=== PATIENT | male | born 1945 | race Caucasian/White ===

== ENCOUNTER 2016-11-19 22:35 | Inpatient (IN) ==
[2016-11-20] MEDS ORDERED: *HR* HYDROmorphone (PF) 1 MG/ML SYRINGE IVP ONE (02:40)
--- NOTE | 2016-11-20 02:44 | Internal Med History&Physical ---
<Randa Hills - Last Filed: 11/20/16 04:21> Date of Encounter: 11/20/16 Time of Encounter: 02:41 Assessment and Plan (1) Hip fracture Current visit: No Status: Acute pre-surgery clearance -urinalysis -drug screen -A1C -EKG - if abnormal, order limited echo -VBG supportive care -pain control -CIWA -nicotine patch Qualifiers: Encounter type: initial encounter Fracture type: closed Laterality: right Qualified Code(s): S72.001A - Fracture of unspecified part of neck of right femur, initial encounter for closed fracture (2) Alcohol abuse Current visit: Yes Status: Acute CIWA protocol (3) Diabetes Current visit: Yes Status: Acute A1C ordered SQ insulin Qualifiers: Diabetes mellitus type: type 2 Diabetes mellitus complication status: with unspecified complications Diabetes mellitus joint terminal attack controller insulin use: without joint terminal attack controller use Qualified Code(s): E11.8 - Type 2 diabetes mellitus with unspecified complications Internal Medicine - H&P: HPI Chief complaint: hip fracture Admitted From: Hospital to Hospital Transfer Plans for Post Hospital Care: Transfer Inp Rehab Fac History of present illness: Mr. Bassett is a 70 year old male with a PMH of DM, HTN, HLD, CVA, and L BKA who presented to [place] [facility] after a fall. He states that he was walking in to his house and was in the mud room when his right leg when out from underneath of him and he fell and hit his head. This is all that he remembers until he woke up an hour later and his was there. He was transferred to [place] for surgical treatment of a right hip fracture. He admits to drinking "as much as I can get my hands on, but beer only." - approximately 12 cans a day. He states that his last drink was the morning of his fall. Most recent CVA 2 years ago. Past Med Surg Social Fam HX - Past Medical History Medical history: CVA (x2), diabetes, hyperlipidemia, hypertension Psychiatric history: no psych history - Past Surgical History Surgical History: other (L BKA, R great toe amputation) - Social History Smoking Status: Current every day smoker Alcohol use: heavy, recent Drug use: none - Family History Father Living Status: Cause of : Unknown Hx Family Cardiac Disorders: No Hx Family Respiratory Disorders: No Hx Family Cancer: No Hx Family Endocrine Disorder: Yes Hx Family Medical Disorders: Yes Internal Medicine - H&P: Meds Amlodipine [Norvasc] 10 mg PO DAILY 11/19/16 [History] Aspirin/Calcium Carbonate/Mag [Aspirin Buffered 325 mg Tab] 325 mg PO DAILY [History] Furosemide [Lasix] 40 mg PO BID 11/19/16 [History] Gabapentin [Neurontin] 800 mg PO TID 11/19/16 [History] Pravastatin Sodium [Pravachol] 20 mg PO DAILY 11/19/16 [History] Tramadol HCl [Ultram] 100 mg PO QID 11/19/16 [History] GlipiZIDE XL (24 HR) [Glucotrol XL] 10 mg PO BID 11/20/16 [History] Oxygen 2 l .ROUTE AD 11/20/16 [History] Quetiapine Fumarate [SEROquel] 100 mg PO HS 11/20/16 [History] Allergies No Known Allergies Allergy (Verified 11/19/16 19:03) All Systems PM: A 10-system review of systems was performed and is negative for pertinent findings except as documented above in the HPI. - Constitutional Constitutional: no chills, no fever(s), no night sweats - EENT Eyes: no change in vision, no discharge, no pain, no photophobia Ears: no ear discharge, no ear pain, no tinnitus Nose, mouth and throat: no dysphagia, no nasal discharge, no neck pain, no sore throat - Cardiovascular Cardiovascular ROS IM: no chest pain, no diaphoresis, no dyspnea, no lightheadedness, no palpitations, no syncope - Respiratory Respiratory: cough, dyspnea on exertion, no dyspnea, no wheezing, no excessive phlegm production - Gastrointestinal Gastrointestinal: no abdominal pain, no diarrhea, no hematemesis, no hematochezia, no melena, no nausea, no vomiting - Musculoskeletal Musculoskeletal ROS IM: arthralgias, no numbness, no tingling - Integumentary Integumentary IM: no rash, no unusual bruising - Neurological Neurological ROS: headache(s), no confusion, no convulsions, no focal weakness, no numbness, no tingling, no tremor(s) - Hematologic/Lymphatic Hematologic/Lymphatic: no easy bruising - Constitutional Vitals: Temp Pulse Resp BP Pulse Ox 98.9 F 114 17 147/79 94 L 11/20/16 02:17 11/20/16 02:17 11/20/16 02:17 11/20/16 02:17 11/20/16 02:17 General appearance: Present: A&O X 3, no acute distress, answers questions appropriately - Head Head exam: Present: atraumatic, normocephalic - Eye Eye exam: Present: PERRL, conjuntiva pink, sclera anicteric Pupils: Present: PERRL - Neck Neck exam general surgery: Present: supple, trachea midline. Absent: lymphadenopathy - Expanded Neck Exam Neck exam: Absent: carotid bruit - Respiratory Respiratory exam: Present: rhonchi (coarse breath sounds throughout). Absent: accessory muscle use, rales, wheezes - Cardiovascular Cardiovascular exam: Present: RRR, +S1, +S2. Absent: diastolic murmur, gallop, rubs, systolic murmur - GI/Abdominal GI/Abdominal exam: Present: normal bowel sounds, soft, no peritoneal signs. Absent: distended, tenderness - Extremities Exam Extremities exam: Present: warm, radial pulses palpable and symetrical. Absent : calf tenderness, cyanotic, normal inspection (left BKA; right left externally rotated with diffuse pain to palpation), pedal edema - Neurological Exam Neurological exam: Present: CN II-XII intact, oriented X3, no focal deficits. Absent: pronater drift, facial droop, speech deficit - Skin Skin exam: Present: dry, intact <RossAgapito Addison - Last Filed: 11/24/16 00:12> Internal Medicine - H&P: HPI History of present illness: Mr. Bassett is a 70 year old male is admitted to [facility] as a hospital transfer from [facility] ED with chief complaint of acute right hip fracture following a mechanical fall. Patient was visited and interviewed and examined. For this encounter, I have reviewed the documentation, treatment plan, and medical decision making. I examined this patient and my medical decision-making was reviewed with the Resident Physician. I agree with the documented findings, disposition and treatment plan as described except to the extent set forth below. Cumulative laboratory and radiographic database was reviewed, considered and discussed. Given the patient's presenting concerns, past medical history, clinical findings and symptoms, he is admitted at this time to undergo further evaluation and disposition. Orders written. All Systems PM: A 10-system review of systems was performed and is negative for pertinent findings except as documented above in the HPI. - Constitutional Vitals: Temp Pulse Resp BP Pulse Ox 98.7 F 107 16 137/67 93 L 11/23/16 22:57 11/23/16 22:57 11/23/16 22:57 11/23/16 22:57 11/23/16 22:57 Internal Med - H&P Results - Labs CBC & Chem 7: 11/23/16 06:12 11/23/16 06:12 Labs: Short CBC 11/23/16 Range/Units 06:12 WBC 16.4 H (4.3-11.1) K/mcL Hgb 11.6 L (12.9-16.9) g/dL Hct 35.1 L (37.5-50.1) % Plt Count 231 (140-400) K/mcL Neutrophils # 10.5 H (1.6-8.9) K/mcL BMP 11/23/16 06:12 Sodium 135 L Potassium 3.5 Chloride 107 Carbon Dioxide 21 BUN 17 Creatinine 1.15 Glucose 58 L Calcium 7.8 L Abnormal lab results WBC 16.4 K/mcL (4.3-11.1) H 11/23/16 06:12 RBC 3.74 M/mcL (4.19-5.50) L 11/23/16 06:12 Hgb 11.6 g/dL (12.9-16.9) L 11/23/16 06:12 Hct 35.1 % (37.5-50.1) L 11/23/16 06:12 Neutrophils # 10.5 K/mcL (1.6-8.9) H 11/23/16 06:12 Monocytes # 2.8 K/mcL (0.0-1.3) H 11/23/16 06:12 VBG pCO2 40 mmHg (41-51) L 11/21/16 07:27 VBG pO2 66 mmHg (25-40) H 11/21/16 07:27 Sodium 135 mEq/L (136-145) L 11/23/16 06:12 Glucose 58 mg/dL (70-99) L 11/23/16 06:12 POC Glucose 229 (58-89) H 11/22/16 21:06 Hemoglobin A1c 7.4 % (-5.6) H 11/20/16 04:09 Calculated Osmolality 279 (280-300) L 11/23/16 06:12 Calcium 7.8 mg/dL (8.6-10.8) L 11/23/16 06:12 Urine Protein 30 mg/dL (Neg-Trace) H 11/20/16 07:05 Urine Ketones Trace mg/dL (Negative) H 11/20/16 07:05 Urine Blood Moderate (Negative) H 11/20/16 07:05 Urine Microscopic RBC 5-15 per hpf (0-3) H 11/20/16 07:05 Ur Squamous Epith Cells Many per lpf (None-Few) H 11/20/16 07:05 Laboratory Last Values WBC 16.4 K/mcL (4.3-11.1) H 11/23/16 06:12 RBC 3.74 M/mcL (4.19-5.50) L 11/23/16 06:12 Hgb 11.6 g/dL (12.9-16.9) L 11/23/16 06:12 Hct 35.1 % (37.5-50.1) L 11/23/16 06:12 MCV 93.9 fL (83.0-100.0) 11/23/16 06:12 MCH 31.0 pg (28.0-33.3) 11/23/16 06:12 MCHC 33.0 g/dL (31.6-35.5) 11/23/16 06:12 RDW 13.7 % (11.5-14.5) 11/23/16 06:12 Plt Count 231 K/mcL (140-400) 11/23/16 06:12 MPV 9.9 fL (9.4-12.4) 11/23/16 06:12 Immature Gran % 0.9 % (0-4) 11/23/16 06:12 Seg Neutrophils % 64.3 % 11/23/16 06:12 Lymphocytes % 15.8 % 11/23/16 06:12 Monocytes % 16.9 % 11/23/16 06:12 Eosinophils % 1.6 % 11/23/16 06:12 Basophils % 0.5 % 11/23/16 06:12 Neutrophils # 10.5 K/mcL (1.6-8.9) H 11/23/16 06:12 Lymphocytes # 2.6 K/mcL (0.6-4.6) 11/23/16 06:12 Monocytes # 2.8 K/mcL (0.0-1.3) H 11/23/16 06:12 Eosinophils # 0.3 K/mcL (0.0-0.6) 11/23/16 06:12 Basophils # 0.1 K/mcL (0.0-0.2) 11/23/16 06:12 PT 11.9 Seconds (9.4-12.1) 11/20/16 17:20 INR 1.1 11/20/16 17:20 VBG pH 7.41 pH Units (7.32-7.42) 11/21/16 07:27 VBG pCO2 40 mmHg (41-51) L 11/21/16 07:27 VBG pO2 66 mmHg (25-40) H 11/21/16 07:27 VBG HCO3 25.4 mEq/L (21-27) 11/21/16 07:27 Sodium 135 mEq/L (136-145) L 11/23/16 06:12 Potassium 3.5 mEq/L (3.5-4.5) 11/23/16 06:12 Chloride 107 mEq/L (98-109) 11/23/16 06:12 Carbon Dioxide 21 mEq/L (19-29) 11/23/16 06:12 BUN 17 mg/dL (8-26) 11/23/16 06:12 Creatinine 1.15 mg/dL (0.72-1.25) 11/23/16 06:12 Est GFR ( Amer) > 60 (> 60) 11/23/16 06:12 Est GFR (Non-Af Amer) > 60 (> 60) 11/23/16 06:12 BUN/Creatinine Ratio 15 (6-26) 11/23/16 06:12 Glucose 58 mg/dL (70-99) L 11/23/16 06:12 POC Glucose 229 (58-89) H 11/22/16 21:06 Est Mean Plasma Glucose 166 mg/dl 11/20/16 04:09 Hemoglobin A1c 7.4 % (-5.6) H 11/20/16 04:09 Calculated Osmolality 279 (280-300) L 11/23/16 06:12 Calcium 7.8 mg/dL (8.6-10.8) L 11/23/16 06:12 Phosphorus 2.6 mg/dL (2.3-4.7) 11/23/16 06:12 Magnesium 2.1 mg/dL (1.6-2.6) 11/23/16 06:12 Triglycerides 113 mg/dL (< 150) 11/20/16 04:09 Cholesterol 121 mg/dL (< 200) 11/20/16 04:09 LDL Cholesterol, Calc 55 mg/dL (0-99) 11/20/16 04:09 VLDL Cholesterol, Calc 23 mg/dL (< 31) 11/20/16 04:09 HDL Cholesterol 43 mg/dL (40-59) 11/20/16 04:09 Cholesterol/HDL Ratio 2.8 (0-4.9) 11/20/16 04:09 Urine Color Yellow (Yellow) 11/20/16 07:05 Urine Clarity Clear (Clear) 11/20/16 07:05 Urine pH 5.5 pH Units (5.0-8.0) 11/20/16 07:05 Ur Specific [place] 1.014 (1.010-1.025) 11/20/16 07:05 Urine Protein 30 mg/dL (Neg-Trace) H 11/20/16 07:05 Urine Glucose (UA) Normal mg/dL (Normal) 11/20/16 07:05 Urine Ketones Trace mg/dL (Negative) H 11/20/16 07:05 Urine Blood Moderate (Negative) H 11/20/16 07:05 Urine Nitrite Negative (Negative) 11/20/16 07:05 Urine Bilirubin Negative (Negative) 11/20/16 07:05 Urine Urobilinogen Normal mg/dL (Normal) 11/20/16 07:05 Ur Leukocyte Esterase Negative (Negative) 11/20/16 07:05 Urine Microscopic RBC 5-15 per hpf (0-3) H 11/20/16 07:05 Urine Microscopic WBC 0-3 per hpf (0-3) 11/20/16 07:05 Ur Squamous Epith Cells Many per lpf (None-Few) H 11/20/16 07:05 Urine Bacteria None Seen per hpf (None-Few) 11/20/16 07:05 Urine Opiates Screen Negative ng/mL (Dkbjke=711) 11/20/16 07:05 Ur Barbiturates Screen Negative ng/mL (Tgtswc=872) 11/20/16 07:05 Ur Phencyclidine Scrn Negative ng/mL (Cutoff=25) 11/20/16 07:05 Ur Amphetamines Screen Negative ng/mL (Ymevbr=9749) 11/20/16 07:05 U Benzodiazepines Scrn Negative ng/mL (Fehkij=255) 11/20/16 07:05 Urine Cocaine Screen Negative ng/mL (Cutoff= 300) 11/20/16 07:05 U Marijuana (THC) Screen Negative ng/mL (Cutoff = 50) 11/20/16 07:05 Ethyl Alcohol < 10 mg/dL (0-10) 11/20/16 04:09 - ABG Interpretation ABG results: 11/21/16 07:27 VBG pH 7.41 VBG pCO2 40 L VBG pO2 66 H VBG HCO3 25.4 - Impressions ITS Impressions Hip X-Ray 11/21/16 12:37 IMPRESSION: Satisfactory alignment right hip arthroplasty. D/ / Bashir Lynn MD / Bashir Lynn MD Interpreting Provider: Bashir Lynn MD Videofluoroscopic Swallow 11/23/16 00:01 IMPRESSION: Aspiration demonstrated with clear liquids. Please see separate speech pathology report for full discussion of findings and recommendations. D/ / 11/23/2016 09:53:32 Shalonda Colin MD / Rhoda Jules Interpreting Provider: Shalonda Colin MD Hip X-Ray 11/21/16 12:37 IMPRESSION: Satisfactory alignment right hip arthroplasty. D/ / Bashir Lynn MD / Bashir Lynn MD Interpreting Provider: Bashir Lynn MD Videofluoroscopic Swallow 11/23/16 00:01 IMPRESSION: Aspiration demonstrated with clear liquids. Please see separate speech pathology report for full discussion of findings and recommendations. D/ / 11/23/2016 09:53:32 Shalonda Colin MD / Rhoda Jules Interpreting Provider: Shalonda Colin MD - Attending Attestation My signature below is to certify that this patient is under my care and that I, or the Resident Physician working with me, has had a [id number] encounter with this patient. Plan of care has been reviewed and discussed in detail with the patient. Questions addressed. Advance care directive discussion briefly addressed. Patient does not declare any healthcare restrictions at this time. Outpatient medications schedules will be reviewed, confirmed and facilitated as appropriate. Reconciliation of home treatments including adjustments, substitutions and reintroduction his treatment regimen will address necessary maintenance therapies for chronic pre-existing medical conditions. Smoking cessation counseling briefly addressed. Patient accepts nicotine substitution during this admission. History of alcohol dependency briefly addressed. The patient accepts alcohol withdrawal/detoxification protocols/surveillance during this admission. Hospital course will be dependent upon clinical findings, treated response and potential consultative interventions. The patient is at risk for acute clinical decline and morbidity given that this presenting chief complaint, findings and comorbidities. Condition is serious. Prognosis is cautiously optimistic. CODE STATUS is full.
[2016-11-20] MEDS ORDERED: *HR* OxyCODONE Immed Rel 5 MG TABLET PO PRN ×2 (03:40→06:29)
[2016-11-20] MEDS ORDERED: Naloxone 0.4 MG/ML INJ IVP PRN (03:40)
[2016-11-20] MEDS ORDERED: *HR* HYDROmorphone (PF) 1 MG/ML SYRINGE IVP PRN ×2 (03:40→06:28)
[2016-11-20] MEDS ORDERED: Acetaminophen 325 MG TABLET PO PRN (03:40)
[2016-11-20] MEDS ORDERED: Ondansetron ODT 4 MG TAB.RAPDIS SL PRN (03:40)
[2016-11-20] MEDS ORDERED: *HR* Promethazine 25 MG/ML VIAL IVP PRN (03:46)
[2016-11-20] MEDS ORDERED: *HR* LORazepam 2 MG/ML VIAL IVP PRN ×3 (03:46)
[2016-11-20] MEDS ORDERED: Dextrose Gel 15 GM PO PRN ×2 (04:18)
[2016-11-20] MEDS ORDERED: *HR* Dextrose 50 % in Water (Syg) 50 ML SYRINGE IVP PRN (04:18)
[2016-11-20] MEDS ORDERED: D5% in Water 1,000 ML IV PRN (04:18)
[2016-11-20 04:46] LABS: Hemoglobin A1C 7.4 %
[2016-11-20 04:49] LABS: Chol/HDL Ratio 2.8 (0-4.9); Cholesterol 121 mg/dL (< 200); HDL Cholesterol 43 mg/dL (40-59); LDL Cholesterol,Calculated 55 mg/dL (0-99); Triglycerides 113 mg/dL (< 150)
[2016-11-20 04:51] LABS: Ethanol < 10 mg/dL (0-10)
[2016-11-20] MEDS ORDERED: 0.9 % Sodium Chloride 1,000 ML IVC SCH (06:30)
[2016-11-20] MEDS ORDERED: *HR* HYDROmorphone (PF) 1 MG/ML SYRINGE IVP STA (06:55)
[2016-11-20] MEDS ORDERED: Albuterol 2.5 MG/3 ML NEBULIZER IH PRN (06:58)
[2016-11-20] MEDS: Insulin LISPRO 300 UNITS/3 ML VIAL SQ SCH ×6 (07:14→17:44)
[2016-11-20 07:42] LABS: Bilirubin,Urine Negative (Negative); Blood,Urine Moderate (Negative); Clarity,Urine Clear (Clear); Color,Urine Yellow (Yellow); Glucose,Urine (UA) Normal (Normal); Ketones,Urine Trace mg/dL (Negative); Leukocyte Esterase,Urine Negative (Negative); Nitrite,Urine Negative (Negative); PH,Urine 5.5 pH Units (5.0-8.0); Protein,Urine 30 mg/dL (Neg-Trace); Specific Gravity,Urine 1.014 (1.010-1.025); Urobilinogen,Urine Normal (Normal)
[2016-11-20 07:45] LABS: Bacteria,Urine None Seen per hpf (None-Few); Squamous Epithelial Cell,Urine Many per lpf (None-Few); WBC,Urine 0-3 per hpf (0-3)
[2016-11-20 07:54] LABS: Amphetamine Screen,Urine Negative ng/mL (Cutoff=1000); Barbiturate Screen,Urine Negative ng/mL (Cutoff=200); Benzodiazepines Screen,Urine Negative ng/mL (Cutoff=200); Cannabinoid Screen,Urine Negative ng/mL (Cutoff = 50); Cocaine Screen,Urine Negative ng/mL (Cutoff= 300); Opiate Screen,Urine Negative ng/mL (Cutoff=300); Phencyclidine Screen,Urine Negative ng/mL (Cutoff=25)
[2016-11-20] MEDS: Gabapentin 400 MG CAPSULE PO SCH ×3 (08:00→20:46)
[2016-11-20] MEDS ORDERED: *HR* Heparin 5,000 UNIT/ML VIAL SQ SCH (08:00)
[2016-11-20] MEDS ORDERED: Nicotine 7 MG PATCH.TD24 TD SCH (09:00)
[2016-11-20] MEDS ORDERED: amLODIPine 5 MG TABLET PO SCH (09:00)
[2016-11-20] MEDS ORDERED: Vitamin B Complex/Vit C/Vit E 1 EACH TABLET PO SCH (09:00)
[2016-11-20] MEDS ORDERED: Folic Acid 1 MG TABLET PO SCH (09:00)
[2016-11-20] MEDS ORDERED: Thiamine (B-1) 100 MG, Folic Acid 1 MG, MVI, adult with vitamin K 10 ML in 0.9 % Sodi... IV SCH (09:00)
[2016-11-20] MEDS ORDERED: Thiamine (B-1) 100 MG TABLET PO SCH (09:00)
[2016-11-20] MEDS ORDERED: Nicotine 21 MG PATCH.TD24 TD SCH (09:00)
[2016-11-20] MEDS: Ipratropium/Albuterol Neb 3 ML IH SCH ×3 (12:08→23:09)
--- NOTE | 2016-11-20 13:10 | Orthopedic Consult Note ---
Date of Encounter: 11/20/16 Time of Encounter: 13:02 History of Present Illness Chief complaint: Right hip pain HPI: Mr. Bassett is a 70 year old male sustained an injury to his right hip when he fell walking outside of his home yesterday. He was seen initially at [facility] was noted to have a right hip fracture. He was transferred to [facility] to patient's request for definitive management. The patient has a significant medical history of diabetes and diabetic related lower extremity complications including a left below-knee amputation. The patient states that he ambulates with a left BKA prosthesis without difficulty. He is also sustained amputation of toe from his right foot. Past medical history in addition to diabetes includes COPD hypertension hyperlipidemia to previous surgery vascular accidents as well as alcohol abuse. A complete history and physical data please see the completed medical record. His examination reveals a 70-year-old gentleman in moderate distress secondary to right hip pain. Unable to validate leg length deformity due to the inability to compare to his left below-knee amputation. Distal pulses are not palpable. There is minimal edema. I reviewed x-rays from [facility]. Patient related a displaced right femoral neck fracture with shortening. He had remained seated in the acetabulum. Laboratory data includes a hemoglobin of 14.6 with a blood cell count of 17.6 with 15.5 neutrophils.Hemoglobin A1c is 7.4. Kidney function is mildly diminished. Impression: Acute displaced right femoral neck fracture Recommendation: I discussed the fracture with the patient and the treatment options. This is a surgical fracture and options are to either proceed with a attempted closed reduction and percutaneous pinning which would be a smaller surgery but require a potentially prolonged nonweightbearing status with the possibility of nonunion and even avascular necrosis of the femoral head. The other option would be to proceed with a hemiarthroplasty of the hip which should be a more significant surgical procedure but would allow immediate full weightbearing ambulation. Discussed the procedures in detail and I answered all questions patient may have. He elected to proceed with a hemiarthroplasty of the hip. We did discuss the potential risks and complications including but not limited to bleeding infection blood clots nerve injury stiffness and rotational or leg length deformities. Patient is quite aware of these and has signed informed consent to proceed with surgery. We will proceed with surgery tomorrow when operating time is available. Thank you very much for allowing me to see and care for Mr. Bassett. Sincerely , Shaun Pittman,DO Past Med Surg Social Fam HX - Past Medical History Medical history: CVA (x2), diabetes, hyperlipidemia, hypertension Psychiatric history: no psych history - Past Surgical History Surgical History: other (L BKA, R great toe amputation) - Social History Smoking Status: Current every day smoker Alcohol use: heavy, recent Drug use: none - Family History Father Living Status: Cause of : Unknown Hx Family Cardiac Disorders: No Hx Family Respiratory Disorders: No Hx Family Cancer: No Hx Family Endocrine Disorder: Yes Hx Family Medical Disorders: Yes Medications and Allergies Amlodipine [Norvasc] 10 mg PO DAILY 11/19/16 [History] Aspirin/Calcium Carbonate/Mag [Aspirin Buffered 325 mg Tab] 325 mg PO DAILY [History] Furosemide [Lasix] 40 mg PO BID 11/19/16 [History] Gabapentin [Neurontin] 3 tab PO TID 11/19/16 [History] GlipiZIDE [Glipizide] 10 mg PO BID 11/19/16 [History] Pravastatin Sodium [Pravachol] 20 mg PO DAILY 11/19/16 [History] Tramadol HCl [Ultram] 150 mg PO Q4-6H 11/19/16 [History] Allergies No Known Allergies Allergy (Verified 11/19/16 19:03) All Systems Reviewed: A 10-system review of systems was performed and is negative for pertinent findings except as documented above in the HPI. Physical Exam - Constitutional Vitals: Temp Pulse Resp BP Pulse Ox 98.0 F 101 16 137/75 94 L 11/20/16 11:40 11/20/16 11:40 11/20/16 11:40 11/20/16 11:40 11/20/16 11:40 Results - Labs Labs: Abnormal lab results Hemoglobin A1c 7.4 % (-5.6) H 11/20/16 04:09 Urine Protein 30 mg/dL (Neg-Trace) H 11/20/16 07:05 Urine Ketones Trace mg/dL (Negative) H 11/20/16 07:05 Urine Blood Moderate (Negative) H 11/20/16 07:05 Urine Microscopic RBC 5-15 per hpf (0-3) H 11/20/16 07:05 Ur Squamous Epith Cells Many per lpf (None-Few) H 11/20/16 07:05 All other labs normal. Consult Discharge Plan - Plan Referrals: Grayson Parnell, SHAHEEN [Primary Care Provider] -
--- NOTE | 2016-11-20 17:23 | Event Note ---
Date of Encounter: 11/20/16 Time of Encounter: 17:00 70-year-old male with history of chronic alcohol abuse, tobacco use, hypertension, diabetes and COPD, presents after sustaining a fall, with right hip pain. He was noted to have sustained a displaced right femoral neck fracture. Explained patient seen and examined at bedside. Awake, alert and oriented 3. Reports severe pain in right hip and thigh, not controlled with current pain medication regimen. No anxiety, tremors, hallucinations. Chest-S1, S2 heard. Tachycardia. Lungs are clear to auscultation. Right hip-tenderness over the lateral right hip. Right lower extremity in abduction and external rotation. Will repeat CBC, BMP, magnesium. EKG shows sinus tachycardia, no acute ischemic changes. Right bundle branch block. Acute displaced right femoral neck fracture-orthopedic surgery consulted, scheduled for right hip hemiarthroplasty tomorrow. Patient is at mild to moderate perioperative risk. We will increase Dilaudid to 1 mg every 2 hourly and continue oxycodone 10 mg every 4 hourly when necessary for pain. Physical and occupation therapy evaluation after surgery. Chronic alcohol abuse-high risk for alcohol withdrawal. Continue CIWA protocol. Currently no signs or symptoms of alcohol withdrawal.
[2016-11-20 17:27] LABS: Basophils % 0.1 %; Hematocrit 41.3 % (37.5-50.1); Hemoglobin 14.1 g/dL (12.9-16.9); Immature Granulocytes % 0.7 % (0-4); Lymphocytes # 2.2 K/mcL (0.6-4.6); Lymphocytes % 10.6 %; Mean Corpuscular HGB Conc 34.1 g/dL (31.6-35.5); Mean Corpuscular Hemoglobin 30.9 pg (28.0-33.3); Mean Corpuscular Volume 90.4 fL (83.0-100.0); Mean Platelet Volume 9.4 fL (9.4-12.4); Monocytes # 2.4 K/mcL (0.0-1.3); Monocytes % 11.5 %; Neutrophils # 15.8 K/mcL (1.6-8.9); Platelet Count 293 K/mcL (140-400); Red Blood Count 4.57 M/mcL (4.19-5.50); Red Cell Distribution Width 13.1 % (11.5-14.5); Segmented Neutrophils % 77.1 %
[2016-11-20 17:32] LABS: INR 1.1; Prothrombin Time 11.9 Seconds (9.4-12.1)
[2016-11-20 17:38] LABS: BUN/Creatinine Ratio 14 (6-26); Blood Urea Nitrogen 19 mg/dL (8-26); Calcium 8.4 mg/dL (8.6-10.8); Carbon Dioxide 20 mEq/L (19-29); Chloride 98 mEq/L (98-109); Glucose 142 mg/dL (70-99); Magnesium 1.7 mg/dL (1.6-2.6); Osmolality,Calculated 281 (280-300); Potassium 3.1 mEq/L (3.5-4.5); Sodium 133 mEq/L (136-145); eGFR For African Americans > 60 (> 60); eGFR For Non-African Americans 50 (> 60)
[2016-11-20] MEDS: *HR* OxyCODONE Immed Rel 5 MG TABLET PO PRN ×2 (17:55→22:58)
[2016-11-20] MEDS ORDERED: *HR* OxyCODONE Immed Rel 5 MG TABLET PO SCH (20:00)
[2016-11-20] MEDS: *HR* HYDROmorphone (PF) 1 MG/ML SYRINGE IVP PRN (20:46)
[2016-11-20] MEDS ORDERED: Insulin DETEMIR 100 UNIT/ML X5UNITS SQ SCH (21:00)
[2016-11-21] MEDS: Insulin LISPRO 300 UNITS/3 ML VIAL SQ SCH ×5 (00:15→23:29)
[2016-11-21] MEDS: *HR* HYDROmorphone (PF) 1 MG/ML SYRINGE IVP PRN ×3 (00:16→19:54)
[2016-11-21] MEDS: Ipratropium/Albuterol Neb 3 ML IH SCH ×4 (03:37→22:06)
[2016-11-21] MEDS ORDERED: Lidocaine -MPF 4% 5 ML AMPUL ONE (07:24)
[2016-11-21] MEDS ORDERED: *HR* FentaNYL (PF) 100 MCG/2 ML VIAL ONE (07:24)
[2016-11-21] MEDS ORDERED: Lidocaine -MPF 2% 2 ML VIAL ONE (07:24)
[2016-11-21] MEDS ORDERED: *HR* Succinylcholine 200 MG/10 ML VIAL IVP ONE (07:24)
[2016-11-21] MEDS ORDERED: *HR* Midazolam HCl 2 MG/2 ML VIAL ONE (07:25)
[2016-11-21] MEDS ORDERED: *HR* Propofol 200 MG/20 ML VIAL IVP ONE (07:25)
[2016-11-21 07:35] LABS: VBG HCO3 25.4 mEq/L (21-27); VBG PH 7.41 pH Units (7.32-7.42)
[2016-11-21] MEDS ORDERED: Acetaminophen IV 1,000 MG/100 ML INFUS..BTL ONE (07:37)
--- NOTE | 2016-11-21 07:41 | Anesthesia Evaluation PreOp ---
Date of Encounter: 11/21/16 Time of Encounter: 07:40 - Past History Planned Operation: R-ana Hip Cardiac History: HTN (maintained on Norvasc, Lasix), Hyperlipidemia (maintained on Pravachol) Pulmonary History: Smoker (<1ppd x 60yrs), COPD [place] History: CVA (CVA x 2. Most recent CVA 2014), Paresis (R-hemiparesis), Other (Diabetic Neuropathy/chronic pain - maintained on Gabapentin) Other Medical History: Hepatic (EtOH liver dz?,), Diabetes Type II (maintained on oral anti-hyperglycemics) Anesthesia History: No Prior Anesthetic Complications, Past Anesthesia (L-BKA, R -great toe amputation) Alcohol Use: heavy (EtOH [Beer} abuse. [facility] protocol this admission), recent Drug use: none Medications and Allergies Amlodipine [Norvasc] 10 mg PO DAILY 11/19/16 [History] Aspirin/Calcium Carbonate/Mag [Aspirin Buffered 325 mg Tab] 325 mg PO DAILY [History] Furosemide [Lasix] 40 mg PO BID 11/19/16 [History] Gabapentin [Neurontin] 800 mg PO TID 11/19/16 [History] Pravastatin Sodium [Pravachol] 20 mg PO DAILY 11/19/16 [History] Tramadol HCl [Ultram] 100 mg PO QID 11/19/16 [History] GlipiZIDE XL (24 HR) [Glucotrol XL] 10 mg PO BID 11/20/16 [History] Oxygen 2 l .ROUTE AD 11/20/16 [History] Quetiapine Fumarate [SEROquel] 100 mg PO HS 11/20/16 [History] Allergies No Known Allergies Allergy (Verified 11/19/16 19:03) - Meds/Allergy Pre-op Review Medications Reviewed: Yes Allergies Reviewed: Yes Beta Blockers on Current Med List: No Anesthesia Results - Labs 11/20/16 17:20 11/20/16 17:20 Laboratory Tests 11/19/16 11/20/16 11/20/16 22:00 04:09 17:20 PT 11.9 INR 1.1 APTT 35.2 POC Glucose Est Mean Plasma Glucose 166 Hemoglobin A1c 7.4 H 11/21/16 07:39 PT INR APTT POC Glucose 127 H Est Mean Plasma Glucose Hemoglobin A1c - Imaging EKG: pending, image reviewed (105bpm STach, borderline LAD, RBBB) Anesthesia Exam Vital Signs Temp Pulse Resp BP Pulse Ox 11/21/16 06:26 99.3 F 120 18 151/80 93 L 11/21/16 04:00 97.5 F L 106 17 151/81 96 11/21/16 00:00 97.9 F 95 18 155/85 95 11/20/16 23:09 20 89 L 11/20/16 20:00 98.0 F 98 19 151/85 94 L 11/20/16 16:14 20 92 L 11/20/16 15:56 98.0 F 102 20 158/84 91 L 11/20/16 12:08 18 158/84 94 L 11/20/16 11:40 98.0 F 101 16 137/75 94 L Intake and Output 11/20/16 11/20/16 11/21/16 15:59 23:59 07:59 Intake Total 240 / 240 911.2 / 911.2 Output Total 1475 / 1475 2950 / 2950 Balance -1235 / -1235 911.2 / 911.2 -2950 / -2950 Intake: IV Fluids 511.2 / 511.2 Vitamin B-1 100 MG 511.2 / 511.2 Folvite 1 MG M.v.i. Adult 10 ml In 0.9 % Sodium Chloride 500 ML @ 85.2 mls/hr IV DAILY [facility] Rx#: [id number] Oral 240 / 240 400 / 400 Output: Catheter 1475 / 1475 2950 / 2950 Other: Meal Lunch Percent of Meal Consumed 75% 15% Blood Glucose* 195 135 135 Height: 6'0 Weight: 248# BMI = 33.6 - HEENT Pupil (Motor): Pupils equal, EOMI Mallampati: II Teeth: Edentulous Oral Opening: Greater than 3 - [place] LOC: Oriented [place] Motor: Normal RUE, Normal LUE, Normal RLE, Normal LLE, Normal Face [place] Sensory: Normal: RUE, LUE, RLE, LLE, Face - Cardiac Rhythm: Regular Murmur: None - Pulmonary Breath Sounds: bilateral Clear Respiratory Effort: Symmetrical Anesthesia Assess/Plan ASA Score: 3 Modified Arnulfo Scale for Level of Consciousness: Cooperative, oriented, and tranquil Anesthetic Plan: General Monitoring Plan: Standard Monitors Recovery Plan: PACU Anes Supervising Prov Stmt: Pt seen/evaluated, R&B discussed, questions answered and consent obtained. Talia Murphy MD
[2016-11-21] MEDS ORDERED: ceFAZolin 2,000 MG in D5% in Water 100 ML IVPB ONE (08:00)
[2016-11-21] MEDS ORDERED: *HR* Magnesium Sulfate 1 GM/2 ML VIAL ONE (08:59)
[2016-11-21] MEDS ORDERED: *HR* HYDROmorphone 2 MG/ML SYRINGE ONE (09:05)
[2016-11-21] MEDS ORDERED: Ondansetron 4 MG/2 ML VIAL ONE (09:22)
[2016-11-21] MEDS ORDERED: Dexamethasone 4 MG/ML VIAL ONE (09:22)
[2016-11-21] MEDS ORDERED: Ipratropium/Albuterol Neb 3 ML IH STA (10:52)
[2016-11-21] MEDS ORDERED: *HR* Labetalol 100 MG/20 ML MDV IVP PRN (10:56)
[2016-11-21] MEDS ORDERED: *HR* Promethazine 25 MG/ML VIAL IVP PRN ×2 (10:56→12:37)
--- NOTE | 2016-11-21 11:31 | Operative Note ---
Date of procedure: 11/21/16 Pre-op diagnosis: Right femoral neck fracture Post-op diagnosis: same Procedure: Hemiarthroplasty right hip Implants: Cemented Bud size 16 LD/FX stem with a neutral adapter a 54 mm unipolar endoprosthesis and a 15 mm distal centralizer Complications: None Anesthesia: JESSICAA Surgeon: Shaun Pittman Estimated blood loss (cc): 100 Specimen: None Condition: stable Disposition: PACU Procedure in Detail: Gross findings: Preoperative x-rays revealed a displaced femoral neck fracture in this 70-year-old gentleman. Arthritic changes were noted. Intraoperative endings were as anticipated with a comminuted right femoral neck fracture. Bone quality was good. A cemented unipolar hemiarthroplasty was performed without complicating features with a stable hip obtained. Procedure: Patient was taken to the operating room and administered a general anesthesia on the hospital bed. Patient was now transferred to the operating table. Patient was placed in the lateral recumbent position with the right side up and stabilized with a lateral hip stabilizing system. All pressure points were well padded. Right hip was now prepped and draped in normal standard fashion for surgery. Right lateral hip incision was made. Dissection was carried to the subcutaneous tissue to the level of the fascial josue. Fashion was split parallel with its fibers. Charnley retractor was placed maintaining exposure. Bursa was excised as necessary. Anterior abductors were taken down off the trochanter and tagged with #2 FiberWire suture for traction and later repair. Capsule was taken down in a similar fashion and superior capsulotomy was made up to the level of the acetabulum. Femoral head was removed from the acetabulum and sized to a 54. Acetabulum was cleaned of clot and debris with pulsatile lavage and mechanical debridement and then sized to a 54 with the head sizing device. He was placed in the acetabulum and attention was paid to the femur. Box osteotome was utilized to open up the medial trochanter. T-handled reamer was passed down the canal. Canal was sequentially rasped up to and including a size 16. Calcar reaming was then performed with power reamers. Trial reduction was performed and a 16 stem with a neutral neck adapter and a 54 mm head size were selected. All trial components were removed. Distal cement restrictor was placed. Femoral canal was irrigated with pulsatile lavage utilizing the femoral brush and dried with a combination of suction and femoral sponge. At the back table cement was mixed and appropriate time the cement was instilled into the femur in a retrograde manner which is then pressurized proximally for about 10 seconds. The assembled distal centralizer and stem were then placed into the cement and impacted until the collar sat firmly on the medial femoral calcar in a neutral position. Excess cement was removed. Cement was allowed to fully harden. Final irrigation and washout of the acetabulum and the hip was performed followed by drying the Hernandez taper on this femoral stem with clean dry sponge. The adapter and head were then placed onto the Hernandez taper and impacted with 3 sharp blows of the mallet. Hip was now reduced. Stable reduction was obtained. With implants in place attention was now paid to closure. Shot of the hip was performed. Capsule was then closed with #2 FiberWire. Abductors were then repaired to the trochanter with the previous placed #2 FiberWire and reinforced with #2 Quill. Fascia josue was encloses several figure -of-eight stitch of #2 FiberWire followed by running #2 Quill. Deep subtendinous tissue was closed with running #2 Quill. Medius subtendinous tissue closes several inverted interrupted 2-0 undyed Vicryl followed by skin approximation with a running septic stitch of 20 Quill and then reinforced with skin glue. Once the glue had hardened operative foam was applied and secured. Patient was placed into an abduction pillow while on the operating table. Patient was then transferred to the hospital bed. Patient was then awakened from anesthesia extubated and transferred to the post anesthesia care unit in stable and satisfactory condition. All sponge and needle NH been counts were correct. No specimens were sent for pathology.
[2016-11-21] MEDS ORDERED: *HR* Dextrose 50 % in Water (Syg) 50 ML SYRINGE IVP PRN (12:37)
[2016-11-21] MEDS ORDERED: D5% in Water 1,000 ML IV PRN (12:37)
[2016-11-21] MEDS ORDERED: Dextrose Gel 15 GM PO PRN ×2 (12:37)
[2016-11-21] MEDS ORDERED: Ondansetron ODT 4 MG TAB.RAPDIS SL PRN (12:37)
[2016-11-21] MEDS ORDERED: Naloxone 0.4 MG/ML INJ IVP PRN (12:37)
[2016-11-21] MEDS ORDERED: Albuterol 2.5 MG/3 ML NEBULIZER IH PRN (12:37)
[2016-11-21] MEDS ORDERED: *HR* LORazepam 2 MG/ML VIAL IVP PRN ×3 (12:37)
[2016-11-21] MEDS ORDERED: Acetaminophen 325 MG TABLET PO PRN (12:37)
--- NOTE | 2016-11-21 13:44 | Anesthesia Evaluation Post Op ---
Date of Encounter: 11/21/16 Time of Encounter: 11:45 - Vital Signs Vital Signs: Vital Signs/O2 Sat/Glucose, Most Current Temp Pulse Resp BP Pulse Ox 11/21/16 12:15 98.3 F 107 21 133/66 94 L 11/21/16 12:02 98.0 F 95 12 113/75 95 11/21/16 11:48 97.6 F 93 11 128/72 94 L 11/21/16 11:40 12 130/66 93 L 11/21/16 11:38 94 12 130/66 88 L 11/21/16 11:28 99 12 131/76 87 L 11/21/16 11:18 98.7 F 104 14 141/74 91 L 11/21/16 11:08 103 14 139/76 88 L 11/21/16 10:58 92 14 129/70 90 L 11/21/16 10:48 100.4 F H 95 12 127/70 88 L - Lungs Lungs: Treatment Ordered - Airway Airway: Non-obstructed ( w/CPAP use) - Cardiovascular Baseline Rhythm - Mental Status Mental Status: Uncooperative - Pain Pain Scale: 1 Pain Scale used: Patel-De Leon (Faces) - Nausea Vomiting Nausea Vomiting: Not Present - Hydration Hydration: NPO, Yousif catheter - Discharge PostOp Status: Transfer Patient to floor Anes Supervising Prov Stmt: Pt seen/evaluated, VSS and pt has met criteria for discharge to floor. - MD Jeffrey
--- NOTE | 2016-11-21 14:49 | Internal Med Progress Note ---
Date of Encounter: 11/21/16 Time of Encounter: 14:47 - Assessment and plan (1) Hip fracture Current Visit: Yes Status: Acute Assessment and plan: Right femoral neck fracture status post right hip hemiarthroplasty, postoperative day 0. Orthopedic surgery on board. Postoperative wound care per orthopedics. Pain control with when necessary IV Dilaudid and oral oxycodone. Diet as tolerated. Wean off BiPAP and placed on nasal cannula. Physical and occupational therapy evaluation. Qualifiers: Encounter type: initial encounter Fracture type: closed Laterality: right Qualified Code(s): S72.001A - Fracture of unspecified part of neck of right femur, initial encounter for closed fracture (2) Leukocytosis Current Visit: Yes Status: Acute Assessment and plan: Patient is noted to have worsening leukocytosis with mild neutrophilia, no bandemia. He does not appear septic. Chest x-rays since admission showed no evidence of focal infiltrates. Urine dipstick is not suggestive of UTI. No other source of infection is noted at this time. Likely stress related. Continue to monitor. Qualifiers: Leukocytosis type: unspecified Qualified Code(s): D72.829 - Elevated white blood cell count, unspecified (3) Essential hypertension Current Visit: Yes Status: Chronic (4) Tobacco abuse Current Visit: Yes Status: Chronic Assessment and plan: Continue nicotine transdermal patch. (5) Below knee amputation status Current Visit: Yes Status: Chronic Qualifiers: Laterality: left Qualified Code(s): Z89.512 - Acquired absence of left leg below knee (6) Alcohol abuse Current Visit: Yes Status: Chronic Assessment and plan: Currently shows no signs or symptoms of alcohol withdrawal. Continue when necessary IV Ativan and CIWA protocol. Thiamine and folate supplements. IV hydration. (7) Diabetes Current Visit: Yes Status: Chronic Assessment and plan: Accu-Chek blood glucose monitoring with sliding scale insulin. Diabetic diet as tolerated. Blood sugars noted to be well controlled. Qualifiers: Diabetes mellitus type: type 2 Diabetes mellitus complication status: with unspecified complications Diabetes mellitus buttermaker helper insulin use: without buttermaker helper use Qualified Code(s): E11.8 - Type 2 diabetes mellitus with unspecified complications - Subjective Interval history: Underwent right hip surgery yesterday. Reports improved pain. Noted to be on BiPAP but is able to communicate. Poor appetite. - Constitutional Vitals: Temp Pulse Resp BP Pulse Ox 98.5 F 91 14 130/74 97 11/21/16 13:40 11/21/16 13:40 11/21/16 13:40 11/21/16 13:40 11/21/16 13:40 General appearance: Present: A&O X 1 - Respiratory Respiratory exam: Present: CTAB (Anterolaterally). Absent: accessory muscle use , rales, rhonchi, wheezes - Cardiovascular Cardiovascular exam: Present: RRR, +S1, +S2. Absent: diastolic murmur, gallop, rubs, systolic murmur - GI/Abdominal GI/Abdominal exam: Present: normal bowel sounds, soft, no peritoneal signs. Absent: distended, tenderness - Extremities Exam Extremities exam: Present: warm, radial pulses palpable and symetrical. Absent : calf tenderness, cyanotic, pedal edema Additional comments: Right hip surgical dressing dry and intact. Ice pack noted to hip. ABD pillow between her legs to immobilize right hip. Internal Medicine: Result - Labs CBC & Chem 7: 11/20/16 17:20 11/20/16 17:20 Labs: Short CBC 11/20/16 Range/Units 17:20 WBC 20.5 H (4.3-11.1) K/mcL Hgb 14.1 (12.9-16.9) g/dL Hct 41.3 (37.5-50.1) % Plt Count 293 (140-400) K/mcL Neutrophils # 15.8 H (1.6-8.9) K/mcL BMP 11/20/16 17:20 Sodium 133 L Potassium 3.1 L Chloride 98 Carbon Dioxide 20 BUN 19 Creatinine 1.40 H Glucose 142 H Calcium 8.4 L - ABG Interpretation ABG results: PT/INR, D-dimer PT 11.9 Seconds (9.4-12.1) 11/20/16 17:20 - Impressions Impressions Hip X-Ray 11/21/16 12:37 IMPRESSION: Satisfactory alignment right hip arthroplasty. D/ / Bashir Lynn MD / Bashir Lynn MD Interpreting Provider: Bashir Lynn MD Consult Discharge Plan - Plan Referrals: Parmjit,Grayson W, HOSPITAL MORTICIAN [Primary Care Provider] -
[2016-11-21] MEDS: *HR* OxyCODONE Immed Rel 5 MG TABLET PO PRN ×2 (15:19→23:15)
[2016-11-21] MEDS: Gabapentin 400 MG CAPSULE PO SCH ×2 (15:19→21:49)
[2016-11-21] MEDS: ceFAZolin 2,000 MG in D5% in Water 100 ML IVPB SCH (15:20)
[2016-11-21] MEDS: 0.9 % Sodium Chloride 1,000 ML IVC SCH (15:22)
[2016-11-21] MEDS: Insulin DETEMIR 100 UNIT/ML X5UNITS SQ SCH (23:04)
[2016-11-22] MEDS: ceFAZolin 2,000 MG in D5% in Water 100 ML IVPB SCH ×2 (00:57→08:59)
[2016-11-22] MEDS ORDERED: Acetaminophen IV 1,000 MG/100 ML INFUS..BTL IVPB ONE (02:58)
[2016-11-22 03:09] LABS: BUN/Creatinine Ratio 14 (6-26); Blood Urea Nitrogen 18 mg/dL (8-26); Calcium 7.8 mg/dL (8.6-10.8); Carbon Dioxide 21 mEq/L (19-29); Chloride 103 mEq/L (98-109); Glucose 115 mg/dL (70-99); Magnesium 2.2 mg/dL (1.6-2.6); Osmolality,Calculated 281 (280-300); Potassium 3.2 mEq/L (3.5-4.5); Sodium 134 mEq/L (136-145); eGFR For African Americans > 60 (> 60); eGFR For Non-African Americans 53 (> 60)
[2016-11-22] MEDS: *HR* OxyCODONE Immed Rel 5 MG TABLET PO PRN ×4 (03:12→18:46)
[2016-11-22] MEDS: Ipratropium/Albuterol Neb 3 ML IH SCH ×4 (04:58→23:30)
[2016-11-22] MEDS: Insulin LISPRO 300 UNITS/3 ML VIAL SQ SCH ×7 (05:47→17:14)
[2016-11-22] MEDS: *HR* Enoxaparin 30 MG/0.3 ML SYRINGE SQ SCH ×2 (07:28→18:46)
[2016-11-22] MEDS: Vitamin B Complex/Vit C/Vit E 1 EACH TABLET PO SCH (07:37)
[2016-11-22] MEDS: Thiamine (B-1) 100 MG TABLET PO SCH (07:37)
[2016-11-22] MEDS: amLODIPine 5 MG TABLET PO SCH (07:38)
[2016-11-22] MEDS: Gabapentin 400 MG CAPSULE PO SCH ×3 (07:38→21:03)
[2016-11-22] MEDS: Nicotine 21 MG PATCH.TD24 TD SCH (07:39)
[2016-11-22] MEDS: Folic Acid 1 MG TABLET PO SCH (07:39)
[2016-11-22] MEDS ORDERED: Thiamine (B-1) 100 MG, Folic Acid 1 MG, MVI, adult with vitamin K 10 ML in 0.9 % Sodi... IV SCH (09:00)
[2016-11-22 09:18] LABS: Basophils # 0.1 K/mcL (0.0-0.2); Basophils % 0.3 %; Eosinophils % 0.2 %; Hematocrit 36.2 % (37.5-50.1); Hemoglobin 11.7 g/dL (12.9-16.9); Immature Granulocytes % 0.6 % (0-4); Lymphocytes # 2.6 K/mcL (0.6-4.6); Lymphocytes % 13.7 %; Mean Corpuscular HGB Conc 32.3 g/dL (31.6-35.5); Mean Corpuscular Hemoglobin 30.5 pg (28.0-33.3); Mean Corpuscular Volume 94.5 fL (83.0-100.0); Mean Platelet Volume 9.5 fL (9.4-12.4); Monocytes # 3.2 K/mcL (0.0-1.3); Monocytes % 17.1 %; Neutrophils # 12.6 K/mcL (1.6-8.9); Platelet Count 252 K/mcL (140-400); Red Blood Count 3.83 M/mcL (4.19-5.50); Red Cell Distribution Width 13.7 % (11.5-14.5); Segmented Neutrophils % 68.1 %
[2016-11-22] MEDS: 0.9 % Sodium Chloride 1,000 ML IVC SCH (13:18)
[2016-11-22] MEDS ORDERED: Dextrose Gel 15 GM PO PRN ×2 (14:21)
[2016-11-22] MEDS ORDERED: D5% in Water 1,000 ML IV PRN (14:21)
[2016-11-22] MEDS ORDERED: *HR* Dextrose 50 % in Water (Syg) 50 ML SYRINGE IVP PRN (14:21)
--- NOTE | 2016-11-22 14:33 | Internal Med Progress Note ---
Date of Encounter: 11/22/16 Time of Encounter: 14:29 - Assessment and plan (1) Dysphagia Current Visit: Yes Status: Acute Assessment and plan: Noted to have acute on chronic issues with swallowing. Speech therapy evaluation for safe diet. Qualifiers: Dysphagia type: oropharyngeal phase Qualified Code(s): R13.12 - Dysphagia, oropharyngeal phase (2) Anemia Current Visit: Yes Status: Acute Assessment and plan: Noted to have 2-3 g drop in hemoglobin, which could be dilutional but patient has also been started on DVT prophylaxis post orthopedic surgery. Continue to monitor hemoglobin closely. Send stool for occult blood when available. Qualifiers: Anemia type: unspecified type Qualified Code(s): D64.9 - Anemia, unspecified (3) Hip fracture Current Visit: Yes Status: Acute Assessment and plan: Right femoral neck fracture status post right hip hemiarthroplasty, postoperative day 1. Postoperative wound care per orthopedics. Pain control with when necessary IV Dilaudid and oral oxycodone. We will change Tylenol to scheduled IV Tylenol as he continues to report persistent pain and he is noted to desaturate with extreme drowsiness with IV Dilaudid. We will hold off on Toradol for now due to drop in hemoglobin and renal dysfunction. Physical and occupational therapy evaluation noted, recommend inpatient rehabilitation. Qualifiers: Encounter type: initial encounter Fracture type: closed Laterality: right Qualified Code(s): S72.001A - Fracture of unspecified part of neck of right femur, initial encounter for closed fracture (4) Leukocytosis Current Visit: Yes Status: Acute Assessment and plan: Improving. He does not appear septic. Chest x-rays since admission showed no evidence of focal infiltrates. Urine dipstick is not suggestive of UTI. No other source of infection is noted at this time. Likely stress related. Continue to monitor. Qualifiers: Leukocytosis type: unspecified Qualified Code(s): D72.829 - Elevated white blood cell count, unspecified (5) Essential hypertension Current Visit: Yes Status: Chronic (6) Tobacco abuse Current Visit: Yes Status: Chronic (7) Below knee amputation status Current Visit: Yes Status: Chronic Qualifiers: Laterality: left Qualified Code(s): Z89.512 - Acquired absence of left leg below knee (8) Alcohol abuse Current Visit: Yes Status: Chronic Assessment and plan: Currently shows no signs or symptoms of alcohol withdrawal. Thiamine and folate supplements. IV hydration. (9) Diabetes Current Visit: Yes Status: Chronic Assessment and plan: Accu-Chek blood glucose monitoring with sliding scale insulin. Noted to have episode of hypoglycemia last night and basal insulin was held. Patient also noted to have poor appetite, we will hold nutritional insulin and continue only sliding scale insulin at this time. Diabetic diet as tolerated. Qualifiers: Diabetes mellitus type: type 2 Diabetes mellitus complication status: with unspecified complications Diabetes mellitus extermination supervisor insulin use: without skilled nursing use Qualified Code(s): E11.8 - Type 2 diabetes mellitus with unspecified complications - Subjective Interval history: Continues to report persistent severe pain in right hip, requesting for stronger pain medication. Noted to have poor appetite with possible dysphagia. No bowel movements yet. No chest pain or shortness of breath. No anxiety, tremors. - Constitutional Vitals: Temp Pulse Resp BP Pulse Ox 98.2 F 90 18 146/73 90 L 11/22/16 12:15 11/22/16 12:15 11/22/16 12:15 11/22/16 11:19 11/22/16 12:15 General appearance: Present: A&O X 3, answers questions appropriately - Respiratory Respiratory exam: Present: CTAB. Absent: accessory muscle use, rales, rhonchi, wheezes - Cardiovascular Cardiovascular exam: Present: RRR, +S1, +S2. Absent: diastolic murmur, gallop, rubs, systolic murmur - GI/Abdominal GI/Abdominal exam: Present: normal bowel sounds, soft, no peritoneal signs. Absent: distended, tenderness - Extremities Exam Extremities exam: Present: normal inspection (Right lateral hip surgical dressing dry and intact. No surrounding edema/erythema but extreme tenderness noted.), warm, radial pulses palpable and symetrical. Absent: calf tenderness, cyanotic, pedal edema Internal Medicine: Result - Labs CBC & Chem 7: 11/22/16 09:08 11/22/16 02:21 Labs: Short CBC 11/22/16 Range/Units 09:08 WBC 18.6 H (4.3-11.1) K/mcL Hgb 11.7 L D (12.9-16.9) g/dL Hct 36.2 L (37.5-50.1) % Plt Count 252 (140-400) K/mcL Neutrophils # 12.6 H (1.6-8.9) K/mcL BMP 11/22/16 02:21 Sodium 134 L Potassium 3.2 L Chloride 103 Carbon Dioxide 21 BUN 18 Creatinine 1.32 H Glucose 115 H Calcium 7.8 L - ABG Interpretation ABG results: PT/INR, D-dimer PT 11.9 Seconds (9.4-12.1) 11/20/16 17:20 - VTE Documentation of Mechanical Device: Venous foot pump, device Consult Discharge Plan - Plan Referrals: Grayson Parnell, HEATER TENDER [Primary Care Provider] -
[2016-11-22] MEDS ORDERED: Potassium Chloride Elixir 20 MEQ/15 ML UDC PO ONE (14:38)
[2016-11-22] MEDS ORDERED: Acetaminophen IV 500 MG/50 ML INFUS..BTL IVPB SCH (15:00)
[2016-11-22] MEDS ORDERED: Acetaminophen IV 500 MG/50 ML INFUS..BTL IVPB PRN (15:00)
--- NOTE | 2016-11-22 15:57 | Electrocardiograph Report ---
[address] [address] Test Date: 2016-11-20 Pat Name: Sukumar Bassett Department: 114 Room: [facility] Gender: M Packaging Engineer: : [id number] Requested By: [place]anda [place] Order Number: [id number] Reading MD: Aidan Roberson MD Measurements Intervals [place] Rate: 105 P: 35 WV: 146 QRS: -23 QRSD: 162 T: 38 QT: 342 QTc: 403 Interpretive Statements SINUS TACHYCARDIA BORDERLINE LEFT AXIS DEVIATION RIGHT BUNDLE BRANCH BLOCK BASELINE ARTIFACT Electronically Signed On 11-22-2016 15:55:52 EST by Aidan Roberson MD
--- NOTE | 2016-11-22 18:46 | Orthopedics Progress Note ---
Date of Encounter: 11/22/16 Time of Encounter: 18:43 Subjective Principal diagnosis: Right femoral neck fracture, status post hemiarthroplasty Interval history: 11/22/2016. Patient is postop day #1 from a hemiarthroplasty of his right hip. He is having anticipated pain. Denies neurovascular complaints. Vital signs are stable he is afebrile. Saturations have dropped somewhat. Hemoglobin is 11.7. White blood cell count has dropped to 18.6. Kidney function has remained stable. Blood sugars have been somewhat elevated. Incision dressing remains dry. Leg is somewhat edematous. Impression: POD #1 hemiarthroplasty right hip Recommendation: PT and OT for ambulation training. patient services manager for discharge planning. No incision care is required with an intact dressing. Need to maintain hip precautions though he can be weightbearing as tolerated. Orthopedic status is stable. Objective Vital signs: Vital Signs Temp Pulse Resp BP Pulse Ox 11/22/16 16:33 20 88 L 11/22/16 15:24 99.5 F 90 18 141/50 94 L 11/22/16 12:15 98.2 F 90 18 90 L 11/22/16 11:19 98.5 F 108 18 146/73 90 L 11/22/16 08:45 98.0 F 95 18 120/66 92 L 11/22/16 06:25 98.5 F 97 16 118/64 92 L 11/22/16 04:58 18 90 L 11/22/16 04:21 98.4 F 105 18 120/55 88 L 11/22/16 00:11 97.9 F 120 18 129/67 99 11/21/16 22:40 91 L 11/21/16 22:10 24 96 11/21/16 20:00 98.1 F 108 16 126/47 89 L Intake and Output 11/22/16 11/22/16 11/22/16 07:59 15:59 23:59 Intake Total 1100 / 1100 1100 / 1100 360 / 360 Output Total 1350 / 1350 1800 / 1800 Balance -250 / -250 1100 / 1100 -1440 / -1440 Intake: IV Fluids 100 / 100 1100 / 1100 0.9 % Sodium Chloride 1, 1000 / 1000 000 ML @ 50 mls/hr IVC . Q20H [facility] Rx#:[id number] Ancef 2,000 MG In 100 / 100 100 / 100 Dextrose 5% 100 ML @ 200 mls/hr IVPB Q8HR [facility] Rx#: [id number] Oral 1000 / 1000 360 / 360 Output: Catheter 1350 / 1350 1800 / 1800 Other: Meal Dinner Percent of Meal Consumed 100% Blood Glucose* 139 224 94 - Labs CBC & BMP: 11/22/16 09:08 11/22/16 02:21 Labs: Abnormal lab results WBC 18.6 K/mcL (4.3-11.1) H 11/22/16 09:08 RBC 3.83 M/mcL (4.19-5.50) L 11/22/16 09:08 Hgb 11.7 g/dL (12.9-16.9) L D 11/22/16 09:08 Hct 36.2 % (37.5-50.1) L 11/22/16 09:08 Neutrophils # 12.6 K/mcL (1.6-8.9) H 11/22/16 09:08 Monocytes # 3.2 K/mcL (0.0-1.3) H 11/22/16 09:08 VBG pCO2 40 mmHg (41-51) L 11/21/16 07:27 VBG pO2 66 mmHg (25-40) H 11/21/16 07:27 Sodium 134 mEq/L (136-145) L 11/22/16 02:21 Potassium 3.2 mEq/L (3.5-4.5) L 11/22/16 02:21 Creatinine 1.32 mg/dL (0.72-1.25) H 11/22/16 02:21 Est GFR (Non-Af Amer) 53 (> 60) L 11/22/16 02:21 Glucose 115 mg/dL (70-99) H 11/22/16 02:21 POC Glucose 238 (58-89) H 11/21/16 17:57 Hemoglobin A1c 7.4 % (-5.6) H 11/20/16 04:09 Calcium 7.8 mg/dL (8.6-10.8) L 11/22/16 02:21 Urine Protein 30 mg/dL (Neg-Trace) H 11/20/16 07:05 Urine Ketones Trace mg/dL (Negative) H 11/20/16 07:05 Urine Blood Moderate (Negative) H 11/20/16 07:05 Urine Microscopic RBC 5-15 per hpf (0-3) H 11/20/16 07:05 Ur Squamous Epith Cells Many per lpf (None-Few) H 11/20/16 07:05 - VTE Documentation of Mechanical Device: Venous foot pump, device Consult Discharge Plan - Plan Referrals: Grayson Parnell, CUSTOMER OPERATIONS SPECIALIST [Primary Care Provider] -
[2016-11-22] MEDS ORDERED: Insulin LISPRO 300 UNITS/3 ML VIAL SQ SCH (21:00)
[2016-11-22] MEDS: *HR* HYDROmorphone (PF) 1 MG/ML SYRINGE IVP PRN (21:08)
[2016-11-22] MEDS: Insulin DETEMIR 100 UNIT/ML X5UNITS SQ SCH (21:08)
[2016-11-23] MEDS: *HR* OxyCODONE Immed Rel 5 MG TABLET PO PRN ×4 (00:58→17:01)
[2016-11-23] MEDS ORDERED: Acetaminophen IV 1,000 MG/100 ML INFUS..BTL IVPB PRN (03:00)
[2016-11-23] MEDS: Ipratropium/Albuterol Neb 3 ML IH SCH ×5 (04:54→20:31)
[2016-11-23] MEDS: *HR* Enoxaparin 30 MG/0.3 ML SYRINGE SQ SCH ×2 (06:26→17:02)
[2016-11-23 07:22] LABS: BUN/Creatinine Ratio 15 (6-26); Blood Urea Nitrogen 17 mg/dL (8-26); Calcium 7.8 mg/dL (8.6-10.8); Carbon Dioxide 21 mEq/L (19-29); Chloride 107 mEq/L (98-109); Glucose 58 mg/dL (70-99); Magnesium 2.1 mg/dL (1.6-2.6); Osmolality,Calculated 279 (280-300); Potassium 3.5 mEq/L (3.5-4.5); Sodium 135 mEq/L (136-145); eGFR For African Americans > 60 (> 60); eGFR For Non-African Americans > 60 (> 60)
[2016-11-23 07:23] LABS: Basophils # 0.1 K/mcL (0.0-0.2); Basophils % 0.5 %; Eosinophils # 0.3 K/mcL (0.0-0.6); Eosinophils % 1.6 %; Hematocrit 35.1 % (37.5-50.1); Hemoglobin 11.6 g/dL (12.9-16.9); Immature Granulocytes % 0.9 % (0-4); Lymphocytes # 2.6 K/mcL (0.6-4.6); Lymphocytes % 15.8 %; Mean Corpuscular Volume 93.9 fL (83.0-100.0); Mean Platelet Volume 9.9 fL (9.4-12.4); Monocytes # 2.8 K/mcL (0.0-1.3); Monocytes % 16.9 %; Neutrophils # 10.5 K/mcL (1.6-8.9); Platelet Count 231 K/mcL (140-400); Red Blood Count 3.74 M/mcL (4.19-5.50); Red Cell Distribution Width 13.7 % (11.5-14.5); Segmented Neutrophils % 64.3 %
[2016-11-23] MEDS: Insulin LISPRO 300 UNITS/3 ML VIAL SQ SCH ×3 (08:02→17:03)
[2016-11-23] MEDS: amLODIPine 5 MG TABLET PO SCH ×2 (08:03→10:09)
[2016-11-23] MEDS: Gabapentin 400 MG CAPSULE PO SCH ×3 (08:03→20:38)
[2016-11-23] MEDS: Vitamin B Complex/Vit C/Vit E 1 EACH TABLET PO SCH (08:03)
[2016-11-23] MEDS: Folic Acid 1 MG TABLET PO SCH (08:03)
[2016-11-23] MEDS: Thiamine (B-1) 100 MG TABLET PO SCH (08:04)
[2016-11-23] MEDS: Nicotine 21 MG PATCH.TD24 TD SCH (08:07)
--- NOTE | 2016-11-23 18:02 | Internal Med Progress Note ---
Date of Encounter: 11/23/16 Time of Encounter: 18:00 - Assessment and plan (1) Hypokalemia Current Visit: Yes Status: Acute (2) Dysphagia Current Visit: Yes Status: Acute Qualifiers: Qualified Code(s): R13.12 - Dysphagia, oropharyngeal phase (3) Alcohol abuse Current Visit: Yes Status: Chronic (4) Diabetes Current Visit: Yes Status: Chronic Qualifiers: Qualified Code(s): E11.8 - Type 2 diabetes mellitus with unspecified complications - Time Spent With Patient Plan Possible aspiration Pneumonia Will check chest x-ray, sputum culture, continue modified diet, continue speech therapy, check phosphorus, cut back on long-acting insulin, recurrent episodes of hypoglycemia in the morning will stop HS coverage. Add Mucinex, increase aerosol treatment, add Zosyn, check CBC BMP and magnesium phosphorous at a.m. 25 - 35 minutes - Subjective Interval history: Patient complaining of productive cough with greenish sputum associated with shortness of breath. Staff diminish in patient with oxygen saturation dropped frequently. No bowel movement since admission - Constitutional Vitals: Temp Pulse Resp BP Pulse Ox 98.9 F 114 20 126/62 91 L 11/23/16 14:46 11/23/16 14:46 11/23/16 15:44 11/23/16 14:46 11/23/16 15:44 General appearance: Present: cooperative, morbidly obese, pleasant, answers questions appropriately - Neck Neck exam general surgery: Present: supple, trachea midline. Absent: lymphadenopathy - Respiratory Respiratory exam: Present: decreased breath sounds, prolonged expiratory phase, rales, wheezes. Absent: accessory muscle use, rhonchi - Cardiovascular Cardiovascular exam: Present: RRR, +S1, +S2. Absent: diastolic murmur, gallop, rubs, systolic murmur - GI/Abdominal GI/Abdominal exam: Present: normal bowel sounds, soft, no peritoneal signs. Absent: distended, tenderness - Extremities Exam Extremities exam: Present: warm, radial pulses palpable and symetrical. Absent : calf tenderness, cyanotic, pedal edema - Neurological Exam Neurological exam: Present: CN II-XII intact, oriented X3, no focal deficits. Absent: pronater drift, facial droop, speech deficit Internal Medicine: Result - Labs CBC & Chem 7: 11/23/16 06:12 11/23/16 06:12 Labs: Short CBC 11/23/16 Range/Units 06:12 WBC 16.4 H (4.3-11.1) K/mcL Hgb 11.6 L (12.9-16.9) g/dL Hct 35.1 L (37.5-50.1) % Plt Count 231 (140-400) K/mcL Neutrophils # 10.5 H (1.6-8.9) K/mcL BMP 11/23/16 06:12 Sodium 135 L Potassium 3.5 Chloride 107 Carbon Dioxide 21 BUN 17 Creatinine 1.15 Glucose 58 L Calcium 7.8 L - ABG Interpretation ABG results: PT/INR, D-dimer PT 11.9 Seconds (9.4-12.1) 11/20/16 17:20 - Impressions Impressions Videofluoroscopic Swallow 11/23/16 00:01 IMPRESSION: Aspiration demonstrated with clear liquids. Please see separate speech pathology report for full discussion of findings and recommendations. D/ / 11/23/2016 09:53:32 Shalonda Colin MD / Rhoda Jules Interpreting Provider: Shalonda Colin MD - VTE Documentation of Mechanical Device: Venous foot pump, device Consult Discharge Plan - Plan Referrals: Grayson Parnell, TRIAL MGR [Primary Care Provider] -
[2016-11-23] MEDS ORDERED: Potassium Chloride Elixir 20 MEQ/15 ML UDC PO ONE (18:05)
[2016-11-23 18:31] LABS: Phosphorous 2.6 mg/dL (2.3-4.7)
--- NOTE | 2016-11-23 19:04 | Orthopedics Progress Note ---
Date of Encounter: 11/23/16 Time of Encounter: 19:02 Subjective Principal diagnosis: Right femoral neck fracture, status post hemiarthroplasty Interval history: 11/22/2016. Patient is postop day #1 from a hemiarthroplasty of his right hip. He is having anticipated pain. Denies neurovascular complaints. Vital signs are stable he is afebrile. Saturations have dropped somewhat. Hemoglobin is 11.7. White blood cell count has dropped to 18.6. Kidney function has remained stable. Blood sugars have been somewhat elevated. Incision dressing remains dry. Leg is somewhat edematous. Impression: POD #1 hemiarthroplasty right hip Recommendation: PT and OT for ambulation training. support services specialist for discharge planning. No incision care is required with an intact dressing. Need to maintain hip precautions though he can be weightbearing as tolerated. Orthopedic status is stable. 11/23/2016. Patient is postop day #2 hemiarthroplasty right hip. He is having persistent pain. He is describing soreness from not moving much in bed. He has his left lower extremity prosthesis available for ambulation. Vital signs are stable. Patient is afebrile. Dressing is healthy clean and dry. Hemoglobin is greater than 11. Impression: POD #2 hemiarthroplasty right hip Recommendation: Patient is stable from an orthopedic point of view. He can be weightbearing as tolerated on the right lower extremity but must maintain total hip arthroplasty precautions. He is stable for discharge at your discretion. Will need to continue DVT prophylaxis. He can shower with an intact dressing though I do not want him bathing or soaking. He will need to see me in follow up in a few weeks' time her sugar should any concerns arise Objective Vital signs: Vital Signs Temp Pulse Resp BP Pulse Ox 11/23/16 15:44 20 91 L 11/23/16 14:46 98.9 F 114 20 126/62 91 L 11/23/16 11:16 98.5 F 105 18 137/69 93 L 11/23/16 10:34 16 92 L 11/23/16 07:12 98.7 F 98 18 135/71 91 L 11/23/16 04:54 20 91 L 11/23/16 04:18 98.5 F 88 18 138/71 95 11/23/16 01:17 98.9 F 116 20 140/76 95 11/23/16 00:50 95 11/23/16 00:00 98.9 F 11/22/16 23:30 24 97 11/22/16 20:00 99.0 F 90 17 138/58 93 L Intake and Output 11/23/16 11/23/16 11/23/16 07:59 15:59 23:59 Intake Total 360 / 360 360 / 360 Output Total 600 / 600 1050 / 1050 Balance -240 / -240 -690 / -690 Intake: Oral 360 / 360 360 / 360 Output: Urine 1050 / 1050 Urethral (Yousif) 1050 / 1050 Catheter 600 / 600 Other: Meal Lunch Percent of Meal Consumed 100% Blood Glucose* 71 191 260 - Labs CBC & BMP: 11/23/16 06:12 11/23/16 06:12 Labs: Abnormal lab results WBC 16.4 K/mcL (4.3-11.1) H 11/23/16 06:12 RBC 3.74 M/mcL (4.19-5.50) L 11/23/16 06:12 Hgb 11.6 g/dL (12.9-16.9) L 11/23/16 06:12 Hct 35.1 % (37.5-50.1) L 11/23/16 06:12 Neutrophils # 10.5 K/mcL (1.6-8.9) H 11/23/16 06:12 Monocytes # 2.8 K/mcL (0.0-1.3) H 11/23/16 06:12 VBG pCO2 40 mmHg (41-51) L 11/21/16 07:27 VBG pO2 66 mmHg (25-40) H 11/21/16 07:27 Sodium 135 mEq/L (136-145) L 11/23/16 06:12 Glucose 58 mg/dL (70-99) L 11/23/16 06:12 POC Glucose 229 (58-89) H 11/22/16 21:06 Hemoglobin A1c 7.4 % (-5.6) H 11/20/16 04:09 Calculated Osmolality 279 (280-300) L 11/23/16 06:12 Calcium 7.8 mg/dL (8.6-10.8) L 11/23/16 06:12 Urine Protein 30 mg/dL (Neg-Trace) H 11/20/16 07:05 Urine Ketones Trace mg/dL (Negative) H 11/20/16 07:05 Urine Blood Moderate (Negative) H 11/20/16 07:05 Urine Microscopic RBC 5-15 per hpf (0-3) H 11/20/16 07:05 Ur Squamous Epith Cells Many per lpf (None-Few) H 11/20/16 07:05 - VTE Documentation of Mechanical Device: Venous foot pump, device Consult Discharge Plan - Plan Referrals: Grayson Parnell, PROJECT ENGINEERING DIRECTOR [Primary Care Provider] -
[2016-11-23] MEDS: Metoclopramide 10 MG in 0.9 % Sodium Chloride 50 ML IVPB SCH (20:37)
[2016-11-23] MEDS: Insulin DETEMIR 100 UNIT/ML X5UNITS SQ SCH (20:38)
[2016-11-23] MEDS: Sennosides 8.6 MG TABLET PO SCH (20:45)
[2016-11-24] MEDS: Piperacillin/Tazobactam 3.375 GM in D5% in Water (Mini-Bag+) 100 ML IVPB SCH ×3 (00:12→16:25)
[2016-11-24] MEDS: *HR* OxyCODONE Immed Rel 5 MG TABLET PO PRN ×4 (00:16→17:35)
[2016-11-24] MEDS: Metoclopramide 10 MG in 0.9 % Sodium Chloride 50 ML IVPB SCH ×2 (03:54→12:43)
[2016-11-24] MEDS: Ipratropium/Albuterol Neb 3 ML IH SCH ×6 (04:54→23:39)
[2016-11-24 06:04] LABS: Basophils # 0.1 K/mcL (0.0-0.2); Basophils % 0.4 %; Eosinophils # 0.5 K/mcL (0.0-0.6); Eosinophils % 3.2 %; Hematocrit 34.5 % (37.5-50.1); Hemoglobin 11.3 g/dL (12.9-16.9); Immature Granulocytes % 1.1 % (0-4); Lymphocytes # 2.2 K/mcL (0.6-4.6); Lymphocytes % 15.4 %; Mean Corpuscular HGB Conc 32.8 g/dL (31.6-35.5); Mean Corpuscular Hemoglobin 30.8 pg (28.0-33.3); Mean Platelet Volume 9.9 fL (9.4-12.4); Monocytes # 2.5 K/mcL (0.0-1.3); Monocytes % 17.7 %; Neutrophils # 8.8 K/mcL (1.6-8.9); Platelet Count 266 K/mcL (140-400); Red Blood Count 3.67 M/mcL (4.19-5.50); Red Cell Distribution Width 13.5 % (11.5-14.5); Segmented Neutrophils % 62.2 %
[2016-11-24 06:16] LABS: BUN/Creatinine Ratio 15 (6-26); Blood Urea Nitrogen 18 mg/dL (8-26); Carbon Dioxide 21 mEq/L (19-29); Chloride 104 mEq/L (98-109); Glucose 249 mg/dL (70-99); Magnesium 1.9 mg/dL (1.6-2.6); Osmolality,Calculated 288 (280-300); Sodium 134 mEq/L (136-145); eGFR For African Americans > 60 (> 60); eGFR For Non-African Americans 60 (> 60)
[2016-11-24] MEDS: *HR* Enoxaparin 30 MG/0.3 ML SYRINGE SQ SCH ×2 (06:24→18:08)
[2016-11-24] MEDS: Nicotine 21 MG PATCH.TD24 TD SCH (08:07)
[2016-11-24] MEDS: Insulin LISPRO 300 UNITS/3 ML VIAL SQ SCH ×3 (08:08→16:26)
[2016-11-24] MEDS: Vitamin B Complex/Vit C/Vit E 1 EACH TABLET PO SCH (08:13)
[2016-11-24] MEDS: Sennosides 8.6 MG TABLET PO SCH (08:14)
[2016-11-24] MEDS: Folic Acid 1 MG TABLET PO SCH (08:15)
[2016-11-24] MEDS: amLODIPine 5 MG TABLET PO SCH (08:16)
[2016-11-24] MEDS: Gabapentin 400 MG CAPSULE PO SCH ×3 (08:19→20:34)
--- NOTE | 2016-11-24 08:21 | Internal Med Progress Note ---
Date of Encounter: 11/24/16 Time of Encounter: 08:00 - Assessment and plan (1) Dysphagia Current Visit: Yes Status: Acute Qualifiers: Qualified Code(s): R13.12 - Dysphagia, oropharyngeal phase (2) Alcohol abuse Current Visit: Yes Status: Chronic (3) Diabetes Current Visit: Yes Status: Chronic Qualifiers: Qualified Code(s): E11.8 - Type 2 diabetes mellitus with unspecified complications - Time Spent With Patient Fluid overload Aspiration pneumonia Hypoxemia secondary to fluid overload and aspiration pneumonia Leukocytosis secondary to aspiration pneumonia Dysphagia Chest x-ray possible pneumonia, CHF. Add Lasix 20 mg IV twice a day. Most likely patient has aspiration pneumonia. WBC trending down, awaiting sputum culture, continue speech therapy, continue modified diet, will reevaluate later today. Possible discharge later today or tomorrow. Monitor weight. Cut back on narcotics. 25 - 35 minutes - Subjective Interval history: Patient continued to have shortness of breath, productive cough with yellowish sputum but it is better than yesterday, patient complain of orthopnea - Constitutional Vitals: Temp Pulse Resp BP Pulse Ox 99.5 F 104 18 125/64 93 L 11/24/16 06:41 11/24/16 06:41 11/24/16 08:17 11/24/16 06:41 11/24/16 08:17 General appearance: Present: cooperative, morbidly obese, pleasant, answers questions appropriately - Respiratory Respiratory exam: Present: decreased breath sounds, prolonged expiratory phase, rales, rhonchi. Absent: accessory muscle use, wheezes - Cardiovascular Cardiovascular exam: Present: RRR, +S1, +S2. Absent: diastolic murmur, gallop, rubs, systolic murmur - GI/Abdominal GI/Abdominal exam: Present: distended, normal bowel sounds, soft, no peritoneal signs. Absent: tenderness - Extremities Exam Extremities exam: Present: warm. Absent: calf tenderness, cyanotic, pedal edema Internal Medicine: Result - Labs CBC & Chem 7: 11/24/16 05:38 11/24/16 05:38 Labs: Short CBC 11/24/16 Range/Units 05:38 WBC 14.2 H (4.3-11.1) K/mcL Hgb 11.3 L (12.9-16.9) g/dL Hct 34.5 L (37.5-50.1) % Plt Count 266 (140-400) K/mcL Neutrophils # 8.8 (1.6-8.9) K/mcL BMP 11/23/16 11/24/16 06:12 05:38 Sodium 135 L 134 L Potassium 3.5 4.0 Chloride 107 104 Carbon Dioxide BUN 17 18 Creatinine 1.15 1.20 Glucose 58 L 249 H Calcium 7.8 L 8.0 L - ABG Interpretation ABG results: PT/INR, D-dimer PT 11.9 Seconds (9.4-12.1) 11/20/16 17:20 - Impressions Impressions Videofluoroscopic Swallow 11/23/16 00:01 IMPRESSION: Aspiration demonstrated with clear liquids. Please see separate speech pathology report for full discussion of findings and recommendations. D/ / 11/23/2016 09:53:32 Shalonda Colin MD / Rhoda Jules Interpreting Provider: Shalonda Colin MD Chest X-Ray 11/23/16 17:56 IMPRESSION: 1. Study limited by patient lordotic positioning. 2. Findings are consistent with mild CHF, with bibasilar airspace disease representing either atelectasis, asymmetric edema, or less likely pneumonia. D/ / Kobi Hopper MD / Kobi Hopper MD Interpreting Provider: Kobi Hopper MD - VTE Documentation of Mechanical Device: Intermittent pneumatic compression device Consult Discharge Plan - Plan Referrals: Grayson Parnell, SEWING ROOM SUPERVISOR [Primary Care Provider] -
[2016-11-24] MEDS ORDERED: Calcium Gluconate 1,000 MG in D5% in Water 100 ML IVPB ONE (08:35)
[2016-11-24] MEDS: Furosemide 20 MG/2 ML VIAL IVP SCH ×2 (08:56→16:26)
[2016-11-24] MEDS: Thiamine (B-1) 100 MG TABLET PO SCH (08:56)
[2016-11-24] MEDS: Insulin DETEMIR 100 UNIT/ML X5UNITS SQ SCH (20:36)
[2016-11-24] MEDS ORDERED: 0.9 % Sodium Chloride 500 ML IVC ONE (21:10)
[2016-11-25] MEDS: Metoclopramide 10 MG in 0.9 % Sodium Chloride 50 ML IVPB SCH ×3 (00:01→15:06)
[2016-11-25] MEDS: Piperacillin/Tazobactam 3.375 GM in D5% in Water (Mini-Bag+) 100 ML IVPB SCH ×3 (00:08→17:42)
[2016-11-25] MEDS: *HR* OxyCODONE Immed Rel 5 MG TABLET PO PRN ×3 (02:06→10:44)
[2016-11-25] MEDS: Ipratropium/Albuterol Neb 3 ML IH SCH ×5 (05:57→20:28)
[2016-11-25] MEDS: *HR* Enoxaparin 30 MG/0.3 ML SYRINGE SQ SCH ×2 (06:23→20:44)
[2016-11-25] MEDS: Insulin LISPRO 300 UNITS/3 ML VIAL SQ SCH ×3 (08:17→17:46)
[2016-11-25] MEDS: Nicotine 21 MG PATCH.TD24 TD SCH (08:48)
[2016-11-25] MEDS: Gabapentin 400 MG CAPSULE PO SCH ×3 (08:48→20:44)
[2016-11-25] MEDS: Sennosides 8.6 MG TABLET PO SCH (08:49)
[2016-11-25] MEDS: Vitamin B Complex/Vit C/Vit E 1 EACH TABLET PO SCH (08:51)
[2016-11-25] MEDS: Folic Acid 1 MG TABLET PO SCH (08:52)
[2016-11-25] MEDS: amLODIPine 5 MG TABLET PO SCH (08:52)
[2016-11-25] MEDS: Thiamine (B-1) 100 MG TABLET PO SCH (08:52)
--- NOTE | 2016-11-25 15:56 | Internal Med Progress Note ---
Date of Encounter: 11/25/16 Time of Encounter: 14:00 - Assessment and plan (1) Dysphagia Current Visit: Yes Status: Acute Assessment and plan: Discussed with family and patient about differential diagnosis. Patient has history of stroke in the past with the residual dysphagia improved with speech therapy in the past discussed about repeating imaging study patient and family refused ,continue speech therapy continue modified diet Qualifiers: Qualified Code(s): R13.12 - Dysphagia, oropharyngeal phase (2) Alcohol abuse Current Visit: Yes Status: Chronic (3) Diabetes Current Visit: Yes Status: Chronic Assessment and plan: Insulin sliding scale. Adjust insulin as needed Qualifiers: Qualified Code(s): E11.8 - Type 2 diabetes mellitus with unspecified complications - Time Spent With Patient A/P Possible aspiration pneumonia Volume overload Diabetes mellitus History of a stroke with residual dysphagia Physical deconditioning Continue current antibiotic, continue aerosol treatment, add another 2 doses of Lasix, check electrolytes, patient had severe constipation resolved with laxatives had multiple bowel movement, close monitoring. Possible discharge next a.m. 25 - 35 minutes - Subjective Interval history: Patient continued to have shortness of breath, productive cough with yellowish sputum but it is better than yesterday, patient complain of orthopnea - Constitutional Vitals: Temp Pulse Resp BP Pulse Ox 99.9 F H 96 18 126/67 93 L 11/25/16 14:37 11/25/16 14:37 11/25/16 14:37 11/25/16 14:37 11/25/16 14:37 General appearance: Present: cooperative, mild distress, morbidly obese, pleasant, answers questions appropriately - Neck Neck exam general surgery: Present: supple, trachea midline. Absent: lymphadenopathy - Respiratory Respiratory exam: Present: decreased breath sounds, prolonged expiratory phase, rhonchi, wheezes, tachypnea. Absent: accessory muscle use, rales - Cardiovascular Cardiovascular exam: Present: RRR, +S1, +S2. Absent: diastolic murmur, gallop, rubs, systolic murmur - GI/Abdominal GI/Abdominal exam: Present: normal bowel sounds, soft, no peritoneal signs. Absent: distended, tenderness - Extremities Exam Extremities exam: Absent: calf tenderness, cyanotic Internal Medicine: Result - Labs CBC & Chem 7: 11/24/16 05:38 11/24/16 05:38 - ABG Interpretation ABG results: PT/INR, D-dimer PT 11.9 Seconds (9.4-12.1) 11/20/16 17:20 - VTE Documentation of Mechanical Device: Venous foot pump, device Consult Discharge Plan - Plan Referrals: Grayson Parnell, EVENT PLANNING INTERN [Primary Care Provider] -
[2016-11-25] MEDS ORDERED: Insulin DETEMIR 100 UNIT/ML X5UNITS SQ ONE (15:58)
[2016-11-25] MEDS: Furosemide 20 MG/2 ML VIAL IVP SCH (20:44)
[2016-11-25] MEDS: Insulin DETEMIR 100 UNIT/ML X5UNITS SQ SCH (20:45)
[2016-11-26] MEDS: *HR* OxyCODONE Immed Rel 5 MG TABLET PO PRN ×4 (00:09→22:21)
[2016-11-26] MEDS: Metoclopramide 10 MG in 0.9 % Sodium Chloride 50 ML IVPB SCH ×3 (00:09→16:18)
[2016-11-26] MEDS: Piperacillin/Tazobactam 3.375 GM in D5% in Water (Mini-Bag+) 100 ML IVPB SCH ×2 (00:10→10:04)
[2016-11-26] MEDS: Ipratropium/Albuterol Neb 3 ML IH SCH ×7 (00:54→23:06)
[2016-11-26 05:06] LABS: Basophils % 0.3 %; Eosinophils # 0.6 K/mcL (0.0-0.6); Eosinophils % 4.4 %; Hematocrit 29.6 % (37.5-50.1); Hemoglobin 9.9 g/dL (12.9-16.9); Lymphocytes # 1.7 K/mcL (0.6-4.6); Lymphocytes % 12.4 %; Mean Corpuscular HGB Conc 33.4 g/dL (31.6-35.5); Mean Corpuscular Volume 92.8 fL (83.0-100.0); Mean Platelet Volume 9.8 fL (9.4-12.4); Monocytes # 2.5 K/mcL (0.0-1.3); Monocytes % 18.5 %; Platelet Count 327 K/mcL (140-400); Red Blood Count 3.19 M/mcL (4.19-5.50); Red Cell Distribution Width 13.2 % (11.5-14.5); Segmented Neutrophils % 63.4 %
[2016-11-26 05:07] LABS: Neutrophils # 8.6 K/mcL (1.6-8.9)
[2016-11-26 05:23] LABS: BUN/Creatinine Ratio 16 (6-26); Blood Urea Nitrogen 21 mg/dL (8-26); Calcium 8.2 mg/dL (8.6-10.8); Carbon Dioxide 20 mEq/L (19-29); Chloride 103 mEq/L (98-109); Glucose 173 mg/dL (70-99); Magnesium 1.6 mg/dL (1.6-2.6); Osmolality,Calculated 283 (280-300); Phosphorous 3.8 mg/dL (2.3-4.7); Potassium 3.9 mEq/L (3.5-4.5); Sodium 133 mEq/L (136-145); eGFR For African Americans > 60 (> 60); eGFR For Non-African Americans 53 (> 60)
[2016-11-26 05:36] LABS: Hypochromasia Present (Not Present); Platelet Estimate Normal (Normal)
[2016-11-26 05:37] LABS: Polychromasia 1+ (Not Present)
[2016-11-26] MEDS: *HR* Enoxaparin 30 MG/0.3 ML SYRINGE SQ SCH ×2 (06:55→18:51)
[2016-11-26] MEDS: Vitamin B Complex/Vit C/Vit E 1 EACH TABLET PO SCH (08:08)
[2016-11-26] MEDS: Sennosides 8.6 MG TABLET PO SCH (08:09)
[2016-11-26] MEDS: Gabapentin 400 MG CAPSULE PO SCH ×3 (08:09→22:22)
[2016-11-26] MEDS: Folic Acid 1 MG TABLET PO SCH (08:09)
[2016-11-26] MEDS: Thiamine (B-1) 100 MG TABLET PO SCH (08:09)
[2016-11-26] MEDS: amLODIPine 5 MG TABLET PO SCH (08:10)
[2016-11-26] MEDS: Nicotine 21 MG PATCH.TD24 TD SCH (08:11)
[2016-11-26] MEDS: Furosemide 20 MG/2 ML VIAL IVP SCH ×2 (08:11→22:22)
[2016-11-26] MEDS: Insulin LISPRO 300 UNITS/3 ML VIAL SQ SCH ×3 (08:20→17:31)
--- NOTE | 2016-11-26 11:30 | Discharge Summary ---
<RayCharbel Gerardo - Last Filed: 11/26/16 14:12> Date of Encounter: 11/26/16 Time of Encounter: 11:29 - Discharge Diagnosis (1) Hip fracture Priority: Primary Status: Acute Qualifiers: Encounter type: initial encounter Fracture type: closed Laterality: right Qualified Code(s): S72.001A - Fracture of unspecified part of neck of right femur, initial encounter for closed fracture - Discharge Medications Prescriptions: Albuterol Sulfate [Albuterol Inhaler] 2 puff IH Q4HR PRN #1 hfa.aer.ad PRN Reason: Shortness Of Breath/Wheezing OxyCODONE Immed Rel [Roxicodone 5 MG] 10 mg PO Q4HR PRN #60 tablet PRN Reason: Pain Enoxaparin [Lovenox] 30 mg SQ Q12HCO #60 syringe Amoxicillin/Clavulanate [Augmentin] 875 mg PO BIDWM #10 tablet Budesonide/Formoterol 160/4.5 [Symbicort 160/4.5] 2 puff IH BID #1 hfa.aer.ad Calcitriol [Rocaltrol] 0.5 mcg PO DAILY #30 capsule Docusate [Colace] 100 mg PO BID PRN #60 capsule PRN Reason: Constipation Folic Acid 1 mg PO DAILY #30 tablet Magnesium Oxide [Mag-Ox] 400 mg PO BID #7 tablet Potassium Chloride 10 meq PO BIDWM #30 tab.er.prt Thiamine (B-1) [Vitamin B-1] 200 mg PO DAILY #30 tablet Tiotropium [Spiriva] 18 mcg IH DAILY #1 capsule Vitamin B Complex/Vit C/Vit E [Stresstab] 1 each PO DAILY #30 tablet Home Medications: Amlodipine [Norvasc] 10 mg PO DAILY 11/19/16 [History] Aspirin/Calcium Carbonate/Mag [Aspirin Buffered 325 mg Tab] 325 mg PO DAILY [History] Furosemide [Lasix] 40 mg PO BID 11/19/16 [History] Gabapentin [Neurontin] 800 mg PO TID 11/19/16 [History] Pravastatin Sodium [Pravachol] 20 mg PO DAILY 11/19/16 [History] Tramadol HCl [Ultram] 100 mg PO QID 11/19/16 [History] GlipiZIDE XL (24 HR) [Glucotrol XL] 10 mg PO BID 11/20/16 [History] Oxygen 2 l .ROUTE AD 11/20/16 [History] Quetiapine Fumarate [Seroquel] 100 mg PO HS 11/20/16 [History] Albuterol Sulfate [Albuterol Inhaler] 2 puff IH Q4HR PRN #1 hfa.aer.ad 11/26/16 [Rx] Amoxicillin/Clavulanate [Augmentin] 875 mg PO BIDWM #10 tablet 11/26/16 [Rx] Budesonide/Formoterol 160/4.5 [Symbicort 160/4.5] 2 puff IH BID #1 hfa.aer.ad [Rx] Calcitriol [Rocaltrol] 0.5 mcg PO DAILY #30 capsule 11/26/16 [Rx] Docusate [Colace] 100 mg PO BID PRN #60 capsule 11/26/16 [Rx] Enoxaparin [Lovenox] 30 mg SQ Q12HCO #60 syringe 11/26/16 [Rx] Folic Acid 1 mg PO DAILY #30 tablet 11/26/16 [Rx] Magnesium Oxide [Mag-Ox] 400 mg PO BID #7 tablet 11/26/16 [Rx] OxyCODONE Immed Rel [Roxicodone 5 MG] 10 mg PO Q4HR PRN #60 tablet 11/26/16 [Rx] Potassium Chloride 10 meq PO BIDWM #30 tab.er.prt 11/26/16 [Rx] Thiamine (B-1) [Vitamin B-1] 200 mg PO DAILY #30 tablet 11/26/16 [Rx] Tiotropium [Spiriva] 18 mcg IH DAILY #1 capsule 11/26/16 [Rx] Vitamin B Complex/Vit C/Vit E [Stresstab] 1 each PO DAILY #30 tablet 11/26/16 [ Rx] Allergies/Adverse Reactions: Allergies No Known Allergies Allergy (Verified 11/19/16 19:03) Date of admission: 11/20/16 01:10 Primary care physician: Grayson Parnell CNP Consults: 11/20/16 06:27 Consult to Occupational Therapy [CONS] Routine Comment: Evaluate, develop and implement POC Consult to Physical Therapy [CONS] Routine Comment: Evaluate, develop and implement POC 11/20/16 07:01 Consult to Orthopedic Surgery [CONS] Routine Consulting Provider: Shaun Pittman Reason for Consult: Acute right femoral neck fracture s/p mech fall. Please eval and advise. Time Notified: 07:04 Call Completed: Yes 11/21/16 12:37 Consult to Sports Trainer [CONS] Routine Reason for SW Consult: D/C Discharging clinician: Charbel Bell Anticipated date of discharge: 11/26/16 - Patient Status Disposition: Transfer Inpatient Rehab Fac Condition: Fair Functional capacity at discharge: uses cane/walker Overall status at discharge: patient is progressing back to baseline - Discharge Instructions Follow Up With: Grayson Parnell, SHAHEEN [Primary Care Provider] - Shaun Pittman DO [Non-Partnered Physician] - Additional Instructions: Follow-up with orthopedic surgery in 3 weeks - Diet and Activity Activity: as per physical therapy Diet: other (Pureed diet with ADA modifications) Hospital course: Mr. Bassett is a 70 year old male with a PMH of DM, HTN, HLD, CVA (most recent 2 years ago), and L BKA who presented to [place] [facility] after a falling while walking into his house resulting in a right hip fracture. He also hit his head. Patient admits to drinking excessive alcohol including the morning of the fall. He was transferred to [place] for surgical treatment of a right hip fracture. He underwent right hemiarthroplasty of the right hip on 11/21/16 and has been doing well postoperatively. He was deemed stable for discharge from an orthopedic point of view 11/23/16. He can be weightbearing as tolerated on the right lower extremity but must maintain total hip arthroplasty precautions per ortho. He developed leukocytosis of 20.5 postoperatively with mild neutrophilia, no bandemia, did not appear septic. Chest x-rays showed small bilateral pleural effusions, mild interstitial pulmonary edema, and hazy bibasilar airspace disease representing either atelectasis, asymmetric edema, or less likely pneumonia. No evidence of pneumothorax and no focal infiltrates. No signs of UTI on UA. Likely stress related vs. aspiration pneumonia. Patient was started on Zosyn 3.375 g every 8 hours on the morning of 11/24/16. Final respiratory culture resulted the morning of 11/26/16 which was showed only normal nguyen, no pathogens. We would like to continue him; however, on PO coverage for aspiration pneumonia with Augmentin. White count decreased to 13.5 on the day of anticipated discharge to inpatient care facility in [place]. - Time Spent with Patient Total time spent providing and/or coordinating discharge services: Greater than 30 minutes - Constitutional Vitals: Temp Pulse Resp BP Pulse Ox 98.4 F 101 12 118/60 97 11/26/16 10:43 11/26/16 10:43 11/26/16 11:10 11/26/16 10:43 11/26/16 11:10 General appearance: Present: cooperative, no acute distress, obese - Eye Eye exam: Present: PERRL, conjuntiva pink, sclera anicteric Pupils: Present: PERRL - Neck Neck exam general surgery: Present: supple, trachea midline. Absent: lymphadenopathy - Respiratory Respiratory exam: Present: decreased breath sounds, prolonged expiratory phase, wheezes. Absent: accessory muscle use, rales, respiratory distress - Cardiovascular Cardiovascular exam: Present: RRR, +S1, +S2. Absent: diastolic murmur, gallop, rubs, systolic murmur - GI/Abdominal GI/Abdominal exam: Present: normal bowel sounds, soft, no peritoneal signs. Absent: distended, tenderness - Extremities Exam Extremities exam: Present: warm. Absent: calf tenderness, cyanotic - Neurological Exam Neurological exam: Absent: pronater drift, facial droop, speech deficit - Skin Skin exam: Present: dry, intact Additional comments: Hip bandage dry - VTE Documentation of Mechanical Device: Venous foot pump, device <Terence Hernandez - Last Filed: 11/26/16 16:01> Date of admission: 11/20/16 01:10 Primary care physician: Grayson Parnell CNP Consults: 11/20/16 06:27 Consult to Occupational Therapy [CONS] Routine Comment: Evaluate, develop and implement POC Consult to Physical Therapy [CONS] Routine Comment: Evaluate, develop and implement POC 11/20/16 07:01 Consult to Orthopedic Surgery [CONS] Routine Consulting Provider: Shaun iPttman Reason for Consult: Acute right femoral neck fracture s/p mech fall. Please eval and advise. Time Notified: 07:04 Call Completed: Yes 11/21/16 12:37 Consult to Sports Trainer [CONS] Routine Reason for SW Consult: D/C Hospital course: Mr. Bassett is a 70 year old male - Time Spent with Patient Total time spent providing and/or coordinating discharge services: - Constitutional Vitals: Temp Pulse Resp BP Pulse Ox 98.6 F 105 18 116/50 92 L 11/26/16 15:36 11/26/16 15:36 11/26/16 15:36 11/26/16 15:36 11/26/16 15:36 - Attending Attestation I examined this patient and my medical decision-making was reviewed with the STEAM TUNNEL FEEDER/PA/Advanced Practice Nurse/Resident Physician. I agree with the documented findings, disposition and treatment plan as described except to the extent set forth below. Remove iverson, continue with augmentin. D/C to ECF today. Continue woth treatment for his copd. smoking cessation. D/W patient.
--- NOTE | 2016-11-26 13:34 | Physician Discharge Referral ---
ExtendedCare Referral Info Transfer To: F Provider in Charge after Transfer: PCP Institutional Level of Care: Skilled - Diagnosis (1) Hip fracture Priority: Primary Status: Acute (2) Alcohol abuse Priority: Secondary Status: Chronic (3) Diabetes Priority: Secondary Status: Chronic Prognosis: Fair - Transfer Medications Prescriptions: OxyCODONE Immed Rel [Roxicodone 5 MG] 10 mg PO Q4HR PRN #60 tablet PRN Reason: Pain Enoxaparin [Lovenox] 30 mg SQ Q12HCO #60 syringe Calcitriol [Rocaltrol] 0.5 mcg PO DAILY #30 capsule Docusate [Colace] 100 mg PO BID PRN #60 capsule PRN Reason: Constipation Folic Acid 1 mg PO DAILY #30 tablet Potassium Chloride 10 meq PO BIDWM #30 tab.er.prt Thiamine (B-1) [Vitamin B-1] 200 mg PO DAILY #30 tablet Vitamin B Complex/Vit C/Vit E [Stresstab] 1 each PO DAILY #30 tablet Home Medications: Amlodipine [Norvasc] 10 mg PO DAILY 11/19/16 [History] Aspirin/Calcium Carbonate/Mag [Aspirin Buffered 325 mg Tab] 325 mg PO DAILY [History] Furosemide [Lasix] 40 mg PO BID 11/19/16 [History] Gabapentin [Neurontin] 800 mg PO TID 11/19/16 [History] Pravastatin Sodium [Pravachol] 20 mg PO DAILY 11/19/16 [History] Tramadol HCl [Ultram] 100 mg PO QID 11/19/16 [History] GlipiZIDE XL (24 HR) [Glucotrol XL] 10 mg PO BID 11/20/16 [History] Oxygen 2 l .ROUTE AD 11/20/16 [History] Quetiapine Fumarate [Seroquel] 100 mg PO HS 11/20/16 [History] Calcitriol [Rocaltrol] 0.5 mcg PO DAILY #30 capsule 11/26/16 [Rx] Docusate [Colace] 100 mg PO BID PRN #60 capsule 11/26/16 [Rx] Enoxaparin [Lovenox] 30 mg SQ Q12HCO #60 syringe 11/26/16 [Rx] Folic Acid 1 mg PO DAILY #30 tablet 11/26/16 [Rx] OxyCODONE Immed Rel [Roxicodone 5 MG] 10 mg PO Q4HR PRN #60 tablet 11/26/16 [Rx] Potassium Chloride 10 meq PO BIDWM #30 tab.er.prt 11/26/16 [Rx] Thiamine (B-1) [Vitamin B-1] 200 mg PO DAILY #30 tablet 11/26/16 [Rx] Vitamin B Complex/Vit C/Vit E [Stresstab] 1 each PO DAILY #30 tablet 11/26/16 [ Rx] Allergies/Adverse Reactions: Allergies No Known Allergies Allergy (Verified 11/19/16 19:03) - Respiratory Orders Oxygen / L per min (2) Smoking Cessation: Smoking cessation has been advised. For more information, call the [place] Tobacco Quit Line at 4-357-AVMN-NOW. - Lab Orders Lab Orders: CBC (Follow hemoglobin) - Mobility Orders Other - Rehabiliation Orders Rehab Potential: Fair Rehab Orders: Evaluation for Physical Therapy, Evaluation for Occupational Therapy - Diet Orders Pureed (Pureed with ADA modifications) CERTIFICATION: I certify that the transfer of the above named patient to an Extended Care Facility is necessary for the continuing treatment of the diagnosis listed. The above information is true and accurate reflection of patient's current condition. Confidential - Redisclosure prohibited without a patient's written consent.
[2016-11-26] MEDS: Insulin DETEMIR 100 UNIT/ML X5UNITS SQ SCH (22:22)
[2016-11-27] MEDS: Metoclopramide 10 MG in 0.9 % Sodium Chloride 50 ML IVPB SCH (00:35)
[2016-11-27] MEDS: Ipratropium/Albuterol Neb 3 ML IH SCH ×3 (03:57→11:22)
[2016-11-27] MEDS: *HR* Enoxaparin 30 MG/0.3 ML SYRINGE SQ SCH (05:42)
[2016-11-27 06:51] VITALS: BP 114/62
--- NOTE | 2016-11-27 07:49 | Event Note ---
Date of Encounter: 11/27/16 Time of Encounter: 07:45 Plan was for Mr. Bassett to be discharged yesterday to inpatient care facility in [place]. Per nursing team, his Yousif catheter was removed yesterday afternoon and he was unable to urinate until late last night, hence the reason for delay in discharge. Patient was seen and examined and he denies chest pain , shortness of breath, abdominal pain, changes in his right hip pain or any other new complaints. He denies dysuria and was able to urinate on his own this morning around 7 AM. He remains cleared for discharge and paperwork is in order
[2016-11-27] MEDS: Insulin LISPRO 300 UNITS/3 ML VIAL SQ SCH (08:04)
[2016-11-27] MEDS: Furosemide 20 MG/2 ML VIAL IVP SCH (08:04)
[2016-11-27] MEDS: *HR* OxyCODONE Immed Rel 5 MG TABLET PO PRN (08:05)
[2016-11-27] MEDS: amLODIPine 5 MG TABLET PO SCH (08:05)
[2016-11-27] MEDS: Sennosides 8.6 MG TABLET PO SCH (08:05)
[2016-11-27] MEDS: Folic Acid 1 MG TABLET PO SCH (08:05)
[2016-11-27] MEDS: Nicotine 21 MG PATCH.TD24 TD SCH (08:06)
[2016-11-27] MEDS: Gabapentin 400 MG CAPSULE PO SCH (08:06)
[2016-11-27] MEDS: Vitamin B Complex/Vit C/Vit E 1 EACH TABLET PO SCH (08:07)
[2016-11-27] MEDS: Thiamine (B-1) 100 MG TABLET PO SCH (08:18)
== END 2016-11-27 12:11 | DRG 469 ==
LOC: SUATTDRO 11-20 01:10 → 3NENU 11-20 01:10
PROVIDERS: ADMIT Internal Medicine; ATTEND Internal Medicine

== ENCOUNTER 2017-07-22 11:40 | Inpatient (IN) ==
--- NOTE | 2017-07-22 12:04 | Emergency Department Note ---
Disposition Clinical Impression: Diabetic infection of right foot, Sepsis, Frail elderly Disposition: Admitted As Inpatient Referrals: Grayson Parnell [employer] [Primary Care Provider] - Forms: ED Satisfaction Letter General Adult HPI - General Chief complaint: ED Wound/Laceration Stated complaint: R foot infection Source: patient Limitations: no limitations - History of Present Illness HPI Narrative: The 1-year-old male type II diabetic reports emergency department with swelling and an ulcer on his right foot. He saw his primary care physician who recommended he come to the ER for evaluation. The patient's had no fever. No chest pain or shortness of breath. No abdominal pain vomiting diarrhea urinary troubles cough runny nose or pain sore throat or other complaints or concerns. He has a left below the knee amputation, he complains of right foot swelling and drainage. There is no history of coughing up blood. No history of syncope. No other complaints or concerns. Pain Scale: 3 - Related Data Home Medications Medication Instructions Recorded Confirmed Aspirin/Calcium Carbonate/Mag 325 mg PO DAILY 11/19/16 11/27/16 [Aspirin Buffered 325 mg Tab] Furosemide [Lasix] 40 mg PO BID 11/19/16 11/27/16 Gabapentin [Neurontin] 800 mg PO TID 11/19/16 11/27/16 Pravastatin Sodium [Pravachol] 20 mg PO DAILY 11/19/16 11/27/16 Tramadol HCl [Ultram] 100 mg PO QID 11/19/16 11/27/16 amLODIPine [Norvasc] 10 mg PO DAILY 11/19/16 11/27/16 GlipiZIDE XL (24 HR) [Glucotrol XL] 10 mg PO BID 11/20/16 11/27/16 Quetiapine Fumarate [Seroquel] 100 mg PO HS 11/20/16 11/27/16 Previous Rx's Medication Instructions Recorded Albuterol Sulfate [Albuterol 2 puff IH Q4HR PRN #1 hfa.aer.ad 11/26/16 Inhaler] Amoxicillin/Clavulanate [Augmentin] 875 mg PO BIDWM #10 tablet 11/26/16 Budesonide/Formoterol 160/4.5 2 puff IH BID #1 hfa.aer.ad 11/26/16 [Symbicort 160/4.5] Calcitriol [Rocaltrol] 0.5 mcg PO DAILY #30 capsule 11/26/16 Docusate [Colace] 100 mg PO BID PRN #60 capsule 11/26/16 Enoxaparin [Lovenox] 30 mg SQ Q12HCO #60 syringe 11/26/16 Folic Acid 1 mg PO DAILY #30 tablet 11/26/16 Magnesium Oxide [Mag-Ox] 400 mg PO BID #7 tablet 11/26/16 OxyCODONE Immed Rel [Roxicodone 5 10 mg PO Q4HR PRN #60 tablet 11/26/16 MG] Potassium Chloride 10 meq PO BIDWM #30 tab.er.prt 11/26/16 Thiamine (B-1) [Vitamin B-1] 200 mg PO DAILY #30 tablet 11/26/16 Tiotropium [Spiriva] 18 mcg IH DAILY #1 capsule 11/26/16 Vitamin B Complex/Vit C/Vit E 1 each PO DAILY #30 tablet 11/26/16 [Stresstab] Allergies Allergy/AdvReac Type Severity Reaction Status Date / Time No Known Allergies Allergy Verified 07/22/17 11:42 All systems ED: reviewed and negative except as stated. Past Medical History - Past Medical History Medical history: Reports: CVA, diabetes, hyperlipidemia, hypertension Surgical history: Reports: other Psychiatric history: Reports: anxiety, depression - Social History Smoking Status: Current every day smoker Smokeless Tobacco Status: No Alcohol use: Reports: heavy, recent Drug use: Reports: none Physical Exam - General Limitations: no limitations General appearance: alert, in no apparent distress - Head Head exam: atraumatic, normocephalic, normal inspection - Eye Eye exam: Present: normal appearance, PERRL, EOMI, miosis - ENT ENT exam: normal exam, normal oropharynx, mucous membranes moist - Neck Neck exam: Present: normal inspection, full ROM, trachea midline - Chest Chest inspection: Present: symmetric chest wall rise. Absent: tenderness - Respiratory Respiratory exam: Present: normal lung sounds bilaterally. Absent: respiratory distress, wheezes, accessory muscle use, prolonged expiratory phase - Cardiovascular Cardiovascular exam: Present: regular rate, normal rhythm, normal heart sounds - Abdominal Exam Abdominal exam: Present: soft, Non-Tender. Absent: tenderness, distention, guarding, rebound, rigidity - Extremities Exam Extremities exam: Present: full ROM, normal capillary refill, other (Upper extremities warm and well perfused without cyanosis or injury, left BKA noted, right lower extremity shows edema and swelling particularly about the foot with chronic venous stasis changes and an ulcer on the plantar lateral aspect of the right foot. Deep open lesions noted strongly malodorous, no crepitance of the skin or blackening or blistering. All extremities are warm and well perfused without cyanosis. No evidence of acute neurovascular or neuromuscular compromise. The right foot appears to be maggot infested.). Absent: joint swelling, calf tenderness - Expanded Lower Extremity Exam Neurovascular/Tendon exam: Present: normal capillary refill. Absent: motor deficit, sensory deficit, tendon deficit, extremity cold to touch, pallor - Back Exam Back exam: Present: full ROM. Absent: tenderness, CVA tenderness (R), CVA tenderness (L), vertebral tenderness - Neurological Exam Neurological exam: Present: alert, oriented X3, CN II-XII intact. Absent: motor sensory deficit - Psychiatric Psychiatric exam: Present: normal affect, normal mood - Skin Skin exam: Present: warm, dry, intact, normal color. Absent: rash, cyanosis, diaphoresis, erythema, pallor, mottled Course Vital Signs Temperature 97.4 F L 07/22/17 11:42 Pulse Rate 89 07/22/17 11:42 Respiratory Rate 20 07/22/17 11:42 Blood Pressure 117/63 07/22/17 11:42 O2 Sat by Pulse Oximetry 94 07/22/17 11:42 Temperature 97.4 F L 07/22/17 11:42 Pulse Rate 91 07/22/17 12:07 Respiratory Rate 16 07/22/17 12:07 Blood Pressure 120/73 07/22/17 12:07 O2 Sat by Pulse Oximetry 92 07/22/17 12:07 Oxygen Delivery Oxygen Delivery Room Air Medical Decision Making - [facility] Narrative Medical decision making narrative: The patient is elderly, diabetic, with vital signs and laboratory work and x- rays suggestive of sepsis, IV access was established. Vancomycin and Zosyn ordered. Blood cultures were sent. The patient may have an element of osteomyelitis, his wound is maggot infested, based on his age, comorbidities, acute infectious process with potential bony invasion, I felt it would be appropriate to admit the patient to the hospital. I have consulted with the hospitalist on-call who has accepted the patient to their care. The patient is agreeable. - Lab Data Lab results reviewed: Yes I reviewed the patient's lab results. Result diagrams: 07/22/17 13:08 07/22/17 13:08 Lab Results 07/22/17 07/22/17 07/22/17 Range/Units 13:08 13:08 13:08 WBC 12.9 H (4.3-11.1) K/mcL RBC 4.36 (4.19-5.50) M/mcL Hgb 13.9 (12.9-16.9) g/dL Hct 40.1 (37.5-50.1) % MCV 92.0 (83.0-100.0) fL MCH 31.9 (28.0-33.3) pg MCHC 34.7 (31.6-35.5) g/dL RDW 12.7 (11.5-14.5) % Plt Count 381 (140-400) K/mcL MPV 8.7 L (9.4-12.4) fL Immature Gran % 0.6 (0-4) % Seg Neutrophils % 64.5 % Lymphocytes % 18.2 % Monocytes % 14.4 % Eosinophils % 1.8 % Basophils % 0.5 % Neutrophils # 8.3 (1.6-8.9) K/mcL Lymphocytes # 2.3 (0.6-4.6) K/mcL Monocytes # 1.9 H (0.0-1.3) K/mcL Eosinophils # 0.2 (0.0-0.6) K/mcL Basophils # 0.1 (0.0-0.2) K/mcL Sodium 124 L (136-145) mEq/L Potassium 3.8 (3.5-4.5) mEq/L Chloride 91 L (98-109) mEq/L Carbon Dioxide 22 (19-29) mEq/L BUN 14 (8-26) mg/dL Creatinine 1.14 (0.72-1.25) mg/dL Est GFR ( Amer) > 60 (> 60) Est GFR (Non-Af Amer) > 60 (> 60) BUN/Creatinine Ratio 12 (6-26) Glucose 92 (70-99) mg/dL Calculated Osmolality 258 L (280-300) Lactic Acid 1.8 (0.5-2.2) mmol/L Calcium 8.2 L (8.6-10.8) mg/dL Total Bilirubin 0.4 (0.2-1.2) mg/dL AST 19 (5-34) Units/L ALT 8 (0-55) Units/L Alkaline Phosphatase 139 H (38-126) Units/L C-Reactive Protein 54 H (Less than 5) mg/L Serum Total Protein 7.5 (6.0-8.3) g/dL Albumin 2.6 L (3.5-5.0) g/dL Globulin 4.9 H (2.4-3.5) g/dL Albumin/Globulin Ratio 0.5 L (1.1-2.2) - Radiology Data Radiology results reviewed: Yes I reviewed the patient's radiology results.
[2017-07-22] MEDS ORDERED: Vancomycin 1,000 MG in D5% in Water 250 ML IVPB ONE (13:09)
[2017-07-22] MEDS ORDERED: Piperacillin/Tazobactam 3.375 GM in D5% in Water (Mini-Bag+) 100 ML IVPB ONE (13:09)
[2017-07-22] MEDS ORDERED: 0.9 % Sodium Chloride 1,000 ML IVC ONE (13:10)
[2017-07-22 13:19] LABS: Basophils # 0.1 K/mcL (0.0-0.2); Basophils % 0.5 %; Eosinophils # 0.2 K/mcL (0.0-0.6); Eosinophils % 1.8 %; Hematocrit 40.1 % (37.5-50.1); Hemoglobin 13.9 g/dL (12.9-16.9); Immature Granulocytes % 0.6 % (0-4); Lymphocytes # 2.3 K/mcL (0.6-4.6); Lymphocytes % 18.2 %; Mean Corpuscular HGB Conc 34.7 g/dL (31.6-35.5); Mean Corpuscular Hemoglobin 31.9 pg (28.0-33.3); Mean Platelet Volume 8.7 fL (9.4-12.4); Monocytes # 1.9 K/mcL (0.0-1.3); Monocytes % 14.4 %; Neutrophils # 8.3 K/mcL (1.6-8.9); Platelet Count 381 K/mcL (140-400); Red Blood Count 4.36 M/mcL (4.19-5.50); Red Cell Distribution Width 12.7 % (11.5-14.5); Segmented Neutrophils % 64.5 %
[2017-07-22 13:32] LABS: Alanine Aminotransferase 8 Units/L (0-55); Albumin 2.6 g/dL (3.5-5.0); Albumin/Globulin Ratio 0.5 (1.1-2.2); Alkaline Phosphatase 139 Units/L (38-126); Aspartate Amino Transferase 19 Units/L (5-34); BUN/Creatinine Ratio 12 (6-26); Bilirubin,Total 0.4 mg/dL (0.2-1.2); Blood Urea Nitrogen 14 mg/dL (8-26); C-Reactive Protein 54 mg/L (Less than 5); Calcium 8.2 mg/dL (8.6-10.8); Carbon Dioxide 22 mEq/L (19-29); Chloride 91 mEq/L (98-109); Globulin 4.9 g/dL (2.4-3.5); Glucose 92 mg/dL (70-99); Osmolality,Calculated 258 (280-300); Potassium 3.8 mEq/L (3.5-4.5); Sodium 124 mEq/L (136-145); Total Protein 7.5 g/dL (6.0-8.3); eGFR For African Americans > 60 (> 60); eGFR For Non-African Americans > 60 (> 60)
[2017-07-22] MEDS ORDERED: Naloxone 0.4 MG/ML INJ IVP PRN (15:45)
[2017-07-22] MEDS ORDERED: *HR* LORazepam 2 MG/ML VIAL IVP PRN ×3 (15:45)
[2017-07-22] MEDS ORDERED: Ondansetron 4 MG/2 ML VIAL IVP PRN (15:50)
[2017-07-22] MEDS ORDERED: D5% in Water 1,000 ML IVC PRN (16:00)
[2017-07-22] MEDS ORDERED: *HR* Heparin 5,000 UNIT/ML VIAL SQ SCH (16:00)
[2017-07-22] MEDS ORDERED: *HR* Dextrose 50 % in Water (Syg) 50 ML SYRINGE IVP PRN (16:00)
[2017-07-22] MEDS ORDERED: Dextrose Gel 15 GM PO PRN ×2 (16:00)
--- NOTE | 2017-07-22 16:04 | Internal Med History&Physical ---
<Juanpablo Perez J - Last Filed: 07/22/17 17:32> Date of Encounter: 07/22/17 Time of Encounter: 16:02 Assessment and Plan (1) Osteomyelitis of ankle or foot Current visit: Yes Status: Acute Infectious, malodorous, non-healing ulceration on lateral plantar aspect. Maggots and purulent drainage noted. Long-standing history of poorly controlled type 2 diabetes in overall poor vasculature. Has already undergone left BKA and right great amputation due to vascular complications. Consult podiatry-Dr. Chou to see for further intervention. Patient will likely require surgical intervention and long-term antibody therapy. Provided education for smoking cessation and better blood glucose control and monitoring. Wound culture ordered Continue vancomycin with pharmacy to dose and continue Zosyn every 8 hours- narrow antibiotics based on results of cultures Plan for pain management includes [place] 5/325 every 4 hours when necessary and morphine 2 mg every 4 hours when necessary Continuous telemetry and continuous SPO2 monitoring (2) Sepsis Current visit: Yes Status: Acute Leukocytosis, heart rate greater than 90s, and nonhealing right foot ulcer. Patient meets SIRS criteria, initial lactic acid 1.8. Has already received 1 L of fluid 0.9 normal saline at 125 mL per hour Wound cultures and blood cultures sent Continue Vanco and Zosyn Recheck lactate CBC and BMP in the morning Qualifiers: Sepsis type: sepsis due to unspecified organism Qualified Code(s): A41.9 - Sepsis, unspecified organism (3) Alcohol abuse Current visit: Yes Status: Chronic Patient is a severe alcoholic reporting drinking at least 7 alcoholic beverages daily. Denies ever going through alcoholic withdrawal but also reports he has never gone longer than 24 hours, drink. Last drink was this morning Start CIWA protocol Give doses of thiamine folate and B12 vitamin NOW Ativan IV push per protocol (4) Diabetes Current visit: Yes Status: Chronic History of type 2 diabetes and extensive vascular complications. Patient takes glipizide at home. Discontinue glipizide while inpatient start LSSIC, Diabetic diet with AC/HS accucheck. Qualifiers: Diabetes mellitus type: type 2 Diabetes mellitus complication status: with unspecified complications Diabetes mellitus local intermodal truck driver insulin use: without local intermodal truck driver use Qualified Code(s): E11.8 - Type 2 diabetes mellitus with unspecified complications (5) Tobacco abuse Current visit: Yes Status: Chronic Patient is currently day [id number] smoker. There is adequate at this time. Provided education regarding smoking and its effects on vasculature. Prescribed nicotine 20 g patch while inpatient Internal Medicine - H&P: HPI Chief complaint: Osteomyelitis Admitted From: Home Plans for Post Hospital Care: Home History of present illness: Mr. Bassett is a 71 year old male with a PMH of DM, CA, HLD, HTN anxiety and depression. [facility] ulcer on the right lateral plantar aspect. CT reveals osteomyelitis. Patient reports that one month ago a blister began to form on the lateral aspect of the right foot, he notes that swelling has continued. Grandson reportedly looked for today and found to be infested with maggots. Leukocytosis noted on CBC. Past Med Surg Social Fam HX - Past Medical History Medical history: CVA, diabetes, hyperlipidemia, hypertension Psychiatric history: anxiety, depression - Past Surgical History Surgical History: other - Social History Smoking Status: Current every day smoker Smokeless Tobacco Status: No Alcohol use: heavy, recent Drug use: none - Family History Father Living Status: Hx Family Cardiac Disorders: No Hx Family Respiratory Disorders: No Hx Family Cancer: No Hx Family Endocrine Disorder: Yes Internal Medicine - H&P: Meds Gabapentin [Neurontin] 800 mg PO TID 11/19/16 [History] Tramadol HCl [Ultram] 50 - 100 mg PO Q4-6H PRN 11/19/16 [History] GlipiZIDE XL (24 HR) [Glucotrol XL] 20 mg PO DAILY 11/20/16 [History] Quetiapine Fumarate [Seroquel] 100 mg PO HS 11/20/16 [History] Folic Acid 1 mg PO DAILY #30 tablet 11/26/16 [Rx] Magnesium Oxide [Mag-Ox] 400 mg PO BID #7 tablet 11/26/16 [Rx] Thiamine (B-1) [Vitamin B-1] 200 mg PO DAILY #30 tablet 11/26/16 [Rx] Vitamin B Complex/Vit C/Vit E [Stresstab] 1 each PO DAILY #30 tablet 11/26/16 [ Rx] Potassium Chloride 30 meq PO DAILY 07/22/17 [History] Venlafaxine XR (24 HR) [Effexor XR] 37.5 mg PO DAILY 07/22/17 [History] 3 Allergy/AdvReac Type Severity Reaction Status Date / Time No Known Allergies Allergy Verified 07/22/17 14:09 All Systems PM: A 10-system review of systems was performed and is negative for pertinent findings except as documented above in the HPI. - Constitutional Constitutional: chills, no fatigue, no fever(s), no malaise, no night sweats, no weakness, no weight gain - EENT Eyes: no change in vision, no discharge, no pain, no photophobia Ears: no ear discharge, no ear pain, no tinnitus Nose, mouth and throat: no dysphagia, no nasal discharge, no neck pain, no sore throat - Cardiovascular Cardiovascular ROS IM: no chest pain, no diaphoresis, no dyspnea, no lightheadedness, no palpitations, no syncope - Respiratory Respiratory: no cough, no dyspnea, no wheezing, no excessive phlegm production - Gastrointestinal Gastrointestinal: no abdominal pain, no diarrhea, no hematemesis, no hematochezia, no melena, no nausea, no vomiting - Musculoskeletal Musculoskeletal ROS IM: no numbness, no tingling - Integumentary Integumentary IM: erythema, non-healing lesions, skin ulcer, no rash, no unusual bruising Additional comments: reports foul smelling drainage with maggots. - Neurological Neurological ROS: no confusion, no convulsions, no dizziness, no focal weakness , no headache(s), no numbness, no tingling, no tremor(s), no weakness - Hematologic/Lymphatic Hematologic/Lymphatic: no easy bruising - Constitutional Vitals: Temp Pulse Resp BP Pulse Ox 97.4 F L 91 16 120/73 92 07/22/17 11:42 07/22/17 12:07 07/22/17 12:07 07/22/17 12:07 07/22/17 12:07 General appearance: Present: cooperative, A&O X 3, no acute distress, answers questions appropriately - Head Head exam: Present: atraumatic, normocephalic - Eye Eye exam: Present: EOMI, PERRL, conjuntiva pink, sclera anicteric Pupils: Present: PERRL - Neck Neck exam general surgery: Present: supple, trachea midline. Absent: lymphadenopathy - Respiratory Respiratory exam: Present: CTAB. Absent: accessory muscle use, rales, rhonchi, wheezes - Cardiovascular Cardiovascular exam: Present: RRR, +S1, +S2. Absent: diastolic murmur, gallop, rubs, systolic murmur - GI/Abdominal GI/Abdominal exam: Present: normal bowel sounds, soft, no peritoneal signs. Absent: distended, tenderness - Extremities Exam Extremities exam: Present: joint swelling, tenderness, warm, radial pulses palpable and symmetrical. Absent: calf tenderness, cyanotic, normal capillary refill, pedal edema Additional comments: Open infectious, malodorous wound with purulent drainage and maggots upon Right lateral plantar aspect of left foot. - Expanded Lower Extremities Exam 1 - Infectious, malodorous, non-healing ulceration on lateral plantar aspect. Maggots and purulent drainage noted - Neurological Exam Neurological exam: Present: CN II-XII intact, oriented X3, no focal deficits. Absent: pronater drift, facial droop, speech deficit - Skin Skin exam: Present: erythema. Absent: intact Internal Med - H&P Results - Labs CBC & Chem 7: 07/22/17 13:08 07/22/17 13:08 - Diagnostic Studies Other Images Status: image reviewed by me Additional comments: XR left foot reveals Postsurgical changes from interval 1st digit amputation. Soft tissue defect/ulceration at the 5th MTP joint with deformity of the distal aspect of the 5th metatarsal and associated lucencies some of which could be related to underlying osteopenia. Acute osteomyelitis cannot be excluded. Given its appearance a pathologic fracture cannot be excluded. Soft tissue swelling. <Evaristo Marquez - Last Filed: 07/22/17 20:00> Date of Encounter: 07/22/17 Internal Medicine - H&P: HPI History of present illness: Mr. Bassett is a 71 year old male All Systems PM: A 10-system review of systems was performed and is negative for pertinent findings except as documented above in the HPI. - Constitutional Vitals: Temp Pulse Resp BP Pulse Ox 97.7 F 98 18 106/62 94 07/22/17 19:19 07/22/17 19:19 07/22/17 19:19 07/22/17 19:19 07/22/17 19:19 Internal Med - H&P Results - Labs CBC & Chem 7: 07/22/17 13:08 07/22/17 13:08 - Attending Attestation I independently obtained history and examined this patient and my medical decision-making was reviewed with the nurse practitioner. I agree with the documented findings, disposition and treatment plan as described. My findings are summarized below: Patient presented with pain in the right foot wound. On exam he is disheveled awake alert oriented in no acute distress. Heart is regular. Lungs are clear. Plan: I have reviewed the x-rays, findings consistent with ulcer and osteomyelitis of the fifth right metatarsal. We will cover with broad-spectrum IV antibiotics including Zosyn and vancomycin. Follow-up with podiatry. Plan for I&D tomorrow. Pain control with [place]. He is at high risk for morbidity and complications due to IV vancomycin which requires blood level monitoring for toxicity. Evaristo Marquez MD
[2017-07-22] MEDS: 0.9 % Sodium Chloride 1,000 ML IVC SCH (16:52)
[2017-07-22] MEDS: Folic Acid 1 MG TABLET PO SCH (16:53)
[2017-07-22] MEDS: Thiamine (B-1) 100 MG TABLET PO SCH (16:53)
[2017-07-22] MEDS: Nicotine 21 MG PATCH.TD24 TD SCH (16:53)
[2017-07-22] MEDS: Vitamin B Complex/Vit C/Vit E 1 EACH TABLET PO SCH (16:53)
[2017-07-22] MEDS: *HR* HYDROcodone/Acet 5/325 mg TABLET PO PRN ×2 (17:03→21:47)
[2017-07-22] MEDS: Insulin LISPRO 300 UNITS/3 ML VIAL SQ SCH ×2 (17:09→20:53)
--- NOTE | 2017-07-22 17:15 | Podiatry Consult Note ---
Date of Encounter: 07/22/17 Time of Encounter: 17:00 Assessment and Plan (1) Diabetic infection of right foot Current visit: Yes Status: Acute Assessment: Large diabetic ulcer to plantar aspect of right foot Plan: Patient has been NPO today- will plan for formal I&D of wound with possible bone removal and possible wound vac application tonight with Patient will possibly need multiple washouts Patient will need skidder antibiotic therapy- consult ID if needed and SW for nursing home management Wound cultures obtained at bedside. Admitting wbc 12.5, ESR >130 and CRP 54 VS stable at this time. Patient was started on vancomycin and zosyn per internal medicine (2) Osteomyelitis of ankle or foot Current visit: Yes Status: Acute see above- will plan for formal I&D of wound and any involved bone tonight (3) Sepsis Current visit: Yes Status: Acute Qualifiers: Sepsis type: sepsis due to unspecified organism Qualified Code(s): A41.9 - Sepsis, unspecified organism (4) Diabetes Current visit: Yes Status: Chronic Strick glucose control to promote healing and decrease possible complications Qualifiers: Diabetes mellitus type: type 2 Diabetes mellitus complication status: with unspecified complications Diabetes mellitus nursing home insulin use: without skidder use Qualified Code(s): E11.8 - Type 2 diabetes mellitus with unspecified complications (5) Tobacco abuse Current visit: Yes Status: Chronic education on smoking cessation to promote proper healing and prevent further complication History of Present Illness HPI: Mr. Bassett is a 71 year old male with a history of DM, alcohol abuse with cirrhosis and non compliance. Patient is known to have poor hygiene practices. Patient is known to in podiatry. Patient called tuesday of this week to report black spot to right foot. Patient was seen in clinic today and a large ulceration was noted to bottom of right foot. Patient was sent to ED to be evaluated and admitted. Patient is resting comfortably on arrival. Denies any pain. States he is unsure how the ulcer happened, states he cannot see it but was told it was bad. Patient denies any fevers, chills, n/v or flu like symptoms. Patient denies any pain. Patient states he has not ate today. Past Med Surg Social Fam HX - Past Medical History Medical history: CVA, diabetes, hyperlipidemia, hypertension Psychiatric history: anxiety, depression - Past Surgical History Surgical History: other - Social History Smoking Status: Current every day smoker Smokeless Tobacco Status: No Alcohol use: heavy, recent Drug use: none - Family History Father Living Status: Hx Family Cardiac Disorders: No Hx Family Respiratory Disorders: No Hx Family Cancer: No Hx Family Endocrine Disorder: Yes Medications and Allergies Gabapentin [Neurontin] 800 mg PO TID 11/19/16 [History] Tramadol HCl [Ultram] 50 - 100 mg PO Q4-6H PRN 11/19/16 [History] GlipiZIDE XL (24 HR) [Glucotrol XL] 20 mg PO DAILY 11/20/16 [History] Quetiapine Fumarate [Seroquel] 100 mg PO HS 11/20/16 [History] Folic Acid 1 mg PO DAILY #30 tablet 11/26/16 [Rx] Magnesium Oxide [Mag-Ox] 400 mg PO BID #7 tablet 11/26/16 [Rx] Thiamine (B-1) [Vitamin B-1] 200 mg PO DAILY #30 tablet 11/26/16 [Rx] Vitamin B Complex/Vit C/Vit E [Stresstab] 1 each PO DAILY #30 tablet 11/26/16 [ Rx] Potassium Chloride 30 meq PO DAILY 07/22/17 [History] Venlafaxine XR (24 HR) [Effexor XR] 37.5 mg PO DAILY 07/22/17 [History] 3 Allergy/AdvReac Type Severity Reaction Status Date / Time No Known Allergies Allergy Verified 07/22/17 14:09 All Systems Reviewed: A 10-system review of systems was performed and is negative for pertinent findings except as documented above in the HPI. Physical Exam - Constitutional Vitals: Temp Pulse Resp BP Pulse Ox 97.8 F 96 20 132/81 93 07/22/17 16:11 07/22/17 16:11 07/22/17 16:11 07/22/17 16:11 07/22/17 16:11 General appearance: average body habitus, obese Exam: Awake, alert and oriented Pedal pulses palpable DP/PT Cap refill <3 seconds Toes warm to touch No sensation to light or moderate touch consistent with diabetic neuropathy There is a large ulceration noted to sub mt head #5 - wound measuring [id number] depth. Entire wound bed is umaña fibrous slough tissue. There is a large amount of debris to wound, there is animal hair caked in wound. There was a black bug within the wound which was removed. There is minimal drainage however there is very foul odor. There is periwound edema and erythema noted. Patient has left BKA. Results - Labs Result Diagrams: 07/22/17 13:08 07/22/17 13:08 Labs: Abnormal lab results WBC 12.9 K/mcL (4.3-11.1) H 07/22/17 13:08 MPV 8.7 fL (9.4-12.4) L 07/22/17 13:08 Monocytes # 1.9 K/mcL (0.0-1.3) H 07/22/17 13:08 ESR >= 130 mm/hr (0-10) H 07/22/17 13:08 Sodium 124 mEq/L (136-145) L 07/22/17 13:08 Chloride 91 mEq/L (98-109) L 07/22/17 13:08 Calculated Osmolality 258 (280-300) L 07/22/17 13:08 Calcium 8.2 mg/dL (8.6-10.8) L 07/22/17 13:08 Alkaline Phosphatase 139 Units/L (38-126) H 07/22/17 13:08 C-Reactive Protein 54 mg/L (Less than 5) H 07/22/17 13:08 Albumin 2.6 g/dL (3.5-5.0) L 07/22/17 13:08 Globulin 4.9 g/dL (2.4-3.5) H 07/22/17 13:08 Albumin/Globulin Ratio 0.5 (1.1-2.2) L 07/22/17 13:08 All other labs normal. Consult Discharge Plan - Plan Referrals: Grayson Parnell, [facility]ER [Primary Care Provider] -
[2017-07-22] MEDS: Gabapentin 400 MG CAPSULE PO SCH (20:51)
[2017-07-22] MEDS: Magnesium Oxide 400 MG TABLET PO SCH (20:52)
[2017-07-22] MEDS: Vancomycin 1,250 MG in D5% in Water 250 ML IVPB SCH (21:47)
[2017-07-22] MEDS: *HR* Morphine 2 MG/ML SYRINGE IVP PRN (23:37)
[2017-07-23] MEDS: Piperacillin/Tazobactam 3.375 GM in D5% in Water (Mini-Bag+) 100 ML IVPB SCH ×2 (00:53→12:14)
[2017-07-23 05:21] LABS: Basophils # 0.1 K/mcL (0.0-0.2); Basophils % 0.9 %; Eosinophils # 0.3 K/mcL (0.0-0.6); Eosinophils % 2.9 %; Hematocrit 41.8 % (37.5-50.1); Hemoglobin 14.4 g/dL (12.9-16.9); Immature Granulocytes % 0.3 % (0-4); Lymphocytes # 2.1 K/mcL (0.6-4.6); Lymphocytes % 18.5 %; Mean Corpuscular HGB Conc 34.4 g/dL (31.6-35.5); Mean Corpuscular Hemoglobin 31.6 pg (28.0-33.3); Mean Corpuscular Volume 91.7 fL (83.0-100.0); Mean Platelet Volume 8.9 fL (9.4-12.4); Monocytes # 1.4 K/mcL (0.0-1.3); Neutrophils # 7.5 K/mcL (1.6-8.9); Platelet Count 366 K/mcL (140-400); Red Blood Count 4.56 M/mcL (4.19-5.50); Red Cell Distribution Width 12.7 % (11.5-14.5); Segmented Neutrophils % 65.4 %
[2017-07-23 05:32] LABS: Hemoglobin A1C 5.8 %
[2017-07-23 05:33] LABS: BUN/Creatinine Ratio 13 (6-26); Blood Urea Nitrogen 14 mg/dL (8-26); Calcium 8.1 mg/dL (8.6-10.8); Carbon Dioxide 24 mEq/L (19-29); Chloride 103 mEq/L (98-109); Glucose 169 mg/dL (70-99); Osmolality,Calculated 282 (280-300); Potassium 4.1 mEq/L (3.5-4.5); eGFR For African Americans > 60 (> 60); eGFR For Non-African Americans > 60 (> 60)
[2017-07-23 05:34] LABS: Sodium 134 mEq/L (136-145)
[2017-07-23] MEDS: 0.9 % Sodium Chloride 1,000 ML IVC SCH ×2 (06:09→18:05)
[2017-07-23] MEDS ORDERED: Lidocaine -MPF 2% 2 ML VIAL ONE (07:29)
[2017-07-23] MEDS ORDERED: *HR* FentaNYL (PF) 100 MCG/2 ML VIAL ONE (07:29)
[2017-07-23] MEDS ORDERED: Propofol 500 MG/50 ML INFUS..BTL ONE (07:29)
[2017-07-23] MEDS ORDERED: *HR* Midazolam HCl 2 MG/2 ML VIAL ONE (07:30)
[2017-07-23] MEDS ORDERED: Albuterol 2.5 MG/3 ML NEBULIZER IH ONE (07:40)
[2017-07-23] MEDS ORDERED: Albuterol 2.5 MG/3 ML NEBULIZER ONE (07:41)
--- NOTE | 2017-07-23 07:46 | Anesthesia Evaluation PreOp ---
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 Anxiety/Depression maintained on Efexor, Seropquel) Other Medical History: Diabetes Type II Anesthesia History: No Prior Anesthetic Complications, Past Anesthesia (R-ana Hip 11/2016, BKA, Great toe amputation) Alcohol Use: heavy (Never >24hrs without drinking. [facility] protocol this admission) , recent Drug use: none Medications and Allergies Gabapentin [Neurontin] 800 mg PO TID 11/19/16 [History] Tramadol HCl [Ultram] 50 - 100 mg PO Q4-6H PRN 11/19/16 [History] GlipiZIDE XL (24 HR) [Glucotrol XL] 20 mg PO DAILY 11/20/16 [History] Quetiapine Fumarate [Seroquel] 100 mg PO HS 11/20/16 [History] Folic Acid 1 mg PO DAILY #30 tablet 11/26/16 [Rx] Magnesium Oxide [Mag-Ox] 400 mg PO BID #7 tablet 11/26/16 [Rx] Thiamine (B-1) [Vitamin B-1] 200 mg PO DAILY #30 tablet 11/26/16 [Rx] Vitamin B Complex/Vit C/Vit E [Stresstab] 1 each PO DAILY #30 tablet 11/26/16 [ Rx] Potassium Chloride 30 meq PO DAILY 07/22/17 [History] Venlafaxine XR (24 HR) [Effexor XR] 37.5 mg PO DAILY 07/22/17 [History] 3 Allergy/AdvReac Type Severity Reaction Status Date / Time No Known Allergies Allergy Verified 07/22/17 14:09 - Meds/Allergy Pre-op Review Medications Reviewed: Yes Allergies Reviewed: Yes Beta Blockers on Current Med List: No Anesthesia Results - Labs 07/25/17 00:13 07/25/17 00:13 Laboratory Results WBC 11.4 K/mcL (4.3-11.1) H 07/23/17 05:09 RBC 4.56 M/mcL (4.19-5.50) 07/23/17 05:09 Hgb 14.4 g/dL (12.9-16.9) 07/23/17 05:09 Hct 41.8 % (37.5-50.1) 07/23/17 05:09 MCV 91.7 fL (83.0-100.0) 07/23/17 05:09 MCH 31.6 pg (28.0-33.3) 07/23/17 05:09 MCHC 34.4 g/dL (31.6-35.5) 07/23/17 05:09 RDW 12.7 % (11.5-14.5) 07/23/17 05:09 Plt Count 366 K/mcL (140-400) 07/23/17 05:09 MPV 8.9 fL (9.4-12.4) L 07/23/17 05:09 Immature Gran % 0.3 % (0-4) 07/23/17 05:09 Seg Neutrophils % 65.4 % 07/23/17 05:09 Lymphocytes % 18.5 % 07/23/17 05:09 Monocytes % 12.0 % 07/23/17 05:09 Eosinophils % 2.9 % 07/23/17 05:09 Basophils % 0.9 % 07/23/17 05:09 Neutrophils # 7.5 K/mcL (1.6-8.9) 07/23/17 05:09 Lymphocytes # 2.1 K/mcL (0.6-4.6) 07/23/17 05:09 Monocytes # 1.4 K/mcL (0.0-1.3) H 07/23/17 05:09 Eosinophils # 0.3 K/mcL (0.0-0.6) 07/23/17 05:09 Basophils # 0.1 K/mcL (0.0-0.2) 07/23/17 05:09 ESR >= 130 mm/hr (0-10) H 07/22/17 13:08 Sodium 134 mEq/L (136-145) L D 07/23/17 05:09 Potassium 4.1 mEq/L (3.5-4.5) 07/23/17 05:09 Chloride 103 mEq/L (98-109) 07/23/17 05:09 Carbon Dioxide 24 mEq/L (19-29) 07/23/17 05:09 BUN 14 mg/dL (8-26) 07/23/17 05:09 Creatinine 1.08 mg/dL (0.72-1.25) 07/23/17 05:09 Est GFR ( Amer) > 60 (> 60) 07/23/17 05:09 Est GFR (Non-Af Amer) > 60 (> 60) 07/23/17 05:09 BUN/Creatinine Ratio 13 (6-26) 07/23/17 05:09 Glucose 169 mg/dL (70-99) H 07/23/17 05:09 POC Glucose 173 (58-89) H 07/23/17 04:51 Est Mean Plasma Glucose 120 mg/dl 07/23/17 05:09 Hemoglobin A1c 5.8 % (-5.6) H 07/23/17 05:09 Calculated Osmolality 282 (280-300) 07/23/17 05:09 Lactic Acid 0.8 mmol/L (0.5-2.2) 07/22/17 16:09 Calcium 8.1 mg/dL (8.6-10.8) L 07/23/17 05:09 Total Bilirubin 0.4 mg/dL (0.2-1.2) 07/22/17 13:08 AST 19 Units/L (5-34) 07/22/17 13:08 ALT 8 Units/L (0-55) 07/22/17 13:08 Alkaline Phosphatase 139 Units/L (38-126) H 07/22/17 13:08 C-Reactive Protein 54 mg/L (Less than 5) H 07/22/17 13:08 Serum Total Protein 7.5 g/dL (6.0-8.3) 07/22/17 13:08 Albumin 2.6 g/dL (3.5-5.0) L 07/22/17 13:08 Globulin 4.9 g/dL (2.4-3.5) H 07/22/17 13:08 Albumin/Globulin Ratio 0.5 (1.1-2.2) L 07/22/17 13:08 Impressions Foot X-Ray 07/22/17 11:59 IMPRESSION: 1. Postsurgical changes from interval 1st digit amputation. 2. Soft tissue defect/ulceration at the 5th MTP joint with deformity of the distal aspect of the 5th metatarsal and associated lucencies some of which could be related to underlying osteopenia. Acute osteomyelitis cannot be excluded. Given its appearance a pathologic fracture cannot be excluded. 3. Soft tissue swelling. D/ / 07/22/2017 12:48:26 Meenakshi Beckman MD / Rhoda Jules Interpreting Provider: Meenakshi Beckman MD - Imaging EKG: image reviewed Anesthesia Exam Vital Signs Temp Pulse Resp BP Pulse Ox 07/23/17 06:55 98.2 F 91 16 143/77 94 07/23/17 04:14 98.1 F 81 14 129/75 94 07/22/17 23:35 97.9 F 84 16 126/66 94 07/22/17 21:00 96 07/22/17 19:19 97.7 F 98 18 106/62 94 07/22/17 16:11 97.8 F 96 20 132/81 93 07/22/17 12:07 91 16 120/73 92 07/22/17 11:42 97.4 F L 89 20 117/63 94 Intake and Output 07/22/17 07/22/17 07/23/17 15:59 23:59 07:59 Intake Total 0 / 0 770 / 770 1500 / 1500 Output Total 1400 / 1400 2575 / 2575 Balance 0 / 0 -630 / -630 -1075 / -1075 Intake: IV Fluids 350 / 350 1100 / 1100 0.9 % Sodium Chloride 1,000 ML 1000 / 1000 @ 125 mls/hr IVC .Q8H ALINA Rx#: [id number] Zosyn 3.375 GM In Dextrose 5% ( 100 / 100 100 / 100 Minibag+) 100 ML 100 ML @ 25 mls/hr IVPB Q8H ALINA Rx#: [id number] Vancocin 1,250 MG In Dextrose 5 250 / 250 % 250 ML @ 166.67 mls/hr IVPB Q12H ALINA Rx#:[id number] Oral 0 / 0 420 / 420 400 / 400 Output: Urine 1400 / 1400 2575 / 2575 Other: Meal Dinner Percent of Meal Consumed 100% Weight 87.997 kg 88.3 kg Blood Glucose* 160 173 Patient Weight 07/23/17 23:59 Weight 88.3 kg Height: 6'0 Weight: 194# BMi = 26 NPO (# of Hours): MNOc - HEENT Pupil (Motor): Pupils equal, EOMI Mallampati: II Teeth: Edentulous, Poor dentition Oral Opening: Greater than 3 - MILL [employer] OPERATOR LOC: Oriented [employer] OPERATOR Motor: Normal LUE, Normal LLE, Normal Face, Deficit RUE, Deficit RLE [employer] OPERATOR Sensory: Normal: LUE, LLE, Face, Deficit: RUE, RLE - Cardiac Rhythm: Regular Murmur: None - Pulmonary Breath Sounds: bilateral Clear Respiratory Effort: Symmetrical Anesthesia Assess/Plan ASA Score: 3 (DM, Sepsis, HTN, Chol, EtOHism/?Liver dz?, Smoker, PVDz) Modified Od[place] Scale for Level of Consciousness: Cooperative, oriented, and tranquil Anesthetic Plan: MAC Monitoring Plan: Standard Monitors Recovery Plan: Other Anes Supervising Prov Stmt: Pt seen/evaluated, R&B discussed, questions answered and consent obtained. Talia Murphy MD
[2017-07-23] MEDS ORDERED: Bupivacaine/Clonidine Syringe 1 EACH SYRINGE ONE (07:48)
[2017-07-23] MEDS: Insulin LISPRO 300 UNITS/3 ML VIAL SQ SCH ×4 (08:05→20:44)
--- NOTE | 2017-07-23 08:05 | Podiatry Progress Note ---
Date of Encounter: 07/23/17 Time of Encounter: 07:03 - Assessment and Plan (1) Osteomyelitis of ankle or foot Current Visit: Yes Status: Acute At this time due to the necrotic and foul nature of the wound the patient was instructed that he is in need of surgical debridement. The patient was instructed that there is a possibility that bone will need to be resected. The patient was also instructed that he is at risk for losing his foot or at risk for a possible transmetatarsal amputation. The patient was instructed that he might also require a wound VAC for an extended period of time. Patient related understanding and is okay with pursuing surgical intervention. Patient was informed of the risks and complications of surgery. These may include but are not limited to the following; nerve damage, numbness, tingling, RSD/CRPS, loss of motor function, loss of toe, loss of limb, loss of life, ischemia, wound healing issues, infection, scarring, keloid formation, continued pain, arthritis, non-union, mal-union, prominent hardware, displaced hardware, reaction to hardware, the need to remove hardware, bruising, continued limp, the need for future surgery, over correction, under correction, chronic swelling , the need for physical therapy, stiffness of joints, ulceration, slow healing, wound dehiscence, reaction to implant, reaction to sutures. The patient was informed of the possible conservative treatments available which may include but are not limited to the following: Orthotics, bracing, non -weight bearing, physical therapy, padding, taping, steroid injections, NSAIDS, casting. The patient was given the option to seek a second opinion. It was explained that surgery is an art and not an exact science therefore results cannot be guaranteed. All the patients questions and concerns were addressed. Patient agrees to have the surgery despite the possible risks and complications. Absolutely no guarantees were given or implied. Subjective Principal diagnosis: right foot wound Interval history: Patient relates a history of the right foot wound. Patient relates that it has been draining. Patient relates that it is difficult to keep his weight off it due to the [id number] amputation on his other limb. Objective - Vital Signs Vital Signs: Vital Signs Temp Pulse Resp BP Pulse Ox 07/23/17 06:55 98.2 F 91 16 143/77 94 07/23/17 04:14 98.1 F 81 14 129/75 94 07/22/17 23:35 97.9 F 84 16 126/66 94 07/22/17 21:00 96 07/22/17 19:19 97.7 F 98 18 106/62 94 07/22/17 16:11 97.8 F 96 20 132/81 93 Intake and Output 07/22/17 07/23/17 07/23/17 23:59 07:59 15:59 Intake Total 770 / 770 1500 / 1500 Output Total 1400 / 1400 2575 / 2575 Balance -630 / -630 -1075 / -1075 Intake: IV Fluids 350 / 350 1100 / 1100 0.9 % Sodium Chloride 1,000 ML 1000 / 1000 @ 125 mls/hr IVC .Q8H ALINA Rx#: [id number] Zosyn 3.375 GM In Dextrose 5% ( 100 / 100 100 / 100 Minibag+) 100 ML 100 ML @ 25 mls/hr IVPB Q8H ALINA Rx#: [id number] Vancocin 1,250 MG In Dextrose 5 250 / 250 % 250 ML @ 166.67 mls/hr IVPB Q12H ALINA Rx#:[id number] Oral 420 / 420 400 / 400 Output: Urine 1400 / 1400 2575 / 2575 Other: Meal Dinner Percent of Meal Consumed 100% Weight 88.3 kg Blood Glucose* 160 173 Patient Weight 07/23/17 23:59 Weight 88.3 kg - Exam Exam: Awake, alert and oriented Pedal pulses are lightly palpable DP/PT Cap refill <3 seconds Toes warm to touch No sensation to light or moderate touch consistent with diabetic neuropathy There is a large ulceration noted to sub mt head #5 - wound measuring 4lhy2sal4.5cm depth. Entire wound bed is umaña fibrous slough tissue. There is a large amount of debris to wound, there is animal hair caked in wound. Small maggots noted within the wound. There is minimal drainage however there is very foul odor. There is periwound edema and erythema noted. Patient has left BKA. - Lab Result Diagrams: 07/23/17 05:09 07/23/17 05:09 Labs: Abnormal lab results WBC 11.4 K/mcL (4.3-11.1) H 07/23/17 05:09 MPV 8.9 fL (9.4-12.4) L 07/23/17 05:09 Monocytes # 1.4 K/mcL (0.0-1.3) H 07/23/17 05:09 ESR >= 130 mm/hr (0-10) H 07/22/17 13:08 Sodium 134 mEq/L (136-145) L D 07/23/17 05:09 Glucose 169 mg/dL (70-99) H 07/23/17 05:09 POC Glucose 173 (58-89) H 07/23/17 04:51 Hemoglobin A1c 5.8 % (-5.6) H 07/23/17 05:09 Calcium 8.1 mg/dL (8.6-10.8) L 07/23/17 05:09 Alkaline Phosphatase 139 Units/L (38-126) H 07/22/17 13:08 C-Reactive Protein 54 mg/L (Less than 5) H 07/22/17 13:08 Albumin 2.6 g/dL (3.5-5.0) L 07/22/17 13:08 Globulin 4.9 g/dL (2.4-3.5) H 07/22/17 13:08 Albumin/Globulin Ratio 0.5 (1.1-2.2) L 07/22/17 13:08 Consult Discharge Plan - Plan Referrals: Grayson Parnell, [facility] [Primary Care Provider] -
[2017-07-23] MEDS ORDERED: Vancomycin 1,250 MG in D5% in Water 250 ML IVPB SCH (09:00)
--- NOTE | 2017-07-23 09:29 | Operative Note ---
Date of procedure: 07/23/17 Pre-op diagnosis: ulceration and infection, right foot fifth metatarsal Post-op diagnosis: same Procedure: Fifth metatarsal resection, partial, right. Excision of ulceration with debridement of the dermis, epidermis, subcutaneous tissue, fascia, bone right foot. Implants: none Anesthesia: [facility] [place] Surgeon: Damian Piper Estimated blood loss (cc): 5 Specimen: Bone and soft tissue, fifth metatarsal right foot Condition: stable Disposition: PACU Procedure in Detail: The patient was administered IV antibiotics. The patient was transported to the operative room and placed on operating table. Following anesthesia the extremity was scrubbed prepped and draped in the usual aseptic fashion. A timeout was performed. The lower extremity was raised to 60 degrees for hemostasis and exsanguinated utilizing an Esmarch bandage. The pneumatic tourniquet was inflated. The leg was lowered to the table. An incision was made and deepened through subcutaneous tissue with care taken to identify and retract all vital neurovascular structures. The incision was made circumferentially around the ulceration site to gain clean healthy borders and to remove the necrotic, nonviable, infected tissue. The ulceration site was debrided through the level of the epidermis, dermis, subcutaneous, fascia and extended to include a small amount of bone from the head of the fifth metatarsal. After the debridement was performed it was noted that there was crumbling bone consistent with osteomyelitis on the distal aspect of the fifth metatarsal of the right foot. The soft tissue was sent to pathology and cultures were obtained. Another incision was made proximal to the ulceration site and deepened through subcutaneous tissues with care taken to identify and retract all vital neurovascular structures. An osteotomy was performed at the proximal diaphyseal region of the fifth metatarsal of the right foot through the incision that was made. The fifth metatarsal was then partially resected and removed from the field and sent to pathology. The fifth digit was left in place. The site was irrigated with copious amounts of antibiotic solution and pulse irrigation was performed as well. There is noted to be healthy bone at the area of the osteotomy. The incision site near the osteotomy was closed with 3-0 nylon but due to the infection the ulceration site was left open and packed with iodoform gauze. A dry sterile dressing was applied. The pneumatic tourniquet was deflated and a hyperemic response was noted to all digits. The patient tolerated the procedure and anesthesia well and was transported to the recovery room with vital signs stable and vascular status intact to both feet. The patient will be readmitted to the floor per anesthesia. The patient will have the dressing changed every 12 hours. The patient will remain nonweightbearing. The patient will require long-term antibiotics due to the bone involvement at the infection site. After 2-3 days we will likely switch from iodoform packing to a wound VAC on the plantar aspect of the foot. Patient will follow-up weekly after discharge.
--- NOTE | 2017-07-23 09:42 | Anesthesia Evaluation Post Op ---
Date of Encounter: 07/23/17 Time of Encounter: 09:25 - Lungs Lungs: Clear Ascult./Percussion (Baseline lung status) - Airway Airway: Non-obstructed - Cardiovascular Regular Rate, Baseline Rhythm - Mental Status Mental Status: Alert & Oriented, Answers Appropriately - Pain Pain Scale used: Patel-De Leon (Faces) (2 - related to back pain) - Nausea Vomiting Nausea Vomiting: Not Present - Hydration Hydration: NPO, Has not voided - Discharge PostOp Status: Transfer Patient to floor Anes Supervising Prov Stmt: Pt VSS and has met criteria for discharge to floor. - MD Jeffrey
[2017-07-23] MEDS: Gabapentin 400 MG CAPSULE PO SCH ×3 (12:10→20:40)
[2017-07-23] MEDS: Folic Acid 1 MG TABLET PO SCH (12:10)
[2017-07-23] MEDS: Thiamine (B-1) 100 MG TABLET PO SCH (12:10)
[2017-07-23] MEDS: Venlafaxine XR (24 HR) 37.5 MG CAP.ER.24H PO SCH (12:10)
[2017-07-23] MEDS: Magnesium Oxide 400 MG TABLET PO SCH (12:11)
[2017-07-23] MEDS: Vitamin B Complex/Vit C/Vit E 1 EACH TABLET PO SCH (12:13)
[2017-07-23] MEDS: Nicotine 21 MG PATCH.TD24 TD SCH (12:13)
[2017-07-23] MEDS: Vancomycin 1,250 MG in D5% in Water 250 ML IVPB SCH ×2 (12:14→23:38)
--- NOTE | 2017-07-23 12:21 | Internal Med Progress Note ---
<Padmini Ventura - Last Filed: 07/23/17 12:04> Date of Encounter: 07/23/17 Time of Encounter: 12:04 - Assessment and plan (1) Osteomyelitis of ankle or foot Current Visit: Yes Status: Acute Assessment and plan: Foot x-ray showed acute osteomyelitis. Soft tissue ulceration at the 5th MTP joint. Patient had a nonhealing ulceration on lateral plantar aspect of right foot that has been worsening for 1 month. It reportedly had maggots in it. afebrile, WBC 11.4 patient has a left BKA and right great amputation Podiatry took patient to OR for surgical debridement today -Start cefepime day1 -stop zosyn -vancomycin day 2 -podiatry following and performing wound care -wound cultures pending -anaerobic cultures pending -blood cultures pending (2) Sepsis Current Visit: Yes Status: Acute Assessment and plan: Patient presented meeting sepsis criteria due to osteomyelitis of right foot afebrile, WBC 11.4 -See plan above Qualifiers: Sepsis type: sepsis due to unspecified organism Qualified Code(s): A41.9 - Sepsis, unspecified organism (3) Alcohol abuse Current Visit: Yes Status: Chronic Assessment and plan: Patient reports that he drinks 4- 7 beers a day but his last drink was 4 days ago nurse stated that he has not demonstrated withdrawal symptoms and has not had to give him Ativan -CIWA protocol -continue to monitor (4) Below knee amputation status Current Visit: No Status: Chronic Assessment and plan: Patient has a below knee amputation patient ambulates with a walker -PT/OT consulted -social work consulted Qualifiers: Laterality: left Qualified Code(s): Z89.512 - Acquired absence of left leg below knee (5) Diabetes Current Visit: Yes Status: Chronic Assessment and plan: Patient has history of diabetes -low-dose insulin sliding scale Qualifiers: Diabetes mellitus type: type 2 Diabetes mellitus complication status: with unspecified complications Diabetes mellitus snf insulin use: without snf use Qualified Code(s): E11.8 - Type 2 diabetes mellitus with unspecified complications (6) Tobacco abuse Current Visit: Yes Status: Chronic Assessment and plan: Patient reportedly smokes 1ppd -nicotine patch - Subjective Interval history: Alert and oriented in no distress Sitting up in bed drinking water. He just got back from surgery his nurse reported He has no complaints only requests food Denies fever, chills, SOB, chest pain - Constitutional Vitals: Temp Pulse Resp BP Pulse Ox 97.8 F 92 18 123/75 92 07/23/17 11:51 07/23/17 11:51 07/23/17 11:51 07/23/17 11:51 07/23/17 11:51 General appearance: Present: cooperative, A&O X 3, no acute distress, answers questions appropriately Exam: Gen.: Vitals noted. No acute distress. AAOx3 HEENT: oropharynx clear, Normocephalic, atraumatic Cardiac: RRR, no murmur, +S1/S2 Pulmonary: CTA bilaterally, no wheezes, rales or rhonchi, equal chest expansion Abdomen: soft, nontender, Bowel sounds noted, no guarding Extremities: Right foot ulcer. no BLE edema, nontender calf, no cyanosis or clubbing Neuro: A&Ox3, moves all extremities Psych: Appropriate mood and behavior Internal Medicine: Result - Labs CBC & Chem 7: 07/23/17 05:09 07/23/17 05:09 Consult Discharge Plan - Plan Referrals: Grayson Parnell, ACCOUNTING SYSTEM [employer]PERT [Primary Care Provider] - <Vic Keller H - Last Filed: 07/23/17 13:35> Date of Encounter: 07/23/17 - Constitutional Vitals: Temp Pulse Resp BP Pulse Ox 97.8 F 92 18 123/75 92 07/23/17 11:51 07/23/17 11:51 07/23/17 11:51 07/23/17 11:51 07/23/17 11:51 Internal Medicine: Result - Labs CBC & Chem 7: 07/23/17 05:09 07/23/17 05:09 - Attending Attestation Stop Zosyn, start cefepime Consider Librium and Ativan as needed if evidence of alcohol withdrawal I examined this patient and my medical decision-making was reviewed with the Resident Physician. I agree with the documented findings, disposition and treatment plan as described except to the extent set forth below.
[2017-07-23] MEDS: *HR* HYDROcodone/Acet 5/325 mg TABLET PO PRN ×2 (12:47→20:40)
[2017-07-23] MEDS ORDERED: Cefepime HCl 1,000 MG in D5% in Water (Mini-Bag+) 100 ML IVPB SCH (13:00)
[2017-07-24] MEDS: *HR* Morphine 2 MG/ML SYRINGE IVP PRN ×4 (02:25→21:05)
[2017-07-24] MEDS ORDERED: Cefepime HCl 1,000 MG in D5% in Water (Mini-Bag+) 100 ML IVPB SCH (03:00)
[2017-07-24] MEDS: 0.9 % Sodium Chloride 1,000 ML IVC SCH ×4 (03:10→22:32)
[2017-07-24] MEDS: *HR* HYDROcodone/Acet 5/325 mg TABLET PO PRN ×4 (03:10→16:58)
[2017-07-24] MEDS ORDERED: Albuterol 2.5 MG/3 ML NEBULIZER IH PRN (03:15)
[2017-07-24 05:39] LABS: Mean Corpuscular HGB Conc 34.1 g/dL (31.6-35.5); Mean Corpuscular Hemoglobin 32.1 pg (28.0-33.3); Mean Corpuscular Volume 94.2 fL (83.0-100.0); Mean Platelet Volume 9.2 fL (9.4-12.4); Platelet Count 348 K/mcL (140-400); Red Blood Count 3.61 M/mcL (4.19-5.50); Red Cell Distribution Width 12.9 % (11.5-14.5)
[2017-07-24 05:40] LABS: Hemoglobin 11.6 g/dL (12.9-16.9)
[2017-07-24 05:52] LABS: BUN/Creatinine Ratio 11 (6-26); Blood Urea Nitrogen 10 mg/dL (8-26); Calcium 7.6 mg/dL (8.6-10.8); Carbon Dioxide 21 mEq/L (19-29); Chloride 106 mEq/L (98-109); Glucose 189 mg/dL (70-99); Osmolality,Calculated 284 (280-300); Potassium 3.8 mEq/L (3.5-4.5); Sodium 135 mEq/L (136-145); eGFR For African Americans > 60 (> 60); eGFR For Non-African Americans > 60 (> 60)
[2017-07-24] MEDS: Vitamin B Complex/Vit C/Vit E 1 EACH TABLET PO SCH (07:53)
[2017-07-24] MEDS: Insulin LISPRO 300 UNITS/3 ML VIAL SQ SCH ×4 (07:53→21:03)
[2017-07-24] MEDS: Folic Acid 1 MG TABLET PO SCH (07:53)
[2017-07-24] MEDS: Venlafaxine XR (24 HR) 37.5 MG CAP.ER.24H PO SCH (07:53)
[2017-07-24] MEDS: Nicotine 21 MG PATCH.TD24 TD SCH (07:53)
[2017-07-24] MEDS: Magnesium Oxide 400 MG TABLET PO SCH ×2 (07:54→21:05)
[2017-07-24] MEDS: Thiamine (B-1) 100 MG TABLET PO SCH (07:54)
[2017-07-24] MEDS: Gabapentin 400 MG CAPSULE PO SCH ×3 (07:54→21:06)
--- NOTE | 2017-07-24 09:01 | Internal Med Progress Note ---
<Padmini Ventura - Last Filed: 07/24/17 13:36> Date of Encounter: 07/24/17 Time of Encounter: 09:01 - Assessment and plan (1) Sepsis Current Visit: Yes Status: Acute Assessment and plan: Patient presented meeting sepsis criteria due to osteomyelitis of right foot patient in night was febrile 100.2, increased WBC 16.2, tachycardic 106 patient complaining of shortness of breath, denied dysuria and bladder fullness Urinalysis negative CXR showed mild interstitial prominence the lung bases which could be chronic. Correlation for mild interstitial edema. -start ertapenem -stopped cefepime -continue vancomycin -IV fluids -lactic acid ordered -blood culture ordered -Echo ordered Qualifiers: Sepsis type: sepsis due to unspecified organism Qualified Code(s): A41.9 - Sepsis, unspecified organism (2) Osteomyelitis of ankle or foot Current Visit: Yes Status: Acute Assessment and plan: Foot x-ray showed acute osteomyelitis. Soft tissue ulceration at the 5th MTP joint. Patient had a nonhealing ulceration on lateral plantar aspect of right foot that has been worsening for 1 month. It reportedly had maggots in it. afebrile, increased WBC 16.2 patient has a left BKA and right great amputation Surgical debridement by podiatry yesterday -wound cultures grew Proteus -Start cefepime day 2 -vancomycn day 3 -podiatry following and performing wound care -anaerobic cultures pending -blood cultures pending (3) Alcohol abuse Current Visit: Yes Status: Chronic Assessment and plan: Patient reports that he drinks 4- 7 beers a day but his last drink was 4 days ago nurse stated that he has not demonstrated withdrawal symptoms and has not had to give him Ativan -CIWA protocol -continue to monitor (4) Below knee amputation status Current Visit: No Status: Chronic Assessment and plan: Patient has a below knee amputation patient ambulates with a walker -PT/OT consulted -social work consulted Qualifiers: Laterality: left Qualified Code(s): Z89.512 - Acquired absence of left leg below knee (5) Diabetes Current Visit: Yes Status: Chronic Assessment and plan: Patient has history of diabetes -low-dose insulin sliding scale Qualifiers: Diabetes mellitus type: type 2 Diabetes mellitus complication status: with unspecified complications Diabetes mellitus ferry terminal agent insulin use: without ferry terminal agent use Qualified Code(s): E11.8 - Type 2 diabetes mellitus with unspecified complications (6) Tobacco abuse Current Visit: Yes Status: Chronic Assessment and plan: Patient reportedly smokes 1ppd -nicotine patch (7) DVT prophylaxis Current Visit: Yes Status: Acute Assessment and plan: EPCD No heparin due to continued bleeding and seeping of right foot ulcer - Subjective Interval history: Alert and oriented in no distress Sitting up in bed finishing breakfast He reports shortness of breath and overall malaise Denies fever, chills, SOB, chest pain, dysuria, bladder fullness - Constitutional Vitals: Temp Pulse Resp BP Pulse Ox 98.8 F 106 18 126/73 95 07/24/17 06:41 07/24/17 06:41 07/24/17 06:41 07/24/17 06:41 07/24/17 06:41 General appearance: Present: cooperative, A&O X 3, no acute distress, answers questions appropriately Exam: Gen.: Vitals noted. No acute distress. AAOx3 HEENT: oropharynx clear, Normocephalic, atraumatic Neck: Supple. No adenopathy. Cardiac: RRR, no murmur, +S1/S2 Pulmonary: decreased breath sounds, no wheezes, rales or rhonchi, equal chest expansion Abdomen: soft, nontender, Bowel sounds noted, no guarding Extremities: no BLE edema, nontender calf Neuro: A&Ox3, moves all extremities, no focal deficits Psych: Appropriate mood and behavior Internal Medicine: Result - Labs CBC & Chem 7: 07/24/17 05:00 07/24/17 05:00 Labs: Short CBC 07/24/17 Range/Units 05:00 WBC 16.2 H (4.3-11.1) K/mcL Hgb 11.6 L D (12.9-16.9) g/dL Hct 34.0 L (37.5-50.1) % Plt Count 348 (140-400) K/mcL BMP 07/24/17 05:00 Sodium 135 L Potassium 3.8 Chloride 106 Carbon Dioxide 21 BUN 10 Creatinine 0.90 Glucose 189 H Calcium 7.6 L Consult Discharge Plan - Plan Referrals: Grayson Parnell, PLUMBING ENGINEERING DRAFTSPERSON [Primary Care Provider] - <Vic Keller H - Last Filed: 10/22/17 14:13> Date of Encounter: 07/24/17 - Constitutional Vitals: Temp Pulse Resp BP Pulse Ox 98.7 F 98 16 129/68 96 07/24/17 11:35 07/24/17 11:35 07/24/17 11:35 07/24/17 11:35 07/24/17 11:35 Internal Medicine: Result - Labs CBC & Chem 7: 07/24/17 05:00 07/24/17 05:00 Labs: Short CBC 07/24/17 Range/Units 05:00 WBC 16.2 H (4.3-11.1) K/mcL Hgb 11.6 L D (12.9-16.9) g/dL Hct 34.0 L (37.5-50.1) % Plt Count 348 (140-400) K/mcL BMP 07/24/17 05:00 Sodium 135 L Potassium 3.8 Chloride 106 Carbon Dioxide 21 BUN 10 Creatinine 0.90 Glucose 189 H Calcium 7.6 L Urine 07/24/17 Range/Units 12:15 Urine Color Yellow (Yellow) Urine Clarity Clear (Clear) Urine pH 6.5 (5.0-8.0) pH Units Ur Specific Gail 1.012 (1.010-1.025) Urine Protein Negative (Neg-Trace) mg/dL Urine Glucose (UA) Normal (Normal) mg/dL - Impressions Impressions Chest X-Ray 07/24/17 08:54 IMPRESSION: Mild interstitial prominence the lung bases which could be chronic. Correlation for mild interstitial edema is recommended. D/ / Courtney Cuba Cha, MD / Courtney Cuba Cha, MD Interpreting Provider: Courtney Cuba Cha, MD - Attending Attestation Sepsis secondary to right foot osteomyelitis, wound culture growing Proteus Start ertapenem and discontinue Zosyn I examined this patient and my medical decision-making was reviewed with the Resident Physician. I agree with the documented findings, disposition and treatment plan as described except to the extent set forth below.
[2017-07-24 12:25] LABS: Bilirubin,Urine Negative (Negative); Blood,Urine Negative (Negative); Clarity,Urine Clear (Clear); Color,Urine Yellow (Yellow); Glucose,Urine (UA) Normal (Normal); Ketones,Urine Negative (Negative); Leukocyte Esterase,Urine Negative (Negative); Nitrite,Urine Negative (Negative); PH,Urine 6.5 pH Units (5.0-8.0); Protein,Urine Negative (Neg-Trace); Specific Gravity,Urine 1.012 (1.010-1.025); Urobilinogen,Urine Normal (Normal)
[2017-07-24] MEDS: Vancomycin 1,000 MG in D5% in Water 250 ML IVPB SCH (13:28)
[2017-07-24] MEDS: Ertapenem 1,000 MG in 0.9 % Sodium Chloride Mini Bag 100 ML IVPB SCH (14:18)
--- NOTE | 2017-07-24 18:28 | Electrocardiograph Report ---
[place] [id number] Test Date: 2017-07-22 Pat Name: Sukumar Bassett Department: 114 Room: [facility] Gender: M Hydraulic And Plumbing Installer: : 1945 Requested By: Juanpablo Perez Order Number: [id number] Reading MD: Aidan Roberson MD Measurements Intervals [place] Rate: 81 P: 82 DC: 157 QRS: 24 QRSD: 156 T: 52 QT: 428 QTc: 465 Interpretive Statements SINUS RHYTHM WITH MARKED SINUS ARRHYTHMIA RIGHT BUNDLE BRANCH BLOCK Electronically Signed On 07-24-2017 18:27:09 EDT by Aidan Roberson MD
--- NOTE | 2017-07-24 22:27 | Podiatry Progress Note ---
Date of Encounter: 07/24/17 Time of Encounter: 22:24 - Assessment and Plan (1) Osteomyelitis of ankle or foot Current Visit: Yes Status: Acute At this time regular dressing changes were performed. The packing was pulled in a new dressing was applied. Tomorrow we will apply a wound VAC to be utilized for the duration of the patient's healing. The patient will require long-term IV antibiotics to be managed by infectious disease. Wound VAC changes will be performed on Tuesday, Tuesday, Tuesday or at least every to 72 hours. The patient will need to remain nonweightbearing until the right foot is healed. Subjective Principal diagnosis: right foot wound Interval history: Patient relates no pain. Patient relates that overall he is feeling quite well. Objective - Vital Signs Vital Signs: Vital Signs Temp Pulse Resp BP Pulse Ox 07/24/17 20:15 98.2 F 85 17 121/70 96 07/24/17 18:36 95 07/24/17 16:26 98.4 F 79 16 111/63 95 07/24/17 11:35 98.7 F 98 16 129/68 96 07/24/17 10:07 95 07/24/17 06:41 98.8 F 106 18 126/73 95 07/24/17 03:55 100.2 F H 102 19 128/66 96 07/24/17 03:33 13 99 07/24/17 00:48 98.9 F 89 17 126/73 93 Intake and Output 07/24/17 07/24/17 07/24/17 07:59 15:59 23:59 Intake Total 1000 / 1000 1850 / 1850 490 / 490 Output Total 1200 / 1200 850 / 850 Balance -200 / -200 1000 / 1000 490 / 490 Intake: IV Fluids 1000 / 1000 1100 / 1100 250 / 250 0.9 % Sodium Chloride 1,000 ML 1000 / 1000 1000 / 1000 @ 125 mls/hr IVC .Q8H [facility] Rx#: [id number] INVanz 1,000 MG In 0.9 % Sodium 100 / 100 Chloride (Mini-Bag +) 100 ML @ 100 mls/hr IVPB DAILY [facility] Rx#: [id number] Vancocin 1,000 MG In Dextrose 5 250 / 250 % 250 ML @ 167 mls/hr IVPB Q12H [facility] Rx#:[id number] Oral 750 / 750 240 / 240 Output: Urine 1200 / 1200 850 / 850 Other: Meal Lunch Percent of Meal Consumed 90% Blood Glucose* 187 140 92 - Exam Exam: After the packing was removed from the side it was noted that there was no additional purulence. Significantly less erythema and necrotic tissue. Little to no malodor from the foot. Capillary fill time intact. No other open lesions , abrasions, or ulcerations besides the wound on the plantar aspect of the foot which measures 3.9 cm in diameter. Depth is approximately 1.3 cm. Decreased sensation consistent with peripheral neuropathy. - Lab Result Diagrams: 07/24/17 05:00 07/24/17 05:00 Labs: Abnormal lab results WBC 16.2 K/mcL (4.3-11.1) H 07/24/17 05:00 RBC 3.61 M/mcL (4.19-5.50) L 07/24/17 05:00 Hgb 11.6 g/dL (12.9-16.9) L D 07/24/17 05:00 Hct 34.0 % (37.5-50.1) L 07/24/17 05:00 MPV 9.2 fL (9.4-12.4) L 07/24/17 05:00 Monocytes # 1.4 K/mcL (0.0-1.3) H 07/23/17 05:09 ESR >= 130 mm/hr (0-10) H 07/22/17 13:08 Sodium 135 mEq/L (136-145) L 07/24/17 05:00 Glucose 189 mg/dL (70-99) H 07/24/17 05:00 POC Glucose 92 (58-89) H 07/24/17 20:05 Hemoglobin A1c 5.8 % (-5.6) H 07/23/17 05:09 Calcium 7.6 mg/dL (8.6-10.8) L 07/24/17 05:00 Alkaline Phosphatase 139 Units/L (38-126) H 07/22/17 13:08 C-Reactive Protein 54 mg/L (Less than 5) H 07/22/17 13:08 Albumin 2.6 g/dL (3.5-5.0) L 07/22/17 13:08 Globulin 4.9 g/dL (2.4-3.5) H 07/22/17 13:08 Albumin/Globulin Ratio 0.5 (1.1-2.2) L 07/22/17 13:08 Vancomycin Trough 22.9 mcg/mL (10-20) H* 07/24/17 10:17 Consult Discharge Plan - Plan Referrals: Grayson Parnell, TREER [Primary Care Provider] -
[2017-07-25 00:51] LABS: Basophils # 0.1 K/mcL (0.0-0.2); Basophils % 0.6 %; Eosinophils # 0.4 K/mcL (0.0-0.6); Hematocrit 33.8 % (37.5-50.1); Hemoglobin 11.3 g/dL (12.9-16.9); Immature Granulocytes % 0.3 % (0-4); Lymphocytes # 2.9 K/mcL (0.6-4.6); Lymphocytes % 20.2 %; Mean Corpuscular HGB Conc 33.4 g/dL (31.6-35.5); Mean Corpuscular Hemoglobin 31.7 pg (28.0-33.3); Mean Corpuscular Volume 94.9 fL (83.0-100.0); Mean Platelet Volume 8.9 fL (9.4-12.4); Monocytes # 1.9 K/mcL (0.0-1.3); Monocytes % 12.8 %; Neutrophils # 9.2 K/mcL (1.6-8.9); Platelet Count 333 K/mcL (140-400); Red Blood Count 3.56 M/mcL (4.19-5.50); Red Cell Distribution Width 13.2 % (11.5-14.5); Segmented Neutrophils % 63.1 %
[2017-07-25 01:03] LABS: BUN/Creatinine Ratio 10 (6-26); Blood Urea Nitrogen 10 mg/dL (8-26); Calcium 7.7 mg/dL (8.6-10.8); Carbon Dioxide 20 mEq/L (19-29); Chloride 107 mEq/L (98-109); Glucose 123 mg/dL (70-99); Osmolality,Calculated 282 (280-300); Potassium 3.8 mEq/L (3.5-4.5); Sodium 136 mEq/L (136-145); eGFR For African Americans > 60 (> 60); eGFR For Non-African Americans > 60 (> 60)
[2017-07-25] MEDS: Vancomycin 1,000 MG in D5% in Water 250 ML IVPB SCH ×2 (05:29→14:59)
[2017-07-25] MEDS: Insulin LISPRO 300 UNITS/3 ML VIAL SQ SCH ×4 (08:07→20:44)
[2017-07-25] MEDS: Vitamin B Complex/Vit C/Vit E 1 EACH TABLET PO SCH (09:22)
[2017-07-25] MEDS: Magnesium Oxide 400 MG TABLET PO SCH ×2 (09:22→21:14)
[2017-07-25] MEDS: Ertapenem 1,000 MG in 0.9 % Sodium Chloride Mini Bag 100 ML IVPB SCH (09:22)
[2017-07-25] MEDS: Gabapentin 400 MG CAPSULE PO SCH ×3 (09:22→21:14)
[2017-07-25] MEDS: Venlafaxine XR (24 HR) 37.5 MG CAP.ER.24H PO SCH (09:23)
[2017-07-25] MEDS: Nicotine 21 MG PATCH.TD24 TD SCH (09:23)
[2017-07-25] MEDS: Folic Acid 1 MG TABLET PO SCH (09:23)
[2017-07-25] MEDS: 0.9 % Sodium Chloride 1,000 ML IVC SCH ×2 (09:23→19:45)
[2017-07-25] MEDS: Thiamine (B-1) 100 MG TABLET PO SCH (09:23)
--- NOTE | 2017-07-25 13:29 | Internal Med Progress Note ---
Date of Encounter: 07/25/17 Time of Encounter: 13:27 - Assessment and plan (1) Sepsis Current Visit: Yes Status: Acute Assessment and plan: (1) Sepsis Current Visit: Yes Status: Acute Assessment and plan: sepsis due to osteomyelitis of right foot patient was febrile 100.2, increased WBC 16.2, tachycardic 106 Urinalysis negative CXR showed mild interstitial prominence the lung bases which could be chronic. Correlation for mild interstitial edema. -COntinue ertapenem day 2 -continue vancomycin day 4 -stopped cefepime and Zosyn in the prior days Culture growing Proteus resistant only to ampicillin and cefazolin, no explanation why cefepime and Zosyn did not improved the patient's condition Growing also Staphylococcus aureus, sensitivity not available yet Consult infectious diseases service Qualifiers: Sepsis type: sepsis due to unspecified organism Qualified Code(s): A41.9 - Sepsis, unspecified organism (2) Osteomyelitis of ankle or foot Current Visit: Yes Status: Acute Assessment and plan: Foot x-ray showed acute osteomyelitis. Soft tissue ulceration at the 5th MTP joint. patient has a left BKA and right great amputation Surgical debridement by podiatry Wound VAC to be placed (3) Alcohol abuse Current Visit: Yes Status: Chronic Assessment and plan: Patient reports that he drinks 4- 7 beers a day but his last drink was almost 1 week ago nurse stated that he has not demonstrated withdrawal symptoms and has not had to give him Ativan -CIWA protocol -continue to monitor (4) Below knee amputation status Current Visit: No Status: Chronic Assessment and plan: Patient has a below knee amputation patient ambulates with a walker -PT/OT consulted -social work consulted Qualifiers: Laterality: left Qualified Code(s): Z89.512 - Acquired absence of left leg below knee (5) Diabetes Current Visit: Yes Status: Chronic Assessment and plan: Patient has history of diabetes -low-dose insulin sliding scale Qualifiers: Diabetes mellitus type: type 2 Diabetes mellitus complication status: with unspecified complications Diabetes mellitus local intermodal truck driver insulin use: without nursing home use Qualified Code(s): E11.8 - Type 2 diabetes mellitus with unspecified complications (6) Tobacco abuse Current Visit: Yes Status: Chronic Assessment and plan: Patient reportedly smokes 1ppd -nicotine patch Qualifiers: Sepsis type: sepsis due to unspecified organism Qualified Code(s): A41.9 - Sepsis, unspecified organism - Subjective Interval history: Has no sensitivity on the right foot, denies any chest pain, shortness of breath , no dysuria. No fevers overnight, no nausea or vomiting - Constitutional Vitals: Temp Pulse Resp BP Pulse Ox 98.1 F 93 18 132/70 95 07/25/17 11:13 07/25/17 11:13 07/25/17 11:13 07/25/17 11:13 07/25/17 11:13 General appearance: Present: cooperative, A&O X 3, no acute distress, answers questions appropriately - Head Head exam: Present: atraumatic, normocephalic - Eye Eye exam: Present: PERRL, conjuntiva pink, sclera anicteric Pupils: Present: PERRL - Neck Neck exam general surgery: Present: supple, trachea midline. Absent: lymphadenopathy - Respiratory Respiratory exam: Present: CTAB. Absent: accessory muscle use, rales, rhonchi, wheezes - Cardiovascular Cardiovascular exam: Present: RRR, +S1, +S2. Absent: diastolic murmur, gallop, rubs, systolic murmur - GI/Abdominal GI/Abdominal exam: Present: normal bowel sounds, soft, no peritoneal signs. Absent: distended, tenderness - Extremities Exam Extremities exam: Present: warm, radial pulses palpable and symmetrical. Absent : calf tenderness, cyanotic, pedal edema Additional comments: Left below the knee amputation Right foot ulcer covered by dressing - Neurological Exam Neurological exam: Present: CN II-XII intact, oriented X3, no focal deficits. Absent: pronater drift, facial droop, speech deficit - Skin Skin exam: Present: dry, intact Internal Medicine: Result - Labs CBC & Chem 7: 07/25/17 00:13 07/25/17 00:13 Labs: Short CBC 07/25/17 Range/Units 00:13 WBC 14.6 H (4.3-11.1) K/mcL Hgb 11.3 L (12.9-16.9) g/dL Hct 33.8 L (37.5-50.1) % Plt Count 333 (140-400) K/mcL Neutrophils # 9.2 H (1.6-8.9) K/mcL BMP 07/25/17 00:13 Sodium 136 Potassium 3.8 Chloride 107 Carbon Dioxide 20 BUN 10 Creatinine 0.97 Glucose 123 H Calcium 7.7 L - Impressions Impressions Echocardiogram 07/25/17 13:02 Impressions: LVEF 60-65%. Mild left ventricular diastolic dysfunction. Normal right ventricular structure and function. No significant valvular dysfunction. No pulmonary hypertension by TR gradient. Left Ventricular Wall Motion: Rest Echo Findings All wall segments showed normal motion. Findings: Study Quality * Technically adequate exam. ECG Findings * Normal sinus rhythm. Left Ventricle * Mild left ventricular diastolic dysfunction. * LVEF 60-65%. * Normal LV size. * LV wall thickness measurements were not well obtained. Aorta * Normally sized aortic root. Right Ventricle * Normal right ventricular structure and function. Left Atrium * Normal left atrial size. Right Atrium * Normal right atrial size. Aortic Valve * No aortic regurgitation. * No aortic stenosis. * Aortic valve not well visualized. Mitral Valve * No mitral regurgitation. * Normal mitral valve structure. * No mitral stenosis. Tricuspid Valve * Tricuspid valve not well visualized. * Trace tricuspid regurgitation. Pulmonic Valve * Pulmonic valve is not well visualized. * No pulmonic stenosis. * No pulmonic regurgitation. Pulmonary Artery * Pulmonary artery not well visualized. Pericardium * There is no pericardial effusion present. Interatrial Septum * No evidence of PFO by color Doppler. IVC * The IVC is not well evaluated. Consult Discharge Plan - Plan Referrals: Grayson Parnell, TIRE MANAGER [Primary Care Provider] -
[2017-07-25] MEDS: *HR* Morphine 2 MG/ML SYRINGE IVP PRN (17:19)
[2017-07-25] MEDS: *HR* HYDROcodone/Acet 5/325 mg TABLET PO PRN (21:14)
--- NOTE | 2017-07-25 22:57 | Podiatry Progress Note ---
Date of Encounter: 07/25/17 Time of Encounter: 12:56 - Assessment and Plan (1) Osteomyelitis of ankle or foot Current Visit: Yes Status: Acute At this time regular dressing changes were performed. The packing was pulled in a new dressing was applied. The patient will get a wound VAC later today. The patient will require long-term IV antibiotics to be managed by infectious disease. Wound VAC changes will be performed on Tuesday, Tuesday, Tuesday or at least every to 72 hours. The patient will need to remain nonweightbearing until the right foot is healed. Subjective Principal diagnosis: right foot wound Interval history: Patient relates no pain. Patient relates that overall he is feeling quite well. Patient denies any other pedal complaints Objective - Vital Signs Vital Signs: Vital Signs Temp Pulse Resp BP Pulse Ox 07/25/17 20:01 98.3 F 90 18 155/79 93 07/25/17 15:20 98.6 F 95 18 156/77 93 07/25/17 11:13 98.1 F 93 18 132/70 95 07/25/17 06:28 99.2 F 86 20 148/70 93 07/25/17 03:56 98.3 F 73 17 157/76 94 07/24/17 23:23 98.0 F 81 18 120/70 97 Intake and Output 07/25/17 07/25/17 07/25/17 07:59 15:59 23:59 Intake Total 1000 / 1000 610 / 610 1800 / 1800 Output Total 700 / 700 0 / 0 1050 / 1050 Balance 300 / 300 610 / 610 750 / 750 Intake: IV Fluids 1000 / 1000 250 / 250 1000 / 1000 0.9 % Sodium Chloride 1,000 ML 1000 / 1000 1000 / 1000 @ 125 mls/hr IVC .Q8H [facility] Rx#: [id number] Vancocin 1,000 MG In Dextrose 5 250 / 250 % 250 ML @ 167 mls/hr IVPB Q12H [facility] Rx#:[id number] Oral 360 / 360 800 / 800 Output: Urine 700 / 700 1050 / 1050 Wound Drainage 0 / 0 0 / 0 Right Foot 0 / 0 0 / 0 Other: Meal Breakfast Dinner Percent of Meal Consumed 100% 100% Weight 88 kg Blood Glucose* 133 221 166 Patient Weight 07/25/17 23:59 Weight 88 kg - Exam Exam: The site appears to be healing well within normal limits and no more additional drainage is noted. Less erythema. Less edema. No other new open lesions, abrasions, or ulcerations. Sensation diminished consistent with peripheral neuropathy. Patient is able to dorsiflex and plantarflex ankle joint. - Lab Result Diagrams: 07/25/17 00:13 07/25/17 00:13 Labs: Abnormal lab results WBC 14.6 K/mcL (4.3-11.1) H 07/25/17 00:13 RBC 3.56 M/mcL (4.19-5.50) L 07/25/17 00:13 Hgb 11.3 g/dL (12.9-16.9) L 07/25/17 00:13 Hct 33.8 % (37.5-50.1) L 07/25/17 00:13 MPV 8.9 fL (9.4-12.4) L 07/25/17 00:13 Neutrophils # 9.2 K/mcL (1.6-8.9) H 07/25/17 00:13 Monocytes # 1.9 K/mcL (0.0-1.3) H 07/25/17 00:13 ESR >= 130 mm/hr (0-10) H 07/22/17 13:08 Glucose 123 mg/dL (70-99) H 07/25/17 00:13 POC Glucose 166 (58-89) H 07/25/17 19:58 Hemoglobin A1c 5.8 % (-5.6) H 07/23/17 05:09 Calcium 7.7 mg/dL (8.6-10.8) L 07/25/17 00:13 Alkaline Phosphatase 139 Units/L (38-126) H 07/22/17 13:08 C-Reactive Protein 54 mg/L (Less than 5) H 07/22/17 13:08 Albumin 2.6 g/dL (3.5-5.0) L 07/22/17 13:08 Globulin 4.9 g/dL (2.4-3.5) H 07/22/17 13:08 Albumin/Globulin Ratio 0.5 (1.1-2.2) L 07/22/17 13:08 Vancomycin Trough 22.9 mcg/mL (10-20) H* 07/24/17 10:17 Consult Discharge Plan - Plan Referrals: Parmjit,Grayson W, SHAHEEN [Primary Care Provider] -
[2017-07-26 02:15] LABS: Hematocrit 32.8 % (37.5-50.1); Mean Corpuscular HGB Conc 33.5 g/dL (31.6-35.5); Mean Corpuscular Hemoglobin 31.7 pg (28.0-33.3); Mean Corpuscular Volume 94.5 fL (83.0-100.0); Mean Platelet Volume 9.1 fL (9.4-12.4); Platelet Count 358 K/mcL (140-400); Red Blood Count 3.47 M/mcL (4.19-5.50); Red Cell Distribution Width 13.1 % (11.5-14.5)
[2017-07-26 02:30] LABS: BUN/Creatinine Ratio 10 (6-26); Blood Urea Nitrogen 8 mg/dL (8-26); Calcium 7.8 mg/dL (8.6-10.8); Carbon Dioxide 22 mEq/L (19-29); Chloride 109 mEq/L (98-109); Glucose 141 mg/dL (70-99); Osmolality,Calculated 287 (280-300); Potassium 3.8 mEq/L (3.5-4.5); Sodium 138 mEq/L (136-145); eGFR For African Americans > 60 (> 60); eGFR For Non-African Americans > 60 (> 60)
[2017-07-26] MEDS: 0.9 % Sodium Chloride 1,000 ML IVC SCH ×3 (03:59→16:08)
[2017-07-26] MEDS: *HR* Morphine 2 MG/ML SYRINGE IVP PRN ×2 (06:57→11:31)
[2017-07-26] MEDS: Insulin LISPRO 300 UNITS/3 ML VIAL SQ SCH ×4 (07:35→21:20)
[2017-07-26] MEDS: Magnesium Oxide 400 MG TABLET PO SCH ×3 (08:12→20:58)
[2017-07-26] MEDS: Folic Acid 1 MG TABLET PO SCH (08:12)
[2017-07-26] MEDS: Nicotine 21 MG PATCH.TD24 TD SCH (08:12)
[2017-07-26] MEDS: Gabapentin 400 MG CAPSULE PO SCH ×3 (08:12→20:55)
[2017-07-26] MEDS: Vitamin B Complex/Vit C/Vit E 1 EACH TABLET PO SCH (08:12)
[2017-07-26] MEDS: Thiamine (B-1) 100 MG TABLET PO SCH (08:12)
[2017-07-26] MEDS: Venlafaxine XR (24 HR) 37.5 MG CAP.ER.24H PO SCH (08:12)
[2017-07-26] MEDS: Ertapenem 1,000 MG in 0.9 % Sodium Chloride Mini Bag 100 ML IVPB SCH (08:13)
[2017-07-26] MEDS: *HR* HYDROcodone/Acet 5/325 mg TABLET PO PRN ×2 (08:39→16:29)
[2017-07-26] MEDS ORDERED: Aminoglycoside Consult 1 EACH MC ONE (09:55)
--- NOTE | 2017-07-26 15:46 | Infectious Disease Consult ---
Date of Encounter: 07/26/17 Time of Encounter: 15:26 Assessment and Plan (1) Sepsis Status: Acute Assessment and plan: The patient had two SIRS criteria on admission. Likely secondary to right foot osteomyelitis. Improved. WBC trending down. The patient did have a low-grade fever post-op, but has been afebrile since then. Tachycardia has resolved. Worsening of WBC and low-grade post-op fever are not unexpected given the extent of the patient' s infection. Blood cultures drawn 07/22/17 x 2 sets and 07/24/17 x 2 sets are NGTD. Qualifiers: Sepsis type: sepsis due to unspecified organism Qualified Code(s): A41.9 - Sepsis, unspecified organism (2) Osteomyelitis of ankle or foot Status: Acute Assessment and plan: Causative organism Proteus mirabilis and MSSA. Location: Right foot 5th metatarsal. Likely secondary to right foot diabetic foot ulcer. Right foot x-ray showed some lucency of the 5th metatarsal concerning for early osteomyelitis vs. osteopenia. ESR >130 and CRP 54 on admission. Podiatry consulted. Status post right foot 5th metatarsal resection 07/23/[address] Piper. Operative note reviewed. Bony changes evident of osteomyelitis noted. Continue wound care and activity restrictions as outlined by the podiatry team. Discontinue Vanc and Ertapenem. Start Rocephin 2 grams IV daily. Duration of treatment depends on the clinical picture, but likely 6 weeks of IV antibiotics will be required. imaging services director to assist with discharge planning. Consult VAT for EPIV placement. Weekly CBC, BUN/Cr, ESR, CRP every Tuesday for the duration of IV antibiotic therapy. Weekly EPIV care per protocol. Follow up with ID 2 weeks post-discharge. (3) Diabetic infection of right foot Status: Acute Assessment and plan: Location: Right foot, 5th metatarsal. Status post resection of the 5th metatarsal 07/23/[address] Piper. Continue antibiotics as above. Continue wound care as outlined by the podiatry team. (4) Diabetic ulcer of right foot Status: Acute Assessment and plan: Likely secondary to poor-fitting shoed. Continue wound care per podiatry's recommendations. Consider ABIs to evaluate vascular status. Qualifiers: Diabetic foot ulcer location: other Diabetes mellitus type: type 2 Non- pressure ulcer stage: with necrosis of bone Qualified Code(s): E11.621 - Type 2 diabetes mellitus with foot ulcer; L97.514 - Non-pressure chronic ulcer of other part of right foot with necrosis of bone; L97.514 - Non-pressure chronic ulcer of other part of right foot with necrosis of bone; L97.514 - Non-pressure chronic ulcer of other part of right foot with necrosis of bone; L97.514 - 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 (5) Diabetes Status: Chronic Assessment and plan: Controlled. HgbA1C 5.8%. Recommend aggressive glucose monitoring and control to promote wound healing and prevent re-infection. Qualifiers: Diabetes mellitus type: type 2 Diabetes mellitus complication status: with unspecified complications Diabetes mellitus assistant terminal manager insulin use: without intermediate use Qualified Code(s): E11.8 - Type 2 diabetes mellitus with unspecified complications (6) Alcohol abuse Status: Chronic Assessment and plan: CIWA protocol per the primary team. (7) Tobacco abuse Status: Chronic (8) Below knee amputation status Status: Chronic Qualifiers: Laterality: left Qualified Code(s): Z89.512 - Acquired absence of left leg below knee Infectious Disease HPI - Data of Consult Patient: new to practice Consult date: 07/26/17 Requesting Physician: Syed Bran MD Primary Care Provider: Grayson Parnell CNP - Consult Narrative Reason for consult: Osteomyelitis History of present illness: Mr. Bassett is a 71 year old male medical history of CVA, diabetes, hypertension , hyperlipidemia, anxiety, depression, right great toe amputation 4 months ago, and left BKA 2 years ago. The patient was admitted to the hospital July 22 for a right foot infection. We are consult July 26 for antibiotic recommendations regarding right foot ostial myelitis. The patient's 71-year-old male with past medical history as stated above. The patient presented to the emergency department on the day of admission with complaints of a worsening right foot ulcer that started about a month prior to admission. He reports increased drainage and swelling, but no pain. Upon arrival , the patient was afebrile and hemodynamically stable. He did have a mild leukocytosis. ESR was greater than 130 and a CRP was elevated at 54. A right foot x-ray showed findings consistent with possible acute osteomyelitis versus pathological fracture. ER physician documentation is at the were maggots in the wound. The patient was started on empiric IV antibiotics and admitted to the hospital for further evaluation. In addition, the patient has been evaluated by podiatry. He was taken to the operating room on July 23 and underwent a fifth metatarsal resection. Operative note reveals that there was osteomyelitic changes of the distal fifth metatarsal. Intraoperative cultures were obtained and are growing Proteus mirabilis and MSSA area and the patient did spike a low-grade fever postoperatively and his white blood cell count went up a little bit. Blood cultures were obtained 2 sets that are no growth to date and the patient's antibiotics were switched to ertapenem and vancomycin. Since then, the patient' s white blood cell count has continued to improve. He had 2 episodes of loose stools today and a C. difficile was checked and was negative. His most recent thing trough this morning was 27.6. We've been asked to evaluate and make further recommendations. My exam today, the patient states that he noticed ulcer about a month ago and thinks it was caused by his shoe rubbing the side of his foot. He states he saw his primary care provider who recommended a staph to be put on it, but the ulcer continued to worsen. He denies any pain, but states that he noticed it was swollen and red and draining what appeared to be pus. He denies any foul odor. He denies any fevers or chills or rigors. He denies any chest pain, shortness of breath, or cough. He denies any nausea, vomiting, diarrhea, or constipation. He denies abdominal pain and states his appetite is good. He denies any urinary complaints are pain in his extremities or back. He states that he was in his usual state of health at home aside the ulcer to his right foot. The patient lives at home with his and grandson. Retired industrial maintenance tech. He smokes almost 2 packs of cigarettes per day. He drinks 7 beers every day except on Tuesday. Denies any illicit drug use. CC: Syed Bran MD Past Med Surg Social Fam HX - Past Medical History Attestation: Yes The following information was validated with the patient. Source: patient, old records reviewed, nursing notes reviewed Medical history: CVA, diabetes, hyperlipidemia, hypertension Psychiatric history: anxiety, depression - Past Surgical History Surgical History: orthopedic, other (Right total hip replacement), other (Left BKA, right great toe amputation) - Social History Smoking Status: Current every day smoker Packs per day: 2 Smokeless Tobacco Status: No Alcohol use: heavy (Never >24hrs without drinking. [facility] protocol this admission) , recent Drug use: none Occupational status: retired Current living situation: Home, With Family Activity Level: Uses cane/walker Recent Out of Country Travel Within the Last 8 Weeks: No Exposure or Possible Exposure to Illness During Travel: No - Family History Father Living Status: Hx Family Cardiac Disorders: No Hx Family Respiratory Disorders: No Hx Family Cancer: No Hx Family Endocrine Disorder: Yes Infectious Disease-CN:Meds Gabapentin [Neurontin] 800 mg PO TID 11/19/16 [History] Tramadol HCl [Ultram] 50 - 100 mg PO Q4-6H PRN 11/19/16 [History] GlipiZIDE XL (24 HR) [Glucotrol XL] 20 mg PO DAILY 11/20/16 [History] Quetiapine Fumarate [Seroquel] 100 mg PO HS 11/20/16 [History] Folic Acid 1 mg PO DAILY #30 tablet 11/26/16 [Rx] Magnesium Oxide [Mag-Ox] 400 mg PO BID #7 tablet 11/26/16 [Rx] Thiamine (B-1) [Vitamin B-1] 200 mg PO DAILY #30 tablet 11/26/16 [Rx] Vitamin B Complex/Vit C/Vit E [Stresstab] 1 each PO DAILY #30 tablet 11/26/16 [ Rx] Potassium Chloride 30 meq PO DAILY 07/22/17 [History] Venlafaxine XR (24 HR) [Effexor XR] 37.5 mg PO DAILY 07/22/17 [History] 3 Allergy/AdvReac Type Severity Reaction Status Date / Time No Known Allergies Allergy Verified 07/22/17 14:09 All systems: reviewed and no additional remarkable complaints except as stated Exam - Constitutional Vitals: Temp Pulse Resp BP Pulse Ox 98.4 F 74 18 175/71 93 07/26/17 11:19 07/26/17 11:19 07/26/17 11:19 07/26/17 11:19 07/26/17 11:19 General appearance: average body habitus, cooperative, no acute distress - Head Head exam: Present: atraumatic, normal inspection, normocephalic - Eye Eye exam: Present: EOMI, normal appearance, PERRL Pupils: Present: normal accommodation - ENT ENT exam: Present: mucous membranes moist - Neck Neck exam: Present: normal inspection - Respiratory Respiratory exam: Present: CTAB. Absent: rales, respiratory distress, rhonchi, wheezes - Cardiovascular Cardiovascular exam: Present: RRR, +S1, +S2 - GI/Abdominal GI/Abdominal exam: Present: normal bowel sounds, soft. Absent: distended, tenderness - Extremities Exam Extremities exam: Absent: joint swelling, tenderness Additional comments: Left BKA stump with well-healed surgical incision and no redness or swelling noted. Wound VAC dressing noted to the right lateral foot with sponge well compressed and transparent dressing clean, dry, and intact. - Neurological Exam Neurological exam: Present: alert, oriented X3, no focal deficits - Psychiatric Psychiatric exam: Present: normal affect, normal mood - Skin Skin exam: Present: dry, intact, normal color, warm Infectious Disease CN: Results - Labs CBC & Chem 7: 07/26/17 00:42 07/26/17 00:42 Cultures: Cultures 07/24/17 13:35 Blood Culture - Preliminary Peripheral Venipuncture No growth. 07/24/17 13:40 Blood Culture - Preliminary Peripheral Venipuncture No growth. Serology: Serology 07/26/17 07/24/17 Range/Units 14:07 12:15 Urine Color Yellow (Yellow) Urine Clarity Clear (Clear) Urine pH 6.5 (5.0-8.0) pH Units Ur Specific [place] 1.012 (1.010-1.025) Urine Protein Negative (Neg-Trace) mg/dL Urine Glucose (UA) Normal (Normal) mg/dL Urine Ketones Negative (Negative) mg/dL Urine Blood Negative (Negative) Urine Nitrite Negative (Negative) Urine Bilirubin Negative (Negative) Urine Urobilinogen Normal (Normal) mg/dL Ur Leukocyte Esterase Negative (Negative) Ur Culture Indicated? NO (NO) Stl C. diff Tox B Gene Negative (Negative) - VTE Documentation of Mechanical Device: Intermittent pneumatic compression device Consult Discharge Plan - Plan Referrals: Grayson Parnell, GEAR STRAIGHTENER [Primary Care Provider] -
--- NOTE | 2017-07-26 16:51 | Podiatry Progress Note ---
Date of Encounter: 07/26/17 Time of Encounter: 12:00 - Assessment and Plan (1) Diabetic infection of right foot Current Visit: Yes Status: Acute Assessment: Large diabetic ulcer to plantar aspect of right foot Plan: s/p debridement per Sessions The patient will require long-term IV antibiotics to be managed by infectious disease. Patient will need either LTCF or home health, SW consulted- Patient states he wishes to go home if possible. Wound VAC changes will be performed on Tuesday, Tuesday, Tuesday or at least every to 72 hours. The patient will need to remain nonweightbearing until the right foot is healed. (2) Osteomyelitis of ankle or foot Current Visit: Yes Status: Acute (3) Sepsis Current Visit: Yes Status: Acute managed with IV antibiotic therapy per ID Septic indications are resolving Causative organism Proteus mirabilis and MSSA. Rocephin 2g Qualifiers: Sepsis type: sepsis due to unspecified organism Qualified Code(s): A41.9 - Sepsis, unspecified organism (4) Diabetes Current Visit: Yes Status: Chronic Strick glucose control to promote healing and decrease possible complications Qualifiers: Diabetes mellitus type: type 2 Diabetes mellitus complication status: with unspecified complications Diabetes mellitus skilled nursing insulin use: without skilled nursing use Qualified Code(s): E11.8 - Type 2 diabetes mellitus with unspecified complications (5) Tobacco abuse Current Visit: Yes Status: Chronic education on smoking cessation to promote proper healing and prevent further complication Subjective Principal diagnosis: right foot wound Interval history: Patient underwent Fifth metatarsal resection, partial, right. Excision of ulceration with debridement of the dermis, epidermis, subcutaneous tissue, fascia, bone right foot per Sessions on 07/22. Patient is resting comfortably on arrival. Denies pain or issues at this time. Concerned that he wants to go home and not to LTCF. Wishes to have IV antibiotic therapy at home. Packing was removed and wound vac placed yesterday. intact and running without issue at this time. Patient denies any fevers, chills, n/v or flu like symptoms Objective - Vital Signs Vital Signs: Vital Signs Temp Pulse Resp BP Pulse Ox 07/26/17 15:30 98.0 F 88 18 168/84 93 07/26/17 11:19 98.4 F 74 18 175/71 93 07/26/17 06:34 98.0 F 81 18 143/65 93 07/26/17 04:23 98.1 F 75 18 150/75 93 07/26/17 00:21 98.4 F 73 18 145/77 93 07/25/17 20:01 98.3 F 90 18 155/79 93 Intake and Output 07/26/17 07/26/17 07/26/17 07:59 15:59 23:59 Intake Total 1000 / 1000 1600 / 1600 Output Total 1675 / 1675 40 / 40 Balance -675 / -675 1560 / 1560 Intake: IV Fluids 1000 / 1000 1000 / 1000 0.9 % Sodium Chloride 1,000 ML 1000 / 1000 1000 / 1000 @ 125 mls/hr IVC .Q8H ALINA Rx#: [id number] Oral 600 / 600 Output: Urine 1675 / 1675 Wound Drainage 40 40 Right Foot 40 / 40 Other: Meal Lunch Percent of Meal Consumed 90% Stool Size Large Copious Stool Consistency soft loose formed Stool Color Brown # Bowel Movements 1 Weight 88.8 kg Blood Glucose* 125 173 172 Patient Weight 07/26/17 23:59 Weight 88.8 kg - Exam Exam: Awake, alert and oriented Pulses palpable DP/PT Cap refill <3 seconds Edema 1+/4 Sensation intact to light touch Movement of toes intact Toes and foot warm to touch Wound vac running without complication- no drainage noted at this time. No calf pain with manual compression - Lab Result Diagrams: 07/26/17 00:42 07/26/17 00:42 Labs: Abnormal lab results WBC 12.9 K/mcL (4.3-11.1) H 07/26/17 00:42 RBC 3.47 M/mcL (4.19-5.50) L 07/26/17 00:42 Hgb 11.0 g/dL (12.9-16.9) L 07/26/17 00:42 Hct 32.8 % (37.5-50.1) L 07/26/17 00:42 MPV 9.1 fL (9.4-12.4) L 07/26/17 00:42 Neutrophils # 9.2 K/mcL (1.6-8.9) H 07/25/17 00:13 Monocytes # 1.9 K/mcL (0.0-1.3) H 07/25/17 00:13 ESR >= 130 mm/hr (0-10) H 07/22/17 13:08 Glucose 141 mg/dL (70-99) H 07/26/17 00:42 POC Glucose 166 (58-89) H 07/25/17 19:58 Hemoglobin A1c 5.8 % (-5.6) H 07/23/17 05:09 Calcium 7.8 mg/dL (8.6-10.8) L 07/26/17 00:42 Alkaline Phosphatase 139 Units/L (38-126) H 07/22/17 13:08 C-Reactive Protein 54 mg/L (Less than 5) H 07/22/17 13:08 Albumin 2.6 g/dL (3.5-5.0) L 07/22/17 13:08 Globulin 4.9 g/dL (2.4-3.5) H 07/22/17 13:08 Albumin/Globulin Ratio 0.5 (1.1-2.2) L 07/22/17 13:08 Vancomycin Trough 27.6 mcg/mL (10-20) H* 07/26/17 00:42 Microbiology, Last 48 Hours 07/24/17 13:35 Blood Culture - Preliminary Peripheral Venipuncture No growth. 07/24/17 13:40 Blood Culture - Preliminary Peripheral Venipuncture No growth. - VTE Documentation of Mechanical Device: Intermittent pneumatic compression device Consult Discharge Plan - Plan Referrals: Grayson Parnell, PRODUCT EVANGELIST [Primary Care Provider] -
--- NOTE | 2017-07-26 21:40 | Internal Med Progress Note ---
Date of Encounter: 07/26/17 Time of Encounter: 16:30 - Assessment and plan (1) Osteomyelitis of ankle or foot Current Visit: Yes Status: Acute Assessment and plan: Foot x-ray showed acute osteomyelitis. Soft tissue ulceration at the 5th MTP joint. Patient had a nonhealing ulceration on lateral plantar aspect of right foot that has been worsening for 1 month. It reportedly had maggots in it. afebrile, increased WBC 16.2. Patient has a left BKA done in the past. 07/23: Surgery: Fifth metatarsal resection of right foot, Excision of ulcers of right foot -wound cultures grew Proteus ID following and Rocephin started, ertapenem and vanc stopped. -podiatry following and performing wound care Continue wound care and activity restrictions outlined by Podiatry team. D/C Vanc/Ertapenem. Start Rocephin 2 G daily IV. Duration of treatment depends on the clinical picture, but likely 6 weeks of IV antibiotics will be required. business services associate to assist with discharge planning. Consult VAT for EPIV placement. Weekly CBC, BUN/Cr, ESR, CRP every Tuesday for the duration of IV antibiotic therapy. Weekly EPIV care per protocol. Follow up with ID 2 weeks post-discharge. (2) Sepsis Current Visit: Yes Status: Acute Assessment and plan: sepsis due to osteomyelitis of right foot patient was febrile 100.2, increased WBC 16.2, tachycardic 106 CXR showed mild interstitial prominence the lung bases which could be chronic. Correlation for mild interstitial edema. Culture growing Proteus resistant only to ampicillin and cefazolin, no explanation why cefepime and Zosyn did not improved the patient's condition Growing also Staphylococcus aureus, sensitivity not available yet -stopped cefepime and Zosyn in the prior days -Stopped ertapenem day 3 -Started on Rocephin per ID recs. Final consult recs pending. 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; L97.514 - Non-pressure chronic ulcer of other part of right foot with necrosis of bone; L97.514 - Non-pressure chronic ulcer of other part of right foot with necrosis of bone; L97.514 - 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 (4) History of left below knee amputation Current Visit: Yes Status: Acute (5) Alcohol abuse Current Visit: Yes Status: Chronic Assessment and plan: Patient reports that he drinks 4- 7 beers a day but his last drink was 4 GARAGE DOOR TECHNICIAN nurse stated that he has not demonstrated withdrawal symptoms and has not had to give him [facility] protocol -continue to monitor (6) Diabetes Current Visit: Yes Status: Chronic Assessment and plan: Patient has history of diabetes -low-dose insulin sliding scale Qualifiers: Diabetes mellitus type: type 2 Diabetes mellitus complication status: with unspecified complications Diabetes mellitus senior living insulin use: without senior living use Qualified Code(s): E11.8 - Type 2 diabetes mellitus with unspecified complications (7) Essential hypertension Current Visit: Yes Status: Chronic (8) Tobacco abuse Current Visit: Yes Status: Chronic Assessment and plan: Patient reportedly smokes 1ppd -nicotine patch - Constitutional Vitals: Temp Pulse Resp BP Pulse Ox 98.3 F 87 18 156/79 95 07/26/17 18:38 07/26/17 18:38 07/26/17 18:38 07/26/17 18:38 07/26/17 21:07 General appearance: Present: cooperative, A&O X 3, no acute distress, answers questions appropriately Internal Medicine: Result - Labs CBC & Chem 7: 07/26/17 00:42 07/26/17 00:42 Labs: Short CBC 07/26/17 Range/Units 00:42 WBC 12.9 H (4.3-11.1) K/mcL Hgb 11.0 L (12.9-16.9) g/dL Hct 32.8 L (37.5-50.1) % Plt Count 358 (140-400) K/mcL BMP 07/26/17 00:42 Sodium 138 Potassium 3.8 Chloride 109 Carbon Dioxide 22 BUN 8 Creatinine 0.84 Glucose 141 H Calcium 7.8 L - VTE Documentation of Mechanical Device: Intermittent pneumatic compression device Consult Discharge Plan - Plan Referrals: Grayson Parnell, SHAHEEN [Primary Care Provider] -
[2017-07-27] MEDS: 0.9 % Sodium Chloride 1,000 ML IVC SCH ×4 (00:32→16:40)
[2017-07-27 04:14] LABS: Basophils # 0.1 K/mcL (0.0-0.2); Eosinophils # 0.7 K/mcL (0.0-0.6); Eosinophils % 7.4 %; Hematocrit 34.5 % (37.5-50.1); Hemoglobin 11.6 g/dL (12.9-16.9); Immature Granulocytes % 0.3 % (0-4); Lymphocytes # 3.2 K/mcL (0.6-4.6); Lymphocytes % 33.2 %; Mean Corpuscular HGB Conc 33.6 g/dL (31.6-35.5); Mean Corpuscular Volume 95.3 fL (83.0-100.0); Mean Platelet Volume 8.8 fL (9.4-12.4); Monocytes # 1.1 K/mcL (0.0-1.3); Monocytes % 11.9 %; Neutrophils # 4.5 K/mcL (1.6-8.9); Platelet Count 375 K/mcL (140-400); Red Blood Count 3.62 M/mcL (4.19-5.50); Red Cell Distribution Width 13.1 % (11.5-14.5); Segmented Neutrophils % 46.2 %
[2017-07-27 04:34] LABS: BUN/Creatinine Ratio 8 (6-26); Blood Urea Nitrogen 6 mg/dL (8-26); Calcium 7.8 mg/dL (8.6-10.8); Carbon Dioxide 23 mEq/L (19-29); Chloride 110 mEq/L (98-109); Glucose 106 mg/dL (70-99); Osmolality,Calculated 284 (280-300); Potassium 3.6 mEq/L (3.5-4.5); Sodium 138 mEq/L (136-145); eGFR For African Americans > 60 (> 60); eGFR For Non-African Americans > 60 (> 60)
[2017-07-27] MEDS: *HR* HYDROcodone/Acet 5/325 mg TABLET PO PRN ×4 (05:21→21:55)
[2017-07-27] MEDS: Vitamin B Complex/Vit C/Vit E 1 EACH TABLET PO SCH (07:39)
[2017-07-27] MEDS: Folic Acid 1 MG TABLET PO SCH (07:39)
[2017-07-27] MEDS: Magnesium Oxide 400 MG TABLET PO SCH ×2 (07:39→21:55)
[2017-07-27] MEDS: Thiamine (B-1) 100 MG TABLET PO SCH (07:39)
[2017-07-27] MEDS: Gabapentin 400 MG CAPSULE PO SCH ×3 (07:39→21:55)
[2017-07-27] MEDS: Nicotine 21 MG PATCH.TD24 TD SCH (07:40)
[2017-07-27] MEDS: Venlafaxine XR (24 HR) 37.5 MG CAP.ER.24H PO SCH (07:40)
[2017-07-27] MEDS: Insulin LISPRO 300 UNITS/3 ML VIAL SQ SCH ×4 (07:42→21:54)
--- NOTE | 2017-07-27 16:06 | Infectious Disease Progress No ---
Date of Encounter: 07/27/17 Time of Encounter: 16:04 - Assessment and Plan (1) Sepsis Current Visit: Yes Status: Acute The patient had two SIRS criteria on admission. Likely secondary to right foot osteomyelitis. Improved. WBC normal. The patient did have a low-grade fever post-op, but has been afebrile since then. Tachycardia has resolved. Worsening of WBC and low- grade post-op fever are not unexpected given the extent of the patient's infection. Blood cultures drawn 07/22/17 x 2 sets and 07/24/17 x 2 sets are NGTD. Qualifiers: Sepsis type: sepsis due to unspecified organism Qualified Code(s): A41.9 - Sepsis, unspecified organism (2) Osteomyelitis of ankle or foot Current Visit: Yes Status: Acute Causative organism Proteus mirabilis and MSSA. Location: Right foot 5th metatarsal. Likely secondary to right foot diabetic foot ulcer. Right foot x-ray showed some lucency of the 5th metatarsal concerning for early osteomyelitis vs. osteopenia. ESR >130 and CRP 54 on admission. Podiatry consulted. Status post right foot 5th metatarsal resection 07/23/[address] Piper. Operative note reviewed. Bony changes evident of osteomyelitis noted. Continue wound care and activity restrictions as outlined by the podiatry team. Continue Rocephin 2 grams IV daily. Duration of treatment depends on the clinical picture, but likely 6 weeks of IV antibiotics will be required. director learning services to assist with discharge planning. Weekly CBC, BUN/Cr, ESR, CRP every Tuesday for the duration of IV antibiotic therapy. Weekly EPIV care per protocol. Follow up with ID 2 08/11/17 at 0900. (3) Diabetic infection of right foot Current Visit: Yes Status: Acute Location: Right foot, 5th metatarsal. Status post resection of the 5th metatarsal 07/23/[address] Piper. Continue antibiotics as above. Continue wound care as outlined by the podiatry team. (4) Diabetic ulcer of right foot Current Visit: Yes Status: Acute Likely secondary to poor-fitting shoed. Continue wound care per podiatry's recommendations. Consider ABIs to evaluate vascular status. 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 HgbA1C 5.8%. Recommend aggressive glucose monitoring and control to promote wound healing and prevent re-infection. Qualifiers: Diabetes mellitus type: type 2 Diabetes mellitus complication status: with unspecified complications Diabetes mellitus keno terminal operator insulin use: without keno terminal operator use Qualified Code(s): E11.8 - Type 2 diabetes mellitus with unspecified complications (6) Alcohol abuse Current Visit: Yes Status: Chronic (7) Tobacco abuse Current Visit: Yes Status: Chronic (8) Below knee amputation status Current Visit: No Status: Chronic Qualifiers: Laterality: left Qualified Code(s): Z89.512 - Acquired absence of left leg below knee - Subjective Interval history: Patient seen and examined. No acute events noted overnight. Patient states that overall he feels well today. Denies fevers, chills, or rigors. Denies chest pain , shortness of breath, or cough. Reports nausea last night, but states this has resolved. Denies vomiting, diarrhea, or constipation. Denies abdominal pain or urinary complaints. Denies oral thrush or skin lesions. Infect Dis PN-Objective Data - Labs CBC & Chem 7: 07/27/17 03:38 07/27/17 03:38 Labs: Laboratory Results - last 24 hr 07/26/17 07/26/17 07/26/17 07:01 11:20 16:26 WBC RBC Hgb Hct MCV MCH MCHC RDW Plt Count MPV Immature Gran % Seg Neutrophils % Lymphocytes % Monocytes % Eosinophils % Basophils % Neutrophils # Lymphocytes # Monocytes # Eosinophils # Basophils # Sodium Potassium Chloride Carbon Dioxide BUN Creatinine Est GFR ( Amer) Est GFR (Non-Af Amer) BUN/Creatinine Ratio Glucose POC Glucose 125 H 173 H 172 H Calculated Osmolality Calcium Random Vancomycin 07/26/17 07/27/17 07/27/17 21:18 03:38 03:38 WBC 9.6 RBC 3.62 L Hgb 11.6 L Hct 34.5 L MCV 95.3 MCH 32.0 MCHC 33.6 RDW 13.1 Plt Count 375 MPV 8.8 L Immature Gran % 0.3 Seg Neutrophils % 46.2 Lymphocytes % 33.2 Monocytes % 11.9 Eosinophils % 7.4 Basophils % 1.0 Neutrophils # 4.5 Lymphocytes # 3.2 Monocytes # 1.1 Eosinophils # 0.7 H Basophils # 0.1 Sodium Potassium Chloride Carbon Dioxide BUN Creatinine Est GFR ( Amer) Est GFR (Non-Af Amer) BUN/Creatinine Ratio Glucose POC Glucose 111 H Calculated Osmolality Calcium Random Vancomycin 13.6 07/27/17 03:38 WBC RBC Hgb Hct MCV MCH MCHC RDW Plt Count MPV Immature Gran % Seg Neutrophils % Lymphocytes % Monocytes % Eosinophils % Basophils % Neutrophils # Lymphocytes # Monocytes # Eosinophils # Basophils # Sodium 138 Potassium 3.6 Chloride 110 H Carbon Dioxide 23 BUN 6 L Creatinine 0.76 Est GFR ( Amer) > 60 Est GFR (Non-Af Amer) > 60 BUN/Creatinine Ratio 8 Glucose 106 H POC Glucose Calculated Osmolality 284 Calcium 7.8 L Random Vancomycin Cultures: Cultures 07/24/17 13:35 Blood Culture - Preliminary Peripheral Venipuncture No growth. 07/24/17 13:40 Blood Culture - Preliminary Peripheral Venipuncture No growth. Serology 07/26/17 07/24/17 Range/Units 14:07 12:15 Urine Color Yellow (Yellow) Urine Clarity Clear (Clear) Urine pH 6.5 (5.0-8.0) pH Units Ur Specific [place] 1.012 (1.010-1.025) Urine Protein Negative (Neg-Trace) mg/dL Urine Glucose (UA) Normal (Normal) mg/dL Urine Ketones Negative (Negative) mg/dL Urine Blood Negative (Negative) Urine Nitrite Negative (Negative) Urine Bilirubin Negative (Negative) Urine Urobilinogen Normal (Normal) mg/dL Ur Leukocyte Esterase Negative (Negative) Ur Culture Indicated? NO (NO) Stl C. diff Tox B Gene Negative (Negative) Exam - Constitutional Vitals: Temp Pulse Resp BP Pulse Ox 98.2 F 79 18 155/66 93 07/27/17 15:13 07/27/17 15:13 07/27/17 15:13 07/27/17 15:13 07/27/17 15:13 General appearance: average body habitus, cooperative, no acute distress - Head Head exam: Present: atraumatic, normal inspection, normocephalic - Eye Eye exam: Present: EOMI, normal appearance, PERRL Pupils: Present: normal accommodation - ENT ENT exam: Present: mucous membranes moist - Neck Neck exam: Present: normal inspection - Respiratory Respiratory exam: Present: CTAB. Absent: rales, respiratory distress, rhonchi, wheezes - Cardiovascular Cardiovascular exam: Present: RRR, +S1, +S2 - GI/Abdominal GI/Abdominal exam: Present: normal bowel sounds, soft. Absent: distended, tenderness - Extremities Exam Extremities exam: Present: normal inspection. Absent: joint swelling, pedal edema, tenderness Additional comments: Right foot wound VAC dressing intact with scant dark red drainage noted in the wound VAC canister. - Neurological Exam Neurological exam: Present: alert, oriented X3, no focal deficits - Psychiatric Psychiatric exam: Present: normal affect, normal mood - Skin Skin exam: Present: dry, intact, normal color, warm - VTE Documentation of Mechanical Device: Intermittent pneumatic compression device Consult Discharge Plan - Plan Referrals: Grayson Parnell CNP [Primary Care Provider] - Shavon Messina CNP [Advanced Practice Nurse] - 08/11/17 9:00 am
--- NOTE | 2017-07-27 17:09 | Internal Med Progress Note ---
Date of Encounter: 07/27/17 Time of Encounter: 15:00 - Assessment and plan (1) Osteomyelitis of ankle or foot Current Visit: Yes Status: Acute Assessment and plan: Foot x-ray showed acute osteomyelitis. Soft tissue ulceration at the 5th MTP joint. Patient had a nonhealing ulceration on lateral plantar aspect of right foot that has been worsening for 1 month. It reportedly had maggots in it. afebrile, increased WBC 16.2. Patient has a left BKA done in the past. 07/23: Surgery: Fifth metatarsal resection of right foot, Excision of ulcers of right foot 07/26: ID following and Rocephin started, ertapenem and vanc stopped. 07/27: Sensitivities of Wound cultures grew Proteus, resistant to Ampicillin and Cefazolin. Also grew Staphylococcus resistant to Erythromycin. Duration of treatment depends on the clinical picture, but likely 6 weeks of IV antibiotics will be required. senior web services developer to assist with discharge planning. Consult VAT for EPIV placement. Weekly CBC, BUN/Cr, ESR, CRP every Tuesday for the duration of IV antibiotic therapy. Weekly EPIV care per protocol. Follow up with ID 2 weeks post-discharge. Patient will like to go home instead of nursing facility while receiving IV antibiotic therapy. Will discuss with ID and podiatry on when patient would be able to be discharged. (2) Sepsis Current Visit: Yes Status: Acute Assessment and plan: Sepsis due to osteomyelitis of right foot. See assessment and plan for osteomyelitis. Positive for Proteus mirabilis and MSSA. Currently on Rocephin 2 g daily. 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; L97.514 - Non-pressure chronic ulcer of other part of right foot with necrosis of bone; L97.514 - Non-pressure chronic ulcer of other part of right foot with necrosis of bone; L97.514 - 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 (4) History of left below knee amputation Current Visit: Yes Status: Acute (5) Alcohol abuse Current Visit: Yes Status: Chronic (6) Diabetes Current Visit: Yes Status: Chronic Qualifiers: Diabetes mellitus type: type 2 Diabetes mellitus complication status: with unspecified complications Diabetes mellitus director long term care insulin use: without mcc use Qualified Code(s): E11.8 - Type 2 diabetes mellitus with unspecified complications (7) Essential hypertension Current Visit: Yes Status: Chronic (8) Tobacco abuse Current Visit: Yes Status: Chronic - Subjective Interval history: No acute events overnight patient has no complaints. - Constitutional Vitals: Temp Pulse Resp BP Pulse Ox 98.2 F 79 18 155/66 93 07/27/17 15:13 07/27/17 15:13 07/27/17 15:13 07/27/17 15:13 07/27/17 15:13 General appearance: Present: cooperative, A&O X 3, no acute distress, answers questions appropriately Exam: - Head Head exam: Present: atraumatic, normocephalic - Eye Eye exam: Present: PERRL, conjuntiva pink, sclera anicteric Pupils: Present: PERRL - Neck Neck exam general surgery: Present: supple, trachea midline. Absent: lymphadenopathy - Respiratory Respiratory exam: Present: CTAB. Absent: accessory muscle use, rales, rhonchi, wheezes - Cardiovascular Cardiovascular exam: Present: RRR, +S1, +S2. Absent: diastolic murmur, gallop, rubs, systolic murmur - GI/Abdominal GI/Abdominal exam: Present: normal bowel sounds, soft, no peritoneal signs. Absent: distended, tenderness - Extremities Exam Extremities exam: Present: warm, radial pulses palpable and symmetrical. Absent : calf tenderness, cyanotic, pedal edema Additional comments: Left below the knee amputation Right foot ulcer covered by dressing - Neurological Exam Neurological exam: Present: CN II-XII intact, oriented X3, no focal deficits. Absent: pronater drift, facial droop, speech deficit - Skin Skin exam: Present: dry, intact Internal Medicine: Result - Labs CBC & Chem 7: 07/27/17 03:38 07/27/17 03:38 Labs: Short CBC 07/27/17 Range/Units 03:38 WBC 9.6 (4.3-11.1) K/mcL Hgb 11.6 L (12.9-16.9) g/dL Hct 34.5 L (37.5-50.1) % Plt Count 375 (140-400) K/mcL Neutrophils # 4.5 (1.6-8.9) K/mcL BMP 07/27/17 03:38 Sodium 138 Potassium 3.6 Chloride 110 H Carbon Dioxide 23 BUN 6 L Creatinine 0.76 Glucose 106 H Calcium 7.8 L - VTE Documentation of Mechanical Device: Intermittent pneumatic compression device Consult Discharge Plan - Plan Referrals: Shavon Messina CNP [Advanced Practice Nurse] - 08/11/17 9:00 am Grayson Parnell CNP [Primary Care Provider] -
[2017-07-27] MEDS: *HR* Morphine 2 MG/ML SYRINGE IVP PRN (18:52)
[2017-07-28] MEDS: 0.9 % Sodium Chloride 1,000 ML IVC SCH ×3 (01:35→18:52)
[2017-07-28 05:06] LABS: Basophils # 0.1 K/mcL (0.0-0.2); Basophils % 1.1 %; Eosinophils # 0.6 K/mcL (0.0-0.6); Eosinophils % 6.4 %; Hemoglobin 11.4 g/dL (12.9-16.9); Immature Granulocytes % 0.3 % (0-4); Lymphocytes # 2.8 K/mcL (0.6-4.6); Lymphocytes % 30.8 %; Mean Corpuscular HGB Conc 33.5 g/dL (31.6-35.5); Mean Corpuscular Hemoglobin 31.1 pg (28.0-33.3); Mean Corpuscular Volume 92.6 fL (83.0-100.0); Monocytes # 1.1 K/mcL (0.0-1.3); Monocytes % 12.5 %; Neutrophils # 4.5 K/mcL (1.6-8.9); Platelet Count 369 K/mcL (140-400); Red Blood Count 3.67 M/mcL (4.19-5.50); Red Cell Distribution Width 13.2 % (11.5-14.5); Segmented Neutrophils % 48.9 %
[2017-07-28 05:29] LABS: BUN/Creatinine Ratio 8 (6-26); Blood Urea Nitrogen 6 mg/dL (8-26); Calcium 7.9 mg/dL (8.6-10.8); Carbon Dioxide 23 mEq/L (19-29); Chloride 109 mEq/L (98-109); Glucose 91 mg/dL (70-99); Osmolality,Calculated 287 (280-300); Potassium 3.6 mEq/L (3.5-4.5); Sodium 140 mEq/L (136-145); eGFR For African Americans > 60 (> 60); eGFR For Non-African Americans > 60 (> 60)
[2017-07-28] MEDS: Nicotine 21 MG PATCH.TD24 TD SCH (07:46)
[2017-07-28] MEDS: Gabapentin 400 MG CAPSULE PO SCH ×3 (07:47→19:48)
[2017-07-28] MEDS: *HR* HYDROcodone/Acet 5/325 mg TABLET PO PRN ×3 (07:48→19:49)
[2017-07-28] MEDS: Folic Acid 1 MG TABLET PO SCH (07:48)
[2017-07-28] MEDS: Magnesium Oxide 400 MG TABLET PO SCH ×2 (07:48→19:48)
[2017-07-28] MEDS: Vitamin B Complex/Vit C/Vit E 1 EACH TABLET PO SCH (07:48)
[2017-07-28] MEDS: Thiamine (B-1) 100 MG TABLET PO SCH (07:48)
[2017-07-28] MEDS: Venlafaxine XR (24 HR) 37.5 MG CAP.ER.24H PO SCH (07:48)
[2017-07-28] MEDS: Insulin LISPRO 300 UNITS/3 ML VIAL SQ SCH ×4 (07:57→21:12)
--- NOTE | 2017-07-28 14:06 | Infectious Disease Progress No ---
Date of Encounter: 07/28/17 Time of Encounter: 14:04 - Assessment and Plan (1) Sepsis Current Visit: Yes Status: Acute The patient had two SIRS criteria on admission. Likely secondary to right foot osteomyelitis. Improved. WBC normal. The patient did have a low-grade fever post-op, but has been afebrile since then. Tachycardia has resolved. Worsening of WBC and low- grade post-op fever are not unexpected given the extent of the patient's infection. Blood cultures drawn 07/22/17 x 2 sets and 07/24/17 x 2 sets are negative. Qualifiers: Sepsis type: sepsis due to unspecified organism Qualified Code(s): A41.9 - Sepsis, unspecified organism (2) Osteomyelitis of ankle or foot Current Visit: Yes Status: Acute Causative organism Proteus mirabilis and MSSA. Location: Right foot 5th metatarsal. Likely secondary to right foot diabetic foot ulcer. Right foot x-ray showed some lucency of the 5th metatarsal concerning for early osteomyelitis vs. osteopenia. ESR >130 and CRP 54 on admission. Podiatry consulted. Status post right foot 5th metatarsal resection 07/23/[address] Piper. Operative note reviewed. Bony changes evident of osteomyelitis noted. Continue wound care and activity restrictions as outlined by the podiatry team. Continue Rocephin 2 grams IV daily. Duration of treatment depends on the clinical picture, but likely 6 weeks of IV antibiotics will be required. client services manager to assist with discharge planning. Weekly CBC, BUN/Cr, ESR, CRP every Tuesday for the duration of IV antibiotic therapy. Weekly EPIV care per protocol. Follow up with ID 2 08/11/17 at 0900. (3) Diabetic infection of right foot Current Visit: Yes Status: Acute Location: Right foot, 5th metatarsal. Status post resection of the 5th metatarsal 07/23/[address] Piper. Continue antibiotics as above. Continue wound care as outlined by the podiatry team. (4) Diabetic ulcer of right foot Current Visit: Yes Status: Acute Likely secondary to poor-fitting shoed. Continue wound care per podiatry's recommendations. Consider ABIs to evaluate vascular status. 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 HgbA1C 5.8%. Recommend aggressive glucose monitoring and control to promote wound healing and prevent re-infection. Qualifiers: Diabetes mellitus type: type 2 Diabetes mellitus complication status: with unspecified complications Diabetes mellitus intermediate frame tender insulin use: without intermediate frame tender use Qualified Code(s): E11.8 - Type 2 diabetes mellitus with unspecified complications (6) Alcohol abuse Current Visit: Yes Status: Chronic (7) Tobacco abuse Current Visit: Yes Status: Chronic (8) Below knee amputation status Current Visit: No Status: Chronic Qualifiers: Laterality: left Qualified Code(s): Z89.512 - Acquired absence of left leg below knee - Subjective Interval history: Patient seen and examined. No acute events noted overnight. Patient states that overall he feels well today, but is sad because he found out he has to go to rehab. Denies fevers, chills, or rigors. Denies chest pain, shortness of breath , or cough. Denies nausea, vomiting, diarrhea, or constipation. Denies abdominal pain or urinary complaints. Denies oral thrush or skin lesions. Infect Dis PN-Objective Data - Labs CBC & Chem 7: 07/28/17 04:10 07/28/17 04:10 Labs: Laboratory Results - last 24 hr 07/27/17 07/27/17 07/27/17 07:06 11:20 16:06 WBC RBC Hgb Hct MCV MCH MCHC RDW Plt Count MPV Immature Gran % Seg Neutrophils % Lymphocytes % Monocytes % Eosinophils % Basophils % Neutrophils # Lymphocytes # Monocytes # Eosinophils # Basophils # Sodium Potassium Chloride Carbon Dioxide BUN Creatinine Est GFR ( Amer) Est GFR (Non-Af Amer) BUN/Creatinine Ratio Glucose POC Glucose 111 H 157 H 167 H Calculated Osmolality Calcium 07/27/17 07/28/17 07/28/17 20:21 04:10 04:10 WBC 9.1 RBC 3.67 L Hgb 11.4 L Hct 34.0 L MCV 92.6 MCH 31.1 MCHC 33.5 RDW 13.2 Plt Count 369 MPV 9.0 L Immature Gran % 0.3 Seg Neutrophils % 48.9 Lymphocytes % 30.8 Monocytes % 12.5 Eosinophils % 6.4 Basophils % 1.1 Neutrophils # 4.5 Lymphocytes # 2.8 Monocytes # 1.1 Eosinophils # 0.6 Basophils # 0.1 Sodium 140 Potassium 3.6 Chloride 109 Carbon Dioxide 23 BUN 6 L Creatinine 0.77 Est GFR ( Amer) > 60 Est GFR (Non-Af Amer) > 60 BUN/Creatinine Ratio 8 Glucose 91 POC Glucose 116 H Calculated Osmolality 287 Calcium 7.9 L Cultures: Cultures 07/24/17 13:35 Blood Culture - Preliminary Peripheral Venipuncture No growth. 07/24/17 13:40 Blood Culture - Preliminary Peripheral Venipuncture No growth. Serology 07/26/17 07/24/17 Range/Units 14:07 12:15 Urine Color Yellow (Yellow) Urine Clarity Clear (Clear) Urine pH 6.5 (5.0-8.0) pH Units Ur Specific [place] 1.012 (1.010-1.025) Urine Protein Negative (Neg-Trace) mg/dL Urine Glucose (UA) Normal (Normal) mg/dL Urine Ketones Negative (Negative) mg/dL Urine Blood Negative (Negative) Urine Nitrite Negative (Negative) Urine Bilirubin Negative (Negative) Urine Urobilinogen Normal (Normal) mg/dL Ur Leukocyte Esterase Negative (Negative) Ur Culture Indicated? NO (NO) Stl C. diff Tox B Gene Negative (Negative) Exam - Constitutional Vitals: Temp Pulse Resp BP Pulse Ox 97.5 F L 87 18 137/80 95 07/28/17 11:36 07/28/17 11:36 07/28/17 11:36 07/28/17 11:36 07/28/17 11:36 General appearance: average body habitus, cooperative, no acute distress - Head Head exam: Present: atraumatic, normal inspection, normocephalic - Eye Eye exam: Present: EOMI, normal appearance, PERRL Pupils: Present: normal accommodation - ENT ENT exam: Present: mucous membranes moist - Neck Neck exam: Present: normal inspection - Respiratory Respiratory exam: Present: CTAB. Absent: rales, respiratory distress, rhonchi, wheezes - Cardiovascular Cardiovascular exam: Present: RRR, +S1, +S2 - GI/Abdominal GI/Abdominal exam: Present: normal bowel sounds, soft. Absent: distended, tenderness - Extremities Exam Additional comments: Left LE BKA stump without erythema, wounds, or edema. Right foot dressing C/D/I. - Neurological Exam Neurological exam: Present: alert, oriented X3, no focal deficits - Psychiatric Psychiatric exam: Present: normal affect, normal mood - Skin Skin exam: Present: dry, intact, normal color, warm - VTE Documentation of Mechanical Device: Intermittent pneumatic compression device Consult Discharge Plan - Plan Referrals: Shavon Messina CNP [Advanced Practice Nurse] - 08/11/17 9:00 am Grayson Parnell CNP [Primary Care Provider] -
--- NOTE | 2017-07-28 16:21 | Podiatry Progress Note ---
Date of Encounter: 07/28/17 Time of Encounter: 12:00 - Assessment and Plan (1) Diabetic infection of right foot Current Visit: Yes Status: Acute Assessment: Large diabetic ulcer to plantar aspect of right foot Plan: s/p debridement per Sessions The patient will require long-term IV antibiotics to be managed by infectious disease. Patient will need either LTCF or home health, SW consulted- Patient states he wishes to go home if possible, states his is dying in another facility and she will be gone within 6 weeks if he is placed inpatient- Patient will have hard time managing care at home- Wound VAC changes will be performed on Tuesday, Tuesday, Tuesday or at least every to 72 hours. The patient will need to remain nonweightbearing until the right foot is healed. (2) Osteomyelitis of ankle or foot Current Visit: Yes Status: Acute (3) Sepsis Current Visit: Yes Status: Acute managed with IV antibiotic therapy per ID Vanc trough noted to be high, continue to monitor, monitor renal function Septic indications are resolving- afebrile and no white count noted Causative organism Proteus mirabilis and MSSA. Rocephin 2g Qualifiers: Sepsis type: sepsis due to unspecified organism Qualified Code(s): A41.9 - Sepsis, unspecified organism (4) Diabetes Current Visit: Yes Status: Chronic Strick glucose control to promote healing and decrease possible complications Qualifiers: Diabetes mellitus type: type 2 Diabetes mellitus complication status: with unspecified complications Diabetes mellitus [facility] insulin use: without [facility] use Qualified Code(s): E11.8 - Type 2 diabetes mellitus with unspecified complications (5) Tobacco abuse Current Visit: Yes Status: Chronic education on smoking cessation to promote proper healing and prevent further complication Subjective Principal diagnosis: right foot wound Interval history: Patient underwent Fifth metatarsal resection, partial, right. Excision of ulceration with debridement of the dermis, epidermis, subcutaneous tissue, fascia, bone right foot per Sessions on 07/22. Patient is resting comfortably on arrival. Wound vac intact and running without issue, states it was changed throughout night. Denies pain or issues at this time. Concerned that he wants to go home and not to LTCF, states his is going to and he will not see her. Wishes to have IV antibiotic therapy at home. Patient denies any fevers, chills, n/v or flu like symptoms Objective - Vital Signs Vital Signs: Vital Signs Temp Pulse Resp BP Pulse Ox 07/28/17 15:39 98.4 F 88 16 160/85 93 07/28/17 11:36 97.5 F L 87 18 137/80 95 07/28/17 07:54 97.9 F 79 16 146/72 95 07/28/17 04:12 98.0 F 71 14 146/71 93 07/27/17 23:40 97.9 F 70 16 133/70 93 07/27/17 19:46 98.6 F 70 18 148/69 94 Intake and Output 07/28/17 07/28/17 07/28/17 07:59 15:59 23:59 Intake Total 1000 / 1000 1540 / 1540 Output Total 650 / 650 450 / 450 Balance 350 / 350 1090 / 1090 Intake: IV Fluids 1000 / 1000 1000 / 1000 0.9 % Sodium Chloride 1,000 ML 1000 / 1000 1000 / 1000 @ 125 mls/hr IVC .Q8H ALINA Rx#: [id number] Oral 0 / 0 540 / 540 Output: Urine 650 / 650 450 / 450 Other: Meal Lunch Percent of Meal Consumed 100% Stool Size Moderate Stool Consistency soft formed Stool Color Brown # Bowel Movements 1 Blood Glucose* 103 137 - Exam Exam: Awake, alert and oriented Sensation intact to light-moderate touch Movement intact to toes and foot Toes warm to touch Cap refill <3 seconds Pulses palpable DP/PT There is no drainage noted to wound vac canister Suction is intact and running without issue Black simplace sponge in place to 125mmhg suction - Lab Result Diagrams: 07/28/17 04:10 07/28/17 04:10 Labs: Abnormal lab results RBC 3.67 M/mcL (4.19-5.50) L 07/28/17 04:10 Hgb 11.4 g/dL (12.9-16.9) L 07/28/17 04:10 Hct 34.0 % (37.5-50.1) L 07/28/17 04:10 MPV 9.0 fL (9.4-12.4) L 07/28/17 04:10 ESR >= 130 mm/hr (0-10) H 07/22/17 13:08 BUN 6 mg/dL (8-26) L 07/28/17 04:10 POC Glucose 116 (58-89) H 07/27/17 20:21 Hemoglobin A1c 5.8 % (-5.6) H 07/23/17 05:09 Calcium 7.9 mg/dL (8.6-10.8) L 07/28/17 04:10 Alkaline Phosphatase 139 Units/L (38-126) H 07/22/17 13:08 C-Reactive Protein 54 mg/L (Less than 5) H 07/22/17 13:08 Albumin 2.6 g/dL (3.5-5.0) L 07/22/17 13:08 Globulin 4.9 g/dL (2.4-3.5) H 07/22/17 13:08 Albumin/Globulin Ratio 0.5 (1.1-2.2) L 07/22/17 13:08 Vancomycin Trough 27.6 mcg/mL (10-20) H* 07/26/17 00:42 - VTE Documentation of Mechanical Device: Intermittent pneumatic compression device Consult Discharge Plan - Plan Referrals: Shavon Messina CNP [Advanced Practice Nurse] - 08/11/17 9:00 am Grayson Parnell CNP [Primary Care Provider] - 08/08/17 11:20 am
[2017-07-29] MEDS: *HR* HYDROcodone/Acet 5/325 mg TABLET PO PRN ×2 (06:01→12:42)
--- NOTE | 2017-07-29 07:28 | Internal Med Progress Note ---
Date of Encounter: 07/28/17 Time of Encounter: 16:58 - Assessment and plan (1) Osteomyelitis of ankle or foot Current Visit: Yes Status: Acute Assessment and plan: Foot x-ray showed acute osteomyelitis. Soft tissue ulceration at the 5th MTP joint. Patient had a nonhealing ulceration on lateral plantar aspect of right foot that has been worsening for 1 month. It reportedly had maggots in it. afebrile, increased WBC 16.2. Patient has a left BKA done in the past. 07/23: Surgery: Fifth metatarsal resection of right foot, Excision of ulcers of right foot 07/26: ID following and Rocephin started, ertapenem and vanc stopped. 07/27: Sensitivities of Wound cultures grew Proteus, resistant to Ampicillin and Cefazolin. Also grew Staphylococcus resistant to Erythromycin. Patient needs 6 weeks of IV antibiotic therapy He is to be discharged to [facility] tomorrow (2) Sepsis Current Visit: Yes Status: Acute Assessment and plan: Sepsis due to osteomyelitis of right foot. See assessment and plan for osteomyelitis. Positive for Proteus mirabilis and MSSA. Currently on Rocephin 2 g daily. 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; L97.514 - Non-pressure chronic ulcer of other part of right foot with necrosis of bone; L97.514 - Non-pressure chronic ulcer of other part of right foot with necrosis of bone; L97.514 - 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 (4) History of left below knee amputation Current Visit: Yes Status: Acute (5) Alcohol abuse Current Visit: Yes Status: Chronic (6) Diabetes Current Visit: Yes Status: Chronic Qualifiers: Diabetes mellitus type: type 2 Diabetes mellitus complication status: with unspecified complications Diabetes mellitus assistant terminal manager insulin use: without assistant terminal manager use Qualified Code(s): E11.8 - Type 2 diabetes mellitus with unspecified complications (7) Essential hypertension Current Visit: Yes Status: Chronic (8) Tobacco abuse Current Visit: Yes Status: Chronic - Subjective Interval history: No acute events overnight. He would like to be discharged as his is severely ill. - Constitutional Vitals: Temp Pulse Resp BP Pulse Ox 98.1 F 72 16 146/68 94 07/29/17 07:09 07/29/17 07:09 07/29/17 07:09 07/29/17 07:09 07/29/17 07:09 General appearance: Present: cooperative, A&O X 3, no acute distress, answers questions appropriately Exam: - Head Head exam: Present: atraumatic, normal inspection, normocephalic - ENT ENT exam: Present: mucous membranes moist - Respiratory Respiratory exam: Present: CTAB. Absent: rales, respiratory distress, rhonchi, wheezes - Cardiovascular Cardiovascular exam: Present: RRR, +S1, +S2 - GI/Abdominal GI/Abdominal exam: Present: normal bowel sounds, soft. Absent: distended, tenderness - Extremities Exam Additional comments: Left LE BKA stump without erythema, wounds, or edema. Right foot dressing C/D/I. - Skin Skin exam: Present: dry, intact, normal color, warm - VTE Documentation of Mechanical Device: Intermittent pneumatic compression device Internal Medicine: Result - Labs CBC & Chem 7: 07/28/17 04:10 07/28/17 04:10 - VTE Documentation of Mechanical Device: Intermittent pneumatic compression device Consult Discharge Plan - Plan Referrals: Shavon Messina CNP [Advanced Practice Nurse] - 08/11/17 9:00 am Grayson Parnell CNP [Primary Care Provider] - 08/08/17 11:20 am
--- NOTE | 2017-07-29 07:40 | Discharge Summary ---
Date of Encounter: 07/29/17 Time of Encounter: 07:33 - Discharge Diagnosis (1) Osteomyelitis of ankle or foot Priority: Primary Status: Acute (2) Sepsis Priority: Secondary Status: Acute Qualifiers: Sepsis type: sepsis due to unspecified organism Qualified Code(s): A41.9 - Sepsis, unspecified organism (3) Diabetic ulcer of right foot Priority: Secondary Status: Acute Qualifiers: Diabetic foot ulcer location: other Diabetes mellitus type: type 2 Non- pressure ulcer stage: with necrosis of bone Qualified Code(s): E11.621 - Type 2 diabetes mellitus with foot ulcer; L97.514 - Non-pressure chronic ulcer of other part of right foot with necrosis of bone; L97.514 - Non-pressure chronic ulcer of other part of right foot with necrosis of bone; L97.514 - Non-pressure chronic ulcer of other part of right foot with necrosis of bone; L97.514 - 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 (4) History of left below knee amputation Priority: Secondary Status: Acute (5) Alcohol abuse Priority: Secondary Status: Chronic (6) Diabetes Priority: Secondary Status: Chronic Qualifiers: Diabetes mellitus type: type 2 Diabetes mellitus complication status: with unspecified complications Diabetes mellitus retirement insulin use: without rodent exterminator use Qualified Code(s): E11.8 - Type 2 diabetes mellitus with unspecified complications (7) Essential hypertension Priority: Secondary Status: Chronic (8) Tobacco abuse Priority: Secondary Status: Chronic - Discharge Medications Prescriptions: HYDROcodone/Acet 5/325 mg [[place] 5-325 mg] 1 tab PO Q6H PRN #30 tablet PRN Reason: Moderate Pain (4-6) Nicotine Patch [Nicoderm] 21 mg TD DAILY #30 patch.td24 Home Medications: Gabapentin [Neurontin] 800 mg PO TID 11/19/16 [History] Tramadol HCl [Ultram] 50 - 100 mg PO Q4-6H PRN 11/19/16 [History] GlipiZIDE XL (24 HR) [Glucotrol XL] 20 mg PO DAILY 11/20/16 [History] Quetiapine Fumarate [Seroquel] 100 mg PO HS 11/20/16 [History] Folic Acid 1 mg PO DAILY #30 tablet 11/26/16 [Rx] Magnesium Oxide [Mag-Ox] 400 mg PO BID #7 tablet 11/26/16 [Rx] Thiamine (B-1) [Vitamin B-1] 200 mg PO DAILY #30 tablet 11/26/16 [Rx] Vitamin B Complex/Vit C/Vit E [Stresstab] 1 each PO DAILY #30 tablet 11/26/16 [ Rx] Potassium Chloride 30 meq PO DAILY 07/22/17 [History] Venlafaxine XR (24 HR) [Effexor Xr] 37.5 mg PO DAILY 07/22/17 [History] Folic Acid 1 mg PO DAILY tablet 07/29/17 [Rx] HYDROcodone/Acet 5/325 mg [[place] 5-325 mg] 1 tab PO Q6H PRN #30 tablet 07/29/17 [Rx] Nicotine Patch [Nicoderm] 21 mg TD DAILY #30 patch.td24 07/29/17 [Rx] Thiamine (B-1) [Vitamin B-1] 100 mg PO DAILY tablet 07/29/17 [Rx] Vitamin B Complex/Vit C/Vit E [Stresstab] 1 each PO DAILY tablet 07/29/17 [Rx] cefTRIAXone [Rocephin] 2,000 mg IVP DAILY 42 Days #42 vial 07/29/17 [Rx] Allergies/Adverse Reactions: 3 Allergy/AdvReac Type Severity Reaction Status Date / Time No Known Allergies Allergy Verified 07/22/17 14:09 Date of admission: 07/23/17 10:10 Primary care physician: Grayson Parnell CNP Consults: 07/23/17 12:23 Consult to Occupational Therapy [CONS] Routine Comment: Evaluate, develop and implement POC Reason for Consult: left leg amputee. Patient had right foot surgery. Dificulty walking Consult to Physical Therapy [CONS] Routine Comment: Evaluate, develop and implement POC Reason for Consult: left leg amputee. Patient had right foot surgery. Dificulty walking Consult to Pr Manager [CONS] Routine Reason for SW Consult: left leg amputee. Patient had right foot surgery. Dificulty walking. May need rehab/ SNF 07/25/17 13:25 Consult to Infectious Diseases [CONS] Routine Consulting Provider: Infectious Disease [place] Reason for Consult: osteomyelitis Call Completed: Yes 07/26/17 14:32 Consult to Invasive Line Access Team [CONS] Routine Reason for Consult: rodent exterminator IVAB Line Type: EPIV Discharging clinician: Syed Bran - Patient Status Disposition: Transfer SNF Condition: Fair Functional capacity at discharge: wheelchair bound - Discharge Instructions Follow Up With: Shavon Messina CNP [Advanced Practice Nurse] - 08/11/17 9:00 am Grayson Parnell CNP [Primary Care Provider] - 08/08/17 11:20 am Additional Instructions: Weekly CBC, BMP, ESR, CRP every Tuesday for the duration of IV antibiotic therapy. Wound VAC changes will be performed on Tuesday, Tuesday, Tuesday or at least every 72 hours. Needs weekly EPIV care per protocol Has follow-up with ID on 08/11/17 at 9 AM. - Diet and Activity Activity: as per physical therapy Diet: diabetic diet Hospital course: The 71-year-old male type II diabetic reports emergency department with swelling and an ulcer on his right foot. He saw his primary care physician who recommended he come to the ER for evaluation. The patient's had no fever. No chest pain or shortness of breath. No abdominal pain vomiting diarrhea urinary troubles cough runny nose or pain sore throat or other complaints or concerns. He has a left below the knee amputation, he complains of right foot swelling and drainage. There is no history of coughing up blood. No history of syncope. No other complaints or concerns. He had vital signs and leukocytosis on admission work suggestive of sepsis. Blood and wound cultures were sent to lab and vancomycin and Zosyn were initiated. X-ray of his left foot showed postsurgical changes from a first digit amputation and soft tissue ulceration at the fifth MTP joint. There is concern for osteomyelitis his wound initially had maggots infested. Podiatry was consulted. ID was consulted in regards to her alternating with long-term antibiotic therapy set up. Patient had CIWA protocol initiated because he has a history of alcohol abuse. On 07/23/17 patient underwent partial fifth metatarsal resection, and excision of ulceration with debriding of the tissue and bone of the right foot. He was switched to cefepime and vancomycin. On 07/25 patient did become febrile with leukocytosis of 16.2 and tachycardic chest x-ray was performed and did not show any signs of pneumonia. ID evaluated patient on 07/26. Wound sensitivities returned on 07/27 showed wound cultures grew Proteus that was resistant to ampicillin and cefazolin. Also grew Staphylococcus that was resistant only to erythromycin. Vancomycin and ertapenem were discontinued and Rocephin 2 g IV daily was started. Patient remained afebrile without leukocytosis since then. He was hemodynamically stable. His discharged to [facility] in stable condition. Patient needs weekly CBC, BMP, ESR, CRP every Tuesday for the duration of IV antibiotic therapy. Wound VAC changes will be performed on Tuesday, Tuesday, Tuesday or at least every 72 hours. Needs weekly EPIV care per protocol Has follow-up with ID on 08/11/17 at 9 AM. - Time Spent with Patient Total time spent providing and/or coordinating discharge services: - Constitutional Vitals: Temp Pulse Resp BP Pulse Ox 98.1 F 72 16 146/68 94 07/29/17 07:09 07/29/17 07:09 07/29/17 07:09 07/29/17 07:09 07/29/17 07:09 General appearance: Present: cooperative, A&O X 3, no acute distress, answers questions appropriately Exam: - Head Head exam: Present: atraumatic, normal inspection, normocephalic - Eye Eye exam: Present: EOMI, normal appearance, PERRL Pupils: Present: normal accommodation - ENT ENT exam: Present: mucous membranes moist - Respiratory Respiratory exam: Present: CTAB. Absent: rales, respiratory distress, rhonchi, wheezes - Cardiovascular Cardiovascular exam: Present: RRR, +S1, +S2 - GI/Abdominal GI/Abdominal exam: Present: normal bowel sounds, soft. Absent: distended, tenderness - Extremities Exam Additional comments: Left LE BKA stump without erythema, wounds, or edema. Right foot dressing C/D/I. - Skin Skin exam: Present: dry, intact, normal color, warm - VTE Documentation of Mechanical Device: Intermittent pneumatic compression device - VTE Documentation of Mechanical Device: Intermittent pneumatic compression device
[2017-07-29] MEDS: Thiamine (B-1) 100 MG TABLET PO SCH (07:54)
[2017-07-29] MEDS: Venlafaxine XR (24 HR) 37.5 MG CAP.ER.24H PO SCH (07:54)
[2017-07-29] MEDS: Magnesium Oxide 400 MG TABLET PO SCH (07:55)
[2017-07-29] MEDS: Gabapentin 400 MG CAPSULE PO SCH (07:55)
[2017-07-29] MEDS: Folic Acid 1 MG TABLET PO SCH (07:55)
[2017-07-29] MEDS: Vitamin B Complex/Vit C/Vit E 1 EACH TABLET PO SCH (07:55)
[2017-07-29] MEDS: Insulin LISPRO 300 UNITS/3 ML VIAL SQ SCH ×2 (07:55→12:42)
[2017-07-29] MEDS: Nicotine 21 MG PATCH.TD24 TD SCH (07:58)
--- NOTE | 2017-07-29 08:30 | Physician Discharge Referral ---
ExtendedCare Referral Info Transfer To: SNF Provider in Charge after Transfer: PCP Institutional Level of Care: Skilled - Diagnosis (1) Osteomyelitis of ankle or foot Priority: Primary Status: Acute (2) Sepsis Priority: Secondary Status: Acute (3) Diabetic ulcer of right foot Priority: Secondary Status: Acute (4) History of left below knee amputation Priority: Secondary Status: Acute (5) Alcohol abuse Priority: Secondary Status: Chronic (6) Diabetes Priority: Secondary Status: Chronic (7) Essential hypertension Priority: Secondary Status: Chronic (8) Tobacco abuse Priority: Secondary Status: Chronic Prognosis: Fair Aware of Diagnosis: Patient, Family Aware of Prognosis: Patient, Family - Transfer Medications Prescriptions: cefTRIAXone [Rocephin] 2,000 mg IVP DAILY 42 Days #42 vial HYDROcodone/Acet 5/325 mg [[place] 5-325 mg] 1 tab PO Q6H PRN #30 tablet PRN Reason: Moderate Pain (4-6) Nicotine Patch [Nicoderm] 21 mg TD DAILY #30 patch.td24 Home Medications: Gabapentin [Neurontin] 800 mg PO TID 11/19/16 [History] Tramadol HCl [Ultram] 50 - 100 mg PO Q4-6H PRN 11/19/16 [History] GlipiZIDE XL (24 HR) [Glucotrol XL] 20 mg PO DAILY 11/20/16 [History] Quetiapine Fumarate [Seroquel] 100 mg PO HS 11/20/16 [History] Folic Acid 1 mg PO DAILY #30 tablet 11/26/16 [Rx] Magnesium Oxide [Mag-Ox] 400 mg PO BID #7 tablet 11/26/16 [Rx] Thiamine (B-1) [Vitamin B-1] 200 mg PO DAILY #30 tablet 11/26/16 [Rx] Vitamin B Complex/Vit C/Vit E [Stresstab] 1 each PO DAILY #30 tablet 11/26/16 [ Rx] Potassium Chloride 30 meq PO DAILY 07/22/17 [History] Venlafaxine XR (24 HR) [Effexor Xr] 37.5 mg PO DAILY 07/22/17 [History] Folic Acid 1 mg PO DAILY tablet 07/29/17 [Rx] HYDROcodone/Acet 5/325 mg [[place] 5-325 mg] 1 tab PO Q6H PRN #30 tablet 07/29/17 [Rx] Nicotine Patch [Nicoderm] 21 mg TD DAILY #30 patch.td24 07/29/17 [Rx] Thiamine (B-1) [Vitamin B-1] 100 mg PO DAILY tablet 07/29/17 [Rx] Vitamin B Complex/Vit C/Vit E [Stresstab] 1 each PO DAILY tablet 07/29/17 [Rx] cefTRIAXone [Rocephin] 2,000 mg IVP DAILY 42 Days #42 vial 07/29/17 [Rx] Allergies/Adverse Reactions: 3 Allergy/AdvReac Type Severity Reaction Status Date / Time No Known Allergies Allergy Verified 07/22/17 14:09 - Respiratory Orders Other (Supplemental O2 as needed) Smoking Cessation: Smoking cessation has been advised. For more information, call the [employer] Tobacco Quit Line at 7-362-WAZK-NOW. - Ancillary Orders May use pressure relief devices daily prn, May go on JACKIE w/family/respon alliance party w /meds at nurse discretion PRN, May consult with Dentist, Agricultural Purchasing Agent, Veterinarian Poultry PRN - Mobility Orders Other (As per physical therapy) - Rehabiliation Orders Rehab Potential: Fair Rehab Orders: Evaluation for Physical Therapy, Evaluation for Occupational Therapy - Treatments Skin tear care topically daily PRN per policy, May check for fecal impaction rectally daily PRN, Fleet enema rectally every other day PRN cleansing purposes - Diet Orders No Concentrated Sweets House Supplement per Dietary: Diabetic diet CERTIFICATION: I certify that the transfer of the above named patient to an Extended Care Facility is necessary for the continuing treatment of the diagnosis listed. The above information is true and accurate reflection of patient's current condition. Confidential - Redisclosure prohibited without a patient's written consent.
[2017-07-29] MEDS ORDERED: FLUARIX QUAD 2017-18 36MOS UP/PF 0.5 ML SYRINGE IM ONE (10:38)
--- NOTE | 2017-07-29 11:05 | Infectious Disease Progress No ---
Date of Encounter: 07/29/17 Time of Encounter: 11:03 - Assessment and Plan (1) Sepsis Current Visit: Yes Status: Acute The patient had two SIRS criteria on admission. Likely secondary to right foot osteomyelitis. Improved. WBC normal. The patient did have a low-grade fever post-op, but has been afebrile since then. Tachycardia has resolved. Worsening of WBC and low- grade post-op fever are not unexpected given the extent of the patient's infection. Blood cultures drawn 07/22/17 x 2 sets and 07/24/17 x 2 sets are negative. Qualifiers: Sepsis type: sepsis due to unspecified organism Qualified Code(s): A41.9 - Sepsis, unspecified organism (2) Osteomyelitis of ankle or foot Current Visit: Yes Status: Acute Causative organism Proteus mirabilis and MSSA. Location: Right foot 5th metatarsal. Likely secondary to right foot diabetic foot ulcer. Right foot x-ray showed some lucency of the 5th metatarsal concerning for early osteomyelitis vs. osteopenia. ESR >130 and CRP 54 on admission. Podiatry consulted. Status post right foot 5th metatarsal resection 07/23/[address] Piper. Operative note reviewed. Bony changes evident of osteomyelitis noted. Continue wound care and activity restrictions as outlined by the podiatry team. Continue Rocephin 2 grams IV daily. Duration of treatment depends on the clinical picture, but likely 6 weeks of IV antibiotics will be required. services rep to assist with discharge planning. Weekly CBC, BUN/Cr, ESR, CRP every Tuesday for the duration of IV antibiotic therapy. Weekly EPIV care per protocol. Follow up with ID 2 08/11/17 at 0900. (3) Diabetic infection of right foot Current Visit: Yes Status: Acute Location: Right foot, 5th metatarsal. Status post resection of the 5th metatarsal 07/23/[address] Piper. Continue antibiotics as above. Continue wound care as outlined by the podiatry team. (4) Diabetic ulcer of right foot Current Visit: Yes Status: Acute Likely secondary to poor-fitting shoed. Continue wound care per podiatry's recommendations. Consider ABIs to evaluate vascular status. 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 HgbA1C 5.8%. Recommend aggressive glucose monitoring and control to promote wound healing and prevent re-infection. Qualifiers: Diabetes mellitus type: type 2 Diabetes mellitus complication status: with unspecified complications Diabetes mellitus terminal worker insulin use: without terminal worker use Qualified Code(s): E11.8 - Type 2 diabetes mellitus with unspecified complications (6) Alcohol abuse Current Visit: Yes Status: Chronic (7) Tobacco abuse Current Visit: Yes Status: Chronic (8) Below knee amputation status Current Visit: No Status: Chronic Qualifiers: Laterality: left Qualified Code(s): Z89.512 - Acquired absence of left leg below knee - Subjective Interval history: Patient seen and examined. No acute events noted overnight. Patient states that overall he feels well today. Awaiting discharge to [facility]CF later today. Denies fevers, chills, or rigors. Denies chest pain, shortness of breath, or cough. Denies nausea, vomiting, diarrhea, or constipation. Denies abdominal pain or urinary complaints. Denies oral thrush or skin lesions. Infect Dis PN-Objective Data - Labs CBC & Chem 7: 07/28/17 04:10 07/28/17 04:10 Labs: Laboratory Results - last 24 hr 07/28/17 07/28/17 07:56 11:50 POC Glucose 103 H 154 H Cultures: Cultures 07/24/17 13:35 Blood Culture - Preliminary Peripheral Venipuncture No growth. 07/24/17 13:40 Blood Culture - Preliminary Peripheral Venipuncture No growth. Serology 07/26/17 07/24/17 Range/Units 14:07 12:15 Urine Color Yellow (Yellow) Urine Clarity Clear (Clear) Urine pH 6.5 (5.0-8.0) pH Units Ur Specific [place] 1.012 (1.010-1.025) Urine Protein Negative (Neg-Trace) mg/dL Urine Glucose (UA) Normal (Normal) mg/dL Urine Ketones Negative (Negative) mg/dL Urine Blood Negative (Negative) Urine Nitrite Negative (Negative) Urine Bilirubin Negative (Negative) Urine Urobilinogen Normal (Normal) mg/dL Ur Leukocyte Esterase Negative (Negative) Ur Culture Indicated? NO (NO) Stl C. diff Tox B Gene Negative (Negative) Exam - Constitutional Vitals: Temp Pulse Resp BP Pulse Ox 98.1 F 72 16 146/68 94 07/29/17 07:09 07/29/17 07:09 07/29/17 07:09 07/29/17 07:09 07/29/17 07:09 General appearance: average body habitus, cooperative, no acute distress - Head Head exam: Present: atraumatic, normal inspection, normocephalic - Eye Eye exam: Present: EOMI, normal appearance, PERRL Pupils: Present: normal accommodation - ENT ENT exam: Present: mucous membranes moist - Neck Neck exam: Present: normal inspection - Respiratory Respiratory exam: Present: CTAB. Absent: rales, respiratory distress, rhonchi, wheezes - Cardiovascular Cardiovascular exam: Present: RRR, +S1, +S2 - GI/Abdominal GI/Abdominal exam: Present: normal bowel sounds, soft. Absent: distended, tenderness - Extremities Exam Extremities exam: Present: normal inspection. Absent: joint swelling, pedal edema, tenderness Additional comments: Right foot wound VAC dressing intact. Scant pink drainage noted in the wound VAC canister. Left BKA stump without erythema, warmth, or open sores. - Neurological Exam Neurological exam: Present: alert, oriented X3, no focal deficits - Psychiatric Psychiatric exam: Present: normal affect, normal mood - Skin Skin exam: Present: dry, intact, normal color, warm - VTE Documentation of Mechanical Device: Intermittent pneumatic compression device Consult Discharge Plan - Plan Additional Instructions: Weekly CBC, BMP, ESR, CRP every Tuesday for the duration of IV antibiotic therapy. Wound VAC changes will be performed on Tuesday, Tuesday, Tuesday or at least every 72 hours. Needs weekly EPIV care per protocol Has follow-up with ID on 08/11/17 at 9 AM. Referrals: Damian Piper DPM [Partnered Physician] - 08/04/17 10:15 am Shavon Messina CNP [Advanced Practice Nurse] - 08/11/17 9:00 am Grayson Parnell, [employer] [Primary Care Provider] - 08/08/17 11:20 am Prescriptions: cefTRIAXone [Rocephin] 2,000 mg IVP DAILY 42 Days #42 vial HYDROcodone/Acet 5/325 mg [Flasher 5-325 mg] 1 tab PO Q6H PRN #30 tablet PRN Reason: Moderate Pain (4-6) Nicotine Patch [Nicoderm] 21 mg TD DAILY #30 patch.[id number]
[2017-07-29 11:59] VITALS: BP 139/77
[2017-07-30] MEDS ORDERED: cefTRIAXone 2,000 MG in Water for inj. (sterile) 10 ML IVP SCH (09:00)
== END 2017-07-29 12:48 | DRG 854 ==
LOC: 3NENU 11:40 → EMEROO 11:40 → SUATTDRO 14:31 → 3NENU 14:41 → SUATTDRO 07-23 10:10
PROVIDERS: ADMIT Internal Medicine; ATTEND Student in an Organized Health Care Education/Training Program

== ENCOUNTER 2018-03-31 22:34 | Inpatient (IN) ==
[2018-03-31] MEDS ORDERED: 0.9 % Sodium Chloride 1,000 ML IVC ONE ×2 (22:49→23:49)
[2018-03-31 23:28] LABS: Basophils # 0.1 K/mcL (0.0-0.2); Basophils % 0.5 %; Eosinophils # 0.2 K/mcL (0.0-0.6); Eosinophils % 1.7 %; Hematocrit 33.2 % (37.5-50.1); Hemoglobin 11.4 g/dL (12.9-16.9); Immature Granulocytes % 0.7 % (0-4); Lymphocytes # 2.2 K/mcL (0.6-4.6); Mean Corpuscular HGB Conc 34.3 g/dL (31.6-35.5); Mean Corpuscular Hemoglobin 33.9 pg (28.0-33.3); Mean Corpuscular Volume 98.8 fL (83.0-100.0); Mean Platelet Volume 8.7 fL (9.4-12.4); Monocytes # 1.5 K/mcL (0.0-1.3); Monocytes % 11.6 %; Neutrophils # 8.8 K/mcL (1.6-8.9); Platelet Count 371 K/mcL (140-400); Red Blood Count 3.36 M/mcL (4.19-5.50); Segmented Neutrophils % 68.5 %
[2018-03-31 23:29] LABS: VBG HCO3 22 mEq/L (21-27); VBG PCO2 34 mmHg (41-51); VBG PH 7.42 pH Units (7.32-7.42); VBG PO2 38 mmHg (25-50)
[2018-03-31 23:36] LABS: INR 1.3; Prothrombin Time 14.4 Seconds (9.4-12.1)
[2018-03-31 23:49] LABS: Alanine Aminotransferase 10 Units/L (7-52); Albumin 2.3 g/dL (3.5-5.7); Albumin/Globulin Ratio 0.7 (1.1-2.2); Alkaline Phosphatase 124 Units/L (34-104); Aspartate Amino Transferase 15 Units/L (13-39); BUN/Creatinine Ratio 9 (6-26); Bilirubin,Total 0.3 mg/dL (0.3-1.0); Blood Urea Nitrogen 11 mg/dL (8-23); Carbon Dioxide 21 mEq/L (23-29); Chloride 97 mEq/L (98-107); Creatine Kinase 27 Units/L (30-223); Globulin 3.3 g/dL (2.4-3.5); Glucose 166 mg/dL (70-105); Magnesium 1.8 mg/dL (1.6-2.6); Osmolality,Calculated 269 (280-300); Phosphorous 3.2 mg/dL (2.7-4.5); Potassium 4.8 mEq/L (3.5-5.1); Sodium 128 mEq/L (136-145); Total Protein 5.6 g/dL (6.4-8.9); Troponin I < 0.03 ng/mL (< 0.04); eGFR For African Americans > 60 (> 60); eGFR For Non-African Americans > 60 (> 60)
[2018-03-31] MEDS ORDERED: Piperacillin/Tazobactam 3.375 GM in 0.9 % Sodium Chloride Mini Bag 100 ML IVPB ONE (23:50)
[2018-04-01 00:02] LABS: Thyroid Stimulating Hormone 1.037 mcIU/mL (0.340-5.600)
[2018-04-01] MEDS ORDERED: 0.9 % Sodium Chloride 1,000 ML IVC ONE (00:10)
--- NOTE | 2018-04-01 00:14 | Emergency Department Note ---
Disposition Clinical Impression: Sepsis Qualifiers: Sepsis type: sepsis due to unspecified organism Qualified Code(s): A41.9 - Sepsis, unspecified organism Osteomyelitis Qualifiers: Osteomyelitis type: other acute Osteomyelitis location: foot Laterality: right Qualified Code(s): M86.171 - Other acute osteomyelitis, right ankle and foot Pneumonia Qualifiers: Pneumonia type: due to unspecified organism Laterality: bilateral Lung location : lower lobe of lung Qualified Code(s): J18.9 - Pneumonia, unspecified organism Disposition: Admitted As Inpatient Condition: Undetermined General Adult HPI - General Chief complaint: ED Weakness Stated complaint: "Lethargic" Time Seen by Provider: 03/31/18 22:49 Source: family Mode of arrival: private vehicle Limitations: no limitations, altered mental status Nursing Notes Reviewed: Yes Vital Signs Reviewed: Yes - History of Present Illness HPI Narrative: 72-year-old male with a history of CVA 2, cirrhosis of the liver, alcoholism, diabetes type 2, left BKA, right great toe", and a diabetic ulcer to the right foot requiring wound VAC presents to the emergency department for evaluation of lethargy, this is accompanied by weakness since Tuesday, coughing since Tuesday, diarrhea for 3 days, and a swollen abdomen that started tonight. Family states that the wound VAC to his right foot stopped working. Patient lives home alone but does have a wound care nurse that comes 3 times a week. He is not on any blood thinners. Family states typically he is okay living home alone and he is able to get around his house but they help him with medications. Family states the patient has been in bed and unable to get out of bed for the last 3 days. Family states he was seen here in the emergency department on Tuesday for dehydration he was treated felt better and sent home and since then all of these other symptoms have happened. Patient follows with Dr. Plaza for his diabetic ulcer. Patient denies fever or chills, shortness of breath, difficulty breathing, nausea, vomiting, constipation. He states he just has not been feeling well. He is a one pack per day smoker. Family states they have not noticed any confusion in him. Onset (ago): day(s) Location: abdomen, right, lower extremity Radiation: non-radiation Pain Severity: severe Pain Scale: 8 Quality: aching (To right foot), sharp (2 abdomen) Consistency: constant, Worsening Improves with: nothing Worsens with: nothing - Related Data Home Medications Medication Instructions Recorded Confirmed Gabapentin [Neurontin] 800 mg PO QID 11/19/16 03/26/18 Aspirin [Lo-Dose Aspirin EC] 81 mg PO DAILY 10/20/17 03/26/18 Atorvastatin [Lipitor] 20 mg PO HS 10/20/17 03/26/18 Cholecalciferol (Vitamin D3) 50,000 unit PO Q2W 10/20/17 03/26/18 [Vitamin D3] Magnesium Oxide [Magnesium] 1,000 mg PO DAILY 10/20/17 03/26/18 Quetiapine Fumarate [Seroquel] 100 mg PO HS 10/20/17 03/26/18 Venlafaxine [Effexor] 37.5 mg PO DAILY 10/20/17 03/26/18 metFORMIN [Glucophage] 500 mg PO BIDWM 10/20/17 03/26/18 SitaGLIPtin [Januvia] 100 mg PO DAILY 01/31/18 03/26/18 Tramadol HCl [Ultram] 50 mg PO QID PRN 01/31/18 03/26/18 Previous Rx's Medication Instructions Recorded Folic Acid 1 mg PO DAILY tablet 07/29/17 Ipratropium/Albuterol Neb [Duoneb] 3 ml IH [id number] PRN inhsol 12/27/17 Metoprolol [Lopressor] 12.5 mg PO BID #60 tablet 12/27/17 Vitamin B Comp and C/FA/Zinc [[place] 1 each PO DAILY #30 tablet 12/27/17 B Strong with C & Zinc Tb] Doxycycline Hyclate 100 mg PO BID #28 tablet. 01/31/18 Nystatin Cream [Mycostatin Cream] 1 appl TP TID #1 tube 03/26/18 Allergies Allergy/AdvReac Type Severity Reaction Status Date / Time codeine Allergy See Verified 03/31/18 22:44 Comments All systems ED: reviewed and negative except as stated. Review of Systems: As Per HPI Past Medical History - Past Medical History Attestation: Yes The following information was validated with the patient. Source: patient Medical history: Reports: CVA, diabetes, hyperlipidemia, hypertension, peripheral artery disease, valvular heart disease, other Surgical history: Reports: hip replacement, orthopedic, other, other Psychiatric history: Reports: anxiety, depression - Social History Smoking Status: Current every day smoker Smokeless Tobacco Status: No Alcohol use: Reports: occasionally Drug use: Reports: none Physical Exam - General Limitations: no limitations General appearance: alert, in no apparent distress - Head Head exam: atraumatic, normocephalic, normal inspection - Eye Eye exam: Present: conjunctival injection (Treated for conjunctivitis) - ENT ENT exam: normal exam, normal oropharynx, mucous membranes moist - Neck Neck exam: Present: normal inspection, full ROM, trachea midline - Chest Chest inspection: Present: normal inspection, symmetric chest wall rise - Respiratory Respiratory exam: Present: accessory muscle use, prolonged expiratory phase - Expanded Respiratory Exam Location: rhonchi: Left, Right, Lower - Cardiovascular Cardiovascular exam: Present: regular rate, normal rhythm, normal heart sounds - Abdominal Exam Abdominal exam: Present: soft, tenderness (Exquisite), distention, guarding, normal bowel sounds Abdominal tenderness: Present: RUQ - Back Exam Back exam: Present: normal inspection - Neurological Exam Neurological exam: Present: alert, oriented X3 - Psychiatric Psychiatric exam: Present: flat affect - Skin Skin exam: Present: warm, dry, other (Macerated diabetic ulcer to lateral right foot) Course Course Narrative: 72-year-old lethargic male who appears quite ill, he is disheveled in appearance , dirty. He is alert and oriented, he answers questions appropriately. Respirations are easy and even, lungs noted with rhonchi to bilateral lower lobes. Heart rate regular rhythm, perfusing well, blood pressure 96/59, EKG reveals sinus rhythm. Bowel sounds 4 with exquisite tenderness to right upper quadrant, hepatomegaly. Wound to right lateral foot macerated, noted with purulent drainage. Left BKA, right great toe amputation. Dressing to wound of right foot dirty, wound VAC unattached. Toenails to right foot dirty. Patient refusing straight catheter or Yousif catheter at this time. - Reevaluation(s) Reevaluation #1: White blood cell 12.8, lactic acid 3.9 criteria for sepsis. Upon arrival we initiated blood cultures, IV bolus. We will continue with IV boluses, repeat blood cultures and lactic level. Patient had no change in status. Family continues to be around him. Discussed admission with patient and family, agreeable to admission. Discussed case with Dr. Orozco regarding plan of care and he is agreeable. Spoke with patient in depth regarding need for urine, to monitor intake and output. Patient is now agreeable to fully catheter. We will start empiric antibiotics of for infection, most likely cause related to right foot diabetic ulcer. Time: 23:50 Reevaluation #2: Right foot x-ray reveals possible osteomyelitis, chest x-ray without evidence of pneumonia or infectious process. Continue IV antibiotics. Pending urinalysis from Yousif catheter. Patient continues to rest comfortably, scrubbed by family. There is been no change in physical assessment. He remains clinically stable, blood pressure continues to improve with IV boluses. He continues to perfuse well. Time: 00:39 Reevaluation #3: Spoke with hospitalist who is agreeable take patient for inpatient status. CT returns with possible pneumonia to bilateral lower lobes, bag rectum antibiotics already implemented. Questionable wall thickening to the rectosigmoid area, possible neoplasm but will need further studies. Family has been updated to results of labs, diagnostic tests seen with verbalized understanding and continues in agreement for admission at this time. Vital Signs Temperature 98.1 F 03/31/18 22:46 Pulse Rate 84 03/31/18 22:46 Respiratory Rate 18 03/31/18 22:46 Blood Pressure 96/59 03/31/18 22:46 O2 Sat by Pulse Oximetry 96 03/31/18 22:46 Temperature 97.5 F L 04/01/18 03:29 Pulse Rate 88 04/01/18 03:45 Respiratory Rate 16 04/01/18 03:29 Blood Pressure 132/73 04/01/18 03:29 O2 Sat by Pulse Oximetry 93 04/01/18 03:29 Oxygen Delivery Oxygen Delivery Room Air Medical Decision Making - Medical Records Medical records reviewed: Yes I reviewed the patient's medical records. - Lab Data Lab results reviewed: Yes I reviewed the patient's lab results. Result diagrams: 04/01/18 03:16 04/01/18 03:16 Lab Results 03/31/18 03/31/18 03/31/18 Range/Units 22:49 22:49 22:49 WBC 12.8 H (4.3-11.1) K/mcL RBC 3.36 L (4.19-5.50) M/mcL Hgb 11.4 L (12.9-16.9) g/dL Hct 33.2 L (37.5-50.1) % MCV 98.8 (83.0-100.0) fL MCH 33.9 H (28.0-33.3) pg MCHC 34.3 (31.6-35.5) g/dL RDW 14.0 (11.5-14.5) % Plt Count 371 (140-400) K/mcL MPV 8.7 L (9.4-12.4) fL Immature Gran % 0.7 (0-4) % Seg Neutrophils % 68.5 % Lymphocytes % 17.0 % Monocytes % 11.6 % Eosinophils % 1.7 % Basophils % 0.5 % Neutrophils # 8.8 (1.6-8.9) K/mcL Lymphocytes # 2.2 (0.6-4.6) K/mcL Monocytes # 1.5 H (0.0-1.3) K/mcL Eosinophils # 0.2 (0.0-0.6) K/mcL Basophils # 0.1 (0.0-0.2) K/mcL ESR 50 H (0-10) mm/hr PT 14.4 H (9.4-12.1) Seconds INR 1.3 VBG pH (7.32-7.42) pH Units VBG pCO2 (41-51) mmHg VBG pO2 (25-50) mmHg VBG HCO3 (21-27) mEq/L Sodium (136-145) mEq/L Potassium (3.5-5.1) mEq/L Chloride (98-107) mEq/L Carbon Dioxide (23-29) mEq/L BUN (8-23) mg/dL Creatinine (0.70-1.30) mg/dL Est GFR ( Amer) (> 60) Est GFR (Non-Af Amer) (> 60) BUN/Creatinine Ratio (6-26) Glucose (70-105) mg/dL Calculated Osmolality (280-300) Lactic Acid (0.5-2.2) mmol/L Calcium (8.6-10.3) mg/dL Phosphorus (2.7-4.5) mg/dL Magnesium (1.6-2.6) mg/dL Total Bilirubin (0.3-1.0) mg/dL AST (13-39) Units/L ALT (7-52) Units/L Alkaline Phosphatase (34-104) Units/L Ammonia (16-53) mcmol/L Creatine Kinase (30-223) Units/L Troponin I (< 0.04) ng/mL Serum Total Protein (6.4-8.9) g/dL Albumin (3.5-5.7) g/dL Globulin (2.4-3.5) g/dL Albumin/Globulin Ratio (1.1-2.2) TSH (0.340-5.600) mcIU/mL Urine Color (Yellow) Urine Clarity (Clear) Urine pH (5.0-8.0) pH Units Ur Specific [place] (1.010-1.025) Urine Protein (Neg-Trace) mg/dL Urine Glucose (UA) (Normal) mg/dL Urine Ketones (Negative) mg/dL Urine Blood (Negative) Urine Nitrite (Negative) Urine Bilirubin (Negative) Urine Urobilinogen (Normal) mg/dL Ur Leukocyte Esterase (Negative) Urine Microscopic RBC (0-3) per hpf Urine Microscopic WBC (0-3) per hpf Ur Squamous Epith Cells (None-Few) per lpf Urine Bacteria (None-Few) per hpf Hyaline Casts (None-Few) per lpf Ur Culture Indicated? (NO) 03/31/18 03/31/18 03/31/18 Range/Units 22:49 23:13 23:23 WBC (4.3-11.1) K/mcL RBC (4.19-5.50) M/mcL Hgb (12.9-16.9) g/dL Hct (37.5-50.1) % MCV (83.0-100.0) fL MCH (28.0-33.3) pg MCHC (31.6-35.5) g/dL RDW (11.5-14.5) % Plt Count (140-400) K/mcL MPV (9.4-12.4) fL Immature Gran % (0-4) % Seg Neutrophils % % Lymphocytes % % Monocytes % % Eosinophils % % Basophils % % Neutrophils # (1.6-8.9) K/mcL Lymphocytes # (0.6-4.6) K/mcL Monocytes # (0.0-1.3) K/mcL Eosinophils # (0.0-0.6) K/mcL Basophils # (0.0-0.2) K/mcL ESR (0-10) mm/hr PT (9.4-12.1) Seconds INR VBG pH (7.32-7.42) pH Units VBG pCO2 (41-51) mmHg VBG pO2 (25-50) mmHg VBG HCO3 (21-27) mEq/L Sodium 128 L (136-145) mEq/L Potassium 4.8 (3.5-5.1) mEq/L Chloride 97 L (98-107) mEq/L Carbon Dioxide 21 L (23-29) mEq/L BUN 11 (8-23) mg/dL Creatinine 1.16 (0.70-1.30) mg/dL Est GFR ( Amer) > 60 (> 60) Est GFR (Non-Af Amer) > 60 (> 60) BUN/Creatinine Ratio 9 (6-26) Glucose 166 H (70-105) mg/dL Calculated Osmolality 269 L (280-300) Lactic Acid 3.9 H (0.5-2.2) mmol/L Calcium 8.0 L (8.6-10.3) mg/dL Phosphorus 3.2 (2.7-4.5) mg/dL Magnesium 1.8 (1.6-2.6) mg/dL Total Bilirubin 0.3 (0.3-1.0) mg/dL AST 15 (13-39) Units/L ALT 10 (7-52) Units/L Alkaline Phosphatase 124 H (34-104) Units/L Ammonia 30 (16-53) mcmol/L Creatine Kinase 27 L (30-223) Units/L Troponin I < 0.03 (< 0.04) ng/mL Serum Total Protein 5.6 L (6.4-8.9) g/dL Albumin 2.3 L (3.5-5.7) g/dL Globulin 3.3 (2.4-3.5) g/dL Albumin/Globulin Ratio 0.7 L (1.1-2.2) TSH 1.037 (0.340-5.600) mcIU/mL Urine Color (Yellow) Urine Clarity (Clear) Urine pH (5.0-8.0) pH Units Ur Specific [place] (1.010-1.025) Urine Protein (Neg-Trace) mg/dL Urine Glucose (UA) (Normal) mg/dL Urine Ketones (Negative) mg/dL Urine Blood (Negative) Urine Nitrite (Negative) Urine Bilirubin (Negative) Urine Urobilinogen (Normal) mg/dL Ur Leukocyte Esterase (Negative) Urine Microscopic RBC (0-3) per hpf Urine Microscopic WBC (0-3) per hpf Ur Squamous Epith Cells (None-Few) per lpf Urine Bacteria (None-Few) per hpf Hyaline Casts (None-Few) per lpf Ur Culture Indicated? (NO) 03/31/18 04/01/18 Range/Units 23:24 01:00 WBC (4.3-11.1) K/mcL RBC (4.19-5.50) M/mcL Hgb (12.9-16.9) g/dL Hct (37.5-50.1) % MCV (83.0-100.0) fL MCH (28.0-33.3) pg MCHC (31.6-35.5) g/dL RDW (11.5-14.5) % Plt Count (140-400) K/mcL MPV (9.4-12.4) fL Immature Gran % (0-4) % Seg Neutrophils % % Lymphocytes % % Monocytes % % Eosinophils % % Basophils % % Neutrophils # (1.6-8.9) K/mcL Lymphocytes # (0.6-4.6) K/mcL Monocytes # (0.0-1.3) K/mcL Eosinophils # (0.0-0.6) K/mcL Basophils # (0.0-0.2) K/mcL ESR (0-10) mm/hr PT (9.4-12.1) Seconds INR VBG pH 7.42 (7.32-7.42) pH Units VBG pCO2 34 L (41-51) mmHg VBG pO2 38 (25-50) mmHg VBG HCO3 22 (21-27) mEq/L Sodium (136-145) mEq/L Potassium (3.5-5.1) mEq/L Chloride (98-107) mEq/L Carbon Dioxide (23-29) mEq/L BUN (8-23) mg/dL Creatinine (0.70-1.30) mg/dL Est GFR ( Amer) (> 60) Est GFR (Non-Af Amer) (> 60) BUN/Creatinine Ratio (6-26) Glucose (70-105) mg/dL Calculated Osmolality (280-300) Lactic Acid (0.5-2.2) mmol/L Calcium (8.6-10.3) mg/dL Phosphorus (2.7-4.5) mg/dL Magnesium (1.6-2.6) mg/dL Total Bilirubin (0.3-1.0) mg/dL AST (13-39) Units/L ALT (7-52) Units/L Alkaline Phosphatase (34-104) Units/L Ammonia (16-53) mcmol/L Creatine Kinase (30-223) Units/L Troponin I (< 0.04) ng/mL Serum Total Protein (6.4-8.9) g/dL Albumin (3.5-5.7) g/dL Globulin (2.4-3.5) g/dL Albumin/Globulin Ratio (1.1-2.2) TSH (0.340-5.600) mcIU/mL Urine Color Yellow (Yellow) Urine Clarity Cloudy A (Clear) Urine pH 6.5 (5.0-8.0) pH Units Ur Specific [place] 1.012 (1.010-1.025) Urine Protein 30 H (Neg-Trace) mg/dL Urine Glucose (UA) Normal (Normal) mg/dL Urine Ketones Negative (Negative) mg/dL Urine Blood Moderate H (Negative) Urine Nitrite Negative (Negative) Urine Bilirubin Negative (Negative) Urine Urobilinogen Normal (Normal) mg/dL Ur Leukocyte Esterase Large H (Negative) Urine Microscopic RBC 3-5 H (0-3) per hpf Urine Microscopic WBC TNTC H (0-3) per hpf Ur Squamous Epith Cells Many H (None-Few) per lpf Urine Bacteria Few (None-Few) per hpf Hyaline Casts None Seen (None-Few) per lpf Ur Culture Indicated? NO. A (NO) - Radiology Data Radiology results reviewed: Yes I reviewed the patient's radiology results. Chest X-Ray 03/31/18 22:49 IMPRESSION: Decreased left basilar opacities favored to reflect residual atelectasis, bronchovascular crowding and/or hemidiaphragmatic eventration. No convincing pneumonia the other acute cardiopulmonary abnormality. D/ / Hever Brandon / Hever Brandon Interpreting Provider: Hever Brandon Foot X-Ray 03/31/18 22:52 IMPRESSION: Lateral right foot soft tissue ulceration. Underlying 5th metatarsal base demonstrates loss of the cortical white line, suspicious for osteomyelitis. Consider further evaluation with contrast-enhanced MRI. D/ / Hever Brandon / Hever Brandon Interpreting Provider: Hever Brandon Abdomen/Pelvis CT 04/01/18 23:17 IMPRESSION: Partial opacification of airways supplying the right lower lobe, likely with mucous secretions. Correlation for aspiration is recommended. Bilateral lower lobe airspace disease, atelectasis and/or pneumonia, greater on the right. Bilateral perinephric as well as perivesical fat stranding. Correlation for infection/inflammation is recommended. The findings are not well evaluated on noncontrast images. Cholelithiasis. Question wall thickening of the rectosigmoid colon. Follow-up to exclude neoplasm is recommended. D/ / Courtney Cuba Cha, MD / Courtney Cuba Cha, MD Interpreting Provider: Courtney Cuba Cha, MD - EKG Data EKG #1 EKG attestation: Yes I reviewed and interpreted this EKG. Attestation Statement - Attestation Attestation: I examined this patient and my medical decision-making was reviewed with the Resident Physician. I agree with the documented findings, disposition and treatment plan as described except to the extent set forth below. Findings consistent with sepsis, pneumonia, broad-spectrum antibiotics, IV fluids, admission for further management.
[2018-04-01 01:13] LABS: Bilirubin,Urine Negative (Negative); Blood,Urine Moderate (Negative); Clarity,Urine Cloudy (Clear); Color,Urine Yellow (Yellow); Glucose,Urine (UA) Normal (Normal); Ketones,Urine Negative (Negative); Leukocyte Esterase,Urine Large (Negative); Nitrite,Urine Negative (Negative); PH,Urine 6.5 pH Units (5.0-8.0); Protein,Urine 30 mg/dL (Neg-Trace); Specific Gravity,Urine 1.012 (1.010-1.025); Urobilinogen,Urine Normal (Normal)
[2018-04-01 01:15] LABS: Squamous Epithelial Cell,Urine Many per lpf (None-Few); WBC,Urine TNTC per hpf (0-3)
[2018-04-01 01:16] LABS: Bacteria,Urine Few per hpf (None-Few); Hyaline Casts,Urine None Seen per lpf (None-Few)
--- NOTE | 2018-04-01 01:24 | Internal Med History&Physical ---
Date of Encounter: 04/01/18 Time of Encounter: 01:23 Internal Medicine - H&P: HPI Admitted From: Home History of present illness: Mr. Bassett is a 72 year old male with a PMH of DM, CVA, peripheral arterial disease, valvular heart disease, left BKA, and diabetic right foot ulcer who presents to the emergency department for evaluation of weakness x 2 weeks. He reports watery diarrhea x 1 month with fevers and chills. He denies accompanying abdominal pain or cramping. Past Med Surg Social Fam HX - Past Medical History Medical history: CVA, diabetes, hyperlipidemia, hypertension, peripheral artery disease, valvular heart disease, other Additional medical history: lumbar stenosis L4-5, lumbar radiculpathy. Alcohol abuse w/ hx cirrhosis. Left BKA Psychiatric history: anxiety, depression - Past Surgical History Surgical History: hip replacement, orthopedic, other, other Additional surgical history: left BKA amputation 03/2012. right foot 07/2017. right hip replaced 2016 - Social History Smoking Status: Current every day smoker Smokeless Tobacco Status: No Alcohol use: occasionally Drug use: none - Family History Father Living Status: Hx Family Cardiac Disorders: Yes Hx Family Respiratory Disorders: Yes Hx Family Cancer: No Hx Family GI Disorders: Yes Hx Family Endocrine Disorder: Yes (Diabetic) Son Hx Family Endocrine Disorder: Yes (Diabetes) Mother Living Status: Still Living Daughter Living Status: Still Living Hx Family Cardiac Disorders: No Hx Family Endocrine Disorder: Yes (Diabetes Type 1) Internal Medicine - H&P: Meds Gabapentin [Neurontin] 800 mg PO QID 11/19/16 [History] Folic Acid 1 mg PO DAILY tablet 07/29/17 [Rx] Aspirin [Lo-Dose Aspirin EC] 81 mg PO DAILY 10/20/17 [History] Atorvastatin [Lipitor] 20 mg PO HS 10/20/17 [History] Cholecalciferol (Vitamin D3) [Vitamin D3] 50,000 unit PO Q2W 10/20/17 [History] Magnesium Oxide [Magnesium] 1,000 mg PO DAILY 10/20/17 [History] Quetiapine Fumarate [Seroquel] 100 mg PO HS 10/20/17 [History] Venlafaxine [Effexor] 37.5 mg PO DAILY 10/20/17 [History] metFORMIN [Glucophage] 500 mg PO BIDWM 10/20/17 [History] Ipratropium/Albuterol Neb [Duoneb] 3 ml IH [id number] PRN inhsol 12/27/17 [Rx] Metoprolol [Lopressor] 12.5 mg PO BID #60 tablet 12/27/17 [Rx] Vitamin B Comp and C/FA/Zinc [[place]serrat B Strong with C & Zinc Tb] 1 each PO DAILY # 30 tablet 12/27/17 [Rx] Doxycycline Hyclate 100 mg PO BID #28 tablet. 01/31/18 [Rx] SitaGLIPtin [Januvia] 100 mg PO DAILY 01/31/18 [History] Tramadol HCl [Ultram] 50 mg PO QID PRN 01/31/18 [History] Nystatin Cream [Mycostatin Cream] 1 appl TP TID #1 tube 03/26/18 [Rx] 3 Allergy/AdvReac Type Severity Reaction Status Date / Time codeine Allergy See Verified 03/31/18 22:44 Comments All Systems PM: A 10-system review of systems was performed and is negative for pertinent findings except as documented above in the HPI. - Constitutional Constitutional: chills, fever(s), weakness - Respiratory Respiratory: cough (not above his baseline) - Gastrointestinal Gastrointestinal: diarrhea, nausea, vomiting, no abdominal pain, no coffee ground emesis - Genitourinary Genitourinary ROS male: dysuria, nocturia - Musculoskeletal Additional comments: Right foot pain - Integumentary Integumentary IM: skin ulcer (lateral aspect right foot) - Neurological Neurological ROS: weakness - Constitutional Vitals: Temp Pulse Resp BP Pulse Ox 98.1 F 84 18 96/59 96 03/31/18 22:46 03/31/18 22:46 03/31/18 22:46 03/31/18 22:46 03/31/18 22:46 General appearance: Present: A&O X 3, pleasant, no acute distress - Head Head exam: Present: atraumatic, normocephalic - Eye Eye exam: Present: normal appearance, PERRL. Absent: scleral icterus Pupils: Present: PERRL - ENT ENT exam: Present: mucous membranes moist - Neck Neck exam general surgery: Present: supple, trachea midline - Respiratory Respiratory exam: Present: CTAB. Absent: rales, respiratory distress, rhonchi, wheezes - Cardiovascular Cardiovascular exam: Present: RRR - GI/Abdominal GI/Abdominal exam: Present: distended (+ fluid wave), guarding (RUQ), normal bowel sounds, tenderness (RUQ). Absent: rebound, rigid - exam: Present: scrotal swelling (erythema) - Extremities Exam Additional comments: Left BKA, right great toe amputation - Back Exam Additional comments: Non-tender, mobile, ovoid-shaped cystic mass located on posterolateral aspect of pt's left upper back - Neurological Exam Neurological exam: Present: alert, oriented X3. Absent: no focal deficits, facial droop, speech deficit - Psychiatric Psychiatric exam: Present: normal affect, normal mood - Skin Additional comments: diabetic foot wound of 5th metatarsal area of right foot, purulent drainage Internal Med - H&P Results - Labs CBC & Chem 7: 04/01/18 03:16 04/01/18 03:16 - Impressions ITS Impressions Abdomen/Pelvis CT 04/01/18 23:17 IMPRESSION: Partial opacification of airways supplying the right lower lobe, likely with mucous secretions. Correlation for aspiration is recommended. Bilateral lower lobe airspace disease, atelectasis and/or pneumonia, greater on the right. Bilateral perinephric as well as perivesical fat stranding. Correlation for infection/inflammation is recommended. The findings are not well evaluated on noncontrast images. Cholelithiasis. Question wall thickening of the rectosigmoid colon. Follow-up to exclude neoplasm is recommended. D/ / Courtney Cuba Cha, MD / Courtney Cuba Cha, MD Interpreting Provider: Courtney Cuba Cha, MD - Assessment and plan (1) Sepsis Current Visit: Yes Status: Acute Assessment and plan: Septic on presentation: WBC 12.8 and lactic acid: 3.9 Afebrile since admission and hypotension improving Possible sources of infection: PNA, UTI, diabetic foot ulcer (osteomyelitis) Continue empiric vanc and zosyn, plan to de-escalate as cultures and sensitivities become available Tylenol 650 mg PO q 4-6 hr PRN pain or fever Blood Cx obtained, results pending IV fluid hydration with isotonic saline UA shows (+) leukocyte esterase, (+) urine WBCs, and (+) few bacteria in urine-- send for cx, pt symptomatic Sputum cx, not yet collected CBC and BMP in morning Qualifiers: Sepsis type: sepsis due to unspecified organism Qualified Code(s): A41.9 - Sepsis, unspecified organism (2) Diabetes Current Visit: Yes Status: Chronic Assessment and plan: Last Hgb A1c 6.7% on 01/27/18 Hold home regimen Start sliding scale insulin Diabetic diet Qualifiers: Diabetes mellitus type: type 2 Diabetes mellitus custodial insulin use: without custodial use Diabetes mellitus complication status: with circulatory complication Diabetes mellitus complication detail: with peripheral angiopathy without gangrene Qualified Code(s): E11.51 - Type 2 diabetes mellitus with diabetic peripheral angiopathy without gangrene (3) Anemia Current Visit: Yes Status: Acute Assessment and plan: Most likely anemia of chronic disease Hgb 11.4 --> 10.5 Drop in Hgb most likely dilutional after receiving 3L isotonic IV fluids No active signs of bleeding Continue to monitor with morning CBC's Qualifiers: Anemia type: unspecified type Qualified Code(s): D64.9 - Anemia, unspecified (4) Diabetic infection of right foot Current Visit: Yes Status: Acute Assessment and plan: Sees Dr. Stark outpatient for his diabetic foot ulcer Concern for possible osteomyelitis based on XR Wound culture obtained, results are pending Abx as above for "Sepsis" Podiatry consult placed (5) Hyponatremia Current Visit: Yes Status: Acute Assessment and plan: Hypovolemic hyponatremia d/t dehydration in setting of diarrhea x 1 month I expect this will correct with isotonic IV fluids and PO intake Follow Na level with AM labs If persistent, consider further serum and urine osmolality, urine sodium (6) Tobacco abuse Current Visit: Yes Status: Chronic Assessment and plan: 1 ppd x 67 years Nicotine patch if requested by patient (7) DVT prophylaxis Current Visit: Yes Status: Acute Assessment and plan: Heparin 5,000 units SubQ Q12H - Time Spent With Patient Total time spent is greater than 50% in coordination of care (as documented) at patient's floor/unit and/or counseling patient:
--- NOTE | 2018-04-01 02:34 | Sepsis Event Note ---
Sepsis Reassessment Note - Focused Exam Vital Signs: Vital Signs Pulse Resp BP Pulse Ox 04/01/18 01:47 84 16 103/56 97
[2018-04-01 03:28] LABS: Basophils # 0.1 K/mcL (0.0-0.2); Basophils % 0.5 %; Eosinophils # 0.3 K/mcL (0.0-0.6); Eosinophils % 2.5 %; Hematocrit 30.4 % (37.5-50.1); Hemoglobin 10.5 g/dL (12.9-16.9); Immature Granulocytes % 0.8 % (0-4); Immature Platelets 1.9 % (1.1-6.1); Lymphocytes % 23.1 %; Mean Corpuscular HGB Conc 34.5 g/dL (31.6-35.5); Mean Corpuscular Hemoglobin 34.2 pg (28.0-33.3); Mean Platelet Volume 8.6 fL (9.4-12.4); Monocytes # 1.8 K/mcL (0.0-1.3); Neutrophils # 7.7 K/mcL (1.6-8.9); Platelet Count 373 K/mcL (140-400); Red Blood Count 3.07 M/mcL (4.19-5.50); Red Cell Distribution Width 14.1 % (11.5-14.5); Segmented Neutrophils % 59.1 %
[2018-04-01 03:48] LABS: Alanine Aminotransferase 9 Units/L (7-52); Albumin/Globulin Ratio 0.7 (1.1-2.2); Alkaline Phosphatase 115 Units/L (34-104); Aspartate Amino Transferase 14 Units/L (13-39); BUN/Creatinine Ratio 11 (6-26); Bilirubin,Direct 0.2 mg/dL (0.0-0.2); Bilirubin,Indirect 0.1 mg/dL (0.0-1.2); Bilirubin,Total 0.3 mg/dL (0.3-1.0); Blood Urea Nitrogen 11 mg/dL (8-23); Calcium 7.6 mg/dL (8.6-10.3); Carbon Dioxide 21 mEq/L (23-29); Chloride 102 mEq/L (98-107); Globulin 2.9 g/dL (2.4-3.5); Glucose 106 mg/dL (70-105); Osmolality,Calculated 270 (280-300); Potassium 4.4 mEq/L (3.5-5.1); Sodium 130 mEq/L (136-145); Total Protein 4.9 g/dL (6.4-8.9); eGFR For African Americans > 60 (> 60); eGFR For Non-African Americans > 60 (> 60)
[2018-04-01] MEDS ORDERED: 0.9 % Sodium Chloride 1,000 ML IVC SCH (09:45)
[2018-04-01] MEDS: Piperacillin/Tazobactam 3.375 GM in 0.9 % Sodium Chloride Mini Bag 100 ML IVPB SCH ×2 (10:14→17:45)
[2018-04-01] MEDS ORDERED: Acetaminophen 325 MG TABLET PO PRN ×2 (10:58)
[2018-04-01] MEDS ORDERED: *HR* HYDROcodone/Acet 10/325 mg TABLET PO PRN (10:58)
[2018-04-01] MEDS: *HR* HYDROcodone/Acet 5/325 mg TABLET PO PRN ×2 (11:14→20:01)
[2018-04-01] MEDS ORDERED: Gadolinium Contrast Agent (WT Based) IV PRN (12:36)
[2018-04-01] MEDS ORDERED: Ipratropium/Albuterol Neb 3 ML IH PRN (12:41)
[2018-04-01] MEDS ORDERED: *HR* Dextrose 50 % in Water (Syg) 50 ML SYRINGE IVP PRN (15:48)
[2018-04-01] MEDS ORDERED: D5% in Water 1,000 ML IVC PRN (15:48)
[2018-04-01] MEDS ORDERED: Dextrose Gel 15 GM/37.5 ML TUBE PO PRN ×2 (15:48)
--- NOTE | 2018-04-01 16:02 | Event Note ---
Date of Encounter: 04/01/18 Time of Encounter: 15:53 S: Patient had no acute events overnight. He is now awake and oriented x 3. He denies any pain. He denies any fever, chills, chest pain, SOB, nausea, vomiting, or abdominal pain. He is tolerating diet. He has no complaints at this time. O: Gen - Awake, alert, oriented x 3, no acute distress HEENT - NCAT, PERRLA, EOMI, hearing grossly intact, oropharynx benign CV - RRR, normal S1 and S2, no M/R/G, no BLE edema Resp - Normal WOB, CTAB, no W/R/R GI - Soft, NT/ND, no masses, normal bowel sounds, no HSP Psych - Normal mood and affect, no depression or anxiety Skin - Right foot wrapped in bandaging, good right toe capillary refill, L foot BKA, no erythema or edema A/P: 1) Sepsis - Continue IVF, IV vancomycin, and IV zosyn. Sources as per below. Vitals improving; monitor closely. Recheck labwork in AM. 2) Right Foot Cellulitis/Osteomyelitis - MRI foot confirms 5th digit osteomyelitis. Podiatry consulted; appreciate input. Continue IV antibiotics as per above. Wound cultures pending. Wound care consulted. 3) UTI - Urine culture pending. Continue IV antibiotics as per above. 4) Hyponatremia - Mild. Improving. Continue IV NS. Recheck BMP in AM. 5) Anemia - Chronic. Stable. Recheck CBC in AM.
[2018-04-01] MEDS: Folic Acid 1 MG TABLET PO SCH (17:26)
[2018-04-01] MEDS: Gabapentin 400 MG CAPSULE PO SCH ×2 (17:26→21:23)
[2018-04-01] MEDS: Nystatin Cream 15 GM TUBE TP SCH ×2 (17:26→21:24)
[2018-04-01] MEDS: Aspirin Enteric Coated 81 MG Tablet PO SCH (17:26)
[2018-04-01] MEDS: Magnesium Oxide 400 MG TABLET PO SCH (17:26)
[2018-04-01] MEDS: Insulin LISPRO 300 UNITS/3 ML VIAL SQ SCH ×2 (17:29→21:24)
[2018-04-01] MEDS: *HR* Acetylcysteine 20% 600 MG/3 ML ORAL SYRINGE PO SCH ×2 (19:28→19:42)
[2018-04-01] MEDS: 0.9 % Sodium Chloride 1,000 ML IVC SCH ×2 (20:00→20:02)
[2018-04-02] MEDS: Piperacillin/Tazobactam 3.375 GM in 0.9 % Sodium Chloride Mini Bag 100 ML IVPB SCH ×3 (02:39→17:08)
[2018-04-02] MEDS: 0.9 % Sodium Chloride 1,000 ML IVC SCH ×2 (05:42→15:05)
[2018-04-02 07:45] LABS: Basophils # 0.1 K/mcL (0.0-0.2); Basophils % 0.6 %; Eosinophils # 0.3 K/mcL (0.0-0.6); Eosinophils % 3.6 %; Hematocrit 29.6 % (37.5-50.1); Hemoglobin 10.1 g/dL (12.9-16.9); Immature Granulocytes % 1.1 % (0-4); Lymphocytes # 2.7 K/mcL (0.6-4.6); Lymphocytes % 28.9 %; Mean Corpuscular HGB Conc 34.1 g/dL (31.6-35.5); Mean Corpuscular Volume 99.7 fL (83.0-100.0); Mean Platelet Volume 8.8 fL (9.4-12.4); Monocytes # 1.3 K/mcL (0.0-1.3); Monocytes % 14.2 %; Neutrophils # 4.8 K/mcL (1.6-8.9); Platelet Count 337 K/mcL (140-400); Red Blood Count 2.97 M/mcL (4.19-5.50); Red Cell Distribution Width 14.2 % (11.5-14.5); Segmented Neutrophils % 51.6 %
[2018-04-02] MEDS: Magnesium Oxide 400 MG TABLET PO SCH (07:45)
[2018-04-02] MEDS: Gabapentin 400 MG CAPSULE PO SCH ×4 (07:45→20:27)
[2018-04-02] MEDS: Aspirin Enteric Coated 81 MG Tablet PO SCH (07:45)
[2018-04-02] MEDS: Folic Acid 1 MG TABLET PO SCH (07:46)
[2018-04-02] MEDS: Insulin LISPRO 300 UNITS/3 ML VIAL SQ SCH ×4 (07:46→20:26)
[2018-04-02] MEDS: Nystatin Cream 15 GM TUBE TP SCH ×3 (07:46→20:27)
[2018-04-02] MEDS: *HR* Acetylcysteine 20% 600 MG/3 ML ORAL SYRINGE PO SCH ×2 (07:46→20:27)
[2018-04-02 08:05] LABS: BUN/Creatinine Ratio 10 (6-26); Blood Urea Nitrogen 9 mg/dL (8-23); Calcium 7.5 mg/dL (8.6-10.3); Carbon Dioxide 23 mEq/L (23-29); Chloride 112 mEq/L (98-107); Glucose 114 mg/dL (70-105); Osmolality,Calculated 286 (280-300); Potassium 3.8 mEq/L (3.5-5.1); Sodium 138 mEq/L (136-145); eGFR For African Americans > 60 (> 60); eGFR For Non-African Americans > 60 (> 60)
[2018-04-02 08:25] LABS: Estimated Average Glucose 126 mg/dl
--- NOTE | 2018-04-02 15:08 | Podiatry Consult Note ---
Date of Encounter: 04/02/18 Time of Encounter: 15:00 Assessment and Plan (1) Osteomyelitis of ankle or foot Current visit: Yes Status: Acute patient has osteomyelitis of the 5th metatarsal base, 4th metatarsal base and cuboid. discussed MRI findings with patient. if these areas were to be excised there is no viable attachment site for the peroneal tendon which would leave his foot unstable and with a new deformity that would have a persistent lateral foot ulceration and make his foot non-functional. he will need to have this condition managed with IV antibiotics or alternatively I would recommend a below the knee amputation (which the patient has refused). ordered valerie/pvr and tcpO2. needs infectious disease consult. wound vac after vascular testing. he has deteriorated and would recommend permanent snf placement due to his home situation and ability to care for himself and he is unable to do activities of daily living. discussed plan thoroughly with patient and daughter bedside. patient is in agreement with this plan. History of Present Illness HPI: Mr. Bassett is a 72 year old male admitted with sepsis. he is known to me from the wound care center. he infrequently follows up there for his foot wounds. it has been a few weeks since he has been at the wound care center. he says he has transportation issues. he has regularly refused previous attempts to admit him and missed outpatient appts set up for him. he reports feeling worse recently and says he knew it was finally time he had to come to the hospital. reports worsening diarrhea. Past Med Surg Social Fam HX - Past Medical History Medical history: CVA, diabetes, hyperlipidemia, hypertension, peripheral artery disease, valvular heart disease, other Additional medical history: lumbar stenosis L4-5, lumbar radiculpathy. Alcohol abuse w/ hx cirrhosis. Left BKA Psychiatric history: anxiety, depression - Past Surgical History Surgical History: hip replacement, orthopedic, other, other Additional surgical history: left BKA amputation 03/2012. right foot 07/2017. right hip replaced 2016 - Social History Smoking Status: Current every day smoker Smokeless Tobacco Status: No Alcohol use: occasionally Drug use: none - Family History Father Living Status: Hx Family Cardiac Disorders: Yes Hx Family Respiratory Disorders: Yes Hx Family Cancer: No Hx Family GI Disorders: Yes Hx Family Endocrine Disorder: Yes (Diabetic) Son Hx Family Endocrine Disorder: Yes (Diabetes) Mother Living Status: Still Living Daughter Living Status: Still Living Hx Family Cardiac Disorders: No Hx Family Endocrine Disorder: Yes (Diabetes Type 1) Medications and Allergies Gabapentin [Neurontin] 800 mg PO QID 11/19/16 [History] Folic Acid 1 mg PO DAILY tablet 07/29/17 [Rx] Aspirin [Lo-Dose Aspirin EC] 81 mg PO DAILY 10/20/17 [History] Atorvastatin [Lipitor] 20 mg PO HS 10/20/17 [History] Cholecalciferol (Vitamin D3) [Vitamin D3] 50,000 unit PO Q2W 10/20/17 [History] Magnesium Oxide [Magnesium] 1,000 mg PO DAILY 10/20/17 [History] Quetiapine Fumarate [Seroquel] 100 mg PO HS 10/20/17 [History] Venlafaxine [Effexor] 37.5 mg PO DAILY 10/20/17 [History] metFORMIN [Glucophage] 500 mg PO BIDWM 10/20/17 [History] Ipratropium/Albuterol Neb [Duoneb] 3 ml IH [id number] PRN inhsol 12/27/17 [Rx] Metoprolol [Lopressor] 12.5 mg PO BID #60 tablet 12/27/17 [Rx] Vitamin B Comp and C/FA/Zinc [[place]serrat B Strong with C & Zinc Tb] 1 each PO DAILY # 30 tablet 12/27/17 [Rx] Doxycycline Hyclate 100 mg PO BID #28 tablet. 01/31/18 [Rx] SitaGLIPtin [Januvia] 100 mg PO DAILY 01/31/18 [History] Tramadol HCl [Ultram] 50 mg PO QID PRN 01/31/18 [History] Nystatin Cream [Mycostatin Cream] 1 appl TP TID #1 tube 03/26/18 [Rx] 3 Allergy/AdvReac Type Severity Reaction Status Date / Time codeine Allergy See Verified 03/31/18 22:44 Comments All Systems Reviewed: The remainder of the systems were reviewed and are negative - Constitutional Constitutional: frequent falls - Cardiovascular Cardiovascular: dyspnea Physical Exam - Constitutional Vitals: Temp Pulse Resp BP Pulse Ox 98.2 F 77 16 137/86 93 04/02/18 11:52 04/02/18 11:52 04/02/18 11:52 04/02/18 11:52 04/02/18 11:52 Exam: CFT < 3 sec x remaining right foot digits. right distal wound healed, right lateral proximal wound healed. lateral right foot ulceration over 5th met base measuring approx [id number]. bone is no exposed. wound is 90% granular. no purulence expressed. diminished protective sensation. Results - Labs Result Diagrams: 04/02/18 07:07 04/02/18 07:07 Labs: Abnormal lab results RBC 2.97 M/mcL (4.19-5.50) L 04/02/18 07:07 Hgb 10.1 g/dL (12.9-16.9) L 04/02/18 07:07 Hct 29.6 % (37.5-50.1) L 04/02/18 07:07 MCH 34.0 pg (28.0-33.3) H 04/02/18 07:07 MPV 8.8 fL (9.4-12.4) L 04/02/18 07:07 ESR 50 mm/hr (0-10) H 03/31/18 22:49 PT 14.4 Seconds (9.4-12.1) H 03/31/18 22:49 VBG pCO2 34 mmHg (41-51) L 03/31/18 23:24 Chloride 112 mEq/L (98-107) H 04/02/18 07:07 Glucose 114 mg/dL (70-105) H 04/02/18 07:07 POC Glucose 166 mg/dL (70-99) H 04/01/18 20:30 Hemoglobin A1c 6.0 % (-5.6) H 04/01/18 03:16 Calcium 7.5 mg/dL (8.6-10.3) L 04/02/18 07:07 Alkaline Phosphatase 115 Units/L (34-104) H 04/01/18 03:16 Creatine Kinase 27 Units/L (30-223) L 03/31/18 22:49 Serum Total Protein 4.9 g/dL (6.4-8.9) L 04/01/18 03:16 Albumin 2.0 g/dL (3.5-5.7) L 04/01/18 03:16 Albumin/Globulin Ratio 0.7 (1.1-2.2) L 04/01/18 03:16 Urine Clarity Cloudy (Clear) A 04/01/18 01:00 Urine Protein 30 mg/dL (Neg-Trace) H 04/01/18 01:00 Urine Blood Moderate (Negative) H 04/01/18 01:00 Ur Leukocyte Esterase Large (Negative) H 04/01/18 01:00 Urine Microscopic RBC 3-5 per hpf (0-3) H 04/01/18 01:00 Urine Microscopic WBC TNTC per hpf (0-3) H 04/01/18 01:00 Ur Squamous Epith Cells Many per lpf (None-Few) H 04/01/18 01:00 Ur Culture Indicated? NO. (NO) A 04/01/18 01:00 H & H 04/02/18 Range/Units 07:07 Hgb 10.1 L (12.9-16.9) g/dL Hct 29.6 L (37.5-50.1) % All other labs normal. Consult Discharge Plan - Plan Referrals: Grayson Parnell, [employer] [Primary Care Provider] -
--- NOTE | 2018-04-02 16:10 | Internal Med Progress Note ---
Date of Encounter: 04/02/18 Time of Encounter: 13:00 - Assessment and plan (1) Sepsis Current Visit: Yes Status: Acute Assessment and plan: presented with mild leukocytosis, hypotension, lactic acidosis; likely secondary to right foot infection; continue broad spectrum IV antibiotics and f/ up final cultures; leucocytosis and lactic acidosis resolved; Qualifiers: Sepsis type: sepsis due to unspecified organism Qualified Code(s): A41.9 - Sepsis, unspecified organism (2) Osteomyelitis of ankle or foot Current Visit: Yes Status: Acute Assessment and plan: Left foot MRI shows extensive osteomyelitis of remaining 5th metatarsal base, 4th metatarsal base, ?septic arthritis of 4th and 5th TMT joints; Podiatry consulted; d/w , patient may need eventual BKA, to which he is not agreeable at this time; will consult ID; continue IV Vancomycin and Zosyn ; preliminary wound culture grows GNR; ESR 50, CRP pending; Patient is noncompliant with poor outpatient f/up due to lack of transport per him; also does not care for self at home; (3) Pneumonia Current Visit: No Status: Suspected Assessment and plan: less likely; CT chest shows bibasilar atelectasis vs infiltrates; continue IV antibiotics; supportive care and supplemental O2; blood and sputum cultures so far negative; Qualifiers: Pneumonia type: due to unspecified organism Laterality: bilateral Lung location: lower lobe of lung Qualified Code(s): J18.1 - Lobar pneumonia, unspecified organism (4) PAD (peripheral artery disease) Current Visit: Yes Status: Chronic (5) Anxiety and depression Current Visit: Yes Status: Chronic (6) Diabetic infection of right foot Current Visit: Yes Status: Acute Assessment and plan: acute on chronic; plan as above; (7) Diabetes Current Visit: Yes Status: Chronic Assessment and plan: blood sugars well-controlled, continue Accucheck blood glucose monitoring with sliding scale insulin as needed; diabetic diet; HbA1C 6%; Qualifiers: Diabetes mellitus type: type 2 Diabetes mellitus salvage determiner insulin use: without salvage determiner use Diabetes mellitus complication status: with circulatory complication Diabetes mellitus complication detail: with peripheral angiopathy without gangrene Qualified Code(s): E11.51 - Type 2 diabetes mellitus with diabetic peripheral angiopathy without gangrene (8) Essential hypertension Current Visit: Yes Status: Chronic - Time Spent With Patient Total time spent is greater than 50% in coordination of care (as documented) at patient's floor/unit and/or counseling patient: - Subjective Interval history: Feels better; improving weakness, shortness of breath; no nausea, vomiting; had diarrhea for the last 1 month but has not had BM since yesterday/admission; - Constitutional Vitals: Temp Pulse Resp BP Pulse Ox 98.2 F 77 16 137/86 93 04/02/18 11:52 04/02/18 11:52 04/02/18 11:52 04/02/18 11:52 04/02/18 11:52 General appearance: Present: A&O X 3, answers questions appropriately - Respiratory Respiratory exam: Present: CTAB. Absent: accessory muscle use, rales, rhonchi, wheezes - Cardiovascular Cardiovascular exam: Present: RRR, +S1, +S2. Absent: diastolic murmur, gallop, rubs, systolic murmur - GI/Abdominal GI/Abdominal exam: Present: normal bowel sounds, soft, no peritoneal signs. Absent: distended, tenderness - Extremities Exam Extremities exam: Present: pedal edema (right foot swollen and in dressing), warm, radial pulses palpable and symmetrical. Absent: calf tenderness, cyanotic Additional comments: left AKA+ - Neurological Exam Neurological exam: Present: CN II-XII intact, oriented X3, no focal deficits. Absent: pronater drift, facial droop, speech deficit Internal Medicine: Result - Labs CBC & Chem 7: 04/02/18 07:07 04/02/18 07:07 Labs: Short CBC 04/02/18 Range/Units 07:07 WBC 9.2 (4.3-11.1) K/mcL Hgb 10.1 L (12.9-16.9) g/dL Hct 29.6 L (37.5-50.1) % Plt Count 337 (140-400) K/mcL Neutrophils # 4.8 (1.6-8.9) K/mcL BMP 04/02/18 07:07 Sodium 138 Potassium 3.8 Chloride 112 H Carbon Dioxide 23 BUN 9 Creatinine 0.86 Glucose 114 H Calcium 7.5 L - ABG Interpretation ABG results: PT/INR, D-dimer PT 14.4 Seconds (9.4-12.1) H 03/31/18 22:49 Consult Discharge Plan - Plan Referrals: Grayson Parnell, [employer] [Primary Care Provider] -
[2018-04-02] MEDS: *HR* HYDROcodone/Acet 5/325 mg TABLET PO PRN (20:27)
[2018-04-03] MEDS: Piperacillin/Tazobactam 3.375 GM in 0.9 % Sodium Chloride Mini Bag 100 ML IVPB SCH ×3 (02:58→18:24)
[2018-04-03 06:19] LABS: Basophils # 0.1 K/mcL (0.0-0.2); Basophils % 0.8 %; Eosinophils # 0.5 K/mcL (0.0-0.6); Eosinophils % 4.6 %; Hematocrit 29.3 % (37.5-50.1); Hemoglobin 9.9 g/dL (12.9-16.9); Immature Granulocytes % 0.9 % (0-4); Lymphocytes # 2.9 K/mcL (0.6-4.6); Lymphocytes % 30.3 %; Mean Corpuscular HGB Conc 33.8 g/dL (31.6-35.5); Mean Corpuscular Hemoglobin 33.7 pg (28.0-33.3); Mean Corpuscular Volume 99.7 fL (83.0-100.0); Mean Platelet Volume 8.9 fL (9.4-12.4); Monocytes # 1.2 K/mcL (0.0-1.3); Monocytes % 12.4 %; Neutrophils # 4.9 K/mcL (1.6-8.9); Platelet Count 336 K/mcL (140-400); Red Blood Count 2.94 M/mcL (4.19-5.50); Red Cell Distribution Width 14.3 % (11.5-14.5)
[2018-04-03 06:42] LABS: BUN/Creatinine Ratio 11 (6-26); Blood Urea Nitrogen 9 mg/dL (8-23); C-Reactive Protein 25 mg/L (Less than 10); Calcium 7.6 mg/dL (8.6-10.3); Carbon Dioxide 21 mEq/L (23-29); Chloride 113 mEq/L (98-107); Glucose 114 mg/dL (70-105); Osmolality,Calculated 288 (280-300); Sodium 139 mEq/L (136-145); eGFR For African Americans > 60 (> 60); eGFR For Non-African Americans > 60 (> 60)
[2018-04-03] MEDS: Insulin LISPRO 300 UNITS/3 ML VIAL SQ SCH ×4 (08:05→21:45)
[2018-04-03] MEDS: Folic Acid 1 MG TABLET PO SCH (08:55)
[2018-04-03] MEDS: Aspirin Enteric Coated 81 MG Tablet PO SCH (08:55)
[2018-04-03] MEDS: *HR* Acetylcysteine 20% 600 MG/3 ML ORAL SYRINGE PO SCH ×2 (08:56→21:47)
[2018-04-03] MEDS: Magnesium Oxide 400 MG TABLET PO SCH (08:56)
[2018-04-03] MEDS: *HR* HYDROcodone/Acet 5/325 mg TABLET PO PRN ×2 (08:56→18:23)
[2018-04-03] MEDS: Gabapentin 400 MG CAPSULE PO SCH ×4 (08:56→21:46)
[2018-04-03] MEDS: Nystatin Cream 15 GM TUBE TP SCH ×3 (11:07→21:47)
[2018-04-03] MEDS: *HR* OxyCODONE Immed Rel 5 MG TABLET PO PRN (12:32)
--- NOTE | 2018-04-03 13:02 | Infectious Disease Consult ---
Date of Encounter: 04/03/18 Time of Encounter: 13:01 Assessment and Plan (1) UTI (urinary tract infection) Status: Acute Assessment and plan: Causative organism is MRSA Currently patient is on vancomycin CT abdomen pelvis concerning for cystitis/pyelonephritis Qualifiers: Urinary tract infection type: acute pyelonephritis Qualified Code(s): N10 - Acute pyelonephritis (2) Diabetic infection of right foot Status: Acute (3) Osteomyelitis of ankle or foot Status: Acute Assessment and plan: Causative organism MRSA and Proteus that is multidrug resistant S: Ertapenem, gentamicin, Zosyn, tobramycin and Bactrim Osteomyelitis of the 5th metatarsal base, 4th metatarsal base and cuboid. Appreciate podiatry recommendation: The only options would be either IV antibiotics for a long time for below knee amputation Patient adamant that he gets aggressive treatment because he does not lose both of his legs. Started patient on vancomycin and ertapenem Continue current treatment: Monitor for drug toxicity Goal vancomycin trough around 15 Duration of treatment at least 6 weeks Patient will PICC line placement prior to discharge While on antibiotics he needs weekly CBC, BMP, ESR, CRP and vancomycin trough Patient needs to follow-up with us in 2 weeks after discharge. (4) Tobacco abuse Status: Chronic Assessment and plan: He tells me that he continues to smoke (5) Pneumonia Status: Suspected Assessment and plan: Causative organism not clear Seen on the CT abdomen and pelvis Patient is already on broad-spectrum antibiotics No further recommendations at this time Qualifiers: Pneumonia type: due to unspecified organism Laterality: bilateral Lung location: lower lobe of lung Qualified Code(s): J18.1 - Lobar pneumonia, unspecified organism Infectious Disease HPI - Data of Consult Patient: new to practice Consult date: 04/03/18 Requesting Physician: Krystyna Johnson Primary Care Provider: Grayson Parnell CNP - Consult Narrative Reason for consult: pneumonia, osteomyelitis, pyelonephritis History of present illness: Mr. Bassett is a 72 year old male Patient is a 72-year-old gentleman who presented on 04/01 to [facility] for weakness 2 weeks. We are consulted on 04/03 for right foot osteomyelitis, sepsis. Patient is a 72-year-old gentleman with past medical history mentioned below including diabetes mellitus type 2 for over 20 years, her for artery disease, history of CVA, valvular heart disease, history of left BKA done here at [facility] 4 -5 years ago and a diabetic right foot ulcer presented to [facility] for weakness 2 weeks. Patient is not the best historian. Since admission patient has been afebrile, non-tachycardic, and normal respiratory rate. Presenting WBC was 12.8 thousand with 68% neutrophils no bands. ESR was obtained and it was 50. Patient had hyponatremia but normal BUN and creatinine. A urinalysis was obtained and showed a poor specimen with many epithelial cells and no culture was obtained. C-reactive protein was checked and it was 25. Cultures were obtained from the blood on 04/01 and were negative 2 sets. Wound culture of the right foot grew Proteus mirabilis resistant to ampicillin, ampicillin sulbactam, cefazolin, cefepime, ceftazidime , ceftriaxone, ciprofloxacin and levofloxacin. Only susceptible to current ertapenems, Ecotrin, Zosyn and aminoglycosides. The staph aureus is presumed MRSA based on the PBP2A detection. Chest x-ray was obtained on the patient and it was read as decreased left basilar opacities favored to reflect residual atelectasis. Rhonchi of the heel or crowding and/or hemidiaphragmatic eventrated. No signs of pneumonia. A foot x-ray was done and it showed lateral right foot and soft tissue ulceration. Underlying fifth metatarsal base demonstration loss of cortical white line suspicious for osteomyelitis. A follow-up MRI was done which showed extensive osteoarthritis throughout what remains of the fifth metatarsal base and shaft. Less extensive ostial myelitis involving the lateral aspect of the distal cuboid and not lateral base of the fourth metatarsal. Suspected fourth and fifth transmetatarsal septic arthritis. A CT abdomen and pelvis revealed partial opacification of February supplying the right lower lobe, likely with mucous secretions. Bilateral lower lobe airspace disease, atelectasis and/or pneumonia. Bilateral perinephric as well as perivesical fat stranding correlation for infection/inflammation is recommended. Cholelithiasis and question wall thickening of the rectosigmoid colon follow-up to exclude neoplasm is recommended. Patient was started on empiric vancomycin and Zosyn and we were consulted to evaluate the patients make further recommendations. CC: Krystyna oJhnson Past Med Surg Social Fam HX - Past Medical History Medical history: CVA, diabetes, hyperlipidemia, hypertension, peripheral artery disease, valvular heart disease, other Additional medical history: lumbar stenosis L4-5, lumbar radiculpathy. Alcohol abuse w/ hx cirrhosis. Left BKA Psychiatric history: anxiety, depression - Past Surgical History Surgical History: hip replacement, orthopedic, other, other Additional surgical history: left BKA amputation 03/2012. right foot 07/2017. right hip replaced 2016 - Social History Smoking Status: Current every day smoker Smokeless Tobacco Status: No Alcohol use: occasionally Drug use: none - Family History Father Living Status: Hx Family Cardiac Disorders: Yes Hx Family Respiratory Disorders: Yes Hx Family Cancer: No Hx Family GI Disorders: Yes Hx Family Endocrine Disorder: Yes (Diabetic) Son Hx Family Endocrine Disorder: Yes (Diabetes) Mother Living Status: Still Living Daughter Living Status: Still Living Hx Family Cardiac Disorders: No Hx Family Endocrine Disorder: Yes (Diabetes Type 1) Infectious Disease-CN:Meds Gabapentin [Neurontin] 800 mg PO QID 11/19/16 [History] Folic Acid 1 mg PO DAILY tablet 07/29/17 [Rx] Aspirin [Lo-Dose Aspirin EC] 81 mg PO DAILY 10/20/17 [History] Atorvastatin [Lipitor] 20 mg PO HS 10/20/17 [History] Cholecalciferol (Vitamin D3) [Vitamin D3] 50,000 unit PO Q2W 10/20/17 [History] Magnesium Oxide [Magnesium] 1,000 mg PO DAILY 10/20/17 [History] Quetiapine Fumarate [Seroquel] 100 mg PO HS 10/20/17 [History] metFORMIN [Glucophage] 500 mg PO BIDWM 10/20/17 [History] Metoprolol [Lopressor] 12.5 mg PO BID #60 tablet 12/27/17 [Rx] SitaGLIPtin [Januvia] 100 mg PO DAILY 01/31/18 [History] Tramadol HCl [Ultram] 50 mg PO QID PRN 01/31/18 [History] Nystatin Cream [Mycostatin Cream] 1 appl TP TID #1 tube 03/26/18 [Rx] GlipiZIDE [Glipizide ER] 20 mg PO QAM 04/03/18 [History] Venlafaxine XR (24 HR) [Effexor XR] 37.5 mg PO DAILY 04/03/18 [History] 3 Allergy/AdvReac Type Severity Reaction Status Date / Time codeine Allergy SHORTNESS Verified 04/03/18 11:48 OF BREATH Review of systems: 10 point review of systems done, negative other for what is mentioned in history of present illness. Exam - Constitutional Vitals: Temp Pulse Resp BP Pulse Ox 97.9 F 71 16 144/78 91 04/03/18 11:22 04/03/18 11:22 04/03/18 11:22 04/03/18 11:22 04/03/18 11:22 General appearance: disheveled, no acute distress, no febrile - Head Head exam: Present: atraumatic, normocephalic - Eye Eye exam: Present: EOMI, PERRL - ENT ENT exam: Present: mucous membranes dry Additional comments: No oral lesions - Neck Neck exam: Present: full ROM. Absent: meningismus - Respiratory Respiratory exam: Present: CTAB. Absent: wheezes Additional comments: Poor inspiratory effort - Cardiovascular Cardiovascular exam: Present: irregular rhythm, +S1, +S2 - GI/Abdominal GI/Abdominal exam: Present: normal bowel sounds, soft. Absent: tenderness - Extremities Exam Additional comments: Left BKA. There is a wound/scab on the stump with no surrounding erythema Right foot infection - Back Exam Back exam: Absent: CVA tenderness (L), CVA tenderness (R), vertebral tenderness - Neurological Exam Neurological exam: Present: alert, oriented X3 - Psychiatric Psychiatric exam: Present: flat affect, normal mood - Skin Skin exam: Present: normal color. Absent: rash Infectious Disease CN: Results - Labs CBC & Chem 7: 04/03/18 05:26 04/03/18 05:26 Cultures: Cultures 04/01/18 04:00 Urine Culture - Final Urine,Clean Catch Methicillin Resistant S.aureus 04/01/18 01:52 Wound Culture - Preliminary Right Foot Proteus mirabilis Staphylococcus aureus 04/01/18 21:30 Sputum Culture - Preliminary Sputum 04/01/18 16:50 Urine Culture - Preliminary Urine,Clean Catch No growth. Consult Discharge Plan - Plan Referrals: Grayson Parnell NURSE TRANSITIONAL [Primary Care Provider] - (Per Grayson Marcus office patient has to make his own follow up appointment)
--- NOTE | 2018-04-03 16:08 | Podiatry Progress Note ---
Date of Encounter: 04/03/18 Time of Encounter: 12:30 - Assessment and Plan (1) Diabetes Current Visit: Yes Status: Chronic Qualifiers: Diabetes mellitus type: type 2 Diabetes mellitus intermodal customer service insulin use: without intermodal customer service use Diabetes mellitus complication status: with circulatory complication Diabetes mellitus complication detail: with peripheral angiopathy without gangrene Qualified Code(s): E11.51 - Type 2 diabetes mellitus with diabetic peripheral angiopathy without gangrene (2) Diabetic infection of right foot Current Visit: Yes Status: Acute (3) Osteomyelitis of ankle or foot Current Visit: Yes Status: Acute Assessment: Osteomyelitis of the 5th metatarsal base, 4th metatarsal base and cuboid. Planl: Dr. Plaza discussed MRI findings with patient. Treatment options were reviewed with patient and per Dr. Plaza note (if these areas were to be excised there is no viable attachment site for the peroneal tendon which would leave his foot unstable and with a new deformity that would have a persistent lateral foot ulceration and make his foot non-functional. he will need to have this condition managed with IV antibiotics or alternatively I would recommend a below the knee amputation). Patient refused right BKA. Infectious disease consulted. Small black simplace wound vac applied to ulcer of right lateral foot connected to 150 mmhg low continuous suction. Change every --. Recommend permanent custodial placement due to his home situation and ability to care for himself and he is unable to do activities of daily living. (4) PAD (peripheral artery disease) Current Visit: Yes Status: Chronic Subjective Interval history: Patient was evaluated by Dr. Plaza yesterday for osteomyelitis of the 5th metatarsal base, 4th metatarsal base and cuboid. MRI findings were discussed with patient at that time. Dr. Plaza discussed treatment options. Per Dr. Plaza note (if these areas were to be excised there is no viable attachment site for the peroneal tendon which would leave his foot unstable and with a new deformity that would have a persistent lateral foot ulceration and make his foot non-functional. he will need to have this condition managed with IV antibiotics or alternatively I would recommend a below the knee amputation). Patient refused the BKA. Patient states he had the ABIs and PVR test completed this morning. Patient is sitting up in bed eating lunch. No c/o pain to the right foot, no fever, no chills or flu like symptoms. Objective - Vital Signs Vital Signs: Vital Signs Temp Pulse Resp BP Pulse Ox 04/03/18 15:19 72 04/03/18 11:22 97.9 F 71 16 144/78 91 04/03/18 09:19 73 04/03/18 07:04 98.7 F 79 18 136/70 90 04/03/18 03:51 97.9 F 68 16 142/71 90 04/02/18 23:10 97.9 F 74 17 114/65 94 04/02/18 19:44 97.9 F 95 16 138/80 92 04/02/18 17:13 142/80 04/02/18 16:47 98.0 F 77 16 148/95 94 Intake and Output 04/03/18 04/03/18 04/03/18 07:59 15:59 23:59 Intake Total 100 / 100 1120 / 1120 Output Total 1000 / 1000 Balance -900 / -900 1120 / 1120 Intake: IV Fluids 100 / 100 100 / 100 Zosyn 3.375 GM In 0.9 % Sodium 100 / 100 100 / 100 Chloride (Mini-Bag +) 100 ML @ 25 mls/hr IVPB Q8H [facility] Rx#: [id number] Oral 1020 / 1020 Output: Urine 1000 / 1000 Other: Meal Lunch Percent of Meal Consumed 100% Weight 81.7 kg Blood Glucose* 127 180 Patient Weight 04/03/18 23:59 Weight 81.7 kg - Exam Exam: Podiatry General Exam: General appearance: alert awake oriented X 3. Calm and pleasant, no acute distress.. Vascular: Right: Pedal pulses +1/4 DP/PT , No evidence of cyanosis, pallor or rubor, Edema graded at 1+/4, Skin Tempature warm, No calf pain with manual compression. capillary refill time is immediate to digits. Neurologic: Sensation diminished with light touch to foot. . Ulcer: lateral right foot ulceration over 5th met base measuring approx [id number]. wound is 90% granular, no exposed bone, no purulence expressed. - Lab Result Diagrams: 04/04/18 03:15 04/04/18 03:15 Labs: Abnormal lab results RBC 2.94 M/mcL (4.19-5.50) L 04/03/18 05:26 Hgb 9.9 g/dL (12.9-16.9) L 04/03/18 05:26 Hct 29.3 % (37.5-50.1) L 04/03/18 05:26 MCH 33.7 pg (28.0-33.3) H 04/03/18 05:26 MPV 8.9 fL (9.4-12.4) L 04/03/18 05:26 ESR 50 mm/hr (0-10) H 03/31/18 22:49 PT 14.4 Seconds (9.4-12.1) H 03/31/18 22:49 VBG pCO2 34 mmHg (41-51) L 03/31/18 23:24 Chloride 113 mEq/L (98-107) H 04/03/18 05:26 Carbon Dioxide 21 mEq/L (23-29) L 04/03/18 05:26 Glucose 114 mg/dL (70-105) H 04/03/18 05:26 POC Glucose 224 mg/dL (70-99) H 04/02/18 20:25 Hemoglobin A1c 6.0 % (-5.6) H 04/01/18 03:16 Calcium 7.6 mg/dL (8.6-10.3) L 04/03/18 05:26 Alkaline Phosphatase 115 Units/L (34-104) H 04/01/18 03:16 Creatine Kinase 27 Units/L (30-223) L 03/31/18 22:49 C-Reactive Protein 25 mg/L (Less than 10) H 04/03/18 05:26 Serum Total Protein 4.9 g/dL (6.4-8.9) L 04/01/18 03:16 Albumin 2.0 g/dL (3.5-5.7) L 04/01/18 03:16 Albumin/Globulin Ratio 0.7 (1.1-2.2) L 04/01/18 03:16 Urine Clarity Cloudy (Clear) A 04/01/18 01:00 Urine Protein 30 mg/dL (Neg-Trace) H 04/01/18 01:00 Urine Blood Moderate (Negative) H 04/01/18 01:00 Ur Leukocyte Esterase Large (Negative) H 04/01/18 01:00 Urine Microscopic RBC 3-5 per hpf (0-3) H 04/01/18 01:00 Urine Microscopic WBC TNTC per hpf (0-3) H 04/01/18 01:00 Ur Squamous Epith Cells Many per lpf (None-Few) H 04/01/18 01:00 Ur Culture Indicated? NO. (NO) A 04/01/18 01:00 Vancomycin Trough 27 mcg/mL (5-10) H 04/02/18 19:47 Microbiology, Last 48 Hours 04/01/18 16:50 Urine Culture - Final Urine,Clean Catch No growth. 04/01/18 04:00 Urine Culture - Final Urine,Clean Catch Methicillin Resistant S.aureus 04/01/18 01:52 Wound Culture - Preliminary Right Foot Proteus mirabilis Staphylococcus aureus 04/01/18 21:30 Sputum Culture - Preliminary Sputum Consult Discharge Plan - Plan Referrals: Grayson Parnell, [employer] AND CUTTER GRINDER [Primary Care Provider] - (Per Grayson Marcus office patient has to make his own follow up appointment)
--- NOTE | 2018-04-03 16:45 | Internal Med Progress Note ---
Date of Encounter: 04/03/18 Time of Encounter: 16:42 - Assessment and plan (1) Sepsis Current Visit: Yes Status: Resolved Assessment and plan: Resolved. Presented with mild leukocytosis, hypotension, lactic acidosis; likely secondary to right foot infection; continue broad spectrum IV antibiotics and follow up on final cultures. Qualifiers: Sepsis type: sepsis due to unspecified organism Qualified Code(s): A41.9 - Sepsis, unspecified organism (2) Osteomyelitis of ankle or foot Current Visit: Yes Status: Acute Assessment and plan: Left foot MRI shows extensive osteomyelitis of remaining 5th metatarsal base, 4th metatarsal base, ?septic arthritis of 4th and 5th TMT joints. Podiatry consulted; appreciate input. Patient may need eventual BKA, to which he is not agreeable at this time; will consult ID; continue IV Vancomycin and Zosyn; preliminary wound culture grows GNR. Will likely needed extended course of IV antibiotics. He is agreeable to going to shelter. SW working on placement. (3) Diabetic infection of right foot Current Visit: Yes Status: Acute Assessment and plan: Management as per above. (4) Diabetes Current Visit: Yes Status: Chronic Assessment and plan: Blood sugars well-controlled, continue Accucheck blood glucose monitoring with sliding scale insulin as needed; diabetic diet; HbA1C 6%. Qualifiers: Diabetes mellitus type: type 2 Diabetes mellitus terminal operations manager insulin use: without jail use Diabetes mellitus complication status: with circulatory complication Diabetes mellitus complication detail: with peripheral angiopathy without gangrene Qualified Code(s): E11.51 - Type 2 diabetes mellitus with diabetic peripheral angiopathy without gangrene (5) Essential hypertension Current Visit: Yes Status: Chronic Assessment and plan: Continue home medications. (6) Pneumonia Current Visit: Yes Status: Suspected Assessment and plan: Less likely; CT chest shows bibasilar atelectasis vs infiltrates; continue IV antibiotics; supportive care and supplemental O2; blood and sputum cultures so far negative. Qualifiers: Pneumonia type: due to unspecified organism Laterality: bilateral Lung location: lower lobe of lung Qualified Code(s): J18.1 - Lobar pneumonia, unspecified organism (7) PAD (peripheral artery disease) Current Visit: Yes Status: Chronic Assessment and plan: Chronic issue. (8) Anxiety and depression Current Visit: Yes Status: Chronic Assessment and plan: Continue home medications. (9) DVT prophylaxis Current Visit: Yes Status: Acute Assessment and plan: Start lovenox 40 mg SQ QD. - Time Spent With Patient Total time spent is greater than 50% in coordination of care (as documented) at patient's floor/unit and/or counseling patient: less than 15 minutes - Subjective Interval history: Patient had no acute events overnight. He states that he feels "great" today. He is sitting on side of bed. He is in good spirits. He is agreeable to going to shelter. Nursing staff reported some increased foot pain this morning; now better controlled with addition of oxycodone. He denies fever, chills, chest pain, SOB, nausea, vomiting, and abdominal pain. He has no other complaints at this time. - Constitutional Vitals: Temp Pulse Resp BP Pulse Ox 98.9 F 69 18 140/81 96 04/03/18 16:15 04/03/18 16:15 04/03/18 16:15 04/03/18 16:15 04/03/18 16:15 General appearance: Present: cooperative, A&O X 3, pleasant, no acute distress, answers questions appropriately - Respiratory Respiratory exam: Present: CTAB. Absent: accessory muscle use, rales, rhonchi, wheezes Additional comments: Normal WOB - Cardiovascular Cardiovascular exam: Present: RRR, +S1, +S2. Absent: diastolic murmur, gallop, rubs, systolic murmur Additional comments: No BLE edema - GI/Abdominal GI/Abdominal exam: Present: normal bowel sounds, soft. Absent: distended, hepatomegaly, mass, splenomegaly, tenderness - Extremities Exam Additional comments: Right foot wrapped in bandaging, good right toe capillary refill, L foot BKA - Psychiatric Psychiatric exam: Present: normal affect, normal mood. Absent: agitated, anxious, depressed - Skin Skin exam: Present: dry, warm. Absent: cyanosis Internal Medicine: Result - Labs CBC & Chem 7: 04/03/18 05:26 04/03/18 05:26 Labs: Short CBC 04/03/18 Range/Units 05:26 WBC 9.7 (4.3-11.1) K/mcL Hgb 9.9 L (12.9-16.9) g/dL Hct 29.3 L (37.5-50.1) % Plt Count 336 (140-400) K/mcL Neutrophils # 4.9 (1.6-8.9) K/mcL BMP 04/03/18 05:26 Sodium 139 Potassium 4.0 Chloride 113 H Carbon Dioxide 21 L BUN 9 Creatinine 0.81 Glucose 114 H Calcium 7.6 L - ABG Interpretation ABG results: PT/INR, D-dimer PT 14.4 Seconds (9.4-12.1) H 03/31/18 22:49 - Impressions Impressions Foot MRI 04/01/18 12:36 IMPRESSION: 1. Extensive osteomyelitis throughout what remains of the 5th metatarsal base and shaft. 2. Less extensive osteomyelitis involving the lateral aspect of the distal cuboid and lateral base of the 4th metatarsal. 3. Suspected 4th and 5th tarsometatarsal septic arthritis. 4. Large overlying lateral soft tissue ulcer. D/ / 04/01/2018 15:36:03 Eulogio Dwyer MD / patt Interpreting Provider: Eulogio Dwyer MD Consult Discharge Plan - Plan Referrals: Grayson Parnell, PLASTIC CARD GRADER [employer] [Primary Care Provider] - (Per Grayson Marcus office patient has to make his own follow up appointment)
--- NOTE | 2018-04-03 17:51 | Electrocardiograph Report ---
[address] [address] Test Date: 2018-03-31 Pat Name: Sukumar Bassett Department: 104 Room: 2N13 Gender: M Extractor Puller: TMNikki : 1945 Requested By: [id number] Order Number: [id number] Reading MD: Aidan Roberson Measurements Intervals [place] Rate: 82 P: 9 DE: 125 QRS: 30 QRSD: 140 T: 46 QT: 413 QTc: 452 Interpretive Statements SINUS RHYTHM RIGHT BUNDLE BRANCH BLOCK Electronically Signed On 04-03-2018 17:49:35 EDT by Aidan Roberson
[2018-04-03] MEDS: *HR* Enoxaparin 40 MG/0.4 ML SYRINGE SQ SCH (18:24)
[2018-04-04] MEDS: Piperacillin/Tazobactam 3.375 GM in 0.9 % Sodium Chloride Mini Bag 100 ML IVPB SCH ×3 (02:59→18:52)
[2018-04-04 04:10] LABS: Basophils # 0.1 K/mcL (0.0-0.2); Basophils % 0.7 %; Eosinophils # 0.5 K/mcL (0.0-0.6); Eosinophils % 3.9 %; Hematocrit 27.8 % (37.5-50.1); Hemoglobin 9.3 g/dL (12.9-16.9); Immature Granulocytes % 1.2 % (0-4); Lymphocytes # 2.9 K/mcL (0.6-4.6); Lymphocytes % 23.7 %; Mean Corpuscular HGB Conc 33.5 g/dL (31.6-35.5); Mean Corpuscular Hemoglobin 32.7 pg (28.0-33.3); Mean Corpuscular Volume 97.9 fL (83.0-100.0); Mean Platelet Volume 9.1 fL (9.4-12.4); Monocytes # 1.5 K/mcL (0.0-1.3); Monocytes % 12.1 %; Neutrophils # 7.1 K/mcL (1.6-8.9); Platelet Count 325 K/mcL (140-400); Red Blood Count 2.84 M/mcL (4.19-5.50); Red Cell Distribution Width 14.3 % (11.5-14.5); Segmented Neutrophils % 58.4 %
[2018-04-04 04:31] LABS: BUN/Creatinine Ratio 11 (6-26); Blood Urea Nitrogen 9 mg/dL (8-23); Calcium 7.6 mg/dL (8.6-10.3); Carbon Dioxide 23 mEq/L (23-29); Chloride 109 mEq/L (98-107); Glucose 171 mg/dL (70-105); Osmolality,Calculated 287 (280-300); Potassium 4.3 mEq/L (3.5-5.1); Sodium 137 mEq/L (136-145); eGFR For African Americans > 60 (> 60); eGFR For Non-African Americans > 60 (> 60)
[2018-04-04] MEDS: *HR* Enoxaparin 40 MG/0.4 ML SYRINGE SQ SCH (06:00)
[2018-04-04] MEDS: *HR* OxyCODONE Immed Rel 5 MG TABLET PO PRN ×2 (07:55→18:52)
[2018-04-04] MEDS: Magnesium Oxide 400 MG TABLET PO SCH (07:55)
[2018-04-04] MEDS: Venlafaxine XR (24 HR) 37.5 MG CAP.ER.24H PO SCH (07:55)
[2018-04-04] MEDS: Aspirin Enteric Coated 81 MG Tablet PO SCH (07:56)
[2018-04-04] MEDS: Insulin LISPRO 300 UNITS/3 ML VIAL SQ SCH ×4 (07:56→21:54)
[2018-04-04] MEDS: Gabapentin 400 MG CAPSULE PO SCH ×4 (07:56→21:54)
[2018-04-04] MEDS: Nystatin Cream 15 GM TUBE TP SCH ×3 (07:56→21:54)
[2018-04-04] MEDS: Folic Acid 1 MG TABLET PO SCH (07:56)
--- NOTE | 2018-04-04 09:19 | Infectious Disease Progress No ---
Date of Encounter: 04/04/18 Time of Encounter: 09:17 - Assessment and Plan (1) UTI (urinary tract infection) Current Visit: Yes Status: Acute Causative organism is MRSA - Currently on vancomycin and zosyn (day 4) - CT abdomen pelvis on 04/01 demonstrated: b/l perinephric as well as perivesical fat stranding; possibly indicative of cystitis/pyelonephritis Qualifiers: Urinary tract infection type: acute pyelonephritis Qualified Code(s): N10 - Acute pyelonephritis (2) Osteomyelitis of ankle or foot Current Visit: Yes Status: Acute Causative organism MRSA and Proteus that is multidrug resistant S: Ertapenem, gentamicin, Zosyn, tobramycin and Bactrim - Osteomyelitis of the 5th metatarsal base, 4th metatarsal base and cuboid. - Appreciate podiatry recommendation; Only options would be either IV abx for extended period or BKA - Patient adamant that he gets aggressive treatment; does not lose both legs - Day 4 of vancomycin; goal trough ~ 15 - While on ABX, he needs weekly CBC, BMP, ESR, CRP and vancomycin trough - Patient needs to follow-up with infectious disease in 2 weeks after discharge - Duration of treatment at least 6 weeks; doses of antibiotics depends on vancomycin trough today . will likely d/c zosyn "q6hrs" and start ertapenem discussed with pharmacy (3) Pneumonia Current Visit: No Status: Acute Causative organism not clear - Seen on the CT abdomen and pelvis - Currently on vancomycin and zosyn Qualifiers: Pneumonia type: due to unspecified organism Laterality: bilateral Lung location: lower lobe of lung Qualified Code(s): J18.1 - Lobar pneumonia, unspecified organism (4) Diabetic infection of right foot Current Visit: Yes Status: Acute (5) Tobacco abuse Current Visit: Yes Status: Chronic - Subjective Interval history: Patient was seen and examined at bedside this morning. Reports that he is feeling well today. Patients right foot is currently wrapped; denies feeling any pain, numbness, or tingling in this area. Denies having any fever, chills, chest pain, shortness of breath, nausea, vomiting, abdominal pain, extremity pain, or urinary symptoms. Infect Dis PN-Objective Data - Labs CBC & Chem 7: 04/04/18 03:15 04/04/18 03:15 Labs: Laboratory Results - last 24 hr 04/03/18 04/03/18 04/03/18 07:09 11:22 16:16 WBC RBC Hgb Hct MCV MCH MCHC RDW Plt Count MPV Immature Gran % Seg Neutrophils % Lymphocytes % Monocytes % Eosinophils % Basophils % Neutrophils # Lymphocytes # Monocytes # Eosinophils # Basophils # Sodium Potassium Chloride Carbon Dioxide BUN Creatinine Est GFR ( Amer) Est GFR (Non-Af Amer) BUN/Creatinine Ratio Glucose POC Glucose 127 H 180 H 216 H Calculated Osmolality Calcium 04/03/18 04/04/18 04/04/18 20:03 03:15 03:15 WBC 12.1 H RBC 2.84 L Hgb 9.3 L Hct 27.8 L MCV 97.9 MCH 32.7 MCHC 33.5 RDW 14.3 Plt Count 325 MPV 9.1 L Immature Gran % 1.2 Seg Neutrophils % 58.4 Lymphocytes % 23.7 Monocytes % 12.1 Eosinophils % 3.9 Basophils % 0.7 Neutrophils # 7.1 Lymphocytes # 2.9 Monocytes # 1.5 H Eosinophils # 0.5 Basophils # 0.1 Sodium 137 Potassium 4.3 Chloride 109 H Carbon Dioxide 23 BUN 9 Creatinine 0.83 Est GFR ( Amer) > 60 Est GFR (Non-Af Amer) > 60 BUN/Creatinine Ratio 11 Glucose 171 H POC Glucose 220 H Calculated Osmolality 287 Calcium 7.6 L Cultures: Cultures 04/01/18 01:52 Wound Culture - Final Right Foot Proteus mirabilis Methicillin Resistant S.aureus 04/01/18 21:30 Sputum Culture - Final Sputum 04/01/18 16:50 Urine Culture - Final Urine,Clean Catch No growth. 04/01/18 04:00 Urine Culture - Final Urine,Clean Catch Methicillin Resistant S.aureus Exam - Constitutional Vitals: Temp Pulse Resp BP Pulse Ox 98.2 F 69 18 157/88 93 04/04/18 07:20 04/04/18 07:20 04/04/18 07:20 04/04/18 07:20 04/04/18 07:20 General appearance: no acute distress - Head Head exam: Present: atraumatic, normal inspection, normocephalic - Respiratory Respiratory exam: Present: CTAB. Absent: decreased breath sounds, rales, rhonchi, wheezes, tachypnea - Cardiovascular Cardiovascular exam: Present: RRR, +S1, +S2. Absent: bradycardia, diastolic murmur, irregular rhythm, systolic murmur - GI/Abdominal GI/Abdominal exam: Present: normal bowel sounds, soft. Absent: tenderness - Psychiatric Psychiatric exam: Present: normal affect, normal mood - Skin Skin exam: Present: dry, intact Consult Discharge Plan - Plan Referrals: Grayson Parnell, FLANGING ROLL OPERATOR [Primary Care Provider] - (Per Grayson Marcus office patient has to make his own follow up appointment) - Attending Attestation I examined this patient and my medical decision-making was reviewed with the Resident Physician. I agree with the documented findings, disposition and treatment plan as described except to the extent set forth below.
--- NOTE | 2018-04-04 10:10 | Internal Med Progress Note ---
Date of Encounter: 04/04/18 Time of Encounter: 11:00 - Assessment and plan (1) Osteomyelitis of ankle or foot Current Visit: Yes Status: Acute Assessment and plan: Left foot MRI shows extensive osteomyelitis of remaining 5th metatarsal base, 4th metatarsal base, ?septic arthritis of 4th and 5th TMT joints. Podiatry consulted with recommendations for BKA, to which patient is not agreeable at this time Infectious disease consulted with relations to continue IV vancomycin in addition to recommendations to discontinue Zosyn and start ertapenem Appreciate any additional recommendations (2) Diabetic infection of right foot Current Visit: Yes Status: Acute Assessment and plan: Management as per above. (3) Pneumonia Current Visit: Yes Status: Suspected Assessment and plan: CT chest shows bibasilar atelectasis vs infiltrates Continue IV antibiotics; supportive care and supplemental O2; blood and sputum cultures so far negative. Qualifiers: Pneumonia type: due to unspecified organism Laterality: bilateral Lung location: lower lobe of lung Qualified Code(s): J18.1 - Lobar pneumonia, unspecified organism (4) Sepsis Current Visit: Yes Status: Resolved Assessment and plan: Resolved. Qualifiers: Sepsis type: sepsis due to unspecified organism Qualified Code(s): A41.9 - Sepsis, unspecified organism (5) PAD (peripheral artery disease) Current Visit: Yes Status: Chronic Assessment and plan: Stable; chronic issue. (6) Essential hypertension Current Visit: Yes Status: Chronic Assessment and plan: Continue home medications. (7) Diabetes Current Visit: Yes Status: Chronic Assessment and plan: Controlled; continue coverage with sliding-scale insulin Qualifiers: Diabetes mellitus type: type 2 Diabetes mellitus intermediate insulin use: without intermediate use Diabetes mellitus complication status: with circulatory complication Diabetes mellitus complication detail: with peripheral angiopathy without gangrene Qualified Code(s): E11.51 - Type 2 diabetes mellitus with diabetic peripheral angiopathy without gangrene (8) Anxiety and depression Current Visit: Yes Status: Chronic Assessment and plan: Continue home medications. (9) DVT prophylaxis Current Visit: Yes Status: Acute Assessment and plan: Continue Lovenox subcutaneous - Time Spent With Patient Total time spent is greater than 50% in coordination of care (as documented) at patient's floor/unit and/or counseling patient: - Subjective Interval history: Patient with no issues or complaints this morning awaiting placement to long-term facility. Patient currently being treated for osteomyelitis of left foot in addition to treatment for UTI and pneumonia - Constitutional Vitals: Temp Pulse Resp BP Pulse Ox 98.2 F 68 18 157/88 93 04/04/18 07:20 04/04/18 07:50 04/04/18 07:20 04/04/18 07:20 04/04/18 07:20 General appearance: Present: cooperative, A&O X 3, pleasant, no acute distress, answers questions appropriately - Respiratory Respiratory exam: Present: CTAB. Absent: accessory muscle use, rales, rhonchi, wheezes - Cardiovascular Cardiovascular exam: Present: RRR, +S1, +S2. Absent: diastolic murmur, gallop, rubs, systolic murmur Internal Medicine: Result - Labs CBC & Chem 7: 04/04/18 03:15 04/04/18 03:15 Labs: Short CBC 04/04/18 Range/Units 03:15 WBC 12.1 H (4.3-11.1) K/mcL Hgb 9.3 L (12.9-16.9) g/dL Hct 27.8 L (37.5-50.1) % Plt Count 325 (140-400) K/mcL Neutrophils # 7.1 (1.6-8.9) K/mcL BMP 04/04/18 03:15 Sodium 137 Potassium 4.3 Chloride 109 H Carbon Dioxide 23 BUN 9 Creatinine 0.83 Glucose 171 H Calcium 7.6 L - ABG Interpretation ABG results: PT/INR, D-dimer PT 14.4 Seconds (9.4-12.1) H 03/31/18 22:49 Consult Discharge Plan - Plan Referrals: Grayson Parnell, ORDER PROCESSING SPECIALIST [Primary Care Provider] - (Per Grayson Marcus office patient has to make his own follow up appointment)
[2018-04-04] MEDS ORDERED: Lidocaine -MPF 1% 5 ML AMPUL INFILT ONE (10:44)
[2018-04-04] MEDS: *HR* HYDROcodone/Acet 5/325 mg TABLET PO PRN (21:57)
[2018-04-05] MEDS: Piperacillin/Tazobactam 3.375 GM in 0.9 % Sodium Chloride Mini Bag 100 ML IVPB SCH ×2 (01:41→11:23)
[2018-04-05] MEDS: *HR* OxyCODONE Immed Rel 5 MG TABLET PO PRN (01:41)
[2018-04-05] MEDS: *HR* Enoxaparin 40 MG/0.4 ML SYRINGE SQ SCH (05:44)
[2018-04-05] MEDS: Insulin LISPRO 300 UNITS/3 ML VIAL SQ SCH ×2 (08:02→11:26)
[2018-04-05] MEDS: Gabapentin 400 MG CAPSULE PO SCH ×2 (08:04→13:14)
[2018-04-05] MEDS: Magnesium Oxide 400 MG TABLET PO SCH (08:04)
[2018-04-05] MEDS: Venlafaxine XR (24 HR) 37.5 MG CAP.ER.24H PO SCH (08:04)
[2018-04-05] MEDS: Folic Acid 1 MG TABLET PO SCH (08:04)
[2018-04-05] MEDS: Aspirin Enteric Coated 81 MG Tablet PO SCH (08:04)
[2018-04-05] MEDS: Nystatin Cream 15 GM TUBE TP SCH ×2 (08:05→15:04)
--- NOTE | 2018-04-05 09:57 | Internal Med Progress Note ---
Date of Encounter: 04/05/18 - Assessment and plan (1) Osteomyelitis of ankle or foot Current Visit: Yes Status: Acute (2) Diabetic infection of right foot Current Visit: Yes Status: Acute (3) Pneumonia Current Visit: Yes Status: Suspected Qualifiers: Pneumonia type: due to unspecified organism Laterality: bilateral Lung location: lower lobe of lung Qualified Code(s): J18.1 - Lobar pneumonia, unspecified organism (4) Sepsis Current Visit: Yes Status: Resolved Qualifiers: Sepsis type: sepsis due to unspecified organism Qualified Code(s): A41.9 - Sepsis, unspecified organism (5) PAD (peripheral artery disease) Current Visit: Yes Status: Chronic (6) Essential hypertension Current Visit: Yes Status: Chronic (7) Diabetes Current Visit: Yes Status: Chronic Qualifiers: Diabetes mellitus type: type 2 Diabetes mellitus [facility] insulin use: without termite control service representative use Diabetes mellitus complication status: with circulatory complication Diabetes mellitus complication detail: with peripheral angiopathy without gangrene Qualified Code(s): E11.51 - Type 2 diabetes mellitus with diabetic peripheral angiopathy without gangrene (8) Anxiety and depression Current Visit: Yes Status: Chronic (9) DVT prophylaxis Current Visit: Yes Status: Acute - Time Spent With Patient Total time spent is greater than 50% in coordination of care (as documented) at patient's floor/unit and/or counseling patient: - Subjective Interval history: Patient with no issues or complaints this morning awaiting placement to nursing home facility. Patient currently being treated for osteomyelitis of left foot in addition to treatment for UTI and pneumonia - Constitutional Vitals: Temp Pulse Resp BP Pulse Ox 97.8 F 77 18 136/75 95 04/05/18 07:49 04/05/18 08:26 04/05/18 07:49 04/05/18 07:49 04/05/18 07:49 General appearance: Present: cooperative, A&O X 3, pleasant, no acute distress, answers questions appropriately Internal Medicine: Result - Labs CBC & Chem 7: 04/04/18 03:15 04/04/18 03:15 - ABG Interpretation ABG results: PT/INR, D-dimer PT 14.4 Seconds (9.4-12.1) H 03/31/18 22:49 Consult Discharge Plan - Plan Referrals: Grayson Parnell MINISTER [Primary Care Provider] - (Per Grayson Marcus office patient has to make his own follow up appointment)
[2018-04-05 11:28] VITALS: BP 111/59
--- NOTE | 2018-04-05 12:14 | Discharge Summary ---
- NOTES TO OUTPATIENT PROVIDER Notes to Outpatient Provider: weekly CBC, BMP, ESR, CRP and vancomycin trough Date of Encounter: 04/05/18 Time of Encounter: 11:00 - Discharge Diagnosis (1) Osteomyelitis of ankle or foot Priority: Primary Status: Acute (2) Diabetic infection of right foot Priority: Primary Status: Acute (3) Pneumonia Priority: Primary Status: Suspected Qualifiers: Pneumonia type: due to unspecified organism Laterality: bilateral Lung location: lower lobe of lung Qualified Code(s): J18.1 - Lobar pneumonia, unspecified organism (4) Sepsis Priority: Primary Status: Resolved Qualifiers: Sepsis type: sepsis due to unspecified organism Qualified Code(s): A41.9 - Sepsis, unspecified organism (5) PAD (peripheral artery disease) Priority: Secondary Status: Chronic (6) Essential hypertension Priority: Secondary Status: Chronic (7) Diabetes Priority: Secondary Status: Chronic Qualifiers: Diabetes mellitus type: type 2 Diabetes mellitus long-term insulin use: without intermediate accountant use Diabetes mellitus complication status: with circulatory complication Diabetes mellitus complication detail: with peripheral angiopathy without gangrene Qualified Code(s): E11.51 - Type 2 diabetes mellitus with diabetic peripheral angiopathy without gangrene (8) Anxiety and depression Priority: Secondary Status: Chronic Hospital course: Patient is a 72-year-old male with past medical history significant for DM, CVA , peripheral arterial disease, valvular heart disease, left BKA, and diabetic right foot ulcer who presents to the ER on 04/01/18 due to generalized weakness. Patient reported of a two-week history of generalized weakness in addition to watery diarrhea for the last month with fever and chills. Patient reported associated symptoms of abdominal pain/cramping and decided to come to the ER for evaluation. During patients hospital stay he was found to be septic secondary to left foot osteomyelitis. Podiatry was consulted with recommendations for below the knee amputation which patient refused. He was treated with IV antibiotics on Zosyn and vancomycin. Infectious disease was consulted with recommendations to continue vancomycin and to start patient on ertapenem for a 6 weeks course. Patient is medically stable to be discharged to the residential facility for strengthening rehabilitation and treatment for osteomyelitis. Patient will follow-up with infectious disease in 2 weeks. - Time Spent with Patient Total time spent providing and/or coordinating discharge services: Less than 30 minutes - Discharge Medications Prescriptions: Gabapentin [Neurontin] 400 mg PO TID 3 Days #9 capsule HYDROcodone/Acet 5/325 mg [[place] 5-325 mg] 1 tab PO Q8H PRN 3 Days #9 tablet PRN Reason: Moderate Pain Home Medications: Folic Acid 1 mg PO DAILY tablet 07/29/17 [Rx] Aspirin [Lo-Dose Aspirin EC] 81 mg PO DAILY 10/20/17 [History] Atorvastatin [Lipitor] 20 mg PO HS 10/20/17 [History] Cholecalciferol (Vitamin D3) [Vitamin D3] 50,000 unit PO Q2W 10/20/17 [History] Magnesium Oxide [Magnesium] 1,000 mg PO DAILY 10/20/17 [History] Quetiapine Fumarate [Seroquel] 100 mg PO HS 10/20/17 [History] metFORMIN [Glucophage] 500 mg PO BIDWM 10/20/17 [History] Metoprolol [Lopressor] 12.5 mg PO BID #60 tablet 12/27/17 [Rx] SitaGLIPtin [Januvia] 100 mg PO DAILY 01/31/18 [History] Nystatin Cream [Mycostatin Cream] 1 appl TP TID #1 tube 03/26/18 [Rx] GlipiZIDE [Glipizide ER] 20 mg PO QAM 04/03/18 [History] Venlafaxine XR (24 HR) [Effexor Xr] 37.5 mg PO DAILY 04/03/18 [History] Gabapentin [Neurontin] 400 mg PO TID 3 Days #9 capsule 04/05/18 [Rx] HYDROcodone/Acet 5/325 mg [[place] 5-325 mg] 1 tab PO Q8H PRN 3 Days #9 tablet 01/18 [Rx] Allergies/Adverse Reactions: 3 Allergy/AdvReac Type Severity Reaction Status Date / Time codeine Allergy SHORTNESS Verified 04/03/18 11:48 OF BREATH Date of admission: 04/01/18 01:19 Primary care physician: Grayson Parnell CNP Consults: 04/01/18 03:49 Consult to Nutrition [CONS] Routine Comment: Consulting Provider: NUTRITION Reason for Dietary Consult: MST Score Consult to Photographs Curator [CONS] Routine Reason for SW Consult: evaluate need for HH and wound care 04/01/18 06:35 Consult to Podiatry [CONS] Routine [facility]ing Provider[facility] Reason for Consult: diabetic ulcer of right foot, possible osteomyelitis Call Completed: No 04/01/18 12:33 Consult to Occupational Therapy [CONS] Routine Comment: Evaluate, develop and implement POC Reason for Consult: Right foot cellulitis/ulcer. Please evaluate, treat, and make rehab recommendations. Thanks. Does patient have active BEDREST order?: No Is patient medically & hemodynamically stable?: Yes Patient assessed for mobility or mobilized this visit?: No Consult to Physical Therapy [CONS] Routine Comment: Evaluate, develop and implement POC Reason for Consult: Right foot cellulitis/ulcer. Please evaluate, treat, and make rehab recommendations. Thanks. Does patient have active BEDREST order?: No Is patient medically & hemodynamically stable?: Yes Patient assessed for mobility or mobilized this visit?: No Consult to Wound Care [CONS] Routine Reason for Consult: Right foot cellulitis/ulcer. Please make wound care recommendations. Thanks. Call Completed: No 04/01/18 12:41 Consult for Pharmacy Education [CONS] Stat Reason for Consult: Verify home medications. Notify MD when this is complete. Thanks. Call Completed: No 04/02/18 16:45 Consult to Infectious Diseases [CONS] Routine Consulting Provider: Infectious Disease [place] Reason for Consult: Right foot osteomyelitis, sepsis; Podiatry on board, recommend nonsurgical treatment; Call Completed: No 04/04/18 10:44 Consult to Invasive Line Access Team [CONS] Routine Reason for Consult: Picc Line Insertion Line Type: PICC PICC line indications: bed bug exterminator Med/Antibiotic Time Notified: 10:44 - Constitutional Vitals: Temp Pulse Resp BP Pulse Ox 98.2 F 69 18 111/59 97 04/05/18 11:26 04/05/18 11:31 04/05/18 11:26 04/05/18 11:26 04/05/18 11:26 General appearance: Present: cooperative, A&O X 3, pleasant, no acute distress, answers questions appropriately - Cardiovascular Cardiovascular exam: Present: RRR, +S1, +S2. Absent: diastolic murmur, gallop, rubs, systolic murmur - Patient Status Disposition: Transfer SNF Condition: Undetermined - Discharge Instructions Instructions: Urinary Tract Infection in Men (DC), Diabetic Foot Care (DC), Diabetes Mellitus Type 2 in Adults (DC), Peripheral Vascular Disorders (DC), Sepsis (DC), Chronic Dysphagia (DC), Chronic Hypertension (DC), Anemia (GEN), Anxiety (DC), Pneumonia (DC) Follow Up With: Grayson Parnell, BILL CLERK [Primary Care Provider] - (Per Grayson Marcus office patient has to make his own follow up appointment)
--- NOTE | 2018-04-05 12:15 | Physician Discharge Referral ---
ExtendedCare Referral Info Institutional Level of Care: Skilled - Diagnosis (1) Osteomyelitis of ankle or foot Status: Acute (2) Diabetic infection of right foot Status: Acute (3) Pneumonia Status: Suspected (4) Sepsis Status: Resolved (5) PAD (peripheral artery disease) Status: Chronic (6) Essential hypertension Status: Chronic (7) Diabetes Status: Chronic (8) Anxiety and depression Status: Chronic (9) DVT prophylaxis Status: Acute - Transfer Medications Prescriptions: Gabapentin [Neurontin] 400 mg PO TID 3 Days #9 capsule HYDROcodone/Acet 5/325 mg [[place] 5-325 mg] 1 tab PO Q8H PRN 3 Days #9 tablet PRN Reason: Moderate Pain Home Medications: Folic Acid 1 mg PO DAILY tablet 07/29/17 [Rx] Aspirin [Lo-Dose Aspirin EC] 81 mg PO DAILY 10/20/17 [History] Atorvastatin [Lipitor] 20 mg PO HS 10/20/17 [History] Cholecalciferol (Vitamin D3) [Vitamin D3] 50,000 unit PO Q2W 10/20/17 [History] Magnesium Oxide [Magnesium] 1,000 mg PO DAILY 10/20/17 [History] Quetiapine Fumarate [Seroquel] 100 mg PO HS 10/20/17 [History] metFORMIN [Glucophage] 500 mg PO BIDWM 10/20/17 [History] Metoprolol [Lopressor] 12.5 mg PO BID #60 tablet 12/27/17 [Rx] SitaGLIPtin [Januvia] 100 mg PO DAILY 01/31/18 [History] Nystatin Cream [Mycostatin Cream] 1 appl TP TID #1 tube 03/26/18 [Rx] GlipiZIDE [Glipizide ER] 20 mg PO QAM 04/03/18 [History] Venlafaxine XR (24 HR) [Effexor Xr] 37.5 mg PO DAILY 04/03/18 [History] Gabapentin [Neurontin] 400 mg PO TID 3 Days #9 capsule 04/05/18 [Rx] HYDROcodone/Acet 5/325 mg [[place] 5-325 mg] 1 tab PO Q8H PRN 3 Days #9 tablet 01/18 [Rx] Allergies/Adverse Reactions: 3 Allergy/AdvReac Type Severity Reaction Status Date / Time codeine Allergy SHORTNESS Verified 04/03/18 11:48 OF BREATH - Respiratory Orders Smoking Cessation: Smoking cessation has been advised. For more information, call the [place] Tobacco Quit Line at 6-588-NNFDNOW. CERTIFICATION: I certify that the transfer of the above named patient to an Extended Care Facility is necessary for the continuing treatment of the diagnosis listed. The above information is true and accurate reflection of patient's current condition. Confidential - Redisclosure prohibited without a patient's written consent.
[2018-04-05] MEDS ORDERED: Aminoglycoside Consult 1 EACH MC ONE (16:29)
== END 2018-04-05 16:30 | DRG 871 ==
LOC: EMEROO 22:34 → 2NNU 04-01 01:19 → SUATTDRO 04-01 01:19 → 2NNU 04-01 03:24
PROVIDERS: ADMIT Internal Medicine Nephrology; ATTEND Hospitalist

== ENCOUNTER 2019-11-09 12:57 | Inpatient (IN) ==
[2019-11-09] MEDS ORDERED: Ondansetron 4 MG/2 ML VIAL IVP PRN (16:02)
[2019-11-09] MEDS ORDERED: Naloxone 0.4 MG/ML INJ IVP PRN (16:02)
[2019-11-09] MEDS ORDERED: D5% in Water 1,000 ML IVC PRN (16:10)
[2019-11-09] MEDS ORDERED: *HR* Dextrose 50 % in Water (Syg) 50 ML SYRINGE IVP PRN (16:10)
[2019-11-09] MEDS ORDERED: Dextrose Gel 15 GM/37.5 ML TUBE PO PRN ×2 (16:10)
[2019-11-09] MEDS: Insulin LISPRO 300 UNITS/3 ML VIAL SQ SCH (19:48)
[2019-11-09] MEDS ORDERED: Acetaminophen IV 500 MG/50 ML INFUS..BTL IVPB ONE (19:50)
[2019-11-09] MEDS: Ipratropium/Albuterol Neb 3 ML IH SCH (19:53)
[2019-11-09] MEDS: Piperacillin/Tazobactam 3.375 GM in 0.9 % Sodium Chloride Mini Bag 100 ML IVPB SCH (20:16)
[2019-11-09] MEDS: Nicotine 21 MG PATCH.TD24 TD SCH (20:17)
[2019-11-09] MEDS: MethylPREDNISolone 40 MG/ML VIAL IVP SCH (20:17)
[2019-11-09] MEDS: Azithromycin 500 MG in 0.9 % Sodium Chloride 250 ML IVPB SCH (20:17)
[2019-11-09] MEDS: Morphine Sulfate 2 MG/ML SYRINGE IVP PRN (23:08)
[2019-11-10] MEDS: Ipratropium/Albuterol Neb 3 ML IH SCH ×6 (00:06→19:38)
[2019-11-10] MEDS ORDERED: *HR* LORazepam 2 MG/ML VIAL IVP ONE (02:27)
[2019-11-10 02:51] LABS: Adenovirus Not Detected (Not Detect); Bordetella Pertussis Not Detected (Not Detect); Chlamydophila pneumoniae Not Detected (Not Detect); Coronavirus 229E Not Detected (Not Detect); Coronavirus HKU1 Not Detected (Not Detect); Coronavirus NL63 Not Detected (Not Detect); Coronavirus OC43 Not Detected (Not Detect); Human Metapneumovirus Not Detected (Not Detect); Human Rhinovirus/Enterovirus Not Detected (Not Detect); Influenza A Subtype 2009 H1 Not Detected (Not Detect); Influenza B Not Detected (Not Detect); Mycoplasma pneumoniae Not Detected (Not Detect); Parainfluenza Virus 1 Not Detected (Not Detect); Parainfluenza Virus 2 Not Detected (Not Detect); Parainfluenza Virus 3 Not Detected (Not Detect); Parainfluenza Virus 4 Not Detected (Not Detect); Respiratory Syncytial Virus Not Detected (Not Detect)
[2019-11-10] MEDS: Piperacillin/Tazobactam 3.375 GM in 0.9 % Sodium Chloride Mini Bag 100 ML IVPB SCH ×3 (04:26→21:00)
[2019-11-10] MEDS: Morphine Sulfate 2 MG/ML SYRINGE IVP PRN (05:03)
[2019-11-10] MEDS: *HR* Heparin 5,000 UNIT/ML VIAL SQ SCH ×2 (05:04→17:03)
[2019-11-10] MEDS: MethylPREDNISolone 40 MG/ML VIAL IVP SCH ×2 (05:04→17:03)
[2019-11-10 05:38] LABS: Basophils # 0.1 K/mcL (0.0-0.2); Basophils % 0.7 %; Hematocrit 36.9 % (37.5-50.1); Hemoglobin 12.4 g/dL (12.9-16.9); Lymphocytes # 1.2 K/mcL (0.6-4.6); Lymphocytes % 7.1 %; Mean Corpuscular HGB Conc 33.6 g/dL (31.6-35.5); Mean Corpuscular Hemoglobin 30.4 pg (28.0-33.3); Mean Corpuscular Volume 90.4 fL (83.0-100.0); Mean Platelet Volume 10.1 fL (9.4-12.4); Monocytes # 0.4 K/mcL (0.0-1.3); Monocytes % 2.6 %; Neutrophils # 13.7 K/mcL (1.6-8.9); Platelet Count 554 K/mcL (140-400); Red Blood Count 4.08 M/mcL (4.19-5.50); Red Cell Distribution Width 15.8 % (11.5-14.5); Segmented Neutrophils % 84.6 %; White Blood Count 16.3 K/mcL (4.3-11.1)
[2019-11-10 05:43] LABS: INR 1.1
[2019-11-10 05:59] LABS: BUN/Creatinine Ratio 9 (6-26); Blood Urea Nitrogen 13 mg/dL (8-23); Calcium 8.3 mg/dL (8.6-10.3); Carbon Dioxide 17 mEq/L (23-29); Chloride 106 mEq/L (98-107); Glucose 178 mg/dL (70-105); Osmolality,Calculated 295 (280-300); Potassium 3.8 mEq/L (3.5-5.1); Sodium 140 mEq/L (136-145); eGFR For African Americans > 60 (> 60); eGFR For Non-African Americans 51 (> 60)
[2019-11-10] MEDS ORDERED: Perflutren Lipid Microsphere 1.3 ML in 0.9 % Sodium Chloride 8.7 ML IVP ONE (07:01)
[2019-11-10] MEDS: Furosemide 40 MG/4 ML VIAL IVP SCH (08:36)
[2019-11-10] MEDS: Insulin LISPRO 300 UNITS/3 ML VIAL SQ SCH ×3 (08:36→16:39)
[2019-11-10] MEDS: Nicotine 21 MG PATCH.TD24 TD SCH (08:37)
[2019-11-10] MEDS ORDERED: Acetaminophen 325 MG TABLET PO PRN (11:19)
[2019-11-10] MEDS: amLODIPine 5 MG TABLET PO SCH (12:51)
[2019-11-10] MEDS: Aspirin Enteric Coated 81 MG Tablet PO SCH (12:51)
[2019-11-10] MEDS: carvediloL 25 MG TABLET PO SCH (16:38)
[2019-11-10] MEDS: Gabapentin 400 MG CAPSULE PO SCH ×3 (16:38→22:10)
[2019-11-10] MEDS: Azithromycin 500 MG in 0.9 % Sodium Chloride 250 ML IVPB SCH (17:02)
[2019-11-10] MEDS: Erythromycin OPTH Oint BOTH EYES SCH ×2 (17:02→21:01)
[2019-11-10] MEDS: Budesonide/Formoterol 160/4.5 1 PUFF INH IH SCH (19:39)
[2019-11-10] MEDS: levETIRAcetam 250 MG TABLET PO SCH ×2 (21:01→22:10)
[2019-11-10] MEDS: Magnesium Oxide 400 MG TABLET PO SCH ×2 (21:02→22:10)
[2019-11-11] MEDS: Ipratropium/Albuterol Neb 3 ML IH SCH ×6 (00:31→19:56)
[2019-11-11] MEDS ORDERED: *HR* LORazepam 2 MG/ML VIAL IVP ONE ×2 (00:36→23:48)
[2019-11-11] MEDS: MethylPREDNISolone 40 MG/ML VIAL IVP SCH ×2 (05:03→16:44)
[2019-11-11] MEDS: Piperacillin/Tazobactam 3.375 GM in 0.9 % Sodium Chloride Mini Bag 100 ML IVPB SCH ×3 (05:03→21:23)
[2019-11-11] MEDS: *HR* Heparin 5,000 UNIT/ML VIAL SQ SCH ×2 (05:04→16:44)
[2019-11-11] MEDS: Budesonide/Formoterol 160/4.5 1 PUFF INH IH SCH ×2 (07:36→19:56)
[2019-11-11 08:32] LABS: Basophils # 0.2 K/mcL (0.0-0.2); Basophils % 0.8 %; Hematocrit 33.3 % (37.5-50.1); Hemoglobin 11.3 g/dL (12.9-16.9); Immature Granulocytes % 5.4 % (0-4); Lymphocytes # 1.7 K/mcL (0.6-4.6); Lymphocytes % 9.2 %; Mean Corpuscular HGB Conc 33.9 g/dL (31.6-35.5); Mean Corpuscular Hemoglobin 30.5 pg (28.0-33.3); Mean Corpuscular Volume 89.8 fL (83.0-100.0); Mean Platelet Volume 9.6 fL (9.4-12.4); Monocytes # 1.3 K/mcL (0.0-1.3); Monocytes % 6.8 %; Platelet Count 582 K/mcL (140-400); Red Blood Count 3.71 M/mcL (4.19-5.50); Segmented Neutrophils % 77.8 %; White Blood Count 18.6 K/mcL (4.3-11.1)
[2019-11-11 08:33] LABS: Neutrophils # 14.5 K/mcL (1.6-8.9)
[2019-11-11] MEDS: Insulin LISPRO 300 UNITS/3 ML VIAL SQ SCH ×3 (08:43→16:44)
[2019-11-11] MEDS: Aspirin Enteric Coated 81 MG Tablet PO SCH (08:44)
[2019-11-11] MEDS: carvediloL 25 MG TABLET PO SCH ×2 (08:44→16:44)
[2019-11-11] MEDS: Folic Acid 1 MG TABLET PO SCH (08:44)
[2019-11-11] MEDS: Gabapentin 400 MG CAPSULE PO SCH ×3 (08:44→19:48)
[2019-11-11] MEDS: Magnesium Oxide 400 MG TABLET PO SCH ×2 (08:44→19:48)
[2019-11-11] MEDS: amLODIPine 5 MG TABLET PO SCH (08:44)
[2019-11-11] MEDS: Cholecalciferol (D-3) 1,000 UNIT (25MCG) TABLET PO SCH (08:44)
[2019-11-11 08:48] LABS: Large Platelets Present (Not Present); Platelet Estimate Increased (Normal); Reactive Lymphocytes Present (Not Present); Toxic Vacuolation Present (Not Present)
[2019-11-11 08:53] LABS: Calcium 8.2 mg/dL (8.6-10.3); Potassium 3.8 mEq/L (3.5-5.1)
[2019-11-11] MEDS: Nicotine 21 MG PATCH.TD24 TD SCH (08:58)
[2019-11-11] MEDS: Erythromycin OPTH Oint BOTH EYES SCH ×3 (08:58→21:23)
[2019-11-11] MEDS: Furosemide 40 MG/4 ML VIAL IVP SCH (08:58)
[2019-11-11 09:28] LABS: ABG Base Excess -4 mEq/L (-2 to 3); ABG HCO3 21 mEq/L (21-27); ABG Oxygen Saturation 92 % (95-98); ABG PCO2 36 mmHg (35-45); ABG PH 7.37 pH Units (7.32-7.45); ABG PO2 66 mmHg (85-104); ABG TCO2 22 mEq/L (20-26)
[2019-11-11] MEDS: Azithromycin 500 MG in 0.9 % Sodium Chloride 250 ML IVPB SCH (16:43)
[2019-11-12] MEDS: Ipratropium/Albuterol Neb 3 ML IH SCH ×7 (00:24→23:14)
[2019-11-12] MEDS ORDERED: HydrOXYzine 100 MG/2 ML VIAL IM ONE (04:02)
[2019-11-12] MEDS: MethylPREDNISolone 40 MG/ML VIAL IVP SCH ×2 (04:20→18:06)
[2019-11-12] MEDS: *HR* Heparin 5,000 UNIT/ML VIAL SQ SCH ×2 (04:21→18:06)
[2019-11-12] MEDS: Piperacillin/Tazobactam 3.375 GM in 0.9 % Sodium Chloride Mini Bag 100 ML IVPB SCH ×3 (04:21→20:36)
[2019-11-12 05:48] LABS: Basophils # 0.1 K/mcL (0.0-0.2); Basophils % 0.8 %; Hematocrit 33.9 % (37.5-50.1); Hemoglobin 11.3 g/dL (12.9-16.9); Lymphocytes # 1.7 K/mcL (0.6-4.6); Lymphocytes % 10.9 %; Mean Corpuscular HGB Conc 33.3 g/dL (31.6-35.5); Mean Corpuscular Hemoglobin 31.1 pg (28.0-33.3); Mean Corpuscular Volume 93.4 fL (83.0-100.0); Mean Platelet Volume 9.8 fL (9.4-12.4); Monocytes # 1.3 K/mcL (0.0-1.3); Monocytes % 8.5 %; Neutrophils # 11.6 K/mcL (1.6-8.9); Platelet Count 514 K/mcL (140-400); Red Blood Count 3.63 M/mcL (4.19-5.50); Segmented Neutrophils % 75.8 %; White Blood Count 15.3 K/mcL (4.3-11.1)
[2019-11-12 06:03] LABS: Calcium 8.3 mg/dL (8.6-10.3); Potassium 3.5 mEq/L (3.5-5.1)
[2019-11-12] MEDS: carvediloL 25 MG TABLET PO SCH ×2 (07:43→16:35)
[2019-11-12] MEDS: Aspirin Enteric Coated 81 MG Tablet PO SCH (07:43)
[2019-11-12] MEDS: amLODIPine 5 MG TABLET PO SCH (07:44)
[2019-11-12] MEDS: Magnesium Oxide 400 MG TABLET PO SCH ×2 (07:44→20:37)
[2019-11-12] MEDS: Folic Acid 1 MG TABLET PO SCH (07:44)
[2019-11-12] MEDS: Cholecalciferol (D-3) 1,000 UNIT (25MCG) TABLET PO SCH (07:44)
[2019-11-12] MEDS: Gabapentin 400 MG CAPSULE PO SCH ×3 (07:44→20:37)
[2019-11-12] MEDS: Insulin LISPRO 300 UNITS/3 ML VIAL SQ SCH ×3 (08:59→18:06)
[2019-11-12] MEDS: Nicotine 21 MG PATCH.TD24 TD SCH (09:41)
[2019-11-12] MEDS: Furosemide 40 MG/4 ML VIAL IVP SCH (09:46)
[2019-11-12] MEDS: Erythromycin OPTH Oint BOTH EYES SCH (09:46)
[2019-11-12] MEDS: Budesonide/Formoterol 160/4.5 1 PUFF INH IH SCH ×2 (11:13→19:44)
[2019-11-12] MEDS ORDERED: E-Z-HD (BARIUM SULF) SUSPENSION PO ONE (16:07)
[2019-11-12] MEDS ORDERED: E-Z-PAQUE (BARIUM SULF) SUSP 1 BOTTLE PO ONE (16:07)
[2019-11-12] MEDS: Azithromycin 500 MG in 0.9 % Sodium Chloride 250 ML IVPB SCH (16:35)
[2019-11-12] MEDS ORDERED: *HR* Metoprolol 5 MG/5 ML VIAL IVP ONE (18:54)
[2019-11-12] MEDS ORDERED: Haloperidol Lactate 5 MG/ML VIAL IM ONE (21:19)
[2019-11-13] MEDS: Ipratropium/Albuterol Neb 3 ML IH SCH ×6 (03:50→23:40)
[2019-11-13] MEDS: Piperacillin/Tazobactam 3.375 GM in 0.9 % Sodium Chloride Mini Bag 100 ML IVPB SCH ×3 (04:13→20:42)
[2019-11-13 04:17] LABS: Basophils # 0.1 K/mcL (0.0-0.2); Basophils % 0.6 %; Hemoglobin 10.8 g/dL (12.9-16.9); Immature Granulocytes % 3.7 % (0-4); Lymphocytes # 1.4 K/mcL (0.6-4.6); Lymphocytes % 9.2 %; Mean Corpuscular HGB Conc 33.8 g/dL (31.6-35.5); Mean Corpuscular Hemoglobin 30.5 pg (28.0-33.3); Mean Corpuscular Volume 90.4 fL (83.0-100.0); Mean Platelet Volume 9.7 fL (9.4-12.4); Monocytes # 0.9 K/mcL (0.0-1.3); Monocytes % 5.8 %; Neutrophils # 12.1 K/mcL (1.6-8.9); Platelet Count 486 K/mcL (140-400); Red Blood Count 3.54 M/mcL (4.19-5.50); Red Cell Distribution Width 15.9 % (11.5-14.5); Segmented Neutrophils % 80.7 %
[2019-11-13 04:45] LABS: BUN/Creatinine Ratio 13 (6-26); Blood Urea Nitrogen 17 mg/dL (8-23); Calcium 8.1 mg/dL (8.6-10.3); Carbon Dioxide 20 mEq/L (23-29); Chloride 114 mEq/L (98-107); Glucose 213 mg/dL (70-105); Osmolality,Calculated 310 (280-300); Potassium 3.3 mEq/L (3.5-5.1); Sodium 146 mEq/L (136-145); eGFR For African Americans > 60 (> 60); eGFR For Non-African Americans 53 (> 60)
[2019-11-13] MEDS: MethylPREDNISolone 40 MG/ML VIAL IVP SCH ×2 (05:29→18:53)
[2019-11-13] MEDS: *HR* Heparin 5,000 UNIT/ML VIAL SQ SCH ×2 (05:29→18:53)
[2019-11-13] MEDS ORDERED: Potassium Chloride Elixir 20 MEQ/15 ML UDC PO ONE (06:57)
[2019-11-13] MEDS: Gabapentin 400 MG CAPSULE PO SCH ×3 (08:16→20:58)
[2019-11-13] MEDS: Cholecalciferol (D-3) 1,000 UNIT (25MCG) TABLET PO SCH (08:16)
[2019-11-13] MEDS: Folic Acid 1 MG TABLET PO SCH (08:16)
[2019-11-13] MEDS: amLODIPine 5 MG TABLET PO SCH (08:16)
[2019-11-13] MEDS: Aspirin Enteric Coated 81 MG Tablet PO SCH (08:16)
[2019-11-13] MEDS: Furosemide 40 MG/4 ML VIAL IVP SCH (08:17)
[2019-11-13] MEDS: carvediloL 25 MG TABLET PO SCH ×2 (08:17→16:31)
[2019-11-13] MEDS: Nicotine 21 MG PATCH.TD24 TD SCH (08:17)
[2019-11-13] MEDS: Magnesium Oxide 400 MG TABLET PO SCH ×2 (08:17→20:58)
[2019-11-13] MEDS: Insulin LISPRO 300 UNITS/3 ML VIAL SQ SCH ×3 (08:18→16:29)
[2019-11-13] MEDS ORDERED: Haloperidol Lactate 5 MG/ML VIAL IM PRN (09:47)
[2019-11-13] MEDS ORDERED: Haloperidol Lactate 5 MG/ML VIAL IVP ONE (11:19)
[2019-11-13] MEDS: Budesonide/Formoterol 160/4.5 1 PUFF INH IH SCH ×2 (12:05→19:52)
[2019-11-13] MEDS ORDERED: *HR* LORazepam 2 MG/ML VIAL IVP ONE (12:53)
[2019-11-13] MEDS: GuaiFENesin Liq 200 MG/10 ML UDC PO SCH ×3 (14:16→23:01)
[2019-11-13] MEDS: Azithromycin 500 MG in 0.9 % Sodium Chloride 250 ML IVPB SCH (16:28)
[2019-11-13] MEDS: Insulin DETEMIR 100 UNIT/ML X5UNITS SQ SCH (20:42)
[2019-11-14] MEDS: Haloperidol Lactate 5 MG/ML VIAL IVP PRN ×2 (00:38→15:07)
[2019-11-14] MEDS ORDERED: *HR* LORazepam 2 MG/ML VIAL IVP ONE (01:26)
[2019-11-14] MEDS: Ipratropium/Albuterol Neb 3 ML IH SCH ×6 (03:42→23:48)
[2019-11-14] MEDS: Piperacillin/Tazobactam 3.375 GM in 0.9 % Sodium Chloride Mini Bag 100 ML IVPB SCH ×3 (04:08→22:17)
[2019-11-14] MEDS: MethylPREDNISolone 40 MG/ML VIAL IVP SCH (05:24)
[2019-11-14] MEDS: *HR* Heparin 5,000 UNIT/ML VIAL SQ SCH ×2 (05:24→17:38)
[2019-11-14] MEDS: GuaiFENesin Liq 200 MG/10 ML UDC PO SCH ×3 (05:24→17:38)
[2019-11-14 06:15] LABS: Basophils % 0.3 %; Hematocrit 31.3 % (37.5-50.1); Hemoglobin 10.7 g/dL (12.9-16.9); Lymphocytes # 1.6 K/mcL (0.6-4.6); Lymphocytes % 10.5 %; Mean Corpuscular HGB Conc 34.2 g/dL (31.6-35.5); Mean Corpuscular Hemoglobin 30.6 pg (28.0-33.3); Mean Corpuscular Volume 89.4 fL (83.0-100.0); Mean Platelet Volume 9.9 fL (9.4-12.4); Monocytes # 1.1 K/mcL (0.0-1.3); Monocytes % 7.5 %; Neutrophils # 11.9 K/mcL (1.6-8.9); Platelet Count 418 K/mcL (140-400); Red Cell Distribution Width 15.7 % (11.5-14.5); Segmented Neutrophils % 78.7 %; White Blood Count 15.1 K/mcL (4.3-11.1)
[2019-11-14 06:41] LABS: BUN/Creatinine Ratio 14 (6-26); Blood Urea Nitrogen 17 mg/dL (8-23); Carbon Dioxide 25 mEq/L (23-29); Chloride 110 mEq/L (98-107); Glucose 171 mg/dL (70-105); Osmolality,Calculated 306 (280-300); Potassium 3.1 mEq/L (3.5-5.1); Sodium 145 mEq/L (136-145); eGFR For African Americans > 60 (> 60); eGFR For Non-African Americans 58 (> 60)
[2019-11-14] MEDS ORDERED: Potassium Chloride Elixir 20 MEQ/15 ML UDC PO ONE (07:07)
[2019-11-14] MEDS: Budesonide/Formoterol 160/4.5 1 PUFF INH IH SCH ×2 (07:21→19:58)
[2019-11-14] MEDS: Insulin LISPRO 300 UNITS/3 ML VIAL SQ SCH ×3 (09:07→17:35)
[2019-11-14] MEDS: Nicotine 21 MG PATCH.TD24 TD SCH (09:07)
[2019-11-14] MEDS: Furosemide 40 MG/4 ML VIAL IVP SCH (09:07)
[2019-11-14] MEDS: amLODIPine 5 MG TABLET PO SCH (12:14)
[2019-11-14] MEDS: Aspirin Enteric Coated 81 MG Tablet PO SCH (12:14)
[2019-11-14] MEDS: Gabapentin 400 MG CAPSULE PO SCH ×3 (12:15→23:55)
[2019-11-14] MEDS: Folic Acid 1 MG TABLET PO SCH (12:15)
[2019-11-14] MEDS: carvediloL 25 MG TABLET PO SCH ×2 (12:15→17:37)
[2019-11-14] MEDS: Magnesium Oxide 400 MG TABLET PO SCH ×2 (12:15→23:55)
[2019-11-14] MEDS: Cholecalciferol (D-3) 1,000 UNIT (25MCG) TABLET PO SCH (12:15)
[2019-11-14] MEDS: Insulin DETEMIR 100 UNIT/ML X5UNITS SQ SCH (22:53)
[2019-11-15] MEDS: GuaiFENesin Liq 200 MG/10 ML UDC PO SCH ×4 (01:44→17:18)
[2019-11-15] MEDS: Ipratropium/Albuterol Neb 3 ML IH SCH ×6 (04:25→23:55)
[2019-11-15] MEDS: Piperacillin/Tazobactam 3.375 GM in 0.9 % Sodium Chloride Mini Bag 100 ML IVPB SCH ×3 (04:53→21:18)
[2019-11-15] MEDS: *HR* Heparin 5,000 UNIT/ML VIAL SQ SCH ×2 (04:53→17:18)
[2019-11-15 05:30] LABS: Basophils % 0.2 %; Eosinophils # 0.1 K/mcL (0.0-0.6); Eosinophils % 0.4 %; Hematocrit 30.9 % (37.5-50.1); Hemoglobin 10.7 g/dL (12.9-16.9); Immature Granulocytes % 1.9 % (0-4); Lymphocytes # 2.3 K/mcL (0.6-4.6); Lymphocytes % 12.9 %; Mean Corpuscular HGB Conc 34.6 g/dL (31.6-35.5); Mean Corpuscular Hemoglobin 30.9 pg (28.0-33.3); Mean Corpuscular Volume 89.3 fL (83.0-100.0); Mean Platelet Volume 9.8 fL (9.4-12.4); Monocytes # 1.7 K/mcL (0.0-1.3); Monocytes % 9.2 %; Neutrophils # 13.6 K/mcL (1.6-8.9); Platelet Count 368 K/mcL (140-400); Red Blood Count 3.46 M/mcL (4.19-5.50); Red Cell Distribution Width 15.8 % (11.5-14.5); Segmented Neutrophils % 75.4 %; White Blood Count 18.1 K/mcL (4.3-11.1)
[2019-11-15 05:50] LABS: BUN/Creatinine Ratio 13 (6-26); Blood Urea Nitrogen 16 mg/dL (8-23); Carbon Dioxide 27 mEq/L (23-29); Chloride 109 mEq/L (98-107); Glucose 172 mg/dL (70-105); Osmolality,Calculated 301 (280-300); Sodium 143 mEq/L (136-145); eGFR For African Americans > 60 (> 60); eGFR For Non-African Americans 56 (> 60)
[2019-11-15] MEDS: Budesonide/Formoterol 160/4.5 1 PUFF INH IH SCH ×2 (07:28→20:07)
[2019-11-15] MEDS: Insulin LISPRO 300 UNITS/3 ML VIAL SQ SCH ×3 (08:40→17:17)
[2019-11-15] MEDS ORDERED: MethylPREDNISolone 40 MG/ML VIAL IVP SCH (09:00)
[2019-11-15] MEDS: Furosemide 40 MG/4 ML VIAL IVP SCH (09:32)
[2019-11-15] MEDS: Nicotine 21 MG PATCH.TD24 TD SCH (09:32)
[2019-11-15] MEDS ORDERED: Aminoglycoside Consult 1 EACH MC ONE (11:17)
[2019-11-15] MEDS: carvediloL 25 MG TABLET PO SCH ×2 (11:39→17:17)
[2019-11-15] MEDS: Gabapentin 400 MG CAPSULE PO SCH ×3 (11:39→21:23)
[2019-11-15] MEDS: amLODIPine 5 MG TABLET PO SCH (11:39)
[2019-11-15] MEDS: Cholecalciferol (D-3) 1,000 UNIT (25MCG) TABLET PO SCH (11:40)
[2019-11-15] MEDS: Folic Acid 1 MG TABLET PO SCH (11:40)
[2019-11-15] MEDS: Magnesium Oxide 400 MG TABLET PO SCH ×2 (11:40→21:23)
[2019-11-15] MEDS: Aspirin Enteric Coated 81 MG Tablet PO SCH (11:40)
[2019-11-15] MEDS: Potassium Chloride Elixir 20 MEQ/15 ML UDC PO SCH (11:44)
[2019-11-15] MEDS: Insulin DETEMIR 100 UNIT/ML X5UNITS SQ SCH (21:23)
[2019-11-16] MEDS: Ipratropium/Albuterol Neb 3 ML IH SCH ×2 (03:18→07:29)
[2019-11-16] MEDS: Piperacillin/Tazobactam 3.375 GM in 0.9 % Sodium Chloride Mini Bag 100 ML IVPB SCH (04:15)
[2019-11-16 05:26] LABS: Basophils # 0.1 K/mcL (0.0-0.2); Basophils % 0.3 %; Eosinophils # 0.1 K/mcL (0.0-0.6); Eosinophils % 0.4 %; Hematocrit 32.5 % (37.5-50.1); Hemoglobin 10.9 g/dL (12.9-16.9); Lymphocytes % 11.8 %; Mean Corpuscular HGB Conc 33.5 g/dL (31.6-35.5); Mean Corpuscular Hemoglobin 30.8 pg (28.0-33.3); Mean Corpuscular Volume 91.8 fL (83.0-100.0); Mean Platelet Volume 10.5 fL (9.4-12.4); Monocytes # 1.5 K/mcL (0.0-1.3); Monocytes % 9.1 %; Neutrophils # 12.9 K/mcL (1.6-8.9); Platelet Count 308 K/mcL (140-400); Red Blood Count 3.54 M/mcL (4.19-5.50); Red Cell Distribution Width 15.5 % (11.5-14.5); Segmented Neutrophils % 76.4 %; White Blood Count 16.9 K/mcL (4.3-11.1)
[2019-11-16 05:46] LABS: BUN/Creatinine Ratio 12 (6-26); Blood Urea Nitrogen 15 mg/dL (8-23); Carbon Dioxide 27 mEq/L (23-29); Chloride 107 mEq/L (98-107); Glucose 116 mg/dL (70-105); Osmolality,Calculated 296 (280-300); Potassium 2.9 mEq/L (3.5-5.1); Sodium 142 mEq/L (136-145); eGFR For African Americans > 60 (> 60); eGFR For Non-African Americans 57 (> 60)
[2019-11-16] MEDS: *HR* Heparin 5,000 UNIT/ML VIAL SQ SCH (05:53)
[2019-11-16] MEDS: Budesonide/Formoterol 160/4.5 1 PUFF INH IH SCH (07:28)
[2019-11-16 08:20] VITALS: BP 185/96
[2019-11-16] MEDS: Insulin LISPRO 300 UNITS/3 ML VIAL SQ SCH (09:04)
[2019-11-16] MEDS: Furosemide 40 MG/4 ML VIAL IVP SCH (09:19)
[2019-11-16] MEDS: Gabapentin 400 MG CAPSULE PO SCH (09:19)
[2019-11-16] MEDS: amLODIPine 5 MG TABLET PO SCH (09:19)
[2019-11-16] MEDS: carvediloL 25 MG TABLET PO SCH (09:19)
[2019-11-16] MEDS: Folic Acid 1 MG TABLET PO SCH (09:19)
[2019-11-16] MEDS: Magnesium Oxide 400 MG TABLET PO SCH (09:19)
[2019-11-16] MEDS: Cholecalciferol (D-3) 1,000 UNIT (25MCG) TABLET PO SCH (09:19)
[2019-11-16] MEDS: Aspirin Enteric Coated 81 MG Tablet PO SCH (09:19)
[2019-11-16] MEDS: Nicotine 21 MG PATCH.TD24 TD SCH (09:20)
[2019-11-16] MEDS: Potassium Chloride Elixir 20 MEQ/15 ML UDC PO SCH (09:22)
== END 2019-11-16 11:18 | DRG 871 ==
LOC: 2ANU 15:09 → SUATTDRO 15:09
PROVIDERS: ADMIT Internal Medicine; ATTEND Family Medicine

== ENCOUNTER 2020-02-29 04:33 | Inpatient (IN) ==
[2020-02-29] MEDS ORDERED: Nicotine 2 MG GUM BC PRN (07:35)
[2020-02-29] MEDS ORDERED: Ondansetron 4 MG/2 ML VIAL IVP PRN (07:43)
[2020-02-29] MEDS ORDERED: Acetaminophen 325 MG TABLET PO PRN (07:43)
[2020-02-29] MEDS ORDERED: Furosemide 40 MG/4 ML VIAL IVP SCH (08:00)
[2020-02-29] MEDS: Ipratropium/Albuterol Neb 3 ML IH SCH ×4 (08:56→20:11)
[2020-02-29] MEDS: Budesonide/Formoterol 160/4.5 1 PUFF INH IH SCH ×2 (08:56→20:11)
[2020-02-29] MEDS ORDERED: Gabapentin 400 MG CAPSULE PO SCH (09:00)
[2020-02-29] MEDS: levETIRAcetam 250 MG TABLET PO SCH ×2 (09:40→21:27)
[2020-02-29] MEDS: Nicotine 21 MG PATCH.TD24 TD SCH (09:40)
[2020-02-29] MEDS: Gabapentin 100 MG CAPSULE PO SCH ×3 (09:40→21:27)
[2020-02-29] MEDS: Insulin DETEMIR 100 UNIT/ML X5UNITS SQ SCH ×2 (09:41→21:27)
[2020-02-29] MEDS: *HR* Heparin 5,000 UNIT/ML VIAL SQ SCH ×3 (09:41→21:26)
[2020-02-29 09:50] LABS: BUN/Creatinine Ratio 14 (6-26); Blood Urea Nitrogen 35 mg/dL (8-23); Calcium 8.4 mg/dL (8.6-10.3); Carbon Dioxide 19 mEq/L (23-29); Chloride 94 mEq/L (98-107); Glucose 182 mg/dL (70-105); Osmolality,Calculated 261 (280-300); Phosphorous 4.9 mg/dL (2.7-4.5); Sodium 119 mEq/L (136-145); Troponin I < 0.03 ng/mL (< 0.04); eGFR For African Americans 31 (> 60); eGFR For Non-African Americans 26 (> 60)
[2020-02-29 11:25] LABS: Adenovirus Not Detected (Not Detect); Bordetella Pertussis Not Detected (Not Detect); Chlamydophila pneumoniae Not Detected (Not Detect); Coronavirus 229E Not Detected (Not Detect); Coronavirus HKU1 Not Detected (Not Detect); Coronavirus NL63 Not Detected (Not Detect); Coronavirus OC43 Not Detected (Not Detect); Human Metapneumovirus Not Detected (Not Detect); Human Rhinovirus/Enterovirus Not Detected (Not Detect); Influenza A Subtype 2009 H1 Not Detected (Not Detect); Influenza B Not Detected (Not Detect); Mycoplasma pneumoniae Not Detected (Not Detect); Parainfluenza Virus 1 Not Detected (Not Detect); Parainfluenza Virus 2 Not Detected (Not Detect); Parainfluenza Virus 3 Not Detected (Not Detect); Parainfluenza Virus 4 Not Detected (Not Detect); Respiratory Syncytial Virus Not Detected (Not Detect)
[2020-02-29 12:32] LABS: Calcium 8.4 mg/dL (8.6-10.3); Potassium 6.4 mEq/L (3.5-5.1)
[2020-02-29] MEDS ORDERED: D5% in Water 1,000 ML IVC PRN (12:53)
[2020-02-29] MEDS ORDERED: Dextrose Gel 15 GM/37.5 ML TUBE PO PRN ×2 (12:53)
[2020-02-29] MEDS ORDERED: *HR* Dextrose 50 % in Water (Syg) 50 ML SYRINGE IVP PRN (12:53)
[2020-02-29] MEDS ORDERED: Albuterol 2.5 MG/3 ML NEBULIZER IH ONE (12:57)
[2020-02-29] MEDS ORDERED: Calcium Gluconate 1gm/50mL 1 GM/50 ML BAG IVPB ONE (12:58)
[2020-02-29 13:32] LABS: Albumin 3.6 g/dL (3.5-5.7); Albumin/Globulin Ratio 1.2 (1.1-2.2); Bilirubin,Direct 0.2 mg/dL (0.0-0.2); Bilirubin,Indirect 0.2 mg/dL (0.0-1.0); Bilirubin,Total 0.4 mg/dL (0.3-1.0); Globulin 3.1 g/dL (2.4-3.5); Total Protein 6.7 g/dL (6.4-8.9)
[2020-02-29] MEDS: Insulin LISPRO 300 UNITS/3 ML VIAL SQ SCH ×3 (15:23→21:27)
[2020-02-29 15:38] LABS: Bilirubin,Urine Negative (Negative); Blood,Urine Negative (Negative); Clarity,Urine Clear (Clear); Color,Urine Yellow (Yellow); Glucose,Urine (UA) Normal (Normal); Ketones,Urine Negative (Negative); Leukocyte Esterase,Urine Negative (Negative); Nitrite,Urine Negative (Negative); PH,Urine 5.5 pH Units (5.0-8.0); Protein,Urine 30 mg/dL (Neg-Trace); Urobilinogen,Urine Normal (Normal)
[2020-02-29 15:40] LABS: Amphetamine Screen,Urine Negative ng/mL (Cutoff=1000); Barbiturate Screen,Urine Negative ng/mL (Cutoff=200); Benzodiazepines Screen,Urine Negative ng/mL (Cutoff=200); Cannabinoid Screen,Urine Negative ng/mL (Cutoff = 50); Cocaine Screen,Urine Negative ng/mL (Cutoff= 300); Creatinine,Urine 59 mg/dL; Opiate Screen,Urine Negative ng/mL (Cutoff=300); Phencyclidine Screen,Urine Negative ng/mL (Cutoff=25); Sodium, Urine 25.6 mEq/L
[2020-02-29 15:41] LABS: Bacteria,Urine None Seen per hpf (None-Few); Hyaline Casts,Urine None Seen per lpf (None-Few); Squamous Epithelial Cell,Urine Moderate per lpf (None-Few); WBC,Urine 0-3 per hpf (0-3)
[2020-02-29] MEDS: SODIUM ZIRCONIUM CYCLOSILICATE 5 GM POWD.PACK PO SCH (15:46)
[2020-02-29 17:36] LABS: Calcium 8.5 mg/dL (8.6-10.3); Potassium 5.6 mEq/L (3.5-5.1)
[2020-02-29] MEDS: QUEtiapine Fumarate 100 MG TABLET PO SCH (21:27)
[2020-02-29 21:52] LABS: Calcium 8.3 mg/dL (8.6-10.3); Potassium 5.2 mEq/L (3.5-5.1)
[2020-03-01] MEDS: Ipratropium/Albuterol Neb 3 ML IH SCH ×7 (00:28→23:00)
[2020-03-01 04:06] LABS: Basophils % 0.1 %; Hemoglobin 10.8 g/dL (12.9-16.9); Immature Granulocytes % 0.9 % (0-4); Lymphocytes # 1.3 K/mcL (0.6-4.6); Mean Corpuscular HGB Conc 33.8 g/dL (31.6-35.5); Mean Corpuscular Hemoglobin 29.3 pg (28.0-33.3); Mean Corpuscular Volume 86.7 fL (83.0-100.0); Monocytes # 0.9 K/mcL (0.0-1.3); Neutrophils # 9.4 K/mcL (1.6-8.9); Platelet Count 392 K/mcL (140-400); Red Blood Count 3.69 M/mcL (4.19-5.50); Red Cell Distribution Width 13.4 % (11.5-14.5); White Blood Count 11.7 K/mcL (4.3-11.1)
[2020-03-01 04:15] LABS: Calcium 8.4 mg/dL (8.6-10.3); Magnesium 2.2 mg/dL (1.6-2.6); Potassium 5.2 mEq/L (3.5-5.1)
[2020-03-01] MEDS: *HR* Heparin 5,000 UNIT/ML VIAL SQ SCH ×3 (05:12→23:39)
[2020-03-01] MEDS ORDERED: Benzonatate 100 MG CAPSULE PO PRN (05:49)
[2020-03-01] MEDS: Budesonide/Formoterol 160/4.5 1 PUFF INH IH SCH ×2 (07:41→20:02)
[2020-03-01] MEDS: Insulin LISPRO 300 UNITS/3 ML VIAL SQ SCH ×4 (09:12→21:39)
[2020-03-01] MEDS: SODIUM ZIRCONIUM CYCLOSILICATE 5 GM POWD.PACK PO SCH (09:29)
[2020-03-01] MEDS: Insulin DETEMIR 100 UNIT/ML X5UNITS SQ SCH ×2 (09:30→21:37)
[2020-03-01] MEDS: levETIRAcetam 250 MG TABLET PO SCH ×2 (09:30→20:11)
[2020-03-01] MEDS: Nicotine 21 MG PATCH.TD24 TD SCH (09:30)
[2020-03-01] MEDS: predniSONE 20 MG TABLET PO SCH (09:30)
[2020-03-01] MEDS: Azithromycin 250 MG TABLET PO SCH (09:30)
[2020-03-01] MEDS: Gabapentin 100 MG CAPSULE PO SCH ×3 (09:34→21:45)
[2020-03-01] MEDS: QUEtiapine Fumarate 100 MG TABLET PO SCH (21:37)
[2020-03-02 03:44] LABS: Hematocrit 31.6 % (37.5-50.1); Hemoglobin 10.3 g/dL (12.9-16.9); Mean Corpuscular HGB Conc 32.6 g/dL (31.6-35.5); Mean Corpuscular Hemoglobin 28.9 pg (28.0-33.3); Mean Corpuscular Volume 88.8 fL (83.0-100.0); Platelet Count 406 K/mcL (140-400); Red Blood Count 3.56 M/mcL (4.19-5.50); Red Cell Distribution Width 13.5 % (11.5-14.5)
[2020-03-02 04:05] LABS: Calcium 8.4 mg/dL (8.6-10.3); Potassium 4.5 mEq/L (3.5-5.1)
[2020-03-02] MEDS: Ipratropium/Albuterol Neb 3 ML IH SCH ×5 (04:30→20:14)
[2020-03-02] MEDS: *HR* Heparin 5,000 UNIT/ML VIAL SQ SCH ×3 (05:24→21:02)
[2020-03-02] MEDS: Insulin LISPRO 300 UNITS/3 ML VIAL SQ SCH ×4 (07:54→21:03)
[2020-03-02] MEDS: levETIRAcetam 250 MG TABLET PO SCH ×2 (07:55→21:13)
[2020-03-02] MEDS: SODIUM ZIRCONIUM CYCLOSILICATE 5 GM POWD.PACK PO SCH (08:01)
[2020-03-02] MEDS: Insulin DETEMIR 100 UNIT/ML X5UNITS SQ SCH ×2 (08:02→21:02)
[2020-03-02] MEDS: Nicotine 21 MG PATCH.TD24 TD SCH (08:02)
[2020-03-02] MEDS: Azithromycin 250 MG TABLET PO SCH (08:02)
[2020-03-02] MEDS: Gabapentin 100 MG CAPSULE PO SCH ×3 (08:02→21:02)
[2020-03-02] MEDS: predniSONE 20 MG TABLET PO SCH (08:02)
[2020-03-02] MEDS: Budesonide/Formoterol 160/4.5 1 PUFF INH IH SCH ×2 (08:39→20:14)
[2020-03-02] MEDS: cefTRIAXone 2,000 MG in Water for inj. (sterile) 20 ML IVP SCH (09:33)
[2020-03-02] MEDS: QUEtiapine Fumarate 100 MG TABLET PO SCH (21:02)
[2020-03-03] MEDS: Ipratropium/Albuterol Neb 3 ML IH SCH ×7 (00:57→23:25)
[2020-03-03 02:26] LABS: Basophils % 0.2 %; Hematocrit 33.6 % (37.5-50.1); Hemoglobin 11.5 g/dL (12.9-16.9); Immature Granulocytes % 0.8 % (0-4); Lymphocytes # 1.5 K/mcL (0.6-4.6); Lymphocytes % 12.1 %; Mean Corpuscular HGB Conc 34.2 g/dL (31.6-35.5); Mean Corpuscular Hemoglobin 30.7 pg (28.0-33.3); Mean Corpuscular Volume 89.8 fL (83.0-100.0); Mean Platelet Volume 9.5 fL (9.4-12.4); Monocytes # 1.2 K/mcL (0.0-1.3); Monocytes % 9.7 %; Neutrophils # 9.3 K/mcL (1.6-8.9); Platelet Count 408 K/mcL (140-400); Red Blood Count 3.74 M/mcL (4.19-5.50); Red Cell Distribution Width 13.6 % (11.5-14.5); Segmented Neutrophils % 77.2 %; White Blood Count 12.1 K/mcL (4.3-11.1)
[2020-03-03 02:44] LABS: Calcium 8.4 mg/dL (8.6-10.3); Potassium 4.2 mEq/L (3.5-5.1)
[2020-03-03] MEDS: *HR* Heparin 5,000 UNIT/ML VIAL SQ SCH ×3 (05:32→21:31)
[2020-03-03] MEDS: Budesonide/Formoterol 160/4.5 1 PUFF INH IH SCH ×2 (07:40→20:03)
[2020-03-03] MEDS: Insulin LISPRO 300 UNITS/3 ML VIAL SQ SCH ×4 (08:33→21:29)
[2020-03-03] MEDS: SODIUM ZIRCONIUM CYCLOSILICATE 5 GM POWD.PACK PO SCH (08:45)
[2020-03-03] MEDS: predniSONE 20 MG TABLET PO SCH (08:50)
[2020-03-03] MEDS: levETIRAcetam 250 MG TABLET PO SCH ×2 (08:50→21:30)
[2020-03-03] MEDS: Nicotine 21 MG PATCH.TD24 TD SCH (08:50)
[2020-03-03] MEDS: Gabapentin 100 MG CAPSULE PO SCH ×3 (08:50→21:30)
[2020-03-03] MEDS: cefTRIAXone 2,000 MG in Water for inj. (sterile) 20 ML IVP SCH (08:53)
[2020-03-03] MEDS: Insulin DETEMIR 100 UNIT/ML X5UNITS SQ SCH ×2 (09:12→21:32)
[2020-03-03] MEDS: Azithromycin 250 MG TABLET PO SCH (09:46)
[2020-03-03] MEDS: QUEtiapine Fumarate 100 MG TABLET PO SCH (21:31)
[2020-03-04] MEDS: Ipratropium/Albuterol Neb 3 ML IH SCH ×3 (03:27→11:04)
[2020-03-04 03:29] LABS: Basophils % 0.2 %; Hematocrit 32.8 % (37.5-50.1); Hemoglobin 10.7 g/dL (12.9-16.9); Immature Granulocytes % 0.8 % (0-4); Lymphocytes # 1.9 K/mcL (0.6-4.6); Lymphocytes % 14.1 %; Mean Corpuscular HGB Conc 32.6 g/dL (31.6-35.5); Mean Corpuscular Hemoglobin 29.7 pg (28.0-33.3); Mean Corpuscular Volume 91.1 fL (83.0-100.0); Mean Platelet Volume 9.4 fL (9.4-12.4); Monocytes # 1.6 K/mcL (0.0-1.3); Monocytes % 11.9 %; Neutrophils # 9.7 K/mcL (1.6-8.9); Platelet Count 365 K/mcL (140-400); Red Cell Distribution Width 13.8 % (11.5-14.5); White Blood Count 13.2 K/mcL (4.3-11.1)
[2020-03-04 03:47] LABS: Calcium 8.3 mg/dL (8.6-10.3); Potassium 4.1 mEq/L (3.5-5.1)
[2020-03-04] MEDS: Budesonide/Formoterol 160/4.5 1 PUFF INH IH SCH (07:16)
[2020-03-04] MEDS: Insulin LISPRO 300 UNITS/3 ML VIAL SQ SCH ×2 (07:35→11:31)
[2020-03-04] MEDS: cefTRIAXone 2,000 MG in Water for inj. (sterile) 20 ML IVP SCH (07:53)
[2020-03-04] MEDS: *HR* Heparin 5,000 UNIT/ML VIAL SQ SCH (07:53)
[2020-03-04] MEDS: levETIRAcetam 250 MG TABLET PO SCH (07:54)
[2020-03-04] MEDS: Gabapentin 100 MG CAPSULE PO SCH (07:54)
[2020-03-04] MEDS: Nicotine 21 MG PATCH.TD24 TD SCH (07:54)
[2020-03-04] MEDS: SODIUM ZIRCONIUM CYCLOSILICATE 5 GM POWD.PACK PO SCH (07:54)
[2020-03-04] MEDS: Insulin DETEMIR 100 UNIT/ML X5UNITS SQ SCH (07:54)
[2020-03-04] MEDS: Azithromycin 250 MG TABLET PO SCH (07:54)
[2020-03-04] MEDS: predniSONE 20 MG TABLET PO SCH (07:54)
[2020-03-04 10:19] VITALS: BP 172/74
== END 2020-03-04 15:23 | disposition home health service (06) | DRG 291 ==
LOC: 2NNU → SUATTDRO 08:25 → 2ANU 03-03 13:01
PROVIDERS: ADMIT Internal Medicine; ATTEND Family Medicine

== ENCOUNTER 2020-04-14 21:50 | Inpatient (IN) ==
[2020-04-14] MEDS ORDERED: Naloxone 0.4 MG/ML INJ IVP PRN (23:51)
[2020-04-15] MEDS ORDERED: *HR* Dextrose 50 % in Water (Vial) 50 ML VIAL IVP ONE (00:34)
[2020-04-15 00:36] LABS: Prothrombin Time 11.7 Seconds (9.4-12.1)
[2020-04-15] MEDS ORDERED: Insulin Human Regular 10 UNIT in 0.9 % Sodium Chloride 10 ML IV ONE (00:36)
[2020-04-15 00:37] LABS: Basophils # 0.1 K/mcL (0.0-0.2); Basophils % 0.5 %; Eosinophils # 0.1 K/mcL (0.0-0.6); Eosinophils % 0.9 %; Hematocrit 36.1 % (37.5-50.1); Hemoglobin 11.9 g/dL (12.9-16.9); Immature Granulocytes % 1.4 % (0-4); Lymphocytes % 18.4 %; Mean Corpuscular Hemoglobin 28.7 pg (28.0-33.3); Mean Platelet Volume 11.1 fL (9.4-12.4); Monocytes # 1.2 K/mcL (0.0-1.3); Monocytes % 10.9 %; Neutrophils # 7.4 K/mcL (1.6-8.9); Platelet Count 289 K/mcL (140-400); Red Blood Count 4.15 M/mcL (4.19-5.50); Red Cell Distribution Width 16.8 % (11.5-14.5); Segmented Neutrophils % 67.9 %
[2020-04-15 00:50] LABS: Chol/HDL Ratio 1.9 (0-4.9); Magnesium 2.5 mg/dL (1.6-2.6); Phosphorous 6.3 mg/dL (2.7-4.5)
[2020-04-15 00:53] LABS: Calcium 8.4 mg/dL (8.6-10.3); Potassium 6.7 mEq/L (3.5-5.1)
[2020-04-15] MEDS ORDERED: Sodium Bicarbonate 75 MEQ in 0.45 % Sodium Chloride 1,000 ML IVC SCH (01:00)
[2020-04-15] MEDS: Thiamine (B-1) 100 MG, Folic Acid 1 MG, MVI, adult with vitamin K 10 ML in 0.9 % Sodi... IVPB SCH (01:41)
[2020-04-15 03:29] LABS: Potassium 6.1 mEq/L (3.5-5.1)
[2020-04-15] MEDS ORDERED: D5% in Water 1,000 ML IVC PRN (03:38)
[2020-04-15] MEDS ORDERED: Dextrose Gel 15 GM/37.5 ML TUBE PO PRN ×2 (03:38)
[2020-04-15] MEDS ORDERED: Sodium Bicarbonate 75 MEQ in D5% in Water 1,000 ML IVC SCH ×2 (04:00→15:00)
[2020-04-15] MEDS ORDERED: Ipratropium/Albuterol Neb 3 ML IH PRN (04:03)
[2020-04-15 04:18] LABS: Thyroid Stimulating Hormone 1.828 mcIU/mL (0.340-5.600)
[2020-04-15] MEDS: *HR* Dextrose 50 % in Water (Vial) 50 ML VIAL IVP PRN (05:50)
[2020-04-15] MEDS: Insulin LISPRO 300 UNITS/3 ML VIAL SQ SCH ×3 (05:51→18:53)
[2020-04-15] MEDS ORDERED: *HR* Heparin 5,000 UNIT/ML VIAL SQ SCH (06:00)
[2020-04-15 06:44] LABS: Troponin I < 0.03 ng/mL (< 0.04)
[2020-04-15 07:04] LABS: Sodium 125 mEq/L (136-145)
[2020-04-15] MEDS: Ipratropium/Albuterol Neb 3 ML IH SCH ×5 (08:11→23:43)
[2020-04-15 09:12] LABS: Calcium 7.9 mg/dL (8.6-10.3); Potassium 5.5 mEq/L (3.5-5.1)
[2020-04-15] MEDS ORDERED: Perflutren Lipid Microsphere 1.3 ML in 0.9 % Sodium Chloride 8.7 ML IVP PRN (09:56)
[2020-04-15] MEDS ORDERED: *HR* Heparin 5,000 UNIT/ML VIAL IVP PRN (10:06)
[2020-04-15] MEDS ORDERED: *HR* Heparin 5,000 UNIT/ML VIAL IVP ONE (10:06)
[2020-04-15 11:24] LABS: Hematocrit 33.6 % (37.5-50.1); Mean Corpuscular HGB Conc 32.7 g/dL (31.6-35.5); Mean Corpuscular Hemoglobin 28.6 pg (28.0-33.3); Mean Corpuscular Volume 87.5 fL (83.0-100.0); Mean Platelet Volume 10.6 fL (9.4-12.4); Platelet Count 274 K/mcL (140-400); Red Blood Count 3.84 M/mcL (4.19-5.50); Red Cell Distribution Width 16.7 % (11.5-14.5); White Blood Count 13.5 K/mcL (4.3-11.1)
[2020-04-15 11:31] LABS: Heparin anti-factor XA UFH 0.05 IU/mL (0.30-0.70)
[2020-04-15 11:32] LABS: Prothrombin Time 11.9 Seconds (9.4-12.1)
[2020-04-15] MEDS: *HR* Heparin 5,000 UNIT/ML VIAL IVP PRN (12:16)
[2020-04-15] MEDS: Heparin 25,000 UNIT/250 ML D5W 25,000 UNIT/250 ML IV.SOLN IVC SCH (12:19)
[2020-04-15 13:05] LABS: Adenovirus Not Detected (Not Detect); Bordetella Pertussis Not Detected (Not Detect); Chlamydophila pneumoniae Not Detected (Not Detect); Coronavirus 229E Not Detected (Not Detect); Coronavirus HKU1 Not Detected (Not Detect); Coronavirus NL63 Not Detected (Not Detect); Coronavirus OC43 Not Detected (Not Detect); Human Metapneumovirus Not Detected (Not Detect); Human Rhinovirus/Enterovirus Not Detected (Not Detect); Influenza A Subtype 2009 H1 Not Detected (Not Detect); Influenza B Not Detected (Not Detect); Mycoplasma pneumoniae Not Detected (Not Detect); Parainfluenza Virus 1 Not Detected (Not Detect); Parainfluenza Virus 2 Not Detected (Not Detect); Parainfluenza Virus 3 Not Detected (Not Detect); Parainfluenza Virus 4 Not Detected (Not Detect); Respiratory Syncytial Virus Not Detected (Not Detect)
[2020-04-15 13:07] LABS: SARS-CoV-2 Not Detected (Not Detect)
[2020-04-15 16:13] LABS: Sodium, Urine 44.9 mEq/L
[2020-04-15 16:43] LABS: Bacteria,Urine Few per hpf (None-Few); Bilirubin,Urine Negative (Negative); Blood,Urine Trace (Negative); Clarity,Urine Clear (Clear); Color,Urine Colorless (Yellow); Glucose,Urine (UA) Normal (Normal); Ketones,Urine Negative (Negative); Leukocyte Esterase,Urine Negative (Negative); Mucus,Urine Few per lpf (None-Few); Nitrite,Urine Negative (Negative); Protein,Urine Trace mg/dL (Neg-Trace); RBC,Urine 0-3 per hpf (0-3); Specific Gravity,Urine 1.005 (1.010-1.025); Squamous Epithelial Cell,Urine Few per hpf (None-Few); Urobilinogen,Urine Normal (Normal); WBC,Urine 0-3 per hpf (0-3)
[2020-04-15] MEDS ORDERED: Calcium Gluconate 1gm/50mL 1 GM/50 ML BAG IVPB ONE (17:55)
[2020-04-15 18:39] LABS: Calcium 7.9 mg/dL (8.6-10.3); Potassium 4.7 mEq/L (3.5-5.1)
[2020-04-15] MEDS: Insulin DETEMIR 100 UNIT/ML X5UNITS SQ SCH (20:27)
[2020-04-16] MEDS: Insulin LISPRO 300 UNITS/3 ML VIAL SQ SCH ×5 (00:31→19:44)
[2020-04-16] MEDS: Ipratropium/Albuterol Neb 3 ML IH SCH ×6 (04:08→23:25)
[2020-04-16 04:25] LABS: Hematocrit 34.5 % (37.5-50.1); Hemoglobin 11.1 g/dL (12.9-16.9); Mean Corpuscular HGB Conc 32.2 g/dL (31.6-35.5); Mean Corpuscular Hemoglobin 27.5 pg (28.0-33.3); Mean Corpuscular Volume 85.6 fL (83.0-100.0); Mean Platelet Volume 10.2 fL (9.4-12.4); Platelet Count 321 K/mcL (140-400); Red Blood Count 4.03 M/mcL (4.19-5.50); White Blood Count 12.6 K/mcL (4.3-11.1)
[2020-04-16 04:43] LABS: Albumin 2.8 g/dL (3.5-5.7); Albumin/Globulin Ratio 1.2 (1.1-2.2); Bilirubin,Direct 0.1 mg/dL (0.0-0.2); Bilirubin,Indirect 0.2 mg/dL (0.0-1.0); Bilirubin,Total 0.3 mg/dL (0.3-1.0); Calcium 7.9 mg/dL (8.6-10.3); Globulin 2.3 g/dL (2.4-3.5); Magnesium 2.1 mg/dL (1.6-2.6); Phosphorous 5.1 mg/dL (2.7-4.5); Potassium 4.1 mEq/L (3.5-5.1); Total Protein 5.1 g/dL (6.4-8.9)
[2020-04-16] MEDS: *HR* Dextrose 50 % in Water (Vial) 50 ML VIAL IVP PRN (05:42)
[2020-04-16] MEDS: Gabapentin 400 MG CAPSULE PO SCH ×3 (08:47→19:44)
[2020-04-16] MEDS: levETIRAcetam 250 MG TABLET PO SCH ×2 (08:47→19:44)
[2020-04-16] MEDS: amLODIPine 5 MG TABLET PO SCH (08:47)
[2020-04-16] MEDS ORDERED: carvediloL 25 MG TABLET PO SCH (09:00)
[2020-04-16 09:17] LABS: Uric Acid 9.6 mg/dL (2.3-7.6)
[2020-04-16] MEDS: Budesonide/Formoterol 160/4.5 1 PUFF INH IH SCH ×2 (11:18→19:49)
[2020-04-16 11:34] LABS: Hepatitis B Surface Antigen Nonreactive (Nonreactive)
[2020-04-16 12:02] LABS: Hepatitis C Virus Antibody Nonreactive (Nonreactive)
[2020-04-16 12:04] LABS: Hepatitis B Core IgM Nonreactive (Nonreactive)
[2020-04-16 12:05] LABS: Hepatitis A Antibody IgM Nonreactive (Nonreactive)
[2020-04-16] MEDS: Heparin 25,000 UNIT/250 ML D5W 25,000 UNIT/250 ML IV.SOLN IVC SCH (13:50)
[2020-04-16] MEDS: Furosemide 20 MG TABLET PO SCH (14:48)
[2020-04-16] MEDS: Thiamine (B-1) 100 MG, Folic Acid 1 MG, MVI, adult with vitamin K 10 ML in 0.9 % Sodi... IVPB SCH (18:25)
[2020-04-16] MEDS: QUEtiapine Fumarate 100 MG TABLET PO SCH (19:44)
[2020-04-16] MEDS: Insulin DETEMIR 100 UNIT/ML X5UNITS SQ SCH (22:37)
[2020-04-17 01:14] LABS: Hematocrit 37.9 % (37.5-50.1); Hemoglobin 11.8 g/dL (12.9-16.9); Mean Corpuscular HGB Conc 31.1 g/dL (31.6-35.5); Mean Corpuscular Hemoglobin 27.8 pg (28.0-33.3); Mean Corpuscular Volume 89.4 fL (83.0-100.0); Mean Platelet Volume 10.2 fL (9.4-12.4); Platelet Count 284 K/mcL (140-400); Red Blood Count 4.24 M/mcL (4.19-5.50); Red Cell Distribution Width 17.2 % (11.5-14.5); White Blood Count 14.1 K/mcL (4.3-11.1)
[2020-04-17 01:30] LABS: Calcium 7.6 mg/dL (8.6-10.3); Potassium 4.5 mEq/L (3.5-5.1)
[2020-04-17] MEDS: Ipratropium/Albuterol Neb 3 ML IH SCH ×6 (03:30→23:41)
[2020-04-17] MEDS: Budesonide/Formoterol 160/4.5 1 PUFF INH IH SCH ×2 (07:17→20:14)
[2020-04-17] MEDS: Gabapentin 400 MG CAPSULE PO SCH ×3 (09:00→19:50)
[2020-04-17] MEDS: Insulin LISPRO 300 UNITS/3 ML VIAL SQ SCH ×4 (10:11→22:54)
[2020-04-17] MEDS: Heparin 25,000 UNIT/250 ML D5W 25,000 UNIT/250 ML IV.SOLN IVC SCH (10:24)
[2020-04-17] MEDS ORDERED: E-Z-HD (BARIUM SULF) SUSPENSION PO ONE (12:29)
[2020-04-17 13:43] LABS: ABG Base Excess 2 mEq/L (-2 to 3); ABG HCO3 28 mEq/L (21-27); ABG Oxygen Saturation 94 % (95-98); ABG PCO2 48 mmHg (35-45); ABG PH 7.38 pH Units (7.32-7.45); ABG PO2 74 mmHg (85-104); ABG TCO2 30 mEq/L (20-26)
[2020-04-17] MEDS: cefTRIAXone 2,000 MG in Water for inj. (sterile) 20 ML IVP SCH (17:06)
[2020-04-17] MEDS: MetroNIDAZOLE 500 MG/100 ML 500 MG/100 ML BAG IVPB SCH (17:23)
[2020-04-17] MEDS: levETIRAcetam 250 MG TABLET PO SCH ×2 (17:27→19:50)
[2020-04-17] MEDS: amLODIPine 5 MG TABLET PO SCH (17:28)
[2020-04-17] MEDS: Metoprolol XL (24 HR) Succ 25 MG TAB.ER.24H PO SCH (17:29)
[2020-04-17] MEDS: Furosemide 20 MG TABLET PO SCH (17:30)
[2020-04-17] MEDS: Thiamine (B-1) 100 MG, Folic Acid 1 MG, MVI, adult with vitamin K 10 ML in 0.9 % Sodi... IVPB SCH (18:41)
[2020-04-17] MEDS: QUEtiapine Fumarate 100 MG TABLET PO SCH (19:50)
[2020-04-17] MEDS: Insulin DETEMIR 100 UNIT/ML X5UNITS SQ SCH (22:55)
[2020-04-18] MEDS: MetroNIDAZOLE 500 MG/100 ML 500 MG/100 ML BAG IVPB SCH ×5 (00:03→23:11)
[2020-04-18] MEDS: Ipratropium/Albuterol Neb 3 ML IH SCH ×6 (03:35→23:49)
[2020-04-18 06:36] LABS: Hematocrit 36.1 % (37.5-50.1); Hemoglobin 11.4 g/dL (12.9-16.9); Mean Corpuscular HGB Conc 31.6 g/dL (31.6-35.5); Mean Corpuscular Hemoglobin 27.5 pg (28.0-33.3); Mean Corpuscular Volume 87.2 fL (83.0-100.0); Mean Platelet Volume 9.8 fL (9.4-12.4); Platelet Count 287 K/mcL (140-400); Red Blood Count 4.14 M/mcL (4.19-5.50); Red Cell Distribution Width 17.5 % (11.5-14.5); White Blood Count 11.1 K/mcL (4.3-11.1)
[2020-04-18 06:37] LABS: INR 1.1; Prothrombin Time 12.4 Seconds (9.4-12.1)
[2020-04-18] MEDS: Heparin 25,000 UNIT/250 ML D5W 25,000 UNIT/250 ML IV.SOLN IVC SCH (06:37)
[2020-04-18 06:47] LABS: Calcium 7.7 mg/dL (8.6-10.3); Potassium 4.3 mEq/L (3.5-5.1)
[2020-04-18] MEDS: Budesonide/Formoterol 160/4.5 1 PUFF INH IH SCH ×2 (07:20→19:55)
[2020-04-18] MEDS: Insulin LISPRO 300 UNITS/3 ML VIAL SQ SCH ×4 (08:06→20:52)
[2020-04-18] MEDS: Gabapentin 400 MG CAPSULE PO SCH ×3 (09:43→20:11)
[2020-04-18] MEDS: levETIRAcetam 250 MG TABLET PO SCH ×2 (09:43→20:11)
[2020-04-18] MEDS: amLODIPine 5 MG TABLET PO SCH (09:43)
[2020-04-18] MEDS: Metoprolol XL (24 HR) Succ 25 MG TAB.ER.24H PO SCH (09:44)
[2020-04-18] MEDS ORDERED: *HR* Etomidate 40 MG/20 ML VIAL IVP ONE (09:52)
[2020-04-18] MEDS ORDERED: *HR* FentaNYL (PF) 100 MCG/2 ML VIAL ONE (09:52)
[2020-04-18] MEDS ORDERED: *HR* Propofol 200 MG/20 ML VIAL IVP ONE (09:52)
[2020-04-18] MEDS ORDERED: Dexamethasone 4 MG/ML VIAL ONE ×2 (09:53→09:57)
[2020-04-18] MEDS ORDERED: *HR* Succinylcholine 200 MG/10 ML VIAL IVP ONE (09:53)
[2020-04-18] MEDS ORDERED: Ondansetron 4 MG/2 ML VIAL ONE (09:53)
[2020-04-18] MEDS ORDERED: Lidocaine -MPF 4% 5 ML AMPUL ONE (09:53)
[2020-04-18] MEDS ORDERED: Lidocaine -MPF 2% 2 ML VIAL ONE (09:53)
[2020-04-18] MEDS ORDERED: *HR* Rocuronium Bromide 50 MG/5 ML VIAL ONE (09:53)
[2020-04-18 13:59] LABS: RBC,Pleural Fluid < 2000 RBC/mcL
[2020-04-18 14:01] LABS: Glucose,Pleural Fluid 149 mg/dL (No Ref Range); LDH,Pleural Fluid 65 Units/L (No Ref Range); Total Protein,Pleural Fluid < 3.0 g/dL
[2020-04-18] MEDS: *HR* Heparin 5,000 UNIT/ML VIAL IVP PRN (14:02)
[2020-04-18] MEDS: cefTRIAXone 2,000 MG in Water for inj. (sterile) 20 ML IVP SCH (14:03)
[2020-04-18 14:21] LABS: Appearance of Pleural Fl Clear (Clear)
[2020-04-18 15:04] LABS: Basophils,Pleural Fluid 0 %; Eosinophils,Pleural Fluid 0 %
[2020-04-18 15:09] LABS: Appearance of Body Fluid Cloudy (Clear); Volume of Body Fluid 25 mL
[2020-04-18] MEDS: Furosemide 20 MG TABLET PO SCH (17:45)
[2020-04-18] MEDS: QUEtiapine Fumarate 100 MG TABLET PO SCH (20:12)
[2020-04-18] MEDS ORDERED: Acetaminophen 325 MG TABLET PO ONE (20:20)
[2020-04-18] MEDS ORDERED: GuaiFENesin/Dextromethorphan TABLET PO PRN (20:20)
[2020-04-18 20:46] LABS: Total Protein 5.5 g/dL (6.4-8.9)
[2020-04-18] MEDS: Insulin DETEMIR 100 UNIT/ML X5UNITS SQ SCH (20:49)
[2020-04-19] MEDS: Ipratropium/Albuterol Neb 3 ML IH SCH ×6 (03:21→23:10)
[2020-04-19 03:41] LABS: Hematocrit 32.7 % (37.5-50.1); Hemoglobin 10.5 g/dL (12.9-16.9); Mean Corpuscular HGB Conc 32.1 g/dL (31.6-35.5); Mean Corpuscular Volume 87.2 fL (83.0-100.0); Mean Platelet Volume 10.5 fL (9.4-12.4); Platelet Count 287 K/mcL (140-400); Red Blood Count 3.75 M/mcL (4.19-5.50); Red Cell Distribution Width 17.4 % (11.5-14.5); White Blood Count 9.8 K/mcL (4.3-11.1)
[2020-04-19 03:53] LABS: INR 1.1
[2020-04-19] MEDS: Heparin 25,000 UNIT/250 ML D5W 25,000 UNIT/250 ML IV.SOLN IVC SCH ×2 (03:53→22:32)
[2020-04-19 03:56] LABS: Calcium 7.8 mg/dL (8.6-10.3); Potassium 4.3 mEq/L (3.5-5.1)
[2020-04-19] MEDS: MetroNIDAZOLE 500 MG/100 ML 500 MG/100 ML BAG IVPB SCH ×4 (04:42→23:54)
[2020-04-19] MEDS: Insulin LISPRO 300 UNITS/3 ML VIAL SQ SCH ×4 (07:45→20:09)
[2020-04-19] MEDS: Budesonide/Formoterol 160/4.5 1 PUFF INH IH SCH ×2 (08:13→19:51)
[2020-04-19] MEDS: amLODIPine 5 MG TABLET PO SCH (09:10)
[2020-04-19] MEDS: levETIRAcetam 250 MG TABLET PO SCH ×2 (09:11→20:03)
[2020-04-19] MEDS: Metoprolol XL (24 HR) Succ 25 MG TAB.ER.24H PO SCH (09:11)
[2020-04-19] MEDS: Gabapentin 400 MG CAPSULE PO SCH ×3 (09:12→20:03)
[2020-04-19] MEDS: cefTRIAXone 2,000 MG in Water for inj. (sterile) 20 ML IVP SCH (15:43)
[2020-04-19] MEDS: *HR* Acetylcysteine 20% 600 MG/3 ML ORAL SYRINGE PO SCH (16:21)
[2020-04-19] MEDS: Furosemide 20 MG TABLET PO SCH (18:09)
[2020-04-19] MEDS: QUEtiapine Fumarate 100 MG TABLET PO SCH (20:03)
[2020-04-19] MEDS: Insulin DETEMIR 100 UNIT/ML X5UNITS SQ SCH (20:04)
[2020-04-20 01:21] LABS: Basophils # 0.1 K/mcL (0.0-0.2); Basophils % 0.5 %; Eosinophils # 0.3 K/mcL (0.0-0.6); Eosinophils % 2.5 %; Hematocrit 32.4 % (37.5-50.1); Hemoglobin 10.3 g/dL (12.9-16.9); Immature Granulocytes % 0.5 % (0-4); Lymphocytes # 1.9 K/mcL (0.6-4.6); Lymphocytes % 17.2 %; Mean Corpuscular HGB Conc 31.8 g/dL (31.6-35.5); Mean Corpuscular Hemoglobin 28.3 pg (28.0-33.3); Monocytes # 1.5 K/mcL (0.0-1.3); Monocytes % 13.5 %; Neutrophils # 7.3 K/mcL (1.6-8.9); Platelet Count 277 K/mcL (140-400); Red Blood Count 3.64 M/mcL (4.19-5.50); Red Cell Distribution Width 17.5 % (11.5-14.5); Segmented Neutrophils % 65.8 %
[2020-04-20 01:40] LABS: Potassium 4.5 mEq/L (3.5-5.1)
[2020-04-20] MEDS: Ipratropium/Albuterol Neb 3 ML IH SCH ×6 (04:14→23:19)
[2020-04-20] MEDS: *HR* Acetylcysteine 20% 600 MG/3 ML ORAL SYRINGE PO SCH ×2 (07:33→08:14)
[2020-04-20] MEDS: MetroNIDAZOLE 500 MG/100 ML 500 MG/100 ML BAG IVPB SCH ×3 (07:57→17:06)
[2020-04-20] MEDS: Budesonide/Formoterol 160/4.5 1 PUFF INH IH SCH ×2 (07:57→19:50)
[2020-04-20] MEDS: Insulin LISPRO 300 UNITS/3 ML VIAL SQ SCH ×4 (07:58→19:30)
[2020-04-20] MEDS: Apixaban 5 MG TABLET PO SCH ×2 (08:15→19:29)
[2020-04-20] MEDS: levETIRAcetam 250 MG TABLET PO SCH ×2 (08:15→19:30)
[2020-04-20] MEDS: amLODIPine 5 MG TABLET PO SCH (08:15)
[2020-04-20] MEDS: Gabapentin 400 MG CAPSULE PO SCH ×3 (08:15→19:29)
[2020-04-20] MEDS: Metoprolol XL (24 HR) Succ 25 MG TAB.ER.24H PO SCH (08:16)
[2020-04-20] MEDS: cefTRIAXone 2,000 MG in Water for inj. (sterile) 20 ML IVP SCH (15:18)
[2020-04-20] MEDS: Furosemide 20 MG TABLET PO SCH (17:06)
[2020-04-20] MEDS: QUEtiapine Fumarate 100 MG TABLET PO SCH (19:30)
[2020-04-20] MEDS: Insulin DETEMIR 100 UNIT/ML X5UNITS SQ SCH (20:46)
[2020-04-21] MEDS: MetroNIDAZOLE 500 MG/100 ML 500 MG/100 ML BAG IVPB SCH ×3 (01:44→11:21)
[2020-04-21 01:56] LABS: Basophils # 0.1 K/mcL (0.0-0.2); Basophils % 0.6 %; Eosinophils # 0.3 K/mcL (0.0-0.6); Eosinophils % 3.5 %; Hematocrit 34.1 % (37.5-50.1); Hemoglobin 10.7 g/dL (12.9-16.9); Immature Granulocytes % 0.8 % (0-4); Lymphocytes # 1.8 K/mcL (0.6-4.6); Lymphocytes % 21.7 %; Mean Corpuscular HGB Conc 31.4 g/dL (31.6-35.5); Mean Corpuscular Hemoglobin 27.2 pg (28.0-33.3); Mean Corpuscular Volume 86.5 fL (83.0-100.0); Mean Platelet Volume 9.9 fL (9.4-12.4); Monocytes # 1.4 K/mcL (0.0-1.3); Monocytes % 16.8 %; Neutrophils # 4.8 K/mcL (1.6-8.9); Platelet Count 282 K/mcL (140-400); Red Blood Count 3.94 M/mcL (4.19-5.50); Red Cell Distribution Width 17.6 % (11.5-14.5); Segmented Neutrophils % 56.6 %; White Blood Count 8.5 K/mcL (4.3-11.1)
[2020-04-21 02:18] LABS: Calcium 8.1 mg/dL (8.6-10.3); Potassium 4.4 mEq/L (3.5-5.1)
[2020-04-21] MEDS: Ipratropium/Albuterol Neb 3 ML IH SCH ×3 (03:35→11:29)
[2020-04-21] MEDS: Budesonide/Formoterol 160/4.5 1 PUFF INH IH SCH (07:39)
[2020-04-21] MEDS: Insulin LISPRO 300 UNITS/3 ML VIAL SQ SCH ×2 (08:00→11:23)
[2020-04-21] MEDS: Gabapentin 400 MG CAPSULE PO SCH ×2 (08:01→14:09)
[2020-04-21] MEDS: Apixaban 5 MG TABLET PO SCH (08:01)
[2020-04-21] MEDS: amLODIPine 5 MG TABLET PO SCH (08:01)
[2020-04-21] MEDS: levETIRAcetam 250 MG TABLET PO SCH (08:01)
[2020-04-21] MEDS: Metoprolol XL (24 HR) Succ 25 MG TAB.ER.24H PO SCH (08:02)
[2020-04-21] MEDS: *HR* Acetylcysteine 20% 600 MG/3 ML ORAL SYRINGE PO SCH ×2 (11:21→11:25)
[2020-04-21 11:22] VITALS: BP 121/63
[2020-04-21] MEDS: cefTRIAXone 2,000 MG in Water for inj. (sterile) 20 ML IVP SCH (14:10)
== END 2020-04-21 15:55 | DRG 682 ==
LOC: 2NNU → SUATTDRO 23:24
PROVIDERS: ADMIT Internal Medicine; ATTEND Internal Medicine
PROC: ENDOAPI (2020-04-18 10:55)

== ENCOUNTER 2020-10-12 19:30 | Inpatient (IN) ==
[2020-10-12] MEDS ORDERED: Ondansetron 4 MG/2 ML VIAL IVP PRN (23:44)
[2020-10-12] MEDS ORDERED: Acetaminophen 325 MG TABLET PO PRN (23:44)
[2020-10-12] MEDS ORDERED: Naloxone 0.4 MG/ML INJ IVP PRN (23:44)
[2020-10-12] MEDS ORDERED: Dextrose Gel 15 GM/37.5 ML TUBE PO PRN ×2 (23:53)
[2020-10-12] MEDS ORDERED: *HR* Dextrose 50 % in Water (Vial) 50 ML VIAL IVP PRN (23:53)
[2020-10-12] MEDS ORDERED: D5% in Water 1,000 ML IVC PRN (23:53)
[2020-10-13] MEDS ORDERED: Ipratropium/Albuterol Neb 3 ML IH PRN (00:08)
[2020-10-13] MEDS: Vancomycin 1,500 MG/265 ML IV.SOLN IVPB SCH (00:52)
[2020-10-13] MEDS: Piperacillin/Tazobactam 3.375 GM in 0.9 % Sodium Chloride Mini Bag 100 ML IVPB SCH ×3 (00:52→16:50)
[2020-10-13] MEDS ORDERED: Isovue-370 500 ML BOTTLE IVP ONE (01:14)
[2020-10-13] MEDS: Ipratropium/Albuterol Neb 3 ML IH SCH ×6 (03:30→23:11)
[2020-10-13] MEDS: Budesonide/Formoterol 160/4.5 1 PUFF INH IH SCH ×2 (07:43→19:46)
[2020-10-13 07:47] LABS: Hematocrit 23.9 % (37.5-50.1); Hemoglobin 7.6 g/dL (12.9-16.9); Mean Corpuscular HGB Conc 31.8 g/dL (31.6-35.5); Mean Corpuscular Hemoglobin 30.8 pg (28.0-33.3); Mean Corpuscular Volume 96.8 fL (83.0-100.0); Mean Platelet Volume 11.7 fL (9.4-12.4); Platelet Count 303 K/mcL (140-400); Red Blood Count 2.47 M/mcL (4.19-5.50); Red Cell Distribution Width 17.8 % (11.5-14.5); White Blood Count 13.4 K/mcL (4.3-11.1)
[2020-10-13 07:48] LABS: INR 1.9; Prothrombin Time 21.1 Seconds (9.4-12.1)
[2020-10-13 07:54] LABS: Phosphorous 3.2 mg/dL (2.7-4.5)
[2020-10-13] MEDS: Insulin LISPRO 300 UNITS/3 ML VIAL SUBQ SCH ×4 (08:24→20:19)
[2020-10-13] MEDS: Furosemide 40 MG/4 ML VIAL IVP SCH ×2 (08:34→16:50)
[2020-10-13] MEDS: Gabapentin 400 MG CAPSULE PO SCH ×3 (08:35→20:25)
[2020-10-13] MEDS: amLODIPine 5 MG TABLET PO SCH (08:35)
[2020-10-13] MEDS: levETIRAcetam 250 MG TABLET PO SCH ×2 (08:35→20:25)
[2020-10-13] MEDS: carvediloL 25 MG TABLET PO SCH ×2 (08:35→16:50)
[2020-10-13] MEDS ORDERED: Apixaban 5 MG TABLET PO SCH (09:00)
[2020-10-13 09:28] LABS: Eosinophils # 0.5 K/mcL (0.0-0.6); Lymphocytes # 1.6 K/mcL (0.6-4.6); Monocytes # 2.1 K/mcL (0.0-1.3); Neutrophils # 9.1 K/mcL (1.6-8.9); Platelet Estimate Normal (Normal)
[2020-10-13] MEDS ORDERED: Furosemide 20 MG TABLET PO SCH (18:00)
[2020-10-13] MEDS: QUEtiapine Fumarate 100 MG TABLET PO SCH (20:25)
[2020-10-13] MEDS: Insulin DETEMIR 100 UNIT/ML X5UNITS SUBQ SCH (20:25)
[2020-10-14] MEDS: Vancomycin 1,500 MG/265 ML IV.SOLN IVPB SCH (00:13)
[2020-10-14] MEDS: Piperacillin/Tazobactam 3.375 GM in 0.9 % Sodium Chloride Mini Bag 100 ML IVPB SCH ×3 (00:13→15:52)
[2020-10-14 01:53] LABS: Hematocrit 20.6 % (37.5-50.1); Hemoglobin 6.7 g/dL (12.9-16.9); Mean Corpuscular HGB Conc 32.5 g/dL (31.6-35.5); Mean Corpuscular Hemoglobin 31.5 pg (28.0-33.3); Mean Corpuscular Volume 96.7 fL (83.0-100.0); Mean Platelet Volume 11.4 fL (9.4-12.4); Platelet Count 289 K/mcL (140-400); Red Blood Count 2.13 M/mcL (4.19-5.50); Red Cell Distribution Width 17.6 % (11.5-14.5)
[2020-10-14 02:09] LABS: Calcium 7.9 mg/dL (8.6-10.3); Potassium 3.9 mEq/L (3.5-5.1)
[2020-10-14] MEDS: Ipratropium/Albuterol Neb 3 ML IH SCH ×6 (03:33→23:47)
[2020-10-14] MEDS: Insulin LISPRO 300 UNITS/3 ML VIAL SUBQ SCH ×4 (07:45→21:29)
[2020-10-14] MEDS: carvediloL 25 MG TABLET PO SCH ×2 (08:26→15:51)
[2020-10-14] MEDS: amLODIPine 5 MG TABLET PO SCH (08:27)
[2020-10-14] MEDS: levETIRAcetam 250 MG TABLET PO SCH ×2 (08:27→21:13)
[2020-10-14] MEDS: Gabapentin 400 MG CAPSULE PO SCH ×3 (08:27→21:13)
[2020-10-14] MEDS: Furosemide 40 MG/4 ML VIAL IVP SCH ×2 (08:59→15:52)
[2020-10-14] MEDS ORDERED: *HR* Propofol 200 MG/20 ML VIAL IVP ONE (10:17)
[2020-10-14] MEDS ORDERED: Lidocaine -MPF 2% 2 ML VIAL ONE (10:18)
[2020-10-14] MEDS ORDERED: Lidocaine -MPF 4% 5 ML AMPUL ONE (10:18)
[2020-10-14] MEDS: Budesonide/Formoterol 160/4.5 1 PUFF INH IH SCH ×2 (11:22→19:59)
[2020-10-14] MEDS ORDERED: *HR* EPINEPHrine 1 MG/10 ML SYRINGE INTRATRACH PRN (12:56)
[2020-10-14] MEDS ORDERED: 0.9 % Sodium Chloride 500 ML ONE (15:30)
[2020-10-14 16:31] LABS: RBC,Pleural Fluid < 2000 RBC/mcL
[2020-10-14 16:32] LABS: LDH,Pleural Fluid 50 Units/L (No Ref Range); Total Protein,Pleural Fluid < 2.0 g/dL
[2020-10-14 17:24] LABS: Appearance of Body Fluid Cloudy (Clear)
[2020-10-14 17:25] LABS: Volume of Body Fluid 28 mL
[2020-10-14 17:48] LABS: Appearance of Pleural Fl Clear (Clear)
[2020-10-14 18:21] LABS: Eosinophils,Pleural Fluid 0 %
[2020-10-14] MEDS: Insulin DETEMIR 100 UNIT/ML X5UNITS SUBQ SCH (21:13)
[2020-10-14] MEDS: QUEtiapine Fumarate 100 MG TABLET PO SCH (21:13)
[2020-10-15] MEDS: Piperacillin/Tazobactam 3.375 GM in 0.9 % Sodium Chloride Mini Bag 100 ML IVPB SCH ×3 (00:12→15:34)
[2020-10-15] MEDS: Ipratropium/Albuterol Neb 3 ML IH SCH ×6 (03:33→23:31)
[2020-10-15 04:39] LABS: Basophils # 0.1 K/mcL (0.0-0.2); Basophils % 0.9 %; Eosinophils # 0.3 K/mcL (0.0-0.6); Eosinophils % 2.6 %; Hematocrit 22.1 % (37.5-50.1); Hemoglobin 7.1 g/dL (12.9-16.9); Immature Granulocytes % 0.4 % (0-4); Lymphocytes # 2.4 K/mcL (0.6-4.6); Mean Corpuscular HGB Conc 32.1 g/dL (31.6-35.5); Mean Corpuscular Hemoglobin 30.9 pg (28.0-33.3); Mean Corpuscular Volume 96.1 fL (83.0-100.0); Mean Platelet Volume 10.9 fL (9.4-12.4); Monocytes % 19.5 %; Neutrophils # 5.3 K/mcL (1.6-8.9); Platelet Count 260 K/mcL (140-400); Red Cell Distribution Width 17.5 % (11.5-14.5); Segmented Neutrophils % 52.6 %; White Blood Count 10.1 K/mcL (4.3-11.1)
[2020-10-15 05:00] LABS: Albumin 2.2 g/dL (3.5-5.7); Albumin/Globulin Ratio 0.8 (1.1-2.2); Bilirubin,Total 0.4 mg/dL (0.3-1.0); Calcium 7.7 mg/dL (8.6-10.3); Globulin 2.6 g/dL (2.4-3.5); Total Protein 4.8 g/dL (6.4-8.9)
[2020-10-15] MEDS: Budesonide/Formoterol 160/4.5 1 PUFF INH IH SCH ×2 (08:13→19:52)
[2020-10-15] MEDS: Insulin LISPRO 300 UNITS/3 ML VIAL SUBQ SCH ×4 (08:19→20:47)
[2020-10-15] MEDS: levETIRAcetam 250 MG TABLET PO SCH ×2 (08:27→20:48)
[2020-10-15] MEDS: Gabapentin 400 MG CAPSULE PO SCH ×3 (08:27→20:48)
[2020-10-15] MEDS: carvediloL 25 MG TABLET PO SCH ×2 (08:27→15:34)
[2020-10-15] MEDS: amLODIPine 5 MG TABLET PO SCH (08:27)
[2020-10-15] MEDS: Furosemide 40 MG/4 ML VIAL IVP SCH (08:28)
[2020-10-15] MEDS ORDERED: 0.9 % Sodium Chloride 500 ML ONE (10:09)
[2020-10-15] MEDS ORDERED: Furosemide 20 MG/2 ML VIAL IVP SCH (17:00)
[2020-10-15] MEDS: QUEtiapine Fumarate 100 MG TABLET PO SCH (20:48)
[2020-10-15] MEDS: Insulin DETEMIR 100 UNIT/ML X5UNITS SUBQ SCH (20:49)
[2020-10-16] MEDS: Piperacillin/Tazobactam 3.375 GM in 0.9 % Sodium Chloride Mini Bag 100 ML IVPB SCH ×3 (00:40→17:04)
[2020-10-16] MEDS: Ipratropium/Albuterol Neb 3 ML IH SCH ×5 (04:07→20:11)
[2020-10-16 05:01] LABS: Hematocrit 25.1 % (37.5-50.1); Hemoglobin 8.1 g/dL (12.9-16.9); Mean Corpuscular HGB Conc 32.3 g/dL (31.6-35.5); Mean Corpuscular Hemoglobin 30.3 pg (28.0-33.3); Mean Platelet Volume 11.2 fL (9.4-12.4); Platelet Count 268 K/mcL (140-400); Red Blood Count 2.67 M/mcL (4.19-5.50); Red Cell Distribution Width 17.2 % (11.5-14.5); White Blood Count 11.6 K/mcL (4.3-11.1)
[2020-10-16 05:25] LABS: Calcium 7.7 mg/dL (8.6-10.3)
[2020-10-16 05:31] LABS: % Iron Saturation 21 % (20-55); Iron 43 mcg/dL (65-175); Transferrin 149 mg/dL (203-362)
[2020-10-16 05:35] LABS: Ferritin 128 ng/mL (20-250)
[2020-10-16 05:41] LABS: Folate 10.6 ng/mL (3.0-16.0)
[2020-10-16] MEDS: Budesonide/Formoterol 160/4.5 1 PUFF INH IH SCH ×2 (08:00→20:11)
[2020-10-16] MEDS: Insulin LISPRO 300 UNITS/3 ML VIAL SUBQ SCH ×5 (09:47→20:20)
[2020-10-16] MEDS: amLODIPine 5 MG TABLET PO SCH (11:44)
[2020-10-16] MEDS: Gabapentin 400 MG CAPSULE PO SCH ×3 (11:44→20:19)
[2020-10-16] MEDS: carvediloL 25 MG TABLET PO SCH ×2 (11:45→17:11)
[2020-10-16] MEDS: levETIRAcetam 250 MG TABLET PO SCH ×2 (11:45→20:20)
[2020-10-16] MEDS: Furosemide 20 MG/2 ML VIAL IVP SCH ×2 (11:54→17:10)
[2020-10-16 15:15] LABS: Hematocrit 27.7 % (37.5-50.1); Hemoglobin 8.8 g/dL (12.9-16.9)
[2020-10-16 17:16] LABS: Glucose,Pleural Fluid 160 mg/dL (No Ref Range); LDH,Pleural Fluid 47 Units/L (No Ref Range); Total Protein,Pleural Fluid < 2.0 g/dL
[2020-10-16 17:50] LABS: RBC,Pleural Fluid < 2000 RBC/mcL
[2020-10-16 18:45] LABS: Appearance of Pleural Fl Clear (Clear); Basophils,Pleural Fluid 0 %; Eosinophils,Pleural Fluid 0 %
[2020-10-16] MEDS: QUEtiapine Fumarate 100 MG TABLET PO SCH (20:20)
[2020-10-16] MEDS: Insulin DETEMIR 100 UNIT/ML X5UNITS SUBQ SCH (20:21)
[2020-10-17] MEDS: Piperacillin/Tazobactam 3.375 GM in 0.9 % Sodium Chloride Mini Bag 100 ML IVPB SCH ×2 (00:08→09:12)
[2020-10-17] MEDS: Ipratropium/Albuterol Neb 3 ML IH SCH ×7 (00:16→23:47)
[2020-10-17 05:15] LABS: Basophils # 0.1 K/mcL (0.0-0.2); Basophils % 0.8 %; Eosinophils # 0.4 K/mcL (0.0-0.6); Eosinophils % 3.5 %; Hematocrit 26.4 % (37.5-50.1); Hemoglobin 8.4 g/dL (12.9-16.9); Immature Granulocytes % 0.4 % (0-4); Lymphocytes # 2.4 K/mcL (0.6-4.6); Lymphocytes % 21.8 %; Mean Corpuscular HGB Conc 31.8 g/dL (31.6-35.5); Mean Corpuscular Hemoglobin 30.4 pg (28.0-33.3); Mean Corpuscular Volume 95.7 fL (83.0-100.0); Mean Platelet Volume 10.9 fL (9.4-12.4); Monocytes # 1.5 K/mcL (0.0-1.3); Monocytes % 13.9 %; Neutrophils # 6.4 K/mcL (1.6-8.9); Platelet Count 277 K/mcL (140-400); Red Blood Count 2.76 M/mcL (4.19-5.50); Red Cell Distribution Width 16.3 % (11.5-14.5); Segmented Neutrophils % 59.6 %; White Blood Count 10.8 K/mcL (4.3-11.1)
[2020-10-17 05:37] LABS: Calcium 7.7 mg/dL (8.6-10.3)
[2020-10-17] MEDS: Budesonide/Formoterol 160/4.5 1 PUFF INH IH SCH ×2 (07:46→20:27)
[2020-10-17] MEDS: Insulin LISPRO 300 UNITS/3 ML VIAL SUBQ SCH ×4 (08:23→20:13)
[2020-10-17] MEDS: carvediloL 25 MG TABLET PO SCH ×2 (09:13→17:24)
[2020-10-17] MEDS: Gabapentin 400 MG CAPSULE PO SCH ×3 (09:13→20:15)
[2020-10-17] MEDS: Furosemide 20 MG/2 ML VIAL IVP SCH ×2 (09:13→17:25)
[2020-10-17] MEDS: levETIRAcetam 250 MG TABLET PO SCH ×2 (09:13→20:14)
[2020-10-17] MEDS: amLODIPine 5 MG TABLET PO SCH (09:13)
[2020-10-17] MEDS ORDERED: *HR* Heparin 5,000 UNIT/ML VIAL IVP ONE (17:41)
[2020-10-17] MEDS ORDERED: *HR* Heparin 5,000 UNIT/ML VIAL IVP PRN ×2 (17:41)
[2020-10-17] MEDS ORDERED: Heparin 25,000UNIT/250ML 1/2NS 25,000 UNIT/250 ML IV.SOLN IVC SCH (17:45)
[2020-10-17] MEDS: Heparin 25,000UNIT/250ML 1/2NS 25,000 UNIT/250 ML IV.SOLN IVC SCH (18:35)
[2020-10-17 18:37] LABS: Hematocrit 28.4 % (37.5-50.1); Mean Corpuscular HGB Conc 31.7 g/dL (31.6-35.5); Mean Corpuscular Hemoglobin 30.2 pg (28.0-33.3); Mean Corpuscular Volume 95.3 fL (83.0-100.0); Platelet Count 328 K/mcL (140-400); Red Blood Count 2.98 M/mcL (4.19-5.50); Red Cell Distribution Width 16.1 % (11.5-14.5); White Blood Count 10.6 K/mcL (4.3-11.1)
[2020-10-17 18:44] LABS: INR 1.2; Prothrombin Time 13.6 Seconds (9.4-12.1)
[2020-10-17] MEDS: Insulin DETEMIR 100 UNIT/ML X5UNITS SUBQ SCH (20:14)
[2020-10-17] MEDS: QUEtiapine Fumarate 100 MG TABLET PO SCH (20:15)
[2020-10-17 23:02] LABS: Hematocrit 26.8 % (37.5-50.1); Hemoglobin 8.5 g/dL (12.9-16.9)
[2020-10-18 00:47] LABS: Basophils # 0.1 K/mcL (0.0-0.2); Basophils % 0.6 %; Eosinophils # 0.5 K/mcL (0.0-0.6); Eosinophils % 3.9 %; Hematocrit 25.7 % (37.5-50.1); Hemoglobin 8.5 g/dL (12.9-16.9); Immature Granulocytes % 0.7 % (0-4); Lymphocytes # 2.1 K/mcL (0.6-4.6); Lymphocytes % 17.9 %; Mean Corpuscular HGB Conc 33.1 g/dL (31.6-35.5); Mean Corpuscular Hemoglobin 30.8 pg (28.0-33.3); Mean Corpuscular Volume 93.1 fL (83.0-100.0); Mean Platelet Volume 10.8 fL (9.4-12.4); Monocytes # 1.5 K/mcL (0.0-1.3); Monocytes % 12.6 %; Neutrophils # 7.5 K/mcL (1.6-8.9); Platelet Count 302 K/mcL (140-400); Red Blood Count 2.76 M/mcL (4.19-5.50); Red Cell Distribution Width 16.1 % (11.5-14.5); Segmented Neutrophils % 64.3 %; White Blood Count 11.7 K/mcL (4.3-11.1)
[2020-10-18 01:07] LABS: Calcium 7.7 mg/dL (8.6-10.3); Potassium 4.1 mEq/L (3.5-5.1)
[2020-10-18] MEDS: Ipratropium/Albuterol Neb 3 ML IH SCH ×6 (03:50→23:20)
[2020-10-18] MEDS ORDERED: Isovue-370 500 ML BOTTLE IVP ONE (07:37)
[2020-10-18] MEDS: Budesonide/Formoterol 160/4.5 1 PUFF INH IH SCH ×2 (07:43→20:01)
[2020-10-18] MEDS: Insulin LISPRO 300 UNITS/3 ML VIAL SUBQ SCH ×4 (08:57→21:50)
[2020-10-18] MEDS ORDERED: levoFLOXacin 750 MG/150 ML 750 MG/150 ML BAG IVPB SCH (09:00)
[2020-10-18] MEDS: carvediloL 25 MG TABLET PO SCH ×2 (09:15→17:52)
[2020-10-18] MEDS: Gabapentin 400 MG CAPSULE PO SCH ×3 (09:15→21:39)
[2020-10-18] MEDS: amLODIPine 5 MG TABLET PO SCH (09:15)
[2020-10-18] MEDS: Furosemide 20 MG/2 ML VIAL IVP SCH ×2 (09:15→17:53)
[2020-10-18] MEDS: levETIRAcetam 250 MG TABLET PO SCH ×2 (09:15→21:39)
[2020-10-18 13:39] LABS: Hematocrit 28.1 % (37.5-50.1)
[2020-10-18] MEDS: Heparin 25,000UNIT/250ML 1/2NS 25,000 UNIT/250 ML IV.SOLN IVC SCH (17:51)
[2020-10-18] MEDS: QUEtiapine Fumarate 100 MG TABLET PO SCH (21:39)
[2020-10-18] MEDS: Insulin DETEMIR 100 UNIT/ML X5UNITS SUBQ SCH (21:43)
[2020-10-18 22:50] LABS: Hematocrit 26.9 % (37.5-50.1); Hemoglobin 8.7 g/dL (12.9-16.9)
[2020-10-19] MEDS: Ipratropium/Albuterol Neb 3 ML IH SCH ×6 (04:19→23:35)
[2020-10-19 04:59] LABS: Fluid Source for Albumin PLEURAL
[2020-10-19 05:30] LABS: Hematocrit 26.2 % (37.5-50.1); Hemoglobin 8.5 g/dL (12.9-16.9)
[2020-10-19 08:16] LABS: Basophils # 0.1 K/mcL (0.0-0.2); Basophils % 0.7 %; Eosinophils # 0.6 K/mcL (0.0-0.6); Eosinophils % 5.3 %; Hematocrit 26.7 % (37.5-50.1); Hemoglobin 8.6 g/dL (12.9-16.9); Immature Granulocytes % 0.6 % (0-4); Lymphocytes # 2.7 K/mcL (0.6-4.6); Lymphocytes % 22.4 %; Mean Corpuscular HGB Conc 32.2 g/dL (31.6-35.5); Mean Corpuscular Hemoglobin 30.2 pg (28.0-33.3); Mean Corpuscular Volume 93.7 fL (83.0-100.0); Mean Platelet Volume 10.5 fL (9.4-12.4); Monocytes % 16.6 %; Neutrophils # 6.5 K/mcL (1.6-8.9); Platelet Count 363 K/mcL (140-400); Red Blood Count 2.85 M/mcL (4.19-5.50); Red Cell Distribution Width 15.8 % (11.5-14.5); Segmented Neutrophils % 54.4 %
[2020-10-19 08:36] LABS: Magnesium 1.8 mg/dL (1.6-2.6); Phosphorous 3.7 mg/dL (2.7-4.5); Potassium 3.7 mEq/L (3.5-5.1)
[2020-10-19 08:41] LABS: Platelet Estimate Normal (Normal)
[2020-10-19] MEDS: Insulin LISPRO 300 UNITS/3 ML VIAL SUBQ SCH ×4 (10:25→20:07)
[2020-10-19] MEDS: levETIRAcetam 250 MG TABLET PO SCH ×2 (10:30→20:08)
[2020-10-19] MEDS: amLODIPine 5 MG TABLET PO SCH (10:30)
[2020-10-19] MEDS: Gabapentin 400 MG CAPSULE PO SCH ×3 (10:30→20:07)
[2020-10-19] MEDS: carvediloL 25 MG TABLET PO SCH ×2 (10:31→16:24)
[2020-10-19] MEDS: Furosemide 20 MG/2 ML VIAL IVP SCH ×2 (10:31→16:23)
[2020-10-19] MEDS: Budesonide/Formoterol 160/4.5 1 PUFF INH IH SCH ×2 (11:52→20:07)
[2020-10-19] MEDS ORDERED: *HR* Heparin 5,000 UNIT/ML VIAL SQ SCH (18:00)
[2020-10-19 18:07] LABS: Influenza A PCR Negative (Negative); Influenza B PCR Negative (Negative); Resp. Syncytial Virus PCR Negative (Negative)
[2020-10-19 18:23] LABS: SARS-CoV-2 by PCR (In House) Negative (Negative)
[2020-10-19] MEDS: Apixaban 5 MG TABLET PO SCH (20:07)
[2020-10-19] MEDS: QUEtiapine Fumarate 100 MG TABLET PO SCH (20:08)
[2020-10-19] MEDS: Insulin DETEMIR 100 UNIT/ML X5UNITS SUBQ SCH (20:08)
[2020-10-20 00:50] LABS: Hematocrit 26.4 % (37.5-50.1); Hemoglobin 8.2 g/dL (12.9-16.9); Mean Corpuscular HGB Conc 31.1 g/dL (31.6-35.5); Mean Corpuscular Hemoglobin 29.6 pg (28.0-33.3); Mean Corpuscular Volume 95.3 fL (83.0-100.0); Mean Platelet Volume 10.6 fL (9.4-12.4); Platelet Count 334 K/mcL (140-400); Red Blood Count 2.77 M/mcL (4.19-5.50); Red Cell Distribution Width 15.7 % (11.5-14.5)
[2020-10-20 01:12] LABS: Potassium 4.1 mEq/L (3.5-5.1)
[2020-10-20] MEDS: Ipratropium/Albuterol Neb 3 ML IH SCH ×6 (03:57→23:13)
[2020-10-20 04:35] LABS: ABG Base Excess 4 mEq/L (-2 to 3); ABG HCO3 29 mEq/L (21-27); ABG Oxygen Saturation 86 % (95-98); ABG PCO2 44 mmHg (35-45); ABG PH 7.43 pH Units (7.32-7.45); ABG PO2 50 mmHg (85-104); ABG TCO2 30 mEq/L (20-26)
[2020-10-20 07:26] LABS: Adenovirus Not Detected (Not Detect); Bordetella Pertussis Not Detected (Not Detect); Chlamydophila pneumoniae Not Detected (Not Detect); Coronavirus 229E Not Detected (Not Detect); Coronavirus HKU1 Not Detected (Not Detect); Coronavirus NL63 Not Detected (Not Detect); Coronavirus OC43 Not Detected (Not Detect); Human Metapneumovirus Not Detected (Not Detect); Human Rhinovirus/Enterovirus Not Detected (Not Detect); Influenza A Subtype 2009 H1 Not Detected (Not Detect); Influenza B Not Detected (Not Detect); Mycoplasma pneumoniae Not Detected (Not Detect); Parainfluenza Virus 1 Not Detected (Not Detect); Parainfluenza Virus 2 Not Detected (Not Detect); Parainfluenza Virus 3 Not Detected (Not Detect); Parainfluenza Virus 4 Not Detected (Not Detect); Respiratory Syncytial Virus Not Detected (Not Detect); SARS-CoV-2 Not Detected (Not Detect)
[2020-10-20] MEDS ORDERED: Perflutren Lipid Microsphere 1.3 ML in 0.9 % Sodium Chloride 8.7 ML IVP PRN (07:26)
[2020-10-20] MEDS: Budesonide/Formoterol 160/4.5 1 PUFF INH IH SCH ×2 (07:31→19:53)
[2020-10-20] MEDS: Insulin LISPRO 300 UNITS/3 ML VIAL SUBQ SCH ×4 (08:49→19:42)
[2020-10-20] MEDS: amLODIPine 5 MG TABLET PO SCH (08:56)
[2020-10-20] MEDS: levETIRAcetam 250 MG TABLET PO SCH ×2 (08:56→19:36)
[2020-10-20] MEDS: Gabapentin 400 MG CAPSULE PO SCH ×3 (08:57→19:36)
[2020-10-20] MEDS: carvediloL 25 MG TABLET PO SCH ×2 (08:57→16:22)
[2020-10-20] MEDS: Apixaban 5 MG TABLET PO SCH (08:57)
[2020-10-20] MEDS ORDERED: levoFLOXacin 750 MG/150 ML 750 MG/150 ML BAG IVPB SCH (09:00)
[2020-10-20] MEDS: MethylPREDNISolone 40 MG/ML VIAL IVP SCH (09:31)
[2020-10-20] MEDS: QUEtiapine Fumarate 100 MG TABLET PO SCH (19:36)
[2020-10-20] MEDS: Insulin DETEMIR 100 UNIT/ML X5UNITS SUBQ SCH (19:36)
[2020-10-21] MEDS: Ipratropium/Albuterol Neb 3 ML IH SCH ×6 (03:23→23:37)
[2020-10-21 05:52] LABS: Calcium 8.2 mg/dL (8.6-10.3); Hematocrit 26.1 % (37.5-50.1); Hemoglobin 8.5 g/dL (12.9-16.9); Mean Corpuscular HGB Conc 32.6 g/dL (31.6-35.5); Mean Corpuscular Hemoglobin 30.6 pg (28.0-33.3); Mean Corpuscular Volume 93.9 fL (83.0-100.0); Mean Platelet Volume 10.6 fL (9.4-12.4); Platelet Count 363 K/mcL (140-400); Potassium 4.7 mEq/L (3.5-5.1); Red Blood Count 2.78 M/mcL (4.19-5.50); Red Cell Distribution Width 15.1 % (11.5-14.5); White Blood Count 11.2 K/mcL (4.3-11.1)
[2020-10-21] MEDS: Budesonide/Formoterol 160/4.5 1 PUFF INH IH SCH ×2 (07:19→19:41)
[2020-10-21] MEDS: amLODIPine 5 MG TABLET PO SCH (07:22)
[2020-10-21] MEDS: levETIRAcetam 250 MG TABLET PO SCH ×2 (07:22→20:02)
[2020-10-21] MEDS: carvediloL 25 MG TABLET PO SCH ×2 (07:22→17:38)
[2020-10-21] MEDS: Gabapentin 400 MG CAPSULE PO SCH ×3 (07:22→20:02)
[2020-10-21] MEDS: MethylPREDNISolone 40 MG/ML VIAL IVP SCH (07:22)
[2020-10-21] MEDS: Insulin LISPRO 300 UNITS/3 ML VIAL SUBQ SCH ×4 (07:23→20:03)
[2020-10-21] MEDS: Albumin 25% 25gram/100mL 25 GM/100 ML IV.SOLN IVC SCH ×2 (07:46→12:12)
[2020-10-21] MEDS ORDERED: Perflutren Lipid Microsphere 1.3 ML in 0.9 % Sodium Chloride 8.7 ML IVP PRN (08:21)
[2020-10-21] MEDS ORDERED: Furosemide 40 MG TABLET PO SCH (09:00)
[2020-10-21] MEDS: Apixaban 5 MG TABLET PO SCH (20:02)
[2020-10-21] MEDS: QUEtiapine Fumarate 100 MG TABLET PO SCH (20:02)
[2020-10-21] MEDS: Insulin DETEMIR 100 UNIT/ML X5UNITS SUBQ SCH (20:03)
[2020-10-22] MEDS: Insulin LISPRO 300 UNITS/3 ML VIAL SUBQ SCH ×5 (01:30→20:25)
[2020-10-22 02:38] LABS: Hematocrit 24.5 % (37.5-50.1); Hemoglobin 7.7 g/dL (12.9-16.9); Mean Corpuscular HGB Conc 31.4 g/dL (31.6-35.5); Mean Corpuscular Hemoglobin 29.7 pg (28.0-33.3); Mean Corpuscular Volume 94.6 fL (83.0-100.0); Mean Platelet Volume 10.5 fL (9.4-12.4); Platelet Count 374 K/mcL (140-400); Red Blood Count 2.59 M/mcL (4.19-5.50); Red Cell Distribution Width 15.6 % (11.5-14.5); White Blood Count 15.3 K/mcL (4.3-11.1)
[2020-10-22 02:59] LABS: Calcium 8.1 mg/dL (8.6-10.3); Potassium 4.7 mEq/L (3.5-5.1)
[2020-10-22] MEDS ORDERED: Furosemide 20 MG/2 ML VIAL IVP ONE ×2 (03:24→17:00)
[2020-10-22] MEDS ORDERED: 0.9 % Sodium Chloride 250 ML IVC SCH (03:30)
[2020-10-22] MEDS: Ipratropium/Albuterol Neb 3 ML IH SCH ×6 (03:30→23:34)
[2020-10-22 06:41] LABS: Hematocrit 23.5 % (37.5-50.1); Hemoglobin 7.5 g/dL (12.9-16.9)
[2020-10-22] MEDS: Budesonide/Formoterol 160/4.5 1 PUFF INH IH SCH ×2 (07:37→19:58)
[2020-10-22] MEDS: carvediloL 25 MG TABLET PO SCH ×2 (08:32→16:44)
[2020-10-22] MEDS: predniSONE 20 MG TABLET PO SCH (08:32)
[2020-10-22] MEDS: Apixaban 5 MG TABLET PO SCH ×2 (08:33→20:25)
[2020-10-22] MEDS: levETIRAcetam 250 MG TABLET PO SCH ×2 (08:33→20:25)
[2020-10-22] MEDS: Gabapentin 400 MG CAPSULE PO SCH ×3 (08:33→20:24)
[2020-10-22] MEDS: amLODIPine 5 MG TABLET PO SCH (08:33)
[2020-10-22] MEDS ORDERED: levoFLOXacin 750 MG/150 ML 750 MG/150 ML BAG IVPB SCH (09:00)
[2020-10-22 14:04] LABS: Hematocrit 29.1 % (37.5-50.1)
[2020-10-22 14:06] LABS: Hemoglobin 9.2 g/dL (12.9-16.9)
[2020-10-22] MEDS ORDERED: Furosemide 40 MG/4 ML VIAL IVP ONE (14:18)
[2020-10-22] MEDS: Furosemide 40 MG/4 ML VIAL IVP SCH (20:24)
[2020-10-22] MEDS: Insulin DETEMIR 100 UNIT/ML X5UNITS SUBQ SCH (20:25)
[2020-10-22] MEDS: QUEtiapine Fumarate 100 MG TABLET PO SCH (20:25)
[2020-10-23] MEDS: Ipratropium/Albuterol Neb 3 ML IH SCH ×6 (04:47→23:51)
[2020-10-23] MEDS: Budesonide/Formoterol 160/4.5 1 PUFF INH IH SCH ×2 (07:55→20:05)
[2020-10-23 08:08] LABS: Hematocrit 28.3 % (37.5-50.1); Hemoglobin 9.3 g/dL (12.9-16.9); Mean Corpuscular HGB Conc 32.9 g/dL (31.6-35.5); Mean Corpuscular Hemoglobin 30.2 pg (28.0-33.3); Mean Corpuscular Volume 91.9 fL (83.0-100.0); Mean Platelet Volume 10.5 fL (9.4-12.4); Platelet Count 383 K/mcL (140-400); Red Blood Count 3.08 M/mcL (4.19-5.50); Red Cell Distribution Width 15.1 % (11.5-14.5); White Blood Count 13.2 K/mcL (4.3-11.1)
[2020-10-23 08:27] LABS: Calcium 8.3 mg/dL (8.6-10.3); Potassium 3.9 mEq/L (3.5-5.1)
[2020-10-23] MEDS ORDERED: Pantoprazole 40 MG VIAL IVP SCH (09:00)
[2020-10-23] MEDS: Furosemide 40 MG/4 ML VIAL IVP SCH ×2 (09:40→20:44)
[2020-10-23] MEDS: Insulin LISPRO 300 UNITS/3 ML VIAL SUBQ SCH ×4 (09:40→20:46)
[2020-10-23] MEDS: Gabapentin 400 MG CAPSULE PO SCH ×3 (09:41→20:43)
[2020-10-23] MEDS: amLODIPine 5 MG TABLET PO SCH (09:41)
[2020-10-23] MEDS: levETIRAcetam 250 MG TABLET PO SCH ×2 (09:41→20:43)
[2020-10-23] MEDS: Apixaban 5 MG TABLET PO SCH ×2 (09:41→20:43)
[2020-10-23] MEDS: predniSONE 20 MG TABLET PO SCH (09:41)
[2020-10-23] MEDS: carvediloL 25 MG TABLET PO SCH ×2 (09:41→15:57)
[2020-10-23] MEDS: QUEtiapine Fumarate 100 MG TABLET PO SCH (20:43)
[2020-10-23] MEDS: Insulin DETEMIR 100 UNIT/ML X5UNITS SUBQ SCH (20:49)
[2020-10-24] MEDS: Ipratropium/Albuterol Neb 3 ML IH SCH ×6 (03:58→23:28)
[2020-10-24 06:11] LABS: Hematocrit 27.4 % (37.5-50.1); Mean Corpuscular HGB Conc 32.8 g/dL (31.6-35.5); Mean Corpuscular Hemoglobin 29.8 pg (28.0-33.3); Mean Corpuscular Volume 90.7 fL (83.0-100.0); Mean Platelet Volume 10.3 fL (9.4-12.4); Platelet Count 385 K/mcL (140-400); Red Blood Count 3.02 M/mcL (4.19-5.50); Red Cell Distribution Width 14.8 % (11.5-14.5); White Blood Count 15.4 K/mcL (4.3-11.1)
[2020-10-24 06:28] LABS: Calcium 8.2 mg/dL (8.6-10.3); Potassium 3.9 mEq/L (3.5-5.1)
[2020-10-24] MEDS: Budesonide/Formoterol 160/4.5 1 PUFF INH IH SCH ×2 (07:30→20:30)
[2020-10-24] MEDS: Insulin LISPRO 300 UNITS/3 ML VIAL SUBQ SCH ×4 (07:58→20:45)
[2020-10-24] MEDS: Apixaban 5 MG TABLET PO SCH ×2 (07:59→20:44)
[2020-10-24] MEDS: Furosemide 40 MG/4 ML VIAL IVP SCH ×2 (07:59→20:44)
[2020-10-24] MEDS: predniSONE 20 MG TABLET PO SCH (07:59)
[2020-10-24] MEDS: Gabapentin 400 MG CAPSULE PO SCH ×3 (07:59→20:44)
[2020-10-24] MEDS: amLODIPine 5 MG TABLET PO SCH (07:59)
[2020-10-24] MEDS: levETIRAcetam 250 MG TABLET PO SCH ×2 (07:59→20:44)
[2020-10-24] MEDS: carvediloL 25 MG TABLET PO SCH ×2 (07:59→16:14)
[2020-10-24] MEDS: QUEtiapine Fumarate 100 MG TABLET PO SCH (20:44)
[2020-10-24] MEDS ORDERED: Insulin DETEMIR 100 UNIT/ML X5UNITS SUBQ SCH (21:00)
[2020-10-25 02:53] LABS: Hematocrit 27.4 % (37.5-50.1); Hemoglobin 8.9 g/dL (12.9-16.9); Mean Corpuscular HGB Conc 32.5 g/dL (31.6-35.5); Mean Corpuscular Hemoglobin 29.9 pg (28.0-33.3); Mean Corpuscular Volume 91.9 fL (83.0-100.0); Mean Platelet Volume 10.7 fL (9.4-12.4); Platelet Count 407 K/mcL (140-400); Red Blood Count 2.98 M/mcL (4.19-5.50); Red Cell Distribution Width 14.6 % (11.5-14.5); White Blood Count 16.1 K/mcL (4.3-11.1)
[2020-10-25 03:07] LABS: Calcium 8.1 mg/dL (8.6-10.3); Potassium 4.2 mEq/L (3.5-5.1)
[2020-10-25] MEDS: Ipratropium/Albuterol Neb 3 ML IH SCH ×5 (03:58→20:09)
[2020-10-25] MEDS: Budesonide/Formoterol 160/4.5 1 PUFF INH IH SCH (07:40)
[2020-10-25] MEDS: Gabapentin 400 MG CAPSULE PO SCH ×2 (07:55→14:09)
[2020-10-25] MEDS: levETIRAcetam 250 MG TABLET PO SCH (07:55)
[2020-10-25] MEDS: amLODIPine 5 MG TABLET PO SCH (07:55)
[2020-10-25] MEDS: Furosemide 40 MG/4 ML VIAL IVP SCH (07:56)
[2020-10-25] MEDS: Insulin LISPRO 300 UNITS/3 ML VIAL SUBQ SCH ×3 (07:56→17:16)
[2020-10-25] MEDS: Apixaban 5 MG TABLET PO SCH (07:56)
[2020-10-25] MEDS: carvediloL 25 MG TABLET PO SCH ×2 (07:56→17:18)
[2020-10-25] MEDS ORDERED: predniSONE 20 MG TABLET PO SCH (09:00)
[2020-10-25] MEDS ORDERED: polyethylene glycoL 3350 17 GM POWD.PACK PO SCH (09:00)
[2020-10-25 16:50] VITALS: BP 142/71
== END 2020-10-25 20:00 | disposition short-term general hospital (02) | DRG 177 ==
LOC: 2ANU → SUATTDRO 23:44
PROVIDERS: ADMIT Internal Medicine; ATTEND Internal Medicine
PROC: ENDOBRF (2020-10-14 09:30)

== ENCOUNTER 2021-04-14 09:06 | Observation (INO) ==
[2021-04-14] MEDS ORDERED: Naloxone 0.4 MG/ML INJ IVP PRN (14:13)
[2021-04-14] MEDS ORDERED: Acetaminophen 325 MG TABLET PO PRN (16:28)
[2021-04-14] MEDS: *HR* HYDROcodone/Acet 5/325 mg TABLET PO PRN (17:34)
[2021-04-14] MEDS ORDERED: Sennosides/Docusate Sodium TABLET PO PRN (17:55)
[2021-04-14] MEDS ORDERED: Ascorbic Acid 500 MG TABLET PO SCH (19:00)
[2021-04-14] MEDS: carvediloL 25 MG TABLET PO SCH (20:09)
[2021-04-14] MEDS: Gabapentin 300 MG CAPSULE PO SCH (20:09)
[2021-04-14] MEDS: Furosemide 20 MG TABLET PO SCH (20:10)
[2021-04-14] MEDS: Budesonide/Formoterol 80/4.5 1 PUFF INH IH SCH (20:26)
[2021-04-14] MEDS ORDERED: Dextrose Gel 15 GM/37.5 ML TUBE PO PRN ×2 (21:06)
[2021-04-14] MEDS ORDERED: D5% in Water 1,000 ML IVC PRN (21:06)
[2021-04-14] MEDS ORDERED: *HR* Dextrose 50 % in Water (Vial) 50 ML VIAL IVP PRN (21:06)
[2021-04-14] MEDS ORDERED: Insulin LISPRO 300 UNITS/3 ML VIAL SUBQ ONE (22:45)
[2021-04-14] MEDS: Apixaban 5 MG TABLET PO SCH (22:50)
[2021-04-15 05:56] LABS: Basophils % 0.2 %; Hematocrit 30.3 % (37.5-50.1); Hemoglobin 9.6 g/dL (12.9-16.9); Lymphocytes # 1.3 K/mcL (0.6-4.6); Lymphocytes % 10.4 %; Mean Corpuscular HGB Conc 31.7 g/dL (31.6-35.5); Mean Corpuscular Hemoglobin 29.1 pg (28.0-33.3); Mean Corpuscular Volume 91.8 fL (83.0-100.0); Mean Platelet Volume 9.9 fL (9.4-12.4); Monocytes # 1.7 K/mcL (0.0-1.3); Platelet Count 339 K/mcL (140-400); Red Cell Distribution Width 18.2 % (11.5-14.5); Segmented Neutrophils % 74.4 %; White Blood Count 12.1 K/mcL (4.3-11.1)
[2021-04-15 06:16] LABS: Calcium 7.9 mg/dL (8.6-10.3)
[2021-04-15 07:50] LABS: Adenovirus Not Detected (Not Detect); Bordetella Pertussis Not Detected (Not Detect); Chlamydophila pneumoniae Not Detected (Not Detect); Coronavirus 229E Not Detected (Not Detect); Coronavirus HKU1 Not Detected (Not Detect); Coronavirus NL63 Not Detected (Not Detect); Coronavirus OC43 Not Detected (Not Detect); Human Metapneumovirus Not Detected (Not Detect); Human Rhinovirus/Enterovirus Not Detected (Not Detect); Influenza A Subtype 2009 H1 Not Detected (Not Detect); Influenza B Not Detected (Not Detect); Mycoplasma pneumoniae Not Detected (Not Detect); Parainfluenza Virus 1 Not Detected (Not Detect); Parainfluenza Virus 2 Not Detected (Not Detect); Parainfluenza Virus 3 Not Detected (Not Detect); Parainfluenza Virus 4 Not Detected (Not Detect); Respiratory Syncytial Virus Not Detected (Not Detect); SARS-CoV-2 Not Detected (Not Detect)
[2021-04-15] MEDS: carvediloL 25 MG TABLET PO SCH (08:16)
[2021-04-15] MEDS: Budesonide/Formoterol 80/4.5 1 PUFF INH IH SCH (08:16)
[2021-04-15] MEDS: Apixaban 5 MG TABLET PO SCH (08:17)
[2021-04-15] MEDS: Gabapentin 300 MG CAPSULE PO SCH ×2 (08:17→15:32)
[2021-04-15] MEDS: Insulin LISPRO 300 UNITS/3 ML VIAL SUBQ SCH ×3 (08:18→15:33)
[2021-04-15] MEDS ORDERED: amLODIPine 5 MG TABLET PO SCH (09:00)
[2021-04-15] MEDS ORDERED: *HR* Labetalol 20 MG/4 ML SYRINGE IVP PRN (09:34)
[2021-04-15 12:01] VITALS: BP 130/66; PULSE 74; TEMP 97.5; O2SAT 90
[2021-04-15] MEDS: *HR* HYDROcodone/Acet 5/325 mg TABLET PO PRN (12:04)
[2021-04-15] MEDS: Furosemide 20 MG TABLET PO SCH (18:33)
[2021-04-15] MEDS ORDERED: Insulin LISPRO 300 UNITS/3 ML VIAL SUBQ SCH (21:00)
== END 2021-04-15 20:18 | disposition home health service (06) ==
LOC: CDU
PROVIDERS: ADMIT Internal Medicine; ATTEND Internal Medicine